=== PATIENT | female | born 2000 | race Caucasian/White ===

== ENCOUNTER 2023-12-22 12:10 | Emergency (ER) | payer MEDICAID, SELFPAY ==
[2023-12-22 12:16] VITALS: BP 130/81; PULSE 100; RESP 18; TEMP 36.6; O2SAT 100; BMI 34.8
[2023-12-22] MEDS: 0.9 % SODIUM CHLORIDE 1,000 ML 999 ML IV (13:07)
[2023-12-22] MEDS: ONDANSETRON PF 4 MG/2 ML VIAL IV (13:07)
[2023-12-22 13:09] LABS: Basophils Percent Auto 0.1 % (0.2-2.0); Eosinophils Percent Auto 0.1 % (0.9-7.0); Hematocrit 39.1 % (36.0-48.0); Hemoglobin 12.6 g/dL (12.0-16.0); Immature Granulocytes Abs Auto 0.04 10^3/uL (0.00-0.03); Immature Granulocytes Pct Auto 0.3 % (0.0-0.5); Lymphocytes Absolute Auto 1.1 10^3/uL (1.2-3.8); Lymphocytes Percent Auto 7.9 % (20.5-60.0); Mean Corpuscular HGB Conc 32.2 g/dL (29.9-35.2); Mean Corpuscular Hemoglobin 26.3 pg (26.7-34.0); Mean Corpuscular Volume 81.5 fL (81.0-99.0); Mean Platelet Volume 9.4 fL (9.5-13.5); Monocytes Absolute Auto 0.7 10^3/uL (0.3-0.8); Monocytes Percent Auto 4.8 % (1.7-12.0); Neutrophils Absolute Auto 12.1 10^3/uL (1.4-6.5); Neutrophils Percent Auto 86.8 % (43.0-75.0); Platelet Count 388 10^3/uL (150-450); Red Cell Distribution Width 13.5 % (11.0-15.0); White Blood Count 13.9 10^3/uL (4.0-11.0)
[2023-12-22 13:10] LABS: Bilirubin Urine SMALL (NEGATIVE); Blood Urine NEGATIVE (NEGATIVE); Clarity Urine CLEAR (CLEAR); Color Urine YELLOW (YELLOW); Glucose Urine UA NEGATIVE (NEGATIVE); Ketones Urine >=80 mg/dL (NEGATIVE); Leukocyte Esterase Urine NEGATIVE (NEGATIVE); Nitrite Urine NEGATIVE (NEGATIVE); Protein Urine 30 mg/dL (NEG/TRACE); Specific Gravity Urine >=1.030 (1.005-1.025)
[2023-12-22 13:14] LABS: Urine Microscopic Indicated YES
[2023-12-22 13:28] LABS: Alanine Aminotransferase 26 U/L (14-59); Albumin Globulin Ratio 0.9; Albumin Level 3.8 g/dL (3.4-5.0); Alkaline Phosphatase 84 U/L (46-116); Anion Gap 15.3; Aspartate Amino Transferase 14 U/L (15-37); BUN Creatinine Ratio 9.2; Carbon Dioxide 24.9 mmol/L (21.0-32.0); Chloride 97 mmol/L (98-107); Estimated GFR (African America >60 (>=60); Estimated GFR (Non-African Ame >60 (>=60); Globulin 4.3 g/dL; Glucose 97 mg/dL (74-106); Magnesium 1.9 mg/dL (1.8-2.4); Potassium 3.2 mmol/L (3.5-5.1); Sodium 134 mmol/L (136-145); Total Protein 8.1 g/dL (6.4-8.2)
[2023-12-22 13:34] LABS: HCG Qualitative POSITIVE (NEGATIVE)
[2023-12-22 13:38] LABS: Amphetamine Screen Urine NEGATIVE (NEGATIVE); Barbiturates Screen Urine NEGATIVE (NEGATIVE); Benzodiazepines Screen Urine NEGATIVE (NEGATIVE); Buprenorphine Screen Urine NEGATIVE (NEGATIVE); Cannabinoid Screen Urine POSITIVE (NEGATIVE); Cocaine Screen Urine NEGATIVE (NEGATIVE); Methadone Screen Urine NEGATIVE (NEGATIVE); Methamphetamines Screen Urine NEGATIVE (NEGATIVE); Opiate Screen Urine NEGATIVE (NEGATIVE); Oxycodone Screen Urine NEGATIVE (NEGATIVE); Phencyclidine Screen Urine NEGATIVE (NEGATIVE); Tricyclic Antidepressant Urine NEGATIVE (NEGATIVE)
[2023-12-22 14:03] LABS: RBC Urine NONE SEEN #/HPF (0-2); WBC Urine 0-2 #/HPF (NONE SEEN)
[2023-12-22 14:04] LABS: Bacteria Urine MODERATE #/HPF (NONE SEEN); Cast Seen? NONE SEEN #/LPF (NONE SEEN); Crystals Seen? None Seen #/HPF (None Seen); Mucus Urine MODERATE (NONE SEEN); Squamous Epithelial Cell Urine MANY #/LPF (NONE/RARE); Urine Culture Indicated YES
--- NOTE | 2023-12-22 15:08 | ED_ITS ---
HPI - General Adult General Chief complaint: Nausea/Vomiting/Diarrhea Stated complaint: NAUSEA/VOMITING Time Seen by Provider: 12/22/23 12:20 Source: patient Mode of arrival: walk-in Limitations: no limitations History of Present Illness HPI narrative: Patient with nausea, vomiting and diffuse abdominal pain for the last few days presents for evaluation. No fever or chills. No urinary symptoms or flank pain. Does have some suprapubic pain. Loose BMs last 3 days. Uncertain about because she has irregular periods. Related Data Previous Rx's Medication Instructions Recorded ondansetron 4 mg disintegrating 4 mg PO Q6H PRN nausea and 12/22/23 tablet vomiting #20 tabs promethazine 25 mg tablet 25 mg PO Q6H PRN nausea and 12/22/23 vomiting #30 tabs Allergies Allergy/AdvReac Type Severity Reaction Status Date / Time codeine Allergy Unknown Verified 12/22/23 12:16 Exam Narrative Exam Narrative: Nurses notes and vital signs reviewed and patient is not hypoxic. Afebrile General: Well-appearing and in no apparent distress. Skin: Warm, dry, no pallor noted. No rash. Head: Normocephalic, atraumatic. Neck: Supple, non-tender. Eye: Pupils are equal, round and EOMI. No scleral icterus. Cardiovascular: Borderline tachycardia. Respiratory: No accessory muscle use or respiratory distress. Lungs are clear to auscultation, no wheezing, rales or rhonchi Back: No CVA tenderness Musculoskeletal: normal ROM, no calf or popliteal tenderness, no lower extremity edema/swelling GI: Abdomen is soft, non-distended. Normal bowel sounds. No masses appreciated. Suprapubic and upper abdominal tenderness to palpation. No rebound, guarding, or rigidity noted. Neurological: A&O x4. No cranial nerve dysfunction observed. No truncal ataxia. Moves all extremities. Sensation intact. Psychiatric: Cooperative and interactive. Normal mood and affect. Constitutional Vital Signs, click to edit/add: Last Vital Signs Temp 97.9 F 12/22/23 12:16 Pulse 100 H 12/22/23 12:16 Resp 18 12/22/23 12:16 BP 130/81 12/22/23 12:16 Pulse Ox 100 12/22/23 12:16 O2 Del Method Room Air 12/22/23 12:16 Course Vital Signs Vital signs: Vital Signs Temperature 97.9 F 12/22/23 12:16 Pulse Rate 100 H 12/22/23 12:16 Respiratory Rate 18 12/22/23 12:16 Blood Pressure 130/81 12/22/23 12:16 Pulse Oximetry 100 12/22/23 12:16 Oxygen Delivery Method Room Air 12/22/23 12:16 Temperature 97.9 F 12/22/23 12:16 Pulse Rate 100 H 12/22/23 12:16 Respiratory Rate 18 12/22/23 12:16 Blood Pressure 130/81 12/22/23 12:16 Pulse Oximetry 100 12/22/23 12:16 Oxygen Delivery Method Room Air 12/22/23 12:16 Medical Decision Making MDM Narrative Medical decision making narrative: Peripheral IV established blood drawn and sent for testing. Patient was ordered to receive normal saline IV fluid and IV Zofran. Abdominal x-rays were initially ordered but the patient's qualitative hCG test was positive. Abdominal x-rays canceled and quantitative hCG obtained. Quant was [phone]. US pelvis obtained - fetus by measurement is 6wk 1day. Since patient uncertain of LMP we will use this to give YUSEF 08/12/24 Urine tox screen positive for cannabinoid products. Patient discharged home with prescription for Zofran - she got notice that it was expensive so I also prescribed phenergan. She will see Dr Cordero for follow up. Lab Data Lab results reviewed: Yes I reviewed the patient's lab results Labs: Lab Results 12/22/23 12/22/23 Range/Units 12:24 12:57 WBC 13.9 H (4.0-11.0) 10^3/uL RBC 4.80 (4.20-5.40) 10^6/uL Hgb 12.6 (12.0-16.0) g/dL Hct 39.1 (36.0-48.0) % MCV 81.5 (81.0-99.0) fL MCH 26.3 L (26.7-34.0) pg MCHC 32.2 (29.9-35.2) g/dL RDW 13.5 (11.0-15.0) % Plt Count 388 (150-450) 10^3/uL MPV 9.4 L (9.5-13.5) fL Neut % (Auto) 86.8 H (43.0-75.0) % Lymph % (Auto) 7.9 L (20.5-60.0) % Dick[place] % (Auto) 4.8 (1.7-12.0) % Eos % (Auto) 0.1 L (0.9-7.0) % Baso % (Auto) 0.1 L (0.2-2.0) % Neut # (Auto) 12.1 H (1.4-6.5) 10^3/uL Lymph # (Auto) 1.1 L (1.2-3.8) 10^3/uL Dick[place] # (Auto) 0.7 (0.3-0.8) 10^3/uL Eos # (Auto) 0.0 (0.0-0.7) 10^3/uL Baso # (Auto) 0.0 (0.0-0.1) 10^3/uL Abs Immat Gran (auto) 0.04 H (0.00-0.03) 10^3/uL Imm/Tot Granulo (auto) 0.3 (0.0-0.5) % Sodium 134 L (136-145) mmol/L Potassium 3.2 L (3.5-5.1) mmol/L Chloride 97 L (98-107) mmol/L Carbon Dioxide 24.9 (21.0-32.0) mmol/L Anion Gap 15.3 BUN 6.0 L (7.0-18.0) mg/dL Creatinine 0.65 (0.55-1.02) mg/dL Est GFR ( Amer) >60 (>=60) Est GFR (Non-Af Amer) >60 (>=60) BUN/Creatinine Ratio 9.2 Glucose 97 (74-106) mg/dL Calcium 9.0 (8.5-10.1) mg/dL Magnesium 1.9 (1.8-2.4) mg/dL Total Bilirubin 1.0 (0.2-1.0) mg/dL AST 14 L (15-37) U/L ALT 26 (14-59) U/L Alkaline Phosphatase 84 (46-116) U/L Total Protein 8.1 (6.4-8.2) g/dL Albumin 3.8 (3.4-5.0) g/dL Globulin 4.3 g/dL Albumin/Globulin Ratio 0.9 Lipase 20.0 (16.0-77.0) U/L Serum HCG, Qual Positive A (NEGATIVE) HCG, Quant 77637 mIU/mL Urine Color Yellow (YELLOW) Urine Clarity Clear (CLEAR) Urine pH 6.0 (5.0-9.0) Ur Specific [place] >=1.030 A (1.005-1.025) Urine Protein 30 A (NEG/TRACE) mg/dL Urine Glucose (UA) Negative (NEGATIVE) mg/dL Urine Ketones >=80 A (NEGATIVE) mg/dL Urine Occult Blood Negative (NEGATIVE) Urine Nitrite Negative (NEGATIVE) Urine Bilirubin Small A (NEGATIVE) Urine Urobilinogen 1.0 (0.2-1.0) EU/dL Ur Leukocyte Esterase Negative (NEGATIVE) Urine RBC None seen (0-2) #/HPF Urine WBC 0-2 A (NONE SEEN) #/HPF Ur Squamous Epith Cells Many A (NONE/RARE) #/LPF Urine Crystals None seen (None Seen) #/HPF Urine Bacteria Moderate A (NONE SEEN) #/HPF Urine Casts None seen (NONE SEEN) #/LPF Urine Mucus Moderate A (NONE SEEN) Ur Culture Indicated? Yes Urine Opiates Screen Negative (NEGATIVE) Ur Buprenorphine Scrn Negative (NEGATIVE) Ur Oxycodone Screen Negative (NEGATIVE) Urine Methadone Screen Negative (NEGATIVE) Ur Barbiturates Screen Negative (NEGATIVE) U Tricyclic Antidepress Negative (NEGATIVE) Ur Phencyclidine Scrn Negative (NEGATIVE) Ur Amphetamines Screen Negative (NEGATIVE) U Methamphetamines Scrn Negative (NEGATIVE) U Benzodiazepines Scrn Negative (NEGATIVE) Urine Cocaine Screen Negative (NEGATIVE) U Cannabinoids Screen Positive A (NEGATIVE) Discharge Plan Discharge Stand Alone Forms: Portal Instructions Chief Complaint: Nausea/Vomiting/Diarrhea Clinical Impression: Vomiting, Patient Disposition: Home, Self-Care Time of Disposition Decision: 15:14 Prescriptions / Home Meds: New ondansetron 4 mg tablet,disintegrating 4 mg PO Q6H PRN (Reason: nausea and vomiting) Qty: 20 0RF promethazine 25 mg tablet 25 mg PO Q6H PRN (Reason: nausea and vomiting) Qty: 30 0RF Instructions: (ED), Acute Nausea and Vomiting (ED) Referrals: ADIEL RAMOS [Primary Care Provider] - 1 week
[2023-12-22 15:09] LABS: HCG Quantitative 62423 mIU/mL
--- NOTE | 2023-12-22 15:25 | US_ITS ---
[address] [address] Patient Name: RON DAWSON MRN: [id number] date: 2000 Sex: F Assigned Patient Location: ER Current Patient Location: Accession/Order Number: [id number] Exam Date: 12/22/2023 15:47 Report Date: 12/22/2023 16:45 At the request of: KARLA BOUDREAUX Procedure: US OB transvaginal EXAMINATION: US OB transvaginal HISTORY: positive test, abd pain TECHNIQUE: Grayscale and color Doppler sonographic evaluation of the uterus and adnexa was performed utilizing a transvaginal approach only. COMPARISON: None. FINDINGS: Uterus: Size: Normal Orientation:Retroverted Intrauterine Gestational Sac: Present Yolk Sac: Present Pole: Present. [place]-rump length measures 0.5 cm, 6 weeks 1 day with YUSEF of 08/15/2024. Cardiac Activity: Present Subchorionic hemorrhage: none Cervix: Closed Right adnexa:Right ovary is unremarkable measuring 3 x 2 x 2.1 cm. Left adnexa:Left ovary is unremarkable measuring 2.2 x 1.2 x 1.8 cm. Free fluid:Trace physiologic free fluid in the pelvis. . US/US OB transvaginal IMPRESSION: 1. Single, living, intrauterine with estimated age of 6 weeks 1 day based on crown-rump length. No gross complication. The patient should return for full anatomical screening study at 20 weeks gestation. Electronically authenticated by: NICOLE YADAV Date: 12/22/2023 16:45
== END 2023-12-22 16:29 | disposition home or self-care (01) ==
PROVIDERS: Emergency Provider Emergency Medicine; PCP Nurse Practitioner Family
DX: O26.891 Other specified pregnancy related conditions, first trimester (principal); R11.10 Vomiting, unspecified; R82.5 Elevated urine levels of drugs, medicaments and biological substances; Z3A.01 Less than 8 weeks gestation of pregnancy
CPT/HCPCS: 36415; 76817; 80053; 80307; 81001; 83690; 83735; 84702; 84703; 85025; 87086; 87507; 96361; 96374; 99285

== ENCOUNTER 2024-02-09 12:00 | Outpatient (OUT) | payer MEDICAID, SELFPAY ==
[2024-02-09 12:40] LABS: Basophils Percent Auto 0.4 % (0.2-2.0); Eosinophils Absolute Auto 0.1 10^3/uL (0.0-0.7); Eosinophils Percent Auto 1.5 % (0.9-7.0); Hematocrit 34.3 % (36.0-48.0); Hemoglobin 11.1 g/dL (12.0-16.0); Immature Granulocytes Abs Auto 0.02 10^3/uL (0.00-0.03); Immature Granulocytes Pct Auto 0.2 % (0.0-0.5); Lymphocytes Absolute Auto 1.6 10^3/uL (1.2-3.8); Mean Corpuscular HGB Conc 32.4 g/dL (29.9-35.2); Mean Corpuscular Hemoglobin 26.4 pg (26.7-34.0); Mean Corpuscular Volume 81.7 fL (81.0-99.0); Mean Platelet Volume 9.7 fL (9.5-13.5); Monocytes Absolute Auto 0.6 10^3/uL (0.3-0.8); Monocytes Percent Auto 6.7 % (1.7-12.0); Neutrophils Absolute Auto 6.8 10^3/uL (1.4-6.5); Neutrophils Percent Auto 74.2 % (43.0-75.0); Platelet Count 305 10^3/uL (150-450); Red Cell Distribution Width 13.7 % (11.0-15.0); White Blood Count 9.1 10^3/uL (4.0-11.0)
[2024-02-09 12:54] LABS: Estimated Average Glucose 105 mg/dL; Glycohemoglobin A1C 5.3 % (4.5-6.2)
[2024-02-09 16:19] LABS: BOX Test Sent Out DONE
[2024-02-10 06:10] LABS: Rubella Antibodies, IgG 4.05 index (Immune >0.99)
[2024-02-10 07:09] LABS: HBsAg Screen Negative (Negative); HCV Ab Non Reactive (Non Reactive); HIV Ab/p24 Ag Screen Non Reactive (Non Reactive)
[2024-02-10 12:10] LABS: Rapid Plasma Reagin, Quant Non Reactive titer (NonRea<1:1)
== END 2024-02-09 12:01 | disposition home or self-care (01) ==
LOC: LAB 12:00
PROVIDERS: PCP Nurse Practitioner Family; Visit Provider Obstetrics & Gynecology
DX: Z36.0 Encounter for antenatal screening for chromosomal anomalies (principal); N92.6 Irregular menstruation, unspecified
CPT/HCPCS: 36415; 83036; 85025; 86592; 86762; 86803; 86850; 86900; 86901; 87086; 87340; 87389

== ENCOUNTER 2024-03-12 21:22 | Outpatient (REF) | payer MEDICAID, SELFPAY ==
--- OUTSIDE RECORDS SUMMARY | 2024-03-12 21:27 | XMS_ITS | CCD ---
Author Organization [facility] CliniSyfl Care Team Providers Care Adolescent Coordinator Name Role Phone Sandy Camp Unavailable DO Sandy Camp Attending Provider LANCE Ramos Primary Care Provider [phone] Joe Thomas Unavailable [phone] LANCE Ramos Shasha Ashli Primary Care Provider MD Joe Thomas Attending Provider Richard Shasha Ashli Primary Care Unavailable Joe Thomas Attending UnavailJoe Navas Admitting Unavailabl e Richard, Shasha Ashli Primary Care Unavailable Joe Thomas Attending UnavailJoe Navas Admitting UnavailSandy Flood Attending Unavailable Sandy Camp Admitting Unavailable Richard, Shasha Ashli Primary Care Unavailable Richard, Shasha Ashli Primary Care Unavailable Sandy Camp Attending Unavailable Sandy Camp Admitting Unavailable RICHARD, SHASHA Primary Care Unavailable RICHARD, SHASHA Admitting Unavailable RICHARD, SHASHA Attending Unavailable SHASHA RAMOS Consulting Unavailable RICHARD, SHASHA Primary Care Unavailable CIRILO, DR SANDY [place] Consulting Unavailable SHASHA RAMOS Admitting Unavailable SHASHA RAMOS Attending Unavailable SHASHA RAMOS Consulting Unavailable RAVEN NICOLE Admitting Unavailable RICHARD, SHASHA Primary Care Unavailable RAVEN NICOLE Attending Unavailable RAVEN NICOLE Consulting Unavailable RICHARD, SHASHA Primary Care Unavailable KANIKA Phan, DR ACOSTA Admitting Unavailable CIRILO, DR SANDY [place] Consulting Unavailable KANIKA Phan, DR ACOSTA Attending Unavailable KANIKA Phan, DR ACOSTA Consulting Unavailable BENI FRASER Admitting Unavailable DR TORIN PAREDES Consulting Unavailable RICHARD, SHASHA Primary Care Unavailable BENI FRASER Attending Unavailable DR KARLA KIM Consulting Unavailable BENI FRASER Consulting Unavailable SHASHA RAMOS Primary Care Unavailable BALTAZAR VEGA Admitting Unavailable BALTAZAR VEGA Attending Unavailable BALTAZAR VEGA Consulting Unavailable CINDY DALAL Attending Unavailable Allergies Allergy Classification Reported Allergen(s) Allergy Type Date of Onset Reaction(s) Facility (6 sources) Codeine Drug Allergy Unknown Cream Style Other (1 source) Codeine Drug Allergy 05-04-[address] [facility] Repository (1 source) Codeine Drug Allergy [facility] Repository Medications Current Medications Medication Drug Class(es) Dates Sig (Normalized) Sig (Original) dicyclomine hydrochloride 20 mg oral tablet (5 sources) Anticholinergic Start: 11-28-2022 take 1 tablet by mouth every eight hours Dicyclomine HCl 20 MG 1 tablet Orally Three times a day for 30 day(s) Nov, Active Start: 05-09-2022 take 1 tablet by codi th every six hours Dicyclomine HCl 20 MG 1 tablet Orally Four times a day for 30 day(s) Apr, Active Start: 05-09-2022 take 1 tablet by codi th every twelve hours Dicyclomine HCl 20 MG 1 tablet Orally bid for 30 day(s) Apr, Active Norgestimate-Ethinyl Estradiol (2 sources) Progestin, Estrogen Start: 05-04-2022 take 1 tablet by mouth once daily Norgestimate-Ethinyl Estradiol (Marilee) 0.25-35 mg-mcg tablet Active 1 TAB PO Daily May 03, 2022 11:00pm Start: 05-04-2022 take 1 tablet by codi th once daily Norgestimate-Ethinyl Estradiol (Marilee) 0.25-35 mg-mcg tablet Active 1 TAB PO Daily May 04, 2022 12:00am meloxicam 15 mg oral tablet (2 sources) Nonsteroidal Anti-inflammatory Drug Start: 05-04-2022 Meloxicam Active 15 MG PO As Directed May 03, 2022 11:00pm ondansetron 4 mg disintegrating oral tablet (2 sources) Serotonin-3 Receptor Antagonist Start: 05-04-2022 Ondansetron Active 4 MG PO As Directed May 03, 2022 11:00pm pantoprazole 40 mg delayed release oral tablet (3 sources) Proton Pump Inhibitor Start: 05-09-2022 take 1 tablet by mouth every twelve hours Pantoprazole Sodium 40 MG 1 tablet Orally TWICE A DAY for 30 days Apr, Active Start: 05-09-2022 take 1 tablet by codi th every twenty-four hours Pantoprazole Sodium 40 MG 1 tablet Orally Once a day for 30 day(s) Apr, Active promethazine hydrochloride 25 mg oral tablet (2 sources) Phenothiazine Start: 10-20-2022 take 1 tablet by mouth every six hours Promethazine HCl 25 MG 1 tablet as needed Orally every 6 hrs for 30 day(s) Oct, Active sucralfate 1000 mg oral tablet (6 sources) Aluminum Complex Start: 05-04-2022 take 1 g by mouth three times daily Sucralfate Active 1 GM PO Three times daily May 03, 2022 11:00pm Start: 04-27-2022 take 1 tablet by codi th every eight hours Sucralfate 1 GM 1 tablet on an empty stomach Orally THREE TIMES A DAY for 30 day(s) Apr, Active Problems Active Problems Problem Classification Problem Date Documented Da te Episodic/Chronic Esophageal disorders (1 source) Gastro-esophageal reflux disease without esophagitis; Translations: [GERD WITHOUT ESOPHAGITIS] Onset: 02-11-2022 Chronic Fluid and electrolyte disorders (2 sources) Hypokalemia; Translations: [Dehydration] Onset: 11-10-2022 Episodic Nausea and vomiting (17 sources) Nausea with vomiting, unspecified; Translations: [Nausea and vomiting] Onset: 04-27-2022 Resolved: 04-27-2022 Episodic Other aftercare (1 source) halfway (current) use of hormonal contraceptives; Translations: [COAT AGENT HORMONAL CONTRACEPTIVES] Onset: 11-10-2022 Episodic Other gastrointestinal disorders (1 source) Irritable bowel syndrome with diarrhea; Translations: [IRRITABLE BOWEL SYND W/DIARRHEA] Onset: 02-11-2022 Chronic Other gastrointestinal disorders (8 sources) Diarrhea; Translations: [Diarrhea, unspecified] 05-04-2022 Episodic Other gastrointestinal disorders (5 sources) Diarrhea, unspecified; Translations: [Diarrhea] Onset: 04-27-2022 Resolved: 07-13-2022 Episodic Other and delivery including normal (6 sources) Encounter for care and examination of lactating mother; Translations: [A mother who is producing milk] Episodic Other screening for suspected conditions (not mental disorders or infectious disease) (4 sources) Encounter for screening for malignant neoplasm of cervix; Translations: [ENC SCREENING MALIG NEOPLASM CERV] Onset: 01-30-2023 Episodic Substance-related disorders (1 source) Cannabis use, unspecified, uncomplicated; Translations: [CANNABIS USE UNS UNCOMPLICATED] Onset: 11-10-2022 Episodic Unclassified (1 source) Encounter for preprocedural laboratory examination; Translations: [Encounter for preprocedural laboratory examination] Onset: 05-02-2022 Unclassified (1 source) Cyclical vomiting syndrome unrelated to migraine; Translations: [CYCLICL VOMTNG SYN UNRELTD MIGRAINE] Onset: 11-10-2022 Unclassified (1 source) CONTACT W/AND (SUSP) EXPOS COVID-19; Translations: [CONTACT W/AND (SUSP) EXPOS COVID-19] Onset: 08-04-2022 Past or Other Problems Problem Classification Problem Date Documented Da te Episodic/Chronic Abdominal pain (20 sources) Left upper quadrant pain; Translations: [Left upper quadrant pain] Onset: 02-09-2022 Resolved: 04-27-2022 Episodic Other nutritional; endocrine; and metabolic disorders (1 source) Abnormal weight loss Onset: 04-27-2022 Resolved: 04-27-2022 Episodic Viral infection (1 source) Viral infection, unspecified; Translations: [VIRAL INFECTION UNSPECIFIED] Onset: 08-04-2022 Episodic Results Test Name Value Interpretation Reference Range Facility CHLAMYDIA/GONOCOCCUS LORETO (SW AB/URINE/PAPon 02-02-2023 Chlamydia trachomatis, LORETO Negative Normal Negative [facility] Comment on above: Performed By: #### C BC #### [facility] [address] [place], [place] [address] Dr. Renata Finch Neisseria gonorrhoeae, LORETO Negative Normal Negative [facility] Comment on above: Performed By: #### C BC #### [facility] [address], [place] [address] Dr. Renata Finch VAGINITIS/VAGINOSIS DNA PROB Kar 02-01-2023 Chelle species Negative Normal Negative [facility] Comment on above: Performed By: #### C BC #### [facility] [address], [place] [address] Dr. Renata Finch Gardnerella vaginalis Negative Normal Negative [facility] Comment on above: Performed By: #### C BC #### [facility] [address], [place] [address] Dr. Renata Finch Trichomonas vaginalis Negative Normal Negative [facility] Comment on above: Performed By: #### C BC #### [facility] [address], [place] [address] Dr. Renata Finch FL esophagus ugi sm bowelon 12-05-2022 [place] esophagus ugi sm bowel [facility] [place] [address] Fluoroscopy Report Signed Patient: Marlin Hewitt MR#: [id number] : 2000 Acct:[id number] Age/Sex: 22 / F ADM Date: 12/05/22 Loc: XD Room: Type: [facility] Attending Dr: Joe Thomas MD Copies to: Joe Thomas MD Ordering Provider: Joe Thomas MD Date of Service: 12/05/22 FL/FL esophagus ugi sm bowel: Diarrhea;Nausea vomiting CLINICAL DATA: Nausea, vomiting and diarrhea for the past couple years becoming increasingly worse. Prolonged small bowel transit study last month. COMPARISON: None AIR-CONTRAST ESOPHAGRAM, UPPER GI AND SMALL BOWEL SERIES [employer] supine and upright views of the abdomen and pelvis show air and stool within the colon. There is no dilated small bowel. No free air or air-fluid levels are present. Under fluoroscopic observation, an air contrast esophagram and upper GI series was performed with unobstructed flow of barium through to small bowel. The swallowing mechanism is intact. The esophagus is normal in position and caliber. There are no masses or mucosal lesions. No hiatal hernia or dysmotility is seen. There is some contrast within the lower thoracic esophagus on the final overhead images suggesting at least mild gastroesophageal reflux. The stomach is normal in position and contour. The rugal fold pattern is normal. No masses or mucosal lesions are identified. The duodenal bulb and C-loop are within normal limits. Contrast is seen within the colon at 30 minutes. There is no small bowel dilatation. The fold patterns within the jejunum and ileum are normal. There are no masses, mucosal lesions or bowel displacement. The terminal ileum, as visualized, is unremarkable. Cumulative Air Kerma: 42.38 mGy FL/FL esophagus ugi sm bowel IMPRESSION: MILD GASTROESOPHAGEAL REFLUX. OTHERWISE WITHIN NORMAL LIMITS. Impression dictated by: Madison Sweet M.D.12/05/2022 1:15 PM Dictation Location: [facility]10 Transcribed By: [facility] 12/05/22 1315 Dictated By: Madison Sweet MD 12/05/22 1303 Signed By: 12/05/22 1315 [facility] CBC AUTO DIFFon 11-08-2022 BASO # 0.0 103/ul Normal 0.0-0.1 [facility] Comment on above: Performed By: #### U MICRO, ERUR #### [facility] [address] [place] [address] Dr. Renata Finch Basophils/100 WBC (Bld) 0.4 % Normal 0.2-2.0 [facility] Comment on above: Performed By: #### U MICRO, ERUR #### [facility] [address] [place] [address] Dr. Renata Finch EO # 0.0 103/ul Normal 0.0-0.7 [facility] Comment on above: Performed By: #### U MICRO, ERUR #### [facility] [address] [place] [address] [address] Renata Finch Eosinophils/100 WBC (Bld) 0.1 % Critically low 0.9-7.0 [facility] Comment on above: Performed By: #### U MICRO, ERUR #### [facility] [address] [address] [address] Renata Finch Erythrocyte distribution width (RBC) [Ratio] 13.6 % Normal 11.0-15.0 [facility] Comment on above: Performed By: #### U MICRO, ERUR #### [facility] [address] [place] [address] Dr. Renata Finch Hematocrit (Bld) [Volume fraction] 41.5 % Normal 36.0-48.0 [facility] Comment on above: Performed By: #### U MICRO, ERUR #### [facility] [address] [place] [address] Dr. Reanta Finch Hemoglobin (Bld) [Mass/Vol] 13.6 g/dL Normal 12.0-16.0 [facility] Comment on above: Performed By: #### U MICRO, ERUR #### [facility] [address] [place] [address] Dr. Renata Finch IG # 0.03 10e3/ul Normal 0.00-0.03 [facility] Comment on above: Performed By: #### U MICRO, ERUR #### [facility] [address] [place] [address] Dr. Renata Finch IG % 0.3 % Normal 0.0-0.5 [facility] Comment on above: Performed By: #### U MICRO, ERUR #### [facility] [address] [place] [address] Dr. Reanta Finch LYMPH # 1.7 103/ul Normal 1.2-3.8 [facility] Comment on above: Performed By: #### U MICRO, ERUR #### [facility] [address] [place] [address] Dr. Renata Finch Lymphocytes/100 WBC (Bld) 19.5 % Critically low 20.5-60.0 [facility] Comment on above: Performed By: #### U MICRO, ERUR #### [facility] [address] [place] [address] Dr. Renata Finch MANUAL DIFF REQ NO Normal [facility] Comment on above: Performed By: #### U MICRO, ERUR #### [facility] [address] [place] [address] Dr. Renata Finch MCH (RBC) [Entitic mass] 27.0 pg Normal 26.7-34.0 [facility] Comment on above: Performed By: #### U MICRO, ERUR #### [facility] [address] [place] [address] Dr. Renata Finch MCHC (RBC) [Mass/Vol] 32.8 g/dL Normal 29.9-35.2 [facility] Comment on above: Performed By: #### U MICRO, ERUR #### [facility] [address] [place] [address] Dr. Renata Finch MCV (RBC) [Entitic vol] 82.5 fL Normal 81.0-99.0 [facility] Comment on above: Performed By: #### U MICRO, ERUR #### [facility] [address] [place] [address] Dr. Renata Finch MONO # 0.5 103/ul Normal 0.3-0.8 [facility] Comment on above: Performed By: #### U MICRO, ERUR #### [facility] [address] [place] [address] Dr. Renata Finch Monocytes/100 WBC (Bld) 6.1 % Normal 1.7-12.0 [facility] Comment on above: Performed By: #### U MICRO, ERUR #### [facility] [address] [place] [address] Dr. Renata Finch NEUT # 6.6 103/ul Critically high 1.4-6.5 [facility] Comment on above: Performed By: #### U MICRO, ERUR #### [facility] [address] [place] [address] Dr. Renata Finch Neutrophils/100 WBC (Bld) 73.6 % Normal 43.0-75.0 [facility] Comment on above: Performed By: #### U MICRO, ERUR #### [facility] [address] [place] [address] [address] Renata Finch Platelet mean volume (Bld) [Entitic vol] 9.5 fL Normal 9.5-13.5 [facility] Comment on above: Performed By: #### U MICRO, ERUR #### [facility] [address] [place] [address] [address] Renata Finch PLT 417 103/ul Normal 150-450 [facility] Comment on above: Performed By: #### U MICRO, ERUR #### [facility] [address] [place] [address] [address] Renata Finch RBC 5.03 106/ul Normal 4.20-5.40 [facility] Comment on above: Performed By: #### U MICRO, ERUR #### [facility] [address] [place] [address] [address] Renata Finch WBC 8.9 103/ul Normal 4.0-11.0 [facility] Comment on above: Performed By: #### U MICRO, ERUR #### [facility] [address] [place] [address] [address] Renata Finch DRUG SCREEN RAPID (URINE)on 11-08-2022 AMP Negative Normal NEGATIVE [facility] Comment on above: Performed By: #### E RUR, UMICRO, DRUGRPD, PREGU #### [facility] [address] [place] [address] Dr. Renata Finch BAR Negative Normal NEGATIVE [facility] Comment on above: Performed By: #### E RUR, UMICRO, DRUGRPD, PREGU #### [facility] [address] [place] [address] Dr. Renata Finch BUP Negative Normal NEGATIVE [facility] Comment on above: Performed By: #### E RUR, UMICRO, DRUGRPD, PREGU #### [facility] [address] [place] [address] Dr. Renata Finch BZO Negative Normal NEGATIVE [facility] Comment on above: Performed By: #### E RUR, UMICRO, DRUGRPD, PREGU #### [facility] [address] [place] [address] Dr. Renata Finch DOM Negative Normal NEGATIVE [facility] Comment on above: Performed By: #### E RUR, UMICRO, DRUGRPD, PREGU #### [facility] [address] [place] [address] Dr. Renata Finch CUT-OFFS SEE BELOW Normal [facility] Comment on above: Result Comment: AMP (Amphetamine): 500ng/mL, BAR (Barbituates): 200 ng/mL, BZO (Benzodiazepines): 150 ng/mL, BUP (Buprenorphine): 10 ng/mL, DOM (Cocaine): 150 ng/mL, mAMP (Methamphetamine): 500 ng/mL, MTD (Methadone): 200 ng/mL, OPI (Opiates): 100 ng/mL, OXY (Oxycodone): 100 ng/mL, PCP (Phencyclidine): 25 ng/mL, PPX (Propoxyphene): 300 ng/mL, THC (Cannabinoids): 50 ng/mL, TCA (Trycyclic Antidepressants): 300 ng/mL Performed By: #### E RUR, UMICRO, DRUGRPD, PREGU #### [facility] [address] [place] [address] Dr. Renata Finch DRUG CUT HEADER DRUG CLASS TEST SYST EM CUT-OFF CONCENTRATIONS ARE FOLLOWS: Normal [facility] Comment on above: Performed By: #### E RUR, UMICRO, DRUGRPD, PREGU #### [facility] [address] [place] [address] Dr. Renata Finch mAMP Negative Normal NEGATIVE [facility] Comment on above: Performed By: #### E RUR, UMICRO, DRUGRPD, PREGU #### [facility] [address] [place] [address] Dr. Renata Finch MTD Negative Normal NEGATIVE [facility] Comment on above: Performed By: #### E RUR, UMICRO, DRUGRPD, PREGU #### [facility] [address] [address] [address] Renata Finch OPI Negative Normal NEGATIVE [facility] Comment on above: Performed By: #### E RUR, UMICRO, DRUGRPD, PREGU #### [facility] [address] [place] [address] Dr. Renata Finch OXY Negative Normal NEGATIVE [facility] Comment on above: Performed By: #### E RUR, UMICRO, DRUGRPD, PREGU #### [facility] [address] [place] [address] Dr. Renata Finch PCP Negative Normal NEGATIVE [facility] Comment on above: Performed By: #### E RUR, UMICRO, DRUGRPD, PREGU #### [facility] [address] [address] [address] Renata Finch PPX Negative Normal NEGATIVE [facility] Comment on above: Performed By: #### E RUR, UMICRO, DRUGRPD, PREGU #### [facility] [address] [place] [address] [address] Renata Finch TCA Negative Normal NEGATIVE [facility] Comment on above: Performed By: #### E RUR, UMICRO, DRUGRPD, PREGU #### [facility] [address] [address] [address] Renata Finch THC Positive Abnormal NEGATIVE [facility] Comment on above: Performed By: #### E RUR, UMICRO, DRUGRPD, PREGU #### [facility] [address] [place] [address] Dr. Renata Finch ER URINE PROFILEon 3 Bilirubin Ql (U) MODERATE Abnormal NEGATIVE [facility] Comment on above: Performed By: #### E RUR, UMICRO, DRUGRPD, PREGU #### [facility] [address] [place] [address] Dr. Renata Finch Clarity (U) CLEAR Normal CLEAR [facility] Comment on above: Performed By: #### E RUR, UMICRO, DRUGRPD, PREGU #### [facility] [address] [place] [address] Dr. Renata Finch Color (U) YELLOW Normal YELLOW [facility] Comment on above: Performed By: #### E RUR, UMICRO, DRUGRPD, PREGU #### [facility] [address] [place] [address] Dr. Renata Finch ERUAHNeal A micrscopic examination will be performed if indicated. Normal [facility] Comment on above: Performed By: #### E RUR, UMICRO, DRUGRPD, PREGU #### [facility] [address] [place] [address] Dr. Renata Finch Glucose Ql (U) Negative Normal NEGATIVE [facility] Comment on above: Performed By: #### E RUR, UMICRO, DRUGRPD, PREGU #### [facility] [address] [place] [address] Dr. Renata Finch Hemoglobin Ql (U) TRACE-INTACT Abnormal NEGATIVE [facility] Comment on above: Performed By: #### E RUR, UMICRO, DRUGRPD, PREGU #### [facility] [address] [place] [address] Dr. Renata Finch Ketones Ql (U) >=80 Abnormal NEGATIVE [facility] Comment on above: Performed By: #### E RUR, UMICRO, DRUGRPD, PREGU #### [facility] [address] [place] [address] Dr. Renata Finch LEUKOCYTES Negative Normal NEGATIVE [facility] Comment on above: Performed By: #### E RUR, UMICRO, DRUGRPD, PREGU #### [facility] [address] [place] [address] Dr. Renata Finch Nitrite Ql (U) Negative Normal NEGATIVE [facility] Comment on above: Performed By: #### E RUR, UMICRO, DRUGRPD, PREGU #### [facility] [address] [place] [address] Dr. Renata Finch pH (U) 6.5 [pH] Normal 5-9 [facility] Comment on above: Performed By: #### E RUR, UMICRO, DRUGRPD, PREGU #### [facility] [address] [place] [address] Dr. Renata Finch SPEC GRAVITY 1.025 Normal 1.005-<=1.025 [facility] Comment on above: Performed By: #### E RUR, UMICRO, DRUGRPD, PREGU #### [facility] [address] [place] [address] Dr. Renata Finch UA PROTEIN TRACE Normal NEGATIVE/ TRACE [facility] Comment on above: Performed By: #### E RUR, UMICRO, DRUGRPD, PREGU #### [facility] [address] [place] [address] Dr. Renata Finch UR MICRO IND INDICATED Normal [facility] Comment on above: Performed By: #### E RUMIKAEL Tidwell, DRUGRPD, PREGU #### [facility] [address] [place] [address] Dr. Renata Finch Urobilinogen Qn (U) 1.0 {Gabrielle'U}/dL Normal 0.2 - 1. 0 [facility] Comment on above: Performed By: #### E MIKAEL MCDANIEL, DRUGRPD, PREGU #### [facility] [address] [place] [address] Dr. Renata Finch URon 11-08-2022 , QUAL Negative Normal NEGATIVE [facility] Comment on above: Performed By: #### E MIKAEL MCDANIEL, DRUGRPD, PREGU #### [facility] [address] [place] [address] Dr. Renata Finch PROF CHEM 8 (BAS METB)on Anion gap [Moles/Vol] 16.5 mmol/L Normal [facility] Comment on above: Performed By: #### B MP #### [facility] [address] [place] [address] Dr. Renata Finch Calcium [Mass/Vol] 9.7 mg/dL Normal 8.5-10.1 [facility] Comment on above: Performed By: #### B MP #### [facility] [address] [place] [address] Dr. Renata Finch Chloride [Moles/Vol] 97 mmol/L Critically low 98-107 [facility] Comment on above: Performed By: #### B MP #### [facility] [address] [place] [address] Dr. Renata Finch CO2 [Moles/Vol] 26.3 mmol/L Normal 21.0-32.0 [facility] Comment on above: Performed By: #### B MP #### [facility] [address] [place] [address] Dr. Renata Finch Creatinine [Mass/Vol] 0.71 mg/dL Normal 0.55-1.02 [facility] Comment on above: Performed By: #### B MP #### [facility] [address] [address] [address] Renata Finch EGFR-AF BANGLADESHI >60 Normal >=60 [facility] Comment on above: Performed By: #### B MP #### [facility] [address] [address] [address] Renata Finch EGFR-NON AF BANGLADESHI >60 Normal >=60 [facility] Comment on above: Performed By: #### B MP #### [facility] [address] [address] [address] Renata Finch Glucose [Mass/Vol] 86 mg/dL Normal 74-106 [facility] Comment on above: Performed By: #### B MP #### [facility] [address] [address] [address] Renata Finch Potassium [Moles/Vol] 2.8 mmol/L Critically low 3.5-5.1 [facility] Comment on above: Performed By: #### B MP #### [facility] [address] [address] [address] Renata Finch Sodium [Moles/Vol] 137 mmol/L Normal 136-145 [facility] Comment on above: Performed By: #### B MP #### [facility] [address] [address] [address] Renata Finch Urea nitrogen [Mass/Vol] 7.0 mg/dL Normal 7.0-18.0 [facility] Comment on above: Performed By: #### B MP #### [facility] [address] [address] [address] Renata Finch Urea nitrogen/Creatinine [Mass ratio] 9.9 mg/mg Normal [facility] Comment on above: Performed By: #### B MP #### [facility] [address] [address] [address] Renata Finch URINE MICROSCOPIC ONLYon BACTERIA TRACE Abnormal NONE SEEN [facility] Comment on above: Performed By: #### E RUR, UMICRO, DRUGRPD, PREGU #### [facility] [address] [address] [address] Renata Finch Bacteria identified Cx Nom (U) NOT INDICATED Normal [facility] Comment on above: Performed By: #### E RUR, UMICRO, DRUGRPD, PREGU #### [facility] [address] [address] [address] Renata Finch CAST NONE SEEN Normal NONE SEEN [facility] Comment on above: Performed By: #### E RUR, UMICRO, DRUGRPD, PREGU #### [facility] [address] [address] [address] Renata Finch Crystals LM Nom (Urine sed) NONE SEEN Normal NONE SEEN [facility] Comment on above: Performed By: #### E RUR, UMICRO, DRUGRPD, PREGU #### [facility] [address] [place] [address] Dr. Renata Finch Epithelial cells LM Ql (Urine sed) FEW Abnormal NONE SEEN /RARE [facility] Comment on above: Performed By: #### E RUR, UMICRO, DRUGRPD, PREGU #### [facility] [address] [address] [address] Renata Finch MUCOUS TRACE Abnormal NONE SEEN [facility] Comment on above: Performed By: #### E RUR, UMICRO, DRUGRPD, PREGU #### [facility] [address] [address] [address] Renata Finch RBC 0-2 Normal 0-2 [facility] Comment on above: Performed By: #### E RUR, UMICRO, DRUGRPD, PREGU #### [facility] [address] [address] [address] Renata Finch WBC 0-2 Abnormal NONE SEEN [facility] Comment on above: Performed By: #### E RUR, UMICRO, DRUGRPD, PREGU #### [facility] [address] [address] [address] Renata Finch AMYLASEon 08-02-2022 Amylase [Catalytic activity/Vol] 45 U/L Normal 25-115 [facility] Comment on above: Performed By: #### U MICRO, ERUR #### [facility] [address] [address] [address] Renata Finch CBC AUTO DIFFon 08-02-2022 BASO # 0.0 103/ul Normal 0.0-0.1 [facility] Comment on above: Performed By: #### C BC #### [facility] [address] [address] [address] Renata Finch Basophils/100 WBC (Bld) 0.4 % Normal 0.2-2.0 [facility] Comment on above: Performed By: #### C BC #### [facility] [address] [place] [address] Dr. Renata Finch EO # 0.0 103/ul Normal 0.0-0.7 [facility] Comment on above: Performed By: #### C BC #### [facility] [address] [place] [address] Dr. Renata Finch Eosinophils/100 WBC (Bld) 0.3 % Critically low 0.9-7.0 [facility] Comment on above: Performed By: #### C BC #### [facility] [address] [place] [address] Dr. Renata Finch Erythrocyte distribution width (RBC) [Ratio] 13.9 % Normal 11.0-15.0 [facility] Comment on above: Performed By: #### C BC #### [facility] [address] [place] [address] Dr. Renata Finch Hematocrit (Bld) [Volume fraction] 43.5 % Normal 36.0-48.0 [facility] Comment on above: Performed By: #### C BC #### [facility] [address] [place] [address] Dr. Renata Finch Hemoglobin (Bld) [Mass/Vol] 13.9 g/dL Normal 12.0-16.0 [facility] Comment on above: Performed By: #### C BC #### [facility] [address] [place] [address] Dr. Renata Finch IG # 0.01 10e3/ul Normal 0.00-0.03 [facility] Comment on above: Performed By: #### C BC #### [facility] [address] [place] [address] Dr. Renata Finch IG % 0.1 % Normal 0.0-0.5 [facility] Comment on above: Performed By: #### C BC #### [facility] [address] [place] [address] Dr. Renata Finch LYMPH # 1.2 103/ul Normal 1.2-3.8 [facility] Comment on above: Performed By: #### C BC #### [facility] [address] [place] [address] Dr. Renata Finch Lymphocytes/100 WBC (Bld) 15.9 % Critically low 20.5-60.0 [facility] Comment on above: Performed By: #### C BC #### [facility] [address] [place] [address] Dr. Renata Finch MANUAL DIFF REQ NO Normal [facility] Comment on above: Performed By: #### C BC #### [facility] [address] [place] [address] Dr. Renata Finch MCH (RBC) [Entitic mass] 26.5 pg Critically low 26.7-34.0 [facility] Comment on above: Performed By: #### C BC #### [facility] [address] [place] [address] Dr. Renata Finch MCHC (RBC) [Mass/Vol] 32.0 g/dL Normal 29.9-35.2 [facility] Comment on above: Performed By: #### C BC #### [facility] [address] [place] [address] Dr. Renata Finch MCV (RBC) [Entitic vol] 83.0 fL Normal 81.0-99.0 [facility] Comment on above: Performed By: #### C BC #### [facility] [address] [place] [address] Dr. Renata Finch MONO # 0.5 103/ul Normal 0.3-0.8 [facility] Comment on above: Performed By: #### C BC #### [facility] [address] [place] [address] Dr. Renata Finch Monocytes/100 WBC (Bld) 6.1 % Normal 1.7-12.0 [facility] Comment on above: Performed By: #### C BC #### [facility] [address] [place] [address] Dr. Renata Finch NEUT # 5.8 103/ul Normal 1.4-6.5 [facility] Comment on above: Performed By: #### C BC #### [facility] [address] [place] [address] Dr. Renata Finch Neutrophils/100 WBC (Bld) 77.2 % Critically high 43.0-75.0 [facility] Comment on above: Performed By: #### C BC #### [facility] [address] [place] [address] Dr. Renata Finch Platelet mean volume (Bld) [Entitic vol] 9.9 fL Normal 9.5-13.5 [facility] Comment on above: Performed By: #### C BC #### [facility] [address] [place] [address] Dr. Renata Finch PLT 416 103/ul Normal 150-450 [facility] Comment on above: Performed By: #### C BC #### [facility] [address] [place] [address] Dr. Renata Finch RBC 5.24 106/ul Normal 4.20-5.40 [facility] Comment on above: Performed By: #### C BC #### [facility] [address] [place] [address] Dr. Renata Finch WBC 7.6 103/ul Normal 4.0-11.0 [facility] Comment on above: Performed By: #### C BC #### [facility] [address] [place] [address] Dr. Renata Fin[facility] SARS-CoV-2 (COVID-19) RNA LORETO+probe Ql (Unsp spec) Not detected Normal NOT DETECTED [facility] Comment on above: Result Comment: When diagnostic testing is negative, the possibility of a false negative should be considered in the context of a patient's recent exposures and the presence of clinical signs and symptoms consistent with SARS-CoV-2. This test is not yet approved or cleared by the [place] FDA. When there are no FDA-approved or cleared tests available, and other criteria are met, FDA can make tests available under an emergency access mechanism called an Emergency Use Authorization (EUA). The EUA for this test is supported by the [place] of Health and Human Service's declaration that circumstances exist to justify the emergency use of in vitro diagnostics for the detection and/or diagnosis of the virus that causes COVID-19. This EUA will remain in effect for the duration of the COVID-19 declaration justifying emergency of IVDs, unless it is terminated or revoked by the FDA (after which the test may no longer be used). Performed By: #### C VDTB #### [facility] [address] [place] [address] Dr. Renata Finch ER URINE PROFILEon 2 Bilirubin Ql (U) SMALL Abnormal NEGATIVE [facility] Comment on above: Performed By: #### C BC #### [facility] [address] [place] [address] Dr. Renata Finch Clarity (U) CLEAR Normal CLEAR [facility] Comment on above: Performed By: #### C BC #### [facility] [address] [place] [address] Dr. Renata Finch Color (U) BROWN Abnormal YELLOW [facility] Comment on above: Performed By: #### C BC #### [facility] [address] [place] [address] Dr. Renata Finch ERUD A micrscopic examination will be performed if indicated. Normal [facility] Comment on above: Performed By: #### C BC #### [facility] [address] [place] [address] Dr. Renata Finch Glucose Ql (U) Negative Normal NEGATIVE [facility] Comment on above: Performed By: #### C BC #### [facility] [address] [place] [address] Dr. Renata Finch Hemoglobin Ql (U) LARGE Abnormal NEGATIVE [facility] Comment on above: Performed By: #### C BC #### [facility] [address] [place] [address] Dr. Renata Finch Ketones Ql (U) >=80 Abnormal NEGATIVE [facility] Comment on above: Performed By: #### C BC #### [facility] [address] [place] [address] Dr. Renata Finch LEUKOCYTES Negative Normal NEGATIVE [facility] Comment on above: Performed By: #### C BC #### [facility] [address] [place] [address] Dr. Renata Finch Nitrite Ql (U) Negative Normal NEGATIVE [facility] Comment on above: Performed By: #### C BC #### [facility] [address] [place] [address] Dr. Renata Finch pH (U) 7.0 [pH] Normal 5-9 [facility] Comment on above: Performed By: #### C BC #### [facility] [address] [place] [address] Dr. Renata Finch Protein (U) [Mass/Vol] 30 mg/dL Abnormal NEGATIVE/ TRACE [facility] Comment on above: Performed By: #### C BC #### [facility] [address] [place] [address] Dr. Renata Finch SPEC GRAVITY 1.025 Normal 1.005-<=1.025 [facility] Comment on above: Performed By: #### C BC #### [facility] [address] [place] [address] Dr. Renata Finch UR MICRO IND INDICATED Normal [facility] Comment on above: Performed By: #### C BC #### [facility] [address] [place] [address] Dr. Renata Finch Urobilinogen Qn (U) 1.0 {Gabrielle'U}/dL Normal 0.2 - 1. 0 [facility] Comment on above: Performed By: #### C BC #### [facility] [address] [place] [address] Dr. Renata Finch LACTATE/LACTIC ACIDon 2021 Lactate [Moles/Vol] 1.2 mmol/L Normal 0.4-1.9 [facility] Comment on above: Performed By: #### U MICRO, ERUR #### [facility] [address] [address] [address] Renata Finch LIPASEon 08-02-2022 Lipase [Catalytic activity/Vol] 66.0 U/L Critically low 73.0-393.0 [facility] Comment on above: Performed By: #### U MICRO, ERUR #### [facility] [address] [address] [address] Renata Finch URon 08-02-2022 , QUAL Negative Normal NEGATIVE [facility] Comment on above: Performed By: #### C BC #### [facility] [address] [place] [address] Dr. Renata Finch PROF 14(COMP METB)on 022 Albumin [Mass/Vol] 4.1 g/dL Normal 3.4-5.0 [facility] Comment on above: Performed By: #### U MICRO, ERUR #### [facility] [address] [address] [address] Renata Finch Albumin/Globulin [Mass ratio] 1.0 {ratio} Normal [facility] Comment on above: Performed By: #### U MICRO, ERUR #### [facility] [address] [address] [address] Renata Finch ALP [Catalytic activity/Vol] 53 U/L Normal 46-116 [facility] Comment on above: Performed By: #### U MICRO, ERUR #### [facility] [address] [address] [address] Renata Finch ALT [Catalytic activity/Vol] 42 U/L Normal 14-59 [facility] Comment on above: Performed By: #### U MICRO, ERUR #### [facility] [address] [place] [address] Dr. Renata Finch Anion gap [Moles/Vol] 11.8 mmol/L Normal [facility] Comment on above: Performed By: #### U MICRO, ERUR #### [facility] [address] [address] [address] Renata Finch AST [Catalytic activity/Vol] 22 U/L Normal 15-37 [facility] Comment on above: Performed By: #### U MICRO, ERUR #### [facility] [address] [address] [address] Renata Finch Bilirubin [Mass/Vol] 1.0 mg/dL Normal 0.2-1.0 [facility] Comment on above: Performed By: #### U MICRO, ERUR #### [facility] [address] [address] [address] Renata Finch Calcium [Mass/Vol] 9.5 mg/dL Normal 8.5-10.1 [facility] Comment on above: Performed By: #### U MICRO, ERUR #### [facility] [address] [place] [address] Dr. Renata Finch Chloride [Moles/Vol] 101 mmol/L Normal 98-107 [facility] Comment on above: Performed By: #### U MICRO, ERUR #### [facility] [address] [place] [address] Dr. Renata Finch CO2 [Moles/Vol] 29.5 mmol/L Normal 21.0-32.0 [facility] Comment on above: Performed By: #### U MICRO, ERUR #### [facility] [address] [place] [address] Dr. Renata Finch Creatinine [Mass/Vol] 0.85 mg/dL Normal 0.55-1.02 [facility] Comment on above: Performed By: #### U MICRO, ERUR #### [facility] [address] [place] [address] Dr. Renata Finch EGFR-AF BANGLADESHI >60 Normal >=60 [facility] Comment on above: Performed By: #### U MICRO, ERUR #### [facility] [address] [address] [address] Renata Finch EGFR-NON AF BANGLADESHI >60 Normal >=60 [facility] Comment on above: Performed By: #### U MICRO, ERUR #### [facility] [address] [address] [address] Renata Finch Globulin (S) [Mass/Vol] 4.2 g/dL Normal [facility] Comment on above: Performed By: #### U MICRO, ERUR #### [facility] [address] [address] [address] Renata Finch Glucose [Mass/Vol] 119 mg/dL Critically high 74-106 [facility] Comment on above: Performed By: #### U MICRO, ERUR #### [facility] [address] [place] [address] Dr. Renata Finch Potassium [Moles/Vol] 3.3 mmol/L Critically low 3.5-5.1 [facility] Comment on above: Performed By: #### U MICRO, ERUR #### [facility] [address] [place] [address] Dr. Renata Finch Protein [Mass/Vol] 8.3 g/dL Critically high 6.4-8.2 [facility] Comment on above: Performed By: #### U MICRO, ERUR #### [facility] [address] [place] [address] Dr. Renata Finch Sodium [Moles/Vol] 139 mmol/L Normal 136-145 [facility] Comment on above: Performed By: #### U MICRO, ERUR #### [facility] [address] [place] [address] Dr. Renata Finch Urea nitrogen [Mass/Vol] 6.0 mg/dL Critically low 6.4-19.3 [facility] Comment on above: Performed By: #### U MICRO, ERUR #### [facility] [address] [place] [address] Dr. Renata Finch Urea nitrogen/Creatinine [Mass ratio] 7.1 mg/mg Normal [facility] Comment on above: Performed By: #### U MICRO, ERUR #### [facility] [address] [place] [address] Dr. Renata Finch URINE MICROSCOPIC ONLYon BACTERIA NONE SEEN Normal NONE SEEN [facility] Comment on above: Performed By: #### C BC #### [facility] [address] [place] [address] Dr. Renata Finch Bacteria identified Cx Nom (U) NOT INDICATED Normal [facility] Comment on above: Performed By: #### C BC #### [facility] [address] [place] [address] Dr. Renata Finch CAST NONE SEEN Normal NONE SEEN [facility] Comment on above: Performed By: #### C BC #### [facility] [address] [place] [address] Dr. Renata Finch Crystals LM Nom (Urine sed) NONE SEEN Normal NONE SEEN [facility] Comment on above: Performed By: #### C BC #### [facility] [address] [place] [address] Dr. Renata Finch Epithelial cells LM Ql (Urine sed) NONE SEEN Normal NONE SEEN /RARE [facility] Comment on above: Performed By: #### C BC #### [facility] [address] [place] [address] Dr. Renata Finch MUCOUS NONE SEEN Normal NONE SEEN [facility] Comment on above: Performed By: #### C BC #### [facility] [address] [place] [address] Dr. Renata Finch RBC 20-50 Abnormal 0-2 [facility] Comment on above: Performed By: #### C BC #### [facility] [address] [place] [address] Dr. Renata Finch WBC NONE SEEN Normal NONE SEEN [facility] Comment on above: Performed By: #### C BC #### [facility] [address] [place] [address] Dr. Renata Finch XR ABD FLAT UP_PA Lulu 08-02 XR ABD FLAT UP_PA CH EXAMINATION: XR ABD FLAT UP_PA CH HISTORY: NAUSEA WITH VOMITING, UNSPECIFIED ; left side abdominal pain COMPARISON: XR abdomen with PA chest 04/29/2022 FINDINGS: LUNGS: No infiltrate, pneumothorax, or pleural effusion. MEDIASTINUM: No abnormal widening. BOWEL GAS PATTERN: Non-obstructed. No abnormal bowel dilation or suspicious levels. Relative paucity of gas throughout the bowel. FREE AIR: None. CALCIFICATIONS: None significant. BONES: No fracture or visible bone lesion. OTHER: Negative. IMPRESSION: 1. No acute cardiopulmonary process. 2. No bowel obstruction or evidence of ileus. Electronically authenticated by: TORIN PAREDES Date: 2022-08-02 07:02 Normal [facility] HCG ( test) IA.brittai d Ql (U)Ordered By: Sandy Camp on 05-04-2022 HCG ( test) Ql (U) Negative [facility] HCG,Urineon 05-04-2022 Beta HCG ( test) Ql (U) Negative Normal [facility] Comment on above: Result Comment: PERF ORMED BY: [place] [address] PATHOLOGIST [employer] MERARI BROWN M.D. Performed By: #### U HCG #### [address] 05-04-2022 L -- ---- Specimen: [id number] Received: 05/04/22 Status: ALEXANDRA Worthy Num: [id number] Spec Type: Surgical Subm Dr: Sandy Camp Jr, DO Tissues: A Duodenum - Biopsy (DUODENUM) B Colon Biopsy (COLON) Procedures: HE Stain/4, Gross/Micro L4/2 ---- Age/ Patient Sex Location Account Attending Physician ---- Marlin Hewitt [id number] Sandy Camp Jr, DO ---- SPEC NUM: [id number] RECD: 05/04/22 STATUS: ALEXANDRA WORTHY NUM: [id number] ALFONSO: 05/04/[address] [facility] [address]: Sandy Camp Jr, DO ENTERED: 05/04/[address] [facility] [address]: VERA TYPE: Surgical DEPT: S ENTERED BY: [id number] RECV BY: [id number] ORDERED: HE Stain/4, Gross/Micro L4/2 ORDERED: HE Stain/4, Gross/Micro L4/2 Pathological Diagnosis A. Duodenum, biopsy: - Duodenal mucosa, no significant histopathologic changes. B. Colon, biopsy: - Edematous colonic mucosa with usual small lamina propria lymphoid aggregates, no significant histopathologic changes. Clinical Information Abdominal pain Gross Description A. Received in a container filled with formalin labeled with the patient's name, number, and duodenum biopsy are two pink tissue bits aggregating to 0.4 cm, entirely submitted in one cassette labeled A1. B. Received in a container filled with formalin labeled with the patient's name, number, and colon biopsy are two pink tissue bits aggregating to 0.6 cm, entirely submitted in one c assette labeled B1. ---- Specimen: [id number] Received: 05/04/22 Status: ALEXANDRA Worthy Num: [id number] Spec Type: Surgical Subm Dr: Sandy Camp Jr, DO Tissues: A Duodenum - Biopsy (DUODENUM) B Colon Biopsy (COLON) Procedures: HE Stain/4, Gross/Micro L4/2 ---- Patient: Marlin Hewitt [id number] (Continued) ---- Specimen: [id number] Received: 05/04/22 (Continued) Signed (signature on file) Solomon Ibarra MD 05/05/22 1446 ---- Specimen: Received: 05/04/22 Status: ALEXANDRA Worthy Num: [id number] Spec Type: Surgical Subm Dr: Sandy Camp Jr, DO Tissues: A Duodenum - Biopsy (DUODENUM) B Colon Biopsy (COLON) Procedures: HE Stain/4, Gross/Micro L4/2 ---- Patient: Marlin Hewitt [id number] (Continued) ---- Specimen: [id number] Received: 05/04/22 (Continued) Microscopic Description A. Two glass slides with H E stained material have been examined. The microscopic findings support the above pathologic diagnosis. B. Two glass slides with H E stained material have been examined. The microscopic findings support the above pathologic diagnosis. CPT Codes 29567?2 ---- ---- Specimen: [id number] Received: 05/04/22 Status: ALEXANDRA Worthy Num: [id number] Spec Type: Surgical Subm Dr: Sandy Camp Jr, DO Tissues: A Duodenum - Biopsy (DUODENUM) B Colon Biopsy (COLON) Procedures: HE Stain/4, Gross/Micro L4/2 ---- Patient: Marlin Hewitt [id number] (Continued) ---- Signed (signature on file) Beau Ibarra MD 05/05/[address] [facility] [place] [facility] [place] SARS-CoV-2 (COVID-19) RNA OLRETO+probe Ql (Unsp spec) Negative Normal Negative [facility] Comment on above: Order Comment: Healt hcare Worker?: N Result Comment: Testing for SARS-CoV-2 by RT-PCR This test was developed and its performance characteristics determined by [employer]) and validated at the [facility]. This test has not been FDA cleared or approved. This test has been authorized by FDA under an Emergency Use Authorization (EUA). This test has been validated in accordance with the FDA's Guidance Document (Policy for Diagnostics Testing in Laboratories Certified to Perform High Complexity Testing under CLIA prior to Emergency Use Authorization for Coronavirus Disease-2019 during the Public Health Emergency) issued on January 16, 2020. This test is only authorized for the duration of time the declaration that circumstances exist justifying the authorization of the emergency use of in vitro diagnostic tests for detection of SARS-CoV-2 virus and/or diagnosis of COVID-19 infection under section 564(b)(1) of the Act, 21 U.S.C. 360bbb-3(b)(1), unless the authorization is terminated or revoked sooner. PERFORMED BY: [place] [id number] PATHOLOGIST [employer] VERIFIER MERARI BROWN M.D. Performed By: #### C OVID [facility] [place] [address] COVID-19 Positive/NegativeOr dered By: Sandy Camp on 05-02-2022 SARS-CoV-2 (COVID-19) N gene LORETO+probe Ql (Resp) Negative Negative [facility] Comment on above: Testing for SARS-CoV -2 by RT-PCR This test was developed and its performance characteristics determined by [employer] and validated at the [facility]. This test has not been FDA cleared or approved. This test has been authorized by FDA under an Emergency Use Authorization (EUA). This test has been validated in accordance with the FDA's Guidance Document (Policy for Diagnostics Testing in Laboratories Certified to Perform High Complexity Testing under CLIA prior to Emergency Use Authorization for Coronavirus Disease-2019 during the Public Health Emergency) issued on January 16, 2020. This test is only authorized for the duration of time the declaration that circumstances exist justifying the authorization of the emergency use of in vitro diagnostic tests for detection of SARS-CoV-2 virus and/or diagnosis of COVID-19 infection under section 564(b)(1) of the Act, 21 U.S.C. 360bbb-3(b)(1), unless the authorization is terminated or revoked sooner. AMYLASEon 04-29-2022 Amylase [Catalytic activity/Vol] 53 U/L Normal 25-115 [facility] Comment on above: Performed By: #### C BC #### [facility] [address] [place] [address] Dr. Renata Finch CBC W MANUAL DIFFon 04-29-20 22 ATYPICAL LYMPH # Normal [facility] Comment on above: Performed By: #### C BC #### [facility] [address] [place] [address] Dr. Renata Finch ATYPICAL LYMPH % Normal The [facility] Comment on above: Performed By: #### C BC #### [facility] [address] [place] [address] Dr. Renata Finch BAND # Normal 0.0-0.3 [facility] Comment on above: Performed By: #### C BC #### [facility] [address] [place] [address] Dr. Renata Finch BAND % Normal 0-5 [facility] Comment on above: Performed By: #### C BC #### [facility] [address] [place] [address] Dr. Renata Finch BASOM # 0.00 103/ul Normal 0.00-0.10 [facility] Comment on above: Performed By: #### C BC #### [facility] [address] [place] [address] Dr. Renata Finch BASOM % 0.0 % Critically low 0.2-2.0 [facility] Comment on above: Performed By: #### C BC #### [facility] [address] [place] [address] Dr. Renata Finch BLAST # Normal [facility] Comment on above: Performed By: #### C BC #### [facility] [address] [place] [address] Dr. Renata Finch BLAST % Normal [facility] Comment on above: Performed By: #### C BC #### [facility] [address] [place] [address] Dr. Renata Finch CORRECTED WBC Normal 4.0-11.0 [facility] Comment on above: Performed By: #### C BC #### [facility] [address] [place] [address] Dr. Renata Finch EOS # 0.00 103/ul Normal 0.00-0.70 [facility] Comment on above: Performed By: #### C BC #### [facility] [address] [place] [address] Dr. Renata Finch EOS% 0.0 % Critically low 0.9-7.0 [facility] Comment on above: Performed By: #### C BC #### [facility] [address] [address] [address] Renata Fnich HCT 40.4 % Normal 36.0-48.0 [facility] Comment on above: Performed By: #### C BC #### [facility] [address] [place] [address] Dr. Renata Finch HGB 13.0 g/dl Normal 12.0-16.0 [facility] Comment on above: Performed By: #### C BC #### [facility] [address] [place] [address] Dr. Renata Finch LYMPHM # 0.83 103/ul Critically low 1.20-3.80 [facility] Comment on above: Performed By: #### C BC #### [facility] [address] [place] [address] Dr. Renata Finch LYMPHM% 13.0 % Critically low 20.5-60.0 [facility] Comment on above: Performed By: #### C BC #### [facility] [address] [place] [address] Dr. Renata Finch MCH 26.8 pg Normal 26.7-34.0 [facility] Comment on above: Performed By: #### C BC #### [facility] [address] [place] [address] Dr. Renata Finch MCHC 32.2 g/dl Normal 29.9-35.2 [facility] Comment on above: Performed By: #### C BC #### [facility] [address] [place] [address] Dr. Renata Finch MCV 83.3 fL Normal 81.0-99.0 [facility] Comment on above: Performed By: #### C BC #### [facility] [address] [place] [address] Dr. Renata Finch METAMYELOCYTE # Normal [facility] Comment on above: Performed By: #### C BC #### [facility] [address] [place] [address] Dr. Renata Finch METAMYELOCYTE % Normal [facility] Comment on above: Performed By: #### C BC #### [facility] [address] [place] [address] Dr. Renata Finch MONOM# 0.13 103/ul Critically low 0.30-0.80 [facility] Comment on above: Performed By: #### C BC #### [facility] [address] [place] [address] Dr. Renata Finch MONOM% 2.0 % Normal 1.7-12.0 [facility] Comment on above: Performed By: #### C BC #### [facility] [address] [place] [address] Dr. Renata Finch MPV 9.7 fL Normal 9.5-13.5 [facility] Comment on above: Performed By: #### C BC #### [facility] [address] [place] [address] Dr. Renata Finch MYELOCYTE # Normal [facility] Comment on above: Performed By: #### C BC #### [facility] [address] [place] [address] Dr. Renata Finch MYELOCYTE % Normal [facility] Comment on above: Performed By: #### C BC #### [facility] [address] [place] [address] Dr. Renata Finch NRBC Normal [facility] Comment on above: Performed By: #### C BC #### [facility] [address] [place] [address] Dr. Renata Finch PLT 311 103/ul Normal 150-450 [facility] Comment on above: Performed By: #### C BC #### [facility] [address] [place] [address] Dr. Renata Finch RBC 4.85 106/ul Normal 4.20-5.40 [facility] Comment on above: Performed By: #### C BC #### [facility] [address] [place] [address] Dr. Renata Finch RDW 13.8 % Normal 11.0-15.0 [facility] Comment on above: Performed By: #### C BC #### [facility] [address] [place] [address] Dr. Renata Finch SEG # 5.44 103/ul Normal 1.40-6.50 [facility] Comment on above: Performed By: #### C BC #### [facility] [address] [place] [address] Dr. Renata Finch SEG % 85.0 % Critically high 43.0-75.0 [facility] Comment on above: Performed By: #### C BC #### [facility] [address] [place] [address] Dr. Renata Finch WBC 6.4 103/ul Normal 4.0-11.0 [facility] Comment on above: Performed By: #### C BC #### [facility] [address] [place] [address] Dr. Renata Finch ER URINE PROFILEon 2 Bilirubin Ql (U) Negative Normal NEGATIVE [facility] Comment on above: Performed By: #### U MICRO, ERUR #### [facility] [address] [place] [address] Dr. Renata Finch Clarity (U) SL CLOUDY Abnormal CLEAR [facility] Comment on above: Performed By: #### U MICRO, ERUR #### [facility] [address] [place] [address] Dr. Renata Finch Color (U) YELLOW Normal YELLOW [facility] Comment on above: Performed By: #### U MICRO, ERUR #### [facility] [address] [place] [address] Dr. Renata Finch ERULUIS A micrscopic examination will be performed if indicated. Normal [facility] Comment on above: Performed By: #### U MICRO, ERUR #### [facility] [address] [address] [address] Renata Finch Glucose Ql (U) Negative Normal NEGATIVE [facility] Comment on above: Performed By: #### U MICRO, ERUR #### [facility] [address] [address] [address] Renata Finch Hemoglobin Ql (U) Negative Normal NEGATIVE [facility] Comment on above: Performed By: #### U MICRO, ERUR #### [facility] [address] [address] [address] Renata Finch Ketones Ql (U) 40 mg/dl Abnormal NEGATIVE [facility] Comment on above: Performed By: #### U MICRO, ERUR #### [facility] [address] [place] [address] Dr. Renata Finch LEUKOCYTES Negative Normal NEGATIVE [facility] Comment on above: Performed By: #### U MICRO, ERUR #### [facility] [address] [place] [address] Dr. Renata Finch Nitrite Ql (U) Negative Normal NEGATIVE [facility] Comment on above: Performed By: #### U MICRO, ERUR #### [facility] [address] [address] [address] Renata Finch pH (U) 6.0 [pH] Normal 5-9 [facility] Comment on above: Performed By: #### U MICRO, ERUR #### [facility] [address] [address] [address] Renata Finch Protein (U) [Mass/Vol] 30 mg/dL Abnormal NEGATIVE/ TRACE [facility] Comment on above: Performed By: #### U MICRO, ERUR #### [facility] [address] [place] [address] Dr. Renata Finch SPEC GRAVITY >=1.030 Abnormal 1.005-<=1.025 [facility] Comment on above: Performed By: #### U MICRO, ERUR #### [facility] [address] [address] [address] Renata Finch UR MICRO IND INDICATED Normal [facility] Comment on above: Performed By: #### U MICRO, ERUR #### [facility] [address] [address] [address] Renata Finch Urobilinogen Qn (U) 0.2 {Gabrielle'U}/dL Normal 0.2 - 1. 0 [facility] Comment on above: Performed By: #### U MICRO, ERUR #### [facility] [address] [place] [address] Dr. Renata Finch LIPASEon 04-29-2022 Lipase [Catalytic activity/Vol] 58.0 U/L Critically low 73.0-393.0 [facility] Comment on above: Performed By: #### C BC #### [facility] [address] [place] [address] Dr. Renata Finch PREG HCG QUALon 04-29-2022 , QUAL Negative Normal NEGATIVE [facility] Comment on above: Performed By: #### C BC #### [facility] [address] [place] [address] Dr. Renata Finch PROF 14(COMP METB)on 022 Albumin [Mass/Vol] 3.7 g/dL Normal 3.4-5.0 [facility] Comment on above: Performed By: #### C BC #### [facility] [address] [place] [address] Dr. Renata Finch Albumin/Globulin [Mass ratio] 0.9 {ratio} Normal [facility] Comment on above: Performed By: #### C BC #### [facility] [address] [place] [address] Dr. Renata Finch ALP [Catalytic activity/Vol] 46 U/L Normal 46-116 [facility] Comment on above: Performed By: #### C BC #### [facility] [address] [place] [address] Dr. Renata Finch ALT [Catalytic activity/Vol] 22 U/L Normal 14-59 [facility] Comment on above: Performed By: #### C BC #### [facility] [address] [place] [address] Dr. Renata Finch Anion gap [Moles/Vol] 16.3 mmol/L Normal [facility] Comment on above: Performed By: #### C BC #### [facility] [address] [address] [address] Renata Finch AST [Catalytic activity/Vol] 16 U/L Normal 15-37 [facility] Comment on above: Performed By: #### C BC #### [facility] [address] [address] [address] Renata Finch Bilirubin [Mass/Vol] 0.8 mg/dL Normal 0.2-1.0 [facility] Comment on above: Performed By: #### C BC #### [facility] [address] [address] [address] Renata Finch Calcium [Mass/Vol] 9.3 mg/dL Normal 8.5-10.1 [facility] Comment on above: Performed By: #### C BC #### [facility] [address] [address] [address] Renata Finch Chloride [Moles/Vol] 101 mmol/L Normal 98-107 [facility] Comment on above: Performed By: #### C BC #### [facility] [address] [address] [address] Renata Finch CO2 [Moles/Vol] 25.4 mmol/L Normal 21.0-32.0 [facility] Comment on above: Performed By: #### C BC #### [facility] [address] [address] [address] Renata Finch Creatinine [Mass/Vol] 0.81 mg/dL Normal 0.55-1.02 [facility] Comment on above: Performed By: #### C BC #### [facility] [address] [address] [address] Renata Finch EGFR-AF BANGLADESHI >60 Normal >=60 [facility] Comment on above: Performed By: #### C BC #### [facility] [address] [address] [address] Renata Finch EGFR-NON AF BANGLADESHI >60 Normal >=60 [facility] Comment on above: Performed By: #### C BC #### [facility] [address] [address] [address] Renata Finch Globulin (S) [Mass/Vol] 4.1 g/dL Normal [facility] Comment on above: Performed By: #### C BC #### [facility] [address] [place] [address] Dr. Renata Finch Glucose [Mass/Vol] 126 mg/dL Critically high 74-106 [facility] Comment on above: Performed By: #### C BC #### [facility] [address] [place] [address] Dr. Renata Finch Potassium [Moles/Vol] 3.7 mmol/L Normal 3.5-5.1 [facility] Comment on above: Performed By: #### C BC #### [facility] [address] [place] [address] Dr. Renata Finch Protein [Mass/Vol] 7.8 g/dL Normal 6.4-8.2 [facility] Comment on above: Performed By: #### C BC #### [facility] [address] [place] [address] Dr. Renata Finch Sodium [Moles/Vol] 139 mmol/L Normal 136-145 [facility] Comment on above: Performed By: #### C BC #### [facility] [address] [place] [address] Dr. Renata Finch Urea nitrogen [Mass/Vol] 9.0 mg/dL Normal 6.4-19.3 [facility] Comment on above: Performed By: #### C BC #### [facility] [address] [place] [address] Dr. Renata Finch Urea nitrogen/Creatinine [Mass ratio] 11.1 mg/mg Normal [facility] Comment on above: Performed By: #### C BC #### [facility] [address] [place] [address] Dr. Renata Finch URINE MICROSCOPIC ONLYon BACTERIA TRACE Abnormal NONE SEEN [facility] Comment on above: Performed By: #### U MICRO, ERUR #### [facility] [address] [place] [address] Dr. Renata Finch Bacteria identified Cx Nom (U) NOT INDICATED Normal [facility] Comment on above: Performed By: #### U MICRO, ERUR #### [facility] [address] [address] [address] Renata Finch CAST NONE SEEN Normal NONE SEEN [facility] Comment on above: Performed By: #### U MICRO, ERUR #### [facility] [address] [address] [address] Renata Finch Crystals LM Nom (Urine sed) NONE SEEN Normal NONE SEEN [facility] Comment on above: Performed By: #### U MICRO, ERUR #### [facility] [address] [address] [address] Renata Finch Epithelial cells LM Ql (Urine sed) FEW Abnormal NONE SEEN /RARE [facility] Comment on above: Performed By: #### U MICRO, ERUR #### [facility] [address] [place] [address] Dr. Renata Finch MUCOUS TRACE Abnormal NONE SEEN [facility] Comment on above: Performed By: #### U MICRO, ERUR #### [facility] [address] [place] [address] Dr. Renata Finch RBC 0-2 Normal 0-2 [facility] Comment on above: Performed By: #### U MICRO, ERUR #### [facility] [address] [place] [address] Dr. Renata Finch WBC NONE SEEN Normal NONE SEEN [facility] Comment on above: Performed By: #### U MICRO, ERUR #### [facility] [address] [place] [address] Dr. Renata Finch XR ABD FLAT UP_PA Lulu 04-29 XR ABD FLAT UP_PA CH EXAMINATION: XR ABD FLAT UP_PA CH HISTORY: NAUSEA WITH VOMITING, UNSPECIFIED COMPARISON: 01/19/2021 FINDINGS: LUNGS: No infiltrate, pneumothorax, or pleural effusion. MEDIASTINUM: No abnormal widening. BOWEL GAS PATTERN: Paucity of bowel gas FREE AIR: None. CALCIFICATIONS: None significant. BONES: No fracture or visible bone lesion. OTHER: Negative. IMPRESSION: Clear lungs Paucity of bowel gas, indeterminate gas pattern Electronically authenticated by: SANDY KERR Date: 2022-04-29 10:52 Normal [facility] CT ABD/PELV W CONon 02-13-20 CT ABD/PELV W CON EXAMINATION: CT ABD/PELV W CON, 02/12/2022 7:35 AM EDT HISTORY: Right upper quadrant pain , nausea, vomiting COMPARISON: Ultrasound same day TECHNIQUE: CT scan of the abdomen and pelvis was performed in IV contrast. CT dose reduction technique was used, including Automated Exposure Control. FINDINGS: LUNG BASES: Minimal opacity in the right middle lobe. Atelectasis is favored LIVER: No enlargement, atrophy, abnormal density, or significant focal lesion. BILIARY: No dilatation or calcification. PANCREAS: No lesion, fluid collection, ductal dilatation, or atrophy. SPLEEN: No enlargement or focal lesion. ADRENALS: No mass or enlargement. KIDNEYS: No mass, obstruction, or calcification. BOWEL/MESENTERY: Nonobstructive bowel gas pattern. Left upper quadrant small bowel small bowel intussusception best seen on axial image 49 and coronal image 31, the intussuscipiens measures 2.7 cm. AORTA/VASCULAR: No aneurysm or dissection. RETROPERITONEUM: No mass or adenopathy. LYMPH NODES: No adenopathy. URINARY BLADDER: No visible focal wall thickening, lesion, or calculus. PELVIC ORGANS: Dilation of the endometrial cavity, correlate with the menstrual cycle. Small amount of free pelvic fluid likely physiologic in amount ABDOMINAL WALL: No mass or hernia. BONES: No bony lesion or fracture. OTHER: Call results initiated through operations. IMPRESSION: Left upper quadrant small bowel small bowel intussusception without evidence of obstruction Electronically authenticated by: SANDY KERR Date: 2022-02-12 09:47 Normal [facility] US SINGLE QUAD RT UPPERon US SINGLE QUAD RT UPPER EXAMINATION: US SINGLE QUAD RT UPPER HISTORY: Left upper quadrant pain COMPARISON: No relevant comparison available. FINDINGS: The liver is normal in size, contour and echotexture. No focal mass. Normal hepatopedal flow in the main portal vein with velocity of 32 cm/s The gallbladder is normal in size. The gallbladder wall measures 1.1 mm, normal. No pericholecystic fluid or cholelithiasis. Negative sonographic Lacy sign. The common bile duct measures 2.4 mm, normal. The visualized pancreas is normal. The right kidney is normal in appearance measuring 9.6 x 5.3 x 5.2 cm IMPRESSION: Normal exam Electronically authenticated by: SANDY KERR Date: 2022-02-12 09:12 Normal [facility] AMYLASEon 02-09-2022 Amylase [Catalytic activity/Vol] 144 U/L Critically high 25-115 [facility] Comment on above: Performed By: #### U MICRO, ERUR #### [facility] [address] [place] [address] Dr. Renata Finch CBC AUTO DIFFon 02-09-2022 BASO # 0.0 103/ul Normal 0.0-0.1 [facility] Comment on above: Performed By: #### C BC #### [facility] [address] [place] [address] Dr. Renata Finch Basophils/100 WBC (Bld) 0.5 % Normal 0.2-2.0 [facility] Comment on above: Performed By: #### C BC #### [facility] [address] [place] [address] Dr. Renata Finch EO # 0.0 103/ul Normal 0.0-0.7 [facility] Comment on above: Performed By: #### C BC #### [facility] [address] [place] [address] Dr. Renata Finch Eosinophils/100 WBC (Bld) 0.5 % Critically low 0.9-7.0 [facility] Comment on above: Performed By: #### C BC #### [facility] [address] [place] [address] Dr. Renata Finch Erythrocyte distribution width (RBC) [Ratio] 14.3 % Normal 11.0-15.0 [facility] Comment on above: Performed By: #### C BC #### [facility] [address] [place] [address] Dr. Renata Finch Hematocrit (Bld) [Volume fraction] 36.0 % Normal 36.0-48.0 [facility] Comment on above: Performed By: #### C BC #### [facility] [address] [place] [address] Dr. Renata Finch Hemoglobin (Bld) [Mass/Vol] 11.6 g/dL Critically low 12.0-16.0 [facility] Comment on above: Performed By: #### C BC #### [facility] [address] [place] [address] Dr. Renata Finch IG # 0.01 10e3/ul Normal 0.00-0.03 [facility] Comment on above: Performed By: #### C BC #### [facility] [address] [place] [address] Dr. Renata Finch IG % 0.2 % Normal 0.0-0.5 [facility] Comment on above: Performed By: #### C BC #### [facility] [address] [place] [address] Dr. Renata Finch LYMPH # 1.8 103/ul Normal 1.2-3.8 [facility] Comment on above: Performed By: #### C BC #### [facility] [address] [place] [address] Dr. Renata Finch Lymphocytes/100 WBC (Bld) 29.7 % Normal 20.5-60.0 [facility] Comment on above: Performed By: #### C BC #### [facility] [address] [place] [address] Dr. Renata Finch MANUAL DIFF REQ NO Normal [facility] Comment on above: Performed By: #### C BC #### [facility] [address] [place] [address] Dr. Rneata Finch MCH (RBC) [Entitic mass] 27.0 pg Normal 26.7-34.0 [facility] Comment on above: Performed By: #### C BC #### [facility] [address] [place] [address] Dr. Renata Finch MCHC (RBC) [Mass/Vol] 32.2 g/dL Normal 29.9-35.2 [facility] Comment on above: Performed By: #### C BC #### [facility] [address] [place] [address] Dr. Renata Finch MCV (RBC) [Entitic vol] 83.7 fL Normal 81.0-99.0 [facility] Comment on above: Performed By: #### C BC #### [facility] [address] [place] [address] Dr. Renata Finch MONO # 0.5 103/ul Normal 0.3-0.8 [facility] Comment on above: Performed By: #### C BC #### [facility] [address] [place] [address] Dr. Renata Finch Monocytes/100 WBC (Bld) 9.0 % Normal 1.7-12.0 [facility] Comment on above: Performed By: #### C BC #### [facility] [address] [place] [address] Dr. Renata Finch NEUT # 3.6 103/ul Normal 1.4-6.5 [facility] Comment on above: Performed By: #### C BC #### [facility] [address] [place] [address] Dr. Renata Finch Neutrophils/100 WBC (Bld) 60.1 % Normal 43.0-75.0 [facility] Comment on above: Performed By: #### C BC #### [facility] [address] [place] [address] Dr. Renata Finch Platelet mean volume (Bld) [Entitic vol] 9.6 fL Normal 9.5-13.5 [facility] Comment on above: Performed By: #### C BC #### [facility] [address] [place] [address] Dr. Renata Finch PLT 319 103/ul Normal 150-450 [facility] Comment on above: Performed By: #### C BC #### [facility] [address] [place] [address] Dr. Renata Finch RBC 4.30 106/ul Normal 4.20-5.40 [facility] Comment on above: Performed By: #### C BC #### [facility] [address] [place] [address] Dr. Renata Finch WBC 6.0 103/ul Normal 4.0-11.0 [facility] Comment on above: Performed By: #### C BC #### [facility] [address] [place] [address] Dr. Renata Finch LIPASEon 02-09-2022 Lipase [Catalytic activity/Vol] 715.0 U/L Critically high 73.0-393.0 [facility] Comment on above: Performed By: #### U MICRO, ERUR #### [facility] [address] [place] [address] Dr. Renata Finch PROF 14(COMP METB)on 022 Albumin [Mass/Vol] 3.5 g/dL Normal 3.4-5.0 [facility] Comment on above: Performed By: #### U MICRO, ERUR #### [facility] [address] [place] [address] Dr. Renata Finch Albumin/Globulin [Mass ratio] 1.0 {ratio} Normal [facility] Comment on above: Performed By: #### U MICRO, ERUR #### [facility] [address] [place] [address] Dr. Renata Finch ALP [Catalytic activity/Vol] 48 U/L Normal 46-116 [facility] Comment on above: Performed By: #### U MICRO, ERUR #### [facility] [address] [place] [address] Dr. Renata Finch ALT [Catalytic activity/Vol] 19 U/L Normal 14-59 [facility] Comment on above: Performed By: #### U MICRO, ERUR #### [facility] [address] [place] [address] Dr. Renata Finch Anion gap [Moles/Vol] 13.0 mmol/L Normal [facility] Comment on above: Performed By: #### U MICRO, ERUR #### [facility] [address] [place] [address] Dr. Renata Finch AST [Catalytic activity/Vol] 13 U/L Critically low 15-37 [facility] Comment on above: Performed By: #### U MICRO, ERUR #### [facility] [address] [place] [address] Dr. Renata Finch Bilirubin [Mass/Vol] 0.6 mg/dL Normal 0.2-1.0 [facility] Comment on above: Performed By: #### U MICRO, ERUR #### [facility] [address] [place] [address] Dr. Renata Finch Calcium [Mass/Vol] 8.4 mg/dL Critically low 8.5-10.1 [facility] Comment on above: Performed By: #### U MICRO, ERUR #### [facility] [address] [address] [address] Renata Finch Chloride [Moles/Vol] 102 mmol/L Normal 98-107 [facility] Comment on above: Performed By: #### U MICRO, ERUR #### [facility] [address] [place] [address] Dr. Renata Finch CO2 [Moles/Vol] 26.7 mmol/L Normal 21.0-32.0 The [facility] Comment on above: Performed By: #### U MICRO, ERUR #### [facility] [address] [place] [address] Dr. Renata Finch Creatinine [Mass/Vol] 0.66 mg/dL Normal 0.55-1.02 [facility] Comment on above: Performed By: #### U MICRO, ERUR #### [facility] [address] [place] [address] Dr. Renata Finch EGFR-AF BANGLADESHI >60 Normal >=60 The [facility] Comment on above: Performed By: #### U MICRO, ERUR #### [facility] [address] [place] [address] Dr. Renata Finch EGFR-NON AF BANGLADESHI >60 Normal >=60 [facility] Comment on above: Performed By: #### U MICRO, ERUR #### [facility] [address] [place] [address] Dr. Renata Finch Globulin (S) [Mass/Vol] 3.6 g/dL Normal [facility] Comment on above: Performed By: #### U MICRO, ERUR #### [facility] [address] [place] [address] Dr. Renata Finch Glucose [Mass/Vol] 89 mg/dL Normal 74-106 [facility] Comment on above: Performed By: #### U MICRO, ERUR #### [facility] [address] [place] [address] Dr. Renata Finch Potassium [Moles/Vol] 3.7 mmol/L Normal 3.5-5.1 [facility] Comment on above: Performed By: #### U MICRO, ERUR #### [facility] [address] [address] [address] Renata Finch Protein [Mass/Vol] 7.1 g/dL Normal 6.1-8.2 [facility] Comment on above: Performed By: #### U MICRO, ERUR #### [facility] [address] [place] [address] Dr. Renata Ficnh Sodium [Moles/Vol] 138 mmol/L Normal 136-145 [facility] Comment on above: Performed By: #### U MICRO, ERUR #### [facility] [address] [place] [address] Dr. Renata Finch Urea nitrogen [Mass/Vol] 7.0 mg/dL Normal 6.4-19.3 [facility] Comment on above: Performed By: #### U MICRO, ERUR #### [facility] [address] [place] [address] Dr. Renata Finch Urea nitrogen/Creatinine [Mass ratio] 10.6 mg/mg Normal [facility] Comment on above: Performed By: #### U MICRO, ERUR #### [facility] [address] [place] [address] Dr. Renata Finch Vital Signs Date Time Vital Sign Value Performing Clinician Facility 10-20-2022 16:34-0500 Body weight 0 kg LANCE Ramos Work Phone: [facility] 10-20-2022 16:30-0500 Body height 154.94 cm Joe Thomas Other [facility] Other 10-20-2022 16:30-0500 Body mass index (BMI) [Ratio] 30.04 kg/m2 Joe Thomas Other [facility] Other 10-20-2022 16:30-0500 Body weight 72.12 kg Joe Thomas Other [facility] Other 10-20-2022 16:30-0500 Diastolic blood pressure 79 mm[Hg] Joe Thomas Other [facility] Other 10-20-2022 16:30-0500 Systolic blood pressure 122 mm[Hg] Joe Thomas Other [facility] Other 05-04-2022 11:02-0400 Diastolic blood pressure 81 mm[Hg] DO Sandy Hykes Work Phone: [facility] 05-04-2022 11:02-0400 Heart rate 76 /min DO Sandy Hykes Work Phone: [facility] 05-04-2022 11:02-0400 Respiratory rate 18 /min DO Sandy Hykes Work Phone: [facility] 05-04-2022 11:02-0400 SaO2% (BldA) [Mass fraction] 100 % DO Sandy Hykes Work Phone: [facility] 05-04-2022 11:02-0400 Systolic blood pressure 116 mm[Hg] DO Sandy Hykes Work Phone: [facility] 05-04-2022 08:21-0400 Body height 154.94 cm DO Sandy Hykes Work Phone: [facility] 05-04-2022 08:21-0400 Body temperature 98.3 [degF] DO Sandy Hykes Work Phone: [facility] 05-04-2022 08:21-0400 Body weight 68.03 kg DO Sandy Hykes Work Phone: [facility] 04-27-2022 15:45-0400 Body height 154.94 cm Sandy Camp Other [facility] Other 04-27-2022 15:45-0400 Body mass index (BMI) [Ratio] 28.72 kg/m2 Sandy Camp Other [facility] Other 04-27-2022 15:45-0400 Body weight 68.95 kg Sandy Camp Other [facility] Other Encounters Encounter Date Encounter Type Care Provider Facility Start: 03-12-2024 End: 03-12-2024 ambulatory CINDY MULUGETA Not Available Start: 02-09-2024 End: 02-09-2024 ambulatory CINDY MULUGETA Not Available Start: 01-30-2023 End: 01-30-2023 ambulatory RAVEN NICOLE Facility:[facility] Start: 12-05-2022 End: 12-05-2022 ambulatory Shasha Ramos Facility:[facility] Start: 12-05-2022 End: 12-05-2022 ambulatory ART TEACHER-C Shasha Ramos Work Phone: [facility] Work Phone: Start: 12-05-2022 End: 12-05-2022 Patient encounter procedure ART TEACHER-C Shasha Ramos Work Phone: [facility] Work Phone: Start: 11-10-2022 End: 11-10-2022 ambulatory Joe Thomas Other [facility] [employer] Other Start: 11-10-2022 Telephone encounter Joe Sandoval ck [facility] Start: 11-08-2022 End: 11-08-2022 ambulatory SHASHA RAMOS Facility:[facility] Start: 11-02-2022 End: 11-02-2022 ambulatory Shasha Ramos Facility:[facility] Start: 11-02-2022 End: 11-02-2022 Patient encounter procedure ART TEACHER-C Shasha Ramos Work Phone: [facility] Work Phone: Start: 10-20-2022 End: 10-20-2022 ambulatory Joe William Other [facility] Other Start: 10-20-2022 Office outpatient visit 25 minutes Joe Thomas [facility] Start: 09-12-2022 End: 09-12-2022 ambulatory Joe Thomas Other [facility] Other Start: 09-12-2022 Telephone encounter Joe snowden [facility] Start: 08-02-2022 End: 08-02-2022 ambulatory BENI FRASER Facility: Start: 08-01-2022 End: 08-01-2022 ambulatory Joe Thomas Other [facility] Other Start: 08-01-2022 Telephone encounter Joe snowden [facility] Start: 05-09-2022 End: 05-09-2022 ambulatory Sandy Camp Other [facility] Other Start: 05-09-2022 Telephone encounter Sandy Camp [facility] Start: 05-04-2022 End: 05-04-2022 ambulatory Shasha Ramos Facility:[facility] Start: 05-04-2022 End: 05-04-2022 Admission to same day surgery center DO Sandy Camp Work Phone: [facility] Start: 05-02-2022 End: 05-02-2022 ambulatory Sandy Camp Facility:[facility] Start: 05-02-2022 End: 05-02-2022 Patient encounter procedure DO Sandy Camp Work Phone: [facility] Start: 04-29-2022 End: 04-29-2022 ambulatory SHASHA RAMOS Facility:[facility] Start: 04-27-2022 End: 04-27-2022 ambulatory Sandy Swainravi Other [facility] Other Start: 04-27-2022 Office outpatient ne w 45 minutes Sandy Camp [facility] Start: 02-12-2022 End: 02-13-2022 ambulatory SHASHA RICHARD Facility:[facility] Start: 02-09-2022 End: 02-10-2022 ambulatory SHASHAPAUL RAMOS Facility:[facility] Procedures Date Procedure Procedure Detail Performing Clinician Start: 11-02-2022 Capsule endoscopy ART TEACHER-C Shasha Ramos Work Phone: Start: 05-04-2022 Esophagogastroduodenoscopy DO Sandy Camp Work Phone: Plan of Treatment Date Care Activity Detail Author Start: 11-02-[address] [facility] Start: 05-04-2022 [facility] Work Phone: Payers Date Payer Category Payer Self-pay [id number] 2000 Unknown [id number] 2.16.84 [id number] 2002 Unknown [id number] 2.16.84 [id number] 2002 Unknown [id number] 2.16.84 [id number] 2002 Unknown [id number] 2.16.84 [id number] 2002 Unknown [id number] 2.16.84 [id number] 2002 Unknown [id number] 2.16.84 [id number] 2002 Unknown [id number] 2.16.84 [id number] 2002 Unknown [id number] 2.16.84 [id number] 1959 Unknown [id number] 2. [id number] Medicaid [id number] 2.1 [id number] Unknown [id number] 2.16.8 [id number] Unknown [id number] 2.16.8 [id number] Unknown [id number] 2.16.8 [id number] Unknown [id number] 2.16.8 [id number] Social History Date Type Detail Facility Sex Assigned At [employer] [facility] Other Start: 05-04-2022 End: 05-04-2022 Tobacco smoking status OKIS Never smoked tobacco (finding) [facility] Start: 2000 Sex Assigned At Female [facility] Medical Equipment Procedure Code Equipment Code Equipment Origin al Text Equipment Identifier Dates Capsule endoscopy, for patency of lumen evaluation Video capsule endoscopy system [id number] FDA Start: 11-02-2022 Goals Date Patient Goal Desired Activity /State Evaluation note 10-20-2022 Note Date & Type Note Facility 10-20-2022 Evaluation note Encounter Date Diagnosis Assessment Notes Oct, Diarrhea (ICD-10 - R19.7) Oct, Nausea & vomiting (ICD-10 - R11.2) capsule endoscopy to be done at [facility] Patient to have labs and stool studies done. Oct, Abdominal pain (ICD-10 - R10.9) [facility] Other Evaluation note 09-12-2022 Note Date & Type Note Facility 09-12-2022 Evaluation note Encounter Date Diagnosis Assessment Notes Aug, LUQ abdominal pain (ICD-10 - R10.12) [facility] Other Procedure note 05-04-2022 Note Date & Type Note Facility 05-04-2022 Procedure note [facility] Evaluation note 04-27-2022 Note Date & Type Note Facility 04-27-2022 Evaluation note Encounter Date Diagnosis Assessment Notes Apr, LUQ abdominal pain (ICD-10 - R10.12) START TRIAL OF CARAFATE 1 GRAM TID EGD/ COLONOSCOPY Apr, Nausea & vomiting (ICD-10 - R11.2) Apr, Diarrhea (ICD-10 - R19.7) Apr, Weight loss (ICD-10 - R63.4) [facility] Other Evaluation note Note Date & Type Note Facility Evaluation note Diagnosis Onset Date Abdominal pain acute Diarrhea acute Nausea and vomiting acute [facility] Work Phone: Evaluation note Note Date & Type Note Facility Evaluation note No Information [facility] Other Evaluation note Note Date & Type Note Facility Evaluation note No assessment information availa ble [facility] Work Phone: History and physical note Note Date & Type Note Facility History and physical note Note Date/Time May 04, 2022 10:04am [facility] [address] [place] [address] Gastroenterology H&P Signed Patient: Marlin Hewitt MR#: [id number] : 2000 Acct:[id number] Age/Sex: 21 / F Adm Date: 2 Loc: Room: Type: [facility] Attending Dr: Sandy Camp DO Copies to: DO Shasha Perez Jr, CNP~ Date of Service: 05/04/2022 Gastroenterology HPI History of Present Illness HPI: Ms. Hewitt is a 21 year old female with N/V, abd pain, diarrhea, and weight loss. Symptoms for the past year. Diarrhea can awaken from sleep but denies blood and mucous. N/V with almost any meal. She has lost significant weight over the past year. Poor relief with Prilosec and Xifaxan. Negative family history. Never had an EGD or colonoscopy before. Review of Systems Review of Systems All other systems reviewed & are negative unless noted below or in HPI PMFSH Vaccinated for COVID-19?: No Medical History No pertinent past medical history Surgical History History of surgery on lower extremity left leg Family History Mother Cancer Grandparent Cancer Grandparent Colon cancer Social History Smoking Status: Never smoker Substance Use Type: None Meds Home and Active Medications Home and Active Medications: Home Medications meloxicam 15 mg tablet 15 mg PO DIRECTED PRN Pain 05/04/22 [History Confirmed 05/04/22] norgestimate 0.25 mg-ethinyl estradiol 35 mcg tablet (Marilee) 1 tab PO DAILY 05/04/22 [History Confirmed 05/04/22] ondansetron 4 mg disintegrating tablet 4 mg PO DIRECTED PRN Nausea 05/04/22 [History Confirmed 05/04/22] sucralfate 1 gram tablet 1 g PO TID 05/04/22 [History Confirmed 05/04/22] Active Medications Sodium Chloride (0.9% Sodium Chloride 1,000 Ml) 1,000 mls @ 20 mls/hr IV .Q24H ADIN Stop: 05/04/23 08:14 Last Admin: 05/04/22 08:25 Dose: 20 mls/hr Sodium Chloride (Sodium Chloride 0.9 % 10 Ml Syringe) 0 ml IV-PUSH PRN PRN PRN Reason: Flush Stop: 05/04/23 08:13 Exam Physical Exam Vital Signs: Temp Pulse Resp BP Pulse Ox O2 Del Method 98.3 F 89 20 122/72 100 Room Air 05/04/22 08:21 05/04/22 08:21 05/04/22 08:21 05/04/22 08:21 05/04/22 08:21 05/04/22 08:21 Const General: no acute distress Orientation: alert and oriented x3 Resp Effort & Inspection: normal respiratory effort Auscultation: clear to auscultation bilaterally Cardio Rate: regular rate Rhythm: regular rhythm GI Palpation: soft and nontender Auscultation: normal bowel sounds Results Labs Labs: Laboratory Results - last 24 hr 05/04/22 08:10 Urine HCG, Qual Negative A&P - Gastroenterology Assessment/Plan (1) Abdominal pain: Code(s): R10.9 - Unspecified abdominal pain Status: Acute (2) Nausea and vomiting: Code(s): R11.2 - Nausea with vomiting, unspecified Status: Acute (3) Diarrhea: Code(s): R19.7 - Diarrhea, unspecified Status: Acute Plan EGD and colonoscopy for evaluation Documented By: Sandy Camp Jr, DO 05/04/22 100 1 Signed By: <Electronically signed by Sandy Camp Jr, DO> 05/04/22 1008 [facility] Work Phone: History general Narrative - Reported Note Date & Type Note Facility History general Narrative - Reported Type Medical History [facility] Other Chief Complaint and Reason for Visit Chief Complaint Abdominal Pain, Diar sb, Nausea, Vomiting Abdominal Pain, Diarrhea, Nausea, Vomiting Reason for Visit Abdominal pain Diarrhea Nausea and vomiting Chief Complaint Diarrhea, nausea, Vo miting R19.7 R11.2 Family History No Family History Records Found Relationship Condition Age at Onset Recorded Date/T shayna Not Specified Malignant neoplasm Unknown grandparent Malignant neoplasm Unknown grandparent Malignant neoplasm of colon Unknown Advance Directives No Advanced Directives Records Found Advance Directive Response Recorded Date/ Time Advance Directives No April 29 2:36pm Advance Directive Response Recorded Date/ Time Advance Directives No April 29 1:36pm Summary Purpose Additional Source Comments REASON FOR VISIT (unrecogniz ed section and content) PATIENT HERE AT THE REQUEST OF SHASHA RAMOS NP FOR N&V AND LUQ ABDOMINAL PAIN AND DIARRHEA, SHE STATES THESE SYMPTOMS HAVE BEEN ONGOING FOR 8 MONTHS OR LONGER. SHE DENIES BLOOD IN STOOL, SHE HAS TRIED OMEPRAZOLE, ZOFRAN AND XIFAXANNo InformationClinical Acute IllnessRefillsPATIENT HERE WITH COMPLAINTS OF NAUSEA & VOMITING, DIARRHEA.POSTING SHEET ORDER Care Teams (unrecognized sec tion and content) Team Status: Inactive Member Role Status Dates Sandy Camp DO Attending Provider Active Shasha Ramos NP-[facility] Primary Care Provider Active Team Status: Active Member Role Status Dates Shasha Ramos NP-[facility] Primary Care Provider Active Team Status: Inactive Member Role Status Dates Shasha Ramos , MARTINEZ-C Primary Care Provider Active Joe Thomas MD Attending Provider Active INFORMATION SOURCE (unrecogn ized section and content) DATE CREATED AUTHOR 12/06/2022 [facility] DATE CREATED AUTHOR AUTHOR'S ORGANIZ ATION 02/02/2023 [facility] DATE CREATED AUTHOR AUTHOR'S ORGANIZ ATION 03/12/2024 [facility] Specialists [facility] FOR RECORDS PERTAINING TO PATIENTS WHO ARE OR HAVE BEEN ENROLLED IN A CHEMICAL DEPENDENCY/SUBSTANCEABUSE PROGRAM, SOME INFORMATION MAY BE OMITTED. This clinical summary was aggregated from multiple sources. Caution should be exercised in using it in the provision of clinical care. This summary normalizes information from multiple sources, and as a consequence, information in this document may materially change the coding, format and clinical context of patient data. In addition, data may be omitted in some cases. CLINICAL DECISIONS SHOULD BE BASED ON THE PRIMARY CLINICAL RECORDS. [employer] provides no warranty or guarantee of the accuracy or completeness of information in this document.
== END 2024-03-12 21:23 | disposition home or self-care (01) ==
LOC: LAB 21:22
PROVIDERS: PCP Nurse Practitioner Family; Visit Provider Obstetrics & Gynecology
DX: Z01.419 Encounter for gynecological examination (general) (routine) without abnormal findings (principal)
CPT/HCPCS: 88175

== ENCOUNTER 2024-03-21 15:25 | Outpatient (OUT) | payer MEDICAID, SELFPAY ==
[2024-03-24 02:06] LABS: AFP Value 56.5 ng/mL (.); Gestat. Age Based On Ultrasound (.); Insulin Dep Diabetes No (.); Maternal Age At EDD 21.7 yr (.); OSBR Risk 1 IN 4803 (.); Results Report (.)
== END 2024-03-21 15:26 | disposition home or self-care (01) ==
PROVIDERS: PCP Nurse Practitioner Family; Visit Provider Obstetrics & Gynecology
DX: Z34.92 Encounter for supervision of normal pregnancy, unspecified, second trimester (principal); Z3A.17 17 weeks gestation of pregnancy
CPT/HCPCS: 36415; 82105

== ENCOUNTER 2024-04-01 10:00 | Outpatient (OUT) | payer MEDICAID, SELFPAY ==
--- NOTE | 2024-04-01 10:03 | US_ITS ---
[address] [address] Patient Name: RON DAWSON MRN: [facility]:[id number] date: 2000 Sex: F Assigned Patient Location: [facility] Current Patient Location: [facility] Accession/Order Number: [id number] Exam Date: 04/01/2024 10:05 Report Date: 04/01/2024 11:11 At the request of: CINDY DALAL Procedure: US OB cervical length EXAMINATION: US OB anatomy, US OB cervical length HISTORY: anatomic survey Z36.89 COMPARISON: No relevant comparison available. TECHNIQUE: Transabdominal sonographic examination was performed for obstetrical and evaluation. FINDINGS: Number: 1 Heart Rate: 144.0 bpm H.B. /min Amniotic Fluid Volume: Subjectively normal Placental Location: Posterior with lower margin 2.3 cm from os. Cervix Length: 4.6 cm, closed. BIOMETRY: BPD: 4.6 cm 20 weeks 0 days HC: 18.0 cm 20 weeks 3 days AC: 14.5 cm 19 weeks 6 days FL: 3.3 cm 20 weeks 2 days EFW:332.2 grams; 22% FL/AC: 22.8 FL/BPD: 71.8 HC/AC: 1.2 GESTATIONAL AGE: Age by EDC: 20 weeks 4 days YUSEF by EDC: 08/15/2024 Age by current US: 20 weeks 1 days YUSEF by current US: 08/19/2024 US/US OB cervical length IMPRESSION: 1. Single live intrauterine with growth detailed above. 2. Low-lying posterior placenta. Electronically authenticated by: TORIN PAREDES Date: 04/01/2024 11:11
--- NOTE | 2024-04-01 10:03 | US_ITS ---
[address] [address] Patient Name: RON DAWSON MRN: [facility]:[id number] date: 2000 Sex: F Assigned Patient Location: [facility] Current Patient Location: [facility] Accession/Order Number: [id number] Exam Date: 04/01/2024 10:05 Report Date: 04/01/2024 11:11 At the request of: CINDY DALAL Procedure: US OB anatomy EXAMINATION: US OB anatomy, US OB cervical length HISTORY: anatomic survey Z36.89 COMPARISON: No relevant comparison available. TECHNIQUE: Transabdominal sonographic examination was performed for obstetrical and evaluation. FINDINGS: Number: 1 Heart Rate: 144.0 bpm H.B. /min Amniotic Fluid Volume: Subjectively normal Placental Location: Posterior with lower margin 2.3 cm from os. Cervix Length: 4.6 cm, closed. BIOMETRY: BPD: 4.6 cm 20 weeks 0 days HC: 18.0 cm 20 weeks 3 days AC: 14.5 cm 19 weeks 6 days FL: 3.3 cm 20 weeks 2 days EFW:332.2 grams; 22% FL/AC: 22.8 FL/BPD: 71.8 HC/AC: 1.2 GESTATIONAL AGE: Age by EDC: 20 weeks 4 days YUSEF by EDC: 08/15/2024 Age by current US: 20 weeks 1 days YUSEF by current US: 08/19/2024 US/US OB anatomy IMPRESSION: 1. Single live intrauterine with growth detailed above. 2. Low-lying posterior placenta. Electronically authenticated by: TORIN PAREDES Date: 04/01/2024 11:11
== END 2024-04-01 10:01 | disposition home or self-care (01) ==
LOC: NOMS 10:00
PROVIDERS: PCP Nurse Practitioner Family; Visit Provider Obstetrics & Gynecology
DX: Z36.89 Encounter for other specified antenatal screening (principal); Z20.2 Contact with and (suspected) exposure to infections with a predominantly sexual mode of transmission; O44.42 Low lying placenta NOS or without hemorrhage, second trimester; Z3A.20 20 weeks gestation of pregnancy
CPT/HCPCS: 76805; 76817

== ENCOUNTER 2024-04-04 13:30 | Emergency (ER) | payer MEDICAID, SELFPAY ==
[2024-04-04 13:40] VITALS: BP 118/72; PULSE 98; TEMP 37.6; O2SAT 98; BMI 36.3
--- NOTE | 2024-04-04 13:49 | ED_ITS ---
HPI HPI - General Adult General Chief complaint: Nausea/Vomiting/Diarrhea Stated complaint: NAUSEA/VOMITING - 21 WKS Time Seen by Provider: 04/04/24 13:34 Source: patient and family Mode of arrival: walk-in Limitations: no limitations History of Present Illness HPI narrative: Patient is a 23-year-old female who presents to the emergency department for the evaluation of nausea and vomiting for the last 3 days. She is 21 weeks . This is her first . She has Zofran and Phenergan at home to help with her nausea. She states she has continued to have nausea despite taking the nausea medications. She reports multiple episodes of emesis, no diarrhea. She states her urine seems light and cloudy. No fevers or upper respiratory symptoms. She denies any abdominal pain, pelvic pain, vaginal bleeding or fluid leakage. Related Data Previous Rx's ?Medication ?Instructions ?Recorded ondansetron 4 mg disintegrating 4 mg PO Q6H PRN nausea and 12/22/23 tablet vomiting #20 tabs promethazine 25 mg tablet 25 mg PO Q6H PRN nausea and 12/22/23 vomiting #30 tabs cephalexin 500 mg capsule 500 mg PO Q8H 7 days #21 caps 04/04/24 metoclopramide HCl 10 mg tablet 10 mg PO Q6H PRN nausea and 04/04/24 (Reglan) vomiting #12 tabs Allergies Allergy/AdvReac Type Severity Reaction Status Date / Time codeine Allergy Unknown Verified 12/22/23 12:16 Opioid HPI Opioid Management Most Recent Opioid Data: Ur Phencyclidine Scrn Negative (NEGATIVE) 12/22/23 12:24 Review of Systems ROS Constitutional Denies: fever or chills Ears, nose, mouth, and throat Denies: throat pain or nasal congestion Respiratory Denies: shortness of breath Gastrointestinal Reports: nausea and vomiting; Denies: abdominal pain Genitourinary Denies: painful urination, blood in urine or pelvic pain Musculoskeletal Denies: back pain or neck pain Integumentary/Breast Denies: rash Neurological Denies: headache Hematologic/Lymphatic Denies: easy bruising or easy bleeding Exam Narrative Exam Narrative: Gen.: Awake, alert, in no distress Head: Normocephalic, atraumatic ENT: Moist mucous membranes Respiratory: No respiratory distress Gastrointestinal: Abdomen is soft, nondistended and nontender to palpation Extremities: Moves extremities equally Psych: Normal mood and affect Neuro: No focal neuro deficit Skin: Warm, dry, intact Constitutional Vital Signs, click to edit/add: Last Vital Signs Temp 99.6 F 04/04/24 13:40 Pulse 98 H 04/04/24 13:40 Resp 16 04/04/24 13:40 BP 118/72 04/04/24 13:40 Pulse Ox 98 04/04/24 13:40 O2 Del Method Room Air 04/04/24 13:40 Course Vital Signs Vital signs: Vital Signs Temperature 99.6 F 04/04/24 13:40 Pulse Rate 98 H 04/04/24 13:40 Respiratory Rate 16 04/04/24 13:40 Blood Pressure 118/72 04/04/24 13:40 Pulse Oximetry 98 04/04/24 13:40 Oxygen Delivery Method Room Air 04/04/24 13:40 Temperature 99.6 F 04/04/24 13:40 Pulse Rate 98 H 04/04/24 13:40 Respiratory Rate 16 04/04/24 13:40 Blood Pressure 118/72 04/04/24 13:40 Pulse Oximetry 98 04/04/24 13:40 Oxygen Delivery Method Room Air 04/04/24 13:40 Medical Decision Making MDM Narrative Medical decision making narrative: Patient treated with IV fluids, Reglan, Benadryl. Patient had no episodes of emesis in the emergency department. Labs are stable, Urine with mild UTI that is contaminated but we will treat based on the patient's . She was given oral potassium in the ER, she requests a popsicle. She is discharged home with Reglan and Keflex to follow-up with her [employer]. Return to the ER if symptoms change or worsen. SHARED APC VISIT, PHYSICIAN ATTESTATION: [id number] I performed a substantive part of the MDM during the patient?s E/M visit. I personally evaluated and examined the patient. I personally made or approved the documented management plan and acknowledge its risk of complications. ? Medical Records Medical records reviewed: Yes I reviewed the patient's medical records Lab Data Lab results reviewed: Yes I reviewed the patient's lab results Labs: Lab Results 04/04/24 04/04/24 Range/Units 13:52 13:55 WBC 11.4 H (4.0-11.0) 10^3/uL RBC 4.02 L (4.20-5.40) 10^6/uL Hgb 10.4 L (12.0-16.0) g/dL Hct 32.6 L (36.0-48.0) % MCV 81.1 (81.0-99.0) fL MCH 25.9 L (26.7-34.0) pg MCHC 31.9 (29.9-35.2) g/dL RDW 13.7 (11.0-15.0) % Plt Count 426 (150-450) 10^3/uL MPV 9.4 L (9.5-13.5) fL Neut % (Auto) 79.2 H (43.0-75.0) % Lymph % (Auto) 13.2 L (20.5-60.0) % [place] % (Auto) 6.7 (1.7-12.0) % Eos % (Auto) 0.2 L (0.9-7.0) % Baso % (Auto) 0.3 (0.2-2.0) % Neut # (Auto) 9.1 H (1.4-6.5) 10^3/uL Lymph # (Auto) 1.5 (1.2-3.8) 10^3/uL [place] # (Auto) 0.8 (0.3-0.8) 10^3/uL Eos # (Auto) 0.0 (0.0-0.7) 10^3/uL Baso # (Auto) 0.0 (0.0-0.1) 10^3/uL Abs Immat Gran (auto) 0.04 H (0.00-0.03) 10^3/uL Imm/Tot Granulo (auto) 0.4 (0.0-0.5) % Sodium 134 L (136-145) mmol/L Potassium 3.1 L (3.5-5.1) mmol/L Chloride 99 (98-107) mmol/L Carbon Dioxide 27.7 (21.0-32.0) mmol/L Anion Gap 10.4 BUN 6.0 L (7.0-18.0) mg/dL Creatinine 0.63 (0.55-1.02) mg/dL Est GFR ( Amer) >60 (>=60) Est GFR (Non-Af Amer) >60 (>=60) BUN/Creatinine Ratio 9.5 Glucose 100 (74-106) mg/dL Calcium 8.9 (8.5-10.1) mg/dL Urine Color Yellow (YELLOW) Urine Clarity Sl cloudy (CLEAR) Urine pH 6.5 (5.0-9.0) Ur Specific [place] 1.025 (1.005-1.025) Urine Protein Trace (NEG/TRACE) mg/dL Urine Glucose (UA) Negative (NEGATIVE) mg/dL Urine Ketones >=80 A (NEGATIVE) mg/dL Urine Occult Blood Negative (NEGATIVE) Urine Nitrite Negative (NEGATIVE) Urine Bilirubin Small A (NEGATIVE) Urine Urobilinogen 1.0 (0.2-1.0) EU/dL Ur Leukocyte Esterase Small A (NEGATIVE) Urine RBC 0-2 (0-2) #/HPF Urine WBC 5-10 A (NONE SEEN) #/HPF Ur Squamous Epith Cells Many A (NONE/RARE) #/LPF Urine Crystals None seen (None Seen) #/HPF Urine Bacteria Moderate A (NONE SEEN) #/HPF Urine Casts None seen (NONE SEEN) #/LPF Urine Mucus Trace A (NONE SEEN) Ur Culture Indicated? Yes Discharge Plan Discharge Stand Alone Forms: Portal Instructions Chief Complaint: Nausea/Vomiting/Diarrhea Clinical Impression: Nausea and vomiting, Acute hypokalemia, UTI (urinary tract infection) Patient Disposition: Home, Self-Care Time of Disposition Decision: 15:05 Condition: Good Prescriptions / Home Meds: New cephalexin 500 mg capsule 500 mg PO Q8H 7 Days Qty: 21 0RF metoclopramide HCl [Reglan] 10 mg tablet 10 mg PO Q6H PRN (Reason: nausea and vomiting) Qty: 12 0RF No Action ondansetron 4 mg tablet,disintegrating 4 mg PO Q6H PRN (Reason: nausea and vomiting) Qty: 20 0RF promethazine 25 mg tablet 25 mg PO Q6H PRN (Reason: nausea and vomiting) Qty: 30 0RF Print Language: Tajik Instructions: Hypokalemia (ED), Acute Nausea and Vomiting (ED), Urinary Tract Infection in (ED) Referrals: ADIEL RAMOS [Primary Care Provider] - 1 week
[2024-04-04] MEDS: 0.9 % SODIUM CHLORIDE 1,000 ML 999 ML IV (13:58)
[2024-04-04] MEDS: FAMOTIDINE/PF 20 MG/2 ML VIAL IV (13:59)
[2024-04-04] MEDS: METOCLOPRAMIDE HCL 10 MG/2 ML VIAL IVP (14:00)
[2024-04-04 14:16] LABS: Basophils Percent Auto 0.3 % (0.2-2.0); Eosinophils Percent Auto 0.2 % (0.9-7.0); Hematocrit 32.6 % (36.0-48.0); Hemoglobin 10.4 g/dL (12.0-16.0); Immature Granulocytes Abs Auto 0.04 10^3/uL (0.00-0.03); Immature Granulocytes Pct Auto 0.4 % (0.0-0.5); Lymphocytes Absolute Auto 1.5 10^3/uL (1.2-3.8); Lymphocytes Percent Auto 13.2 % (20.5-60.0); Mean Corpuscular HGB Conc 31.9 g/dL (29.9-35.2); Mean Corpuscular Hemoglobin 25.9 pg (26.7-34.0); Mean Corpuscular Volume 81.1 fL (81.0-99.0); Mean Platelet Volume 9.4 fL (9.5-13.5); Monocytes Absolute Auto 0.8 10^3/uL (0.3-0.8); Monocytes Percent Auto 6.7 % (1.7-12.0); Neutrophils Absolute Auto 9.1 10^3/uL (1.4-6.5); Neutrophils Percent Auto 79.2 % (43.0-75.0); Platelet Count 426 10^3/uL (150-450); Red Blood Count 4.02 10^6/uL (4.20-5.40); Red Cell Distribution Width 13.7 % (11.0-15.0); White Blood Count 11.4 10^3/uL (4.0-11.0)
[2024-04-04 14:18] LABS: Bilirubin Urine SMALL (NEGATIVE); Blood Urine NEGATIVE (NEGATIVE); Clarity Urine SL CLOUDY (CLEAR); Color Urine YELLOW (YELLOW); Glucose Urine UA NEGATIVE (NEGATIVE); Ketones Urine >=80 mg/dL (NEGATIVE); Leukocyte Esterase Urine SMALL (NEGATIVE); Nitrite Urine NEGATIVE (NEGATIVE); Protein Urine TRACE mg/dL (NEG/TRACE); Specific Gravity Urine 1.025 (1.005-1.025); pH Urine 6.5 (5.0-9.0)
[2024-04-04 14:22] LABS: Urine Microscopic Indicated YES
[2024-04-04 14:23] LABS: Anion Gap 10.4; BUN Creatinine Ratio 9.5; Calcium 8.9 mg/dL (8.5-10.1); Carbon Dioxide 27.7 mmol/L (21.0-32.0); Chloride 99 mmol/L (98-107); Estimated GFR (African America >60 (>=60); Estimated GFR (Non-African Ame >60 (>=60); Glucose 100 mg/dL (74-106); Potassium 3.1 mmol/L (3.5-5.1); Sodium 134 mmol/L (136-145)
[2024-04-04 14:30] LABS: Bacteria Urine MODERATE #/HPF (NONE SEEN); Crystals Seen? None Seen #/HPF (None Seen); Mucus Urine TRACE (NONE SEEN); RBC Urine 0-2 #/HPF (0-2); Squamous Epithelial Cell Urine MANY #/LPF (NONE/RARE)
[2024-04-04 14:31] LABS: Cast Seen? NONE SEEN #/LPF (NONE SEEN); Urine Culture Indicated YES
[2024-04-04] MEDS: POTASSIUM CHLORIDE 10 MEQ ER TABLET 40 MEQ PO (15:16)
[2024-04-04 15:44] VITALS: BP 127/71; PULSE 84; O2SAT 98
== END 2024-04-04 15:47 | disposition home or self-care (01) ==
PROVIDERS: Physician Assistant; Emergency Provider Emergency Medicine; PCP Nurse Practitioner Family
DX: O23.42 Unspecified infection of urinary tract in pregnancy, second trimester (principal); N39.0 Urinary tract infection, site not specified; O99.282 Endocrine, nutritional and metabolic diseases complicating pregnancy, second trimester; E87.6 Hypokalemia; O26.892 Other specified pregnancy related conditions, second trimester; R11.2 Nausea with vomiting, unspecified; Z3A.21 21 weeks gestation of pregnancy
CPT/HCPCS: 36415; 80048; 81001; 85025; 87086; 87150; 87186; 96361; 96374; 96375; 99284; J2765

== ENCOUNTER 2024-04-29 13:00 | Outpatient (OUT) | payer MEDICAID, SELFPAY ==
--- NOTE | 2024-04-29 | US_ITS ---
[address] [address] Patient Name: RON DAWSON MRN: [facility]:[id number] date: 2000 Sex: F Assigned Patient Location: [facility] Current Patient Location: [facility] Accession/Order Number: [id number] Exam Date: 04/29/2024 13:09 Report Date: 04/29/2024 14:04 At the request of: CINDY DALAL Procedure: US OB placenta EXAM: US OB placenta, US OB transvaginal HISTORY: LOW LYING PLACENTA COMPARISON: 04/01/2024 TECHNIQUE: Transabdominal and transvaginal images FINDINGS: The placenta is posterior. No intraplacental or retroplacental echogenic abnormality. The placental edge is 3.6 cm from the internal cervical os Heart rate: 165 beats minute Cervix: Closed, 3.8 cm Clinical age: 24 weeks 4 days Clinical YUSEF: 08/15/2024 US/US OB placenta IMPRESSION: The placental edge is 3.6 cm from the internal cervical os Electronically authenticated by: SANDY KERR Date: 04/29/2024 14:04
--- NOTE | 2024-04-29 13:08 | US_ITS ---
[address] [address] Patient Name: RON DAWSON MRN: [facility]:[id number] date: 2000 Sex: F Assigned Patient Location: [facility] Current Patient Location: [facility] Accession/Order Number: [id number] Exam Date: 04/29/2024 13:09 Report Date: 04/29/2024 14:04 At the request of: CINDY DALAL Procedure: US OB transvaginal EXAM: US OB placenta, US OB transvaginal HISTORY: LOW LYING PLACENTA COMPARISON: 04/01/2024 TECHNIQUE: Transabdominal and transvaginal images FINDINGS: The placenta is posterior. No intraplacental or retroplacental echogenic abnormality. The placental edge is 3.6 cm from the internal cervical os Heart rate: 165 beats minute Cervix: Closed, 3.8 cm Clinical age: 24 weeks 4 days Clinical YUSEF: 08/15/2024 US/US OB transvaginal IMPRESSION: The placental edge is 3.6 cm from the internal cervical os Electronically authenticated by: SANDY KERR Date: 04/29/2024 14:04
== END 2024-04-29 13:01 | disposition home or self-care (01) ==
LOC: NOMS 13:05
PROVIDERS: PCP Nurse Practitioner Family; Visit Provider Obstetrics & Gynecology
DX: O44.42 Low lying placenta NOS or without hemorrhage, second trimester (principal); Z3A.24 24 weeks gestation of pregnancy
CPT/HCPCS: 76815; 76817

== ENCOUNTER 2024-06-05 10:15 | Observation (INO) | payer MEDICAID, SELFPAY ==
[2024-06-05 10:28] VITALS: BP 121/77; PULSE 106
--- OUTSIDE RECORDS SUMMARY | 2024-06-05 10:41 | XMS_ITS | CCD ---
Author Organization [facility] Care Team Providers Care Surveillance Systems Engineer Name Role Phone Sandy Camp Unavailable DO Sandy Camp Attending Provider LANCE Ramos Primary Care Provider [phone] Joe Thomas Unavailable [phone] LANCE Ramos Shasha Ashli Primary Care Provider MD Joe Thomas Attending Provider Richard, Shasha Ashli Primary Care Unavailable Joe Thomas Attending UnavailJoe Navas Admitting Unavailabl e Richard, Shasha Ashli Primary Care Unavailable Joe Thomas Attending UnavailJoe Navas Admitting Unavailabl Sandy Holloway Attending Unavailable Sandy Camp Admitting Unavailable Richard, Shasha Ashli Primary Care Unavailable Richard, Shasha Ashli Primary Care Unavailable Sandy Camp Attending Unavailable Sandy Camp Admitting Unavailable RICHARD, SHASHA Primary Care Unavailable SHASHA RAMOS Admitting Unavailable SHASHA RAMOS Attending Unavailable RICHARD, SHASHA Consulting Unavailable RICHARD, SHASHA Primary Care Unavailable [...] [employer]COSTA Consulting Unavailable BENI FRASER Admitting Unavailable REGGIE, DR TORIN Tidwell Consulting Unavailable SHASHA RAMOS Primary Care Unavailable BENI FRASER Attending Unavailable DR KARLA KIM Consulting Unavailable BENI FRASER Consulting Unavailable SHASHA RAMOS Primary Care Unavailable BALTAZAR VEGA Admitting Unavailable BALTAZAR VEGA Attending Unavailable BALTAZAR VEGA Consulting Unavailable CINDY DALAL Attending Unavailable CINDY DALAL Attending Unavailable MARILYN ROTHMAN Attending Unavailable Allergies Allergy Classification Reported Allergen(s) Allergy Type Date of Onset Reaction(s) Facility (6 sources) Codeine Drug Allergy Unknown Letsdecco Other (1 source) Codeine Drug Allergy 05-04-2022 [facility] Repository (1 source) Codeine Drug Allergy [facility] Repository Medications Current Medications Medication [...] Resolved: 04-27-2022 Episodic Other aftercare (1 source) 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 contraceptives; Translations: [FDC HORMONAL CONTRACEPTIVES] Onset: 11-10-2022 Episodic Other gastrointestinal disorders (1 source) Irritable bowel syndrome with diarrhea; Translations: [IRRITABLE BOWEL SYND W/DIARRHEA] Onset: 02-11-2022 Chronic Other gastrointestinal disorders (8 sources) Diarrhea; Translations: [Diarrhea, unspecified] 05-04-2022 Episodic Other gastrointestinal disorders (5 sources) Diarrhea, unspecified; Translations: [Diarrhea] Onset: 04-27-2022 Resolved: 04-27-2022 Episodic Other and delivery including normal (6 [...] Chlamydia trachomatis, LORETO Negative Normal Negative [facility] Comment on above: Performed By: #### C BC #### [facility] [address] [place] [address] Dr. Renata Finch Neisseria gonorrhoeae, LORETO Negative Normal Negative [facility] Comment on above: Performed By: #### C BC #### [facility] [address] [place] [address] Dr. Renata Finch VAGINITIS/VAGINOSIS DNA PROB Kar 02-01-2023 Chelle species Negative Normal Negative [facility] Comment on above: Performed By: #### C BC #### [facility] [address] [address] [address] Renata Finch Gardnerella vaginalis Negative Normal Negative [facility] Comment on above: Performed By: #### C BC #### [facility] [id number] Renata Finch Trichomonas vaginalis Negative Normal Negative [facility] Comment on above: Performed By: #### C BC #### [facility] [address] [address] [address] Renata Finch FL esophagus ugi sm bowelon 12-05-2022 [place] esophagus ugi sm bowel [facility] [place] [address] Fluoroscopy Report Signed Patient: Marlin Hewitt MR#: [id number] : 2000 Acct:[id number] Age/Sex: 22 / F ADM Date: 12/05/22 Loc: XD Room: Type: [facility] Attending Dr: Joe Thomas MD Copies to: Joe Thomas MD Ordering Provider: Joe Thomas MD Date of Service: 12/05/22 FL/FL esophagus ugi sm bowel: Diarrhea;Nausea vomiting CLINICAL DATA: Nausea, vomiting and diarrhea for the past couple years becoming increasingly worse. Prolonged small bowel transit study last month. COMPARISON: None AIR-CONTRAST ESOPHAGRAM, UPPER GI AND SMALL BOWEL SERIES Investigation Officer supine and upright views of the abdomen [...] Madison Sweet M.D.12/05/2022 1:15 PM Dictation Location: [facility]- Transcribed By: ILDA 12/05/22 1315 Dictated By: Madison Sweet MD 12/05/22 1303 Signed By: 12/05/22 1315 [facility] CBC AUTO DIFFon 11-08-2022 BASO # 0.0 103/ul Normal 0.0-0.1 [facility] Comment on above: Performed By: #### U MICRO, ERUR #### [facility] [address] [address] [address] Renata Finch Basophils/100 WBC (Bld) 0.4 % Normal 0.2-2.0 [facility] Comment on above: Performed By: #### U MICRO, ERUR #### [facility] [address] [address] [address] Renata Finch EO # 0.0 103/ul Normal 0.0-0.7 [facility] Comment on above: Performed By: #### U MICRO, ERUR #### [facility] [address] [address] [address] Renata Finch Eosinophils/100 WBC (Bld) 0.1 % Critically low 0.9-7.0 [facility] Comment on above: Performed By: #### U MICRO, ERUR #### [facility] [address] [address] [address] Renata Finch Erythrocyte distribution width (RBC) [Ratio] 13.6 % Normal 11.0-15.0 [facility] Comment on above: Performed By: #### U MICRO, ERUR #### [facility] [address] [address] [address] Renata Finch Hematocrit (Bld) [Volume fraction] 41.5 % Normal 36.0-48.0 [facility] Comment on above: Performed By: #### U MICRO, ERUR #### [facility] [address] [address] [address] Renata Finch Hemoglobin (Bld) [Mass/Vol] 13.6 g/dL Normal 12.0-16.0 [facility] Comment on above: Performed By: #### U MICRO, ERUR #### [facility] [address] [address] [address] Renata Finch IG # 0.03 10e3/ul Normal 0.00-0.03 [facility] Comment on above: Performed By: #### U MICRO, ERUR #### [facility] [address] [address] [address] Renata Finch IG % 0.3 % Normal 0.0-0.5 [facility] Comment on above: Performed By: #### U MICRO, ERUR #### [facility] [address] [address] [address] Renata Finch LYMPH # 1.7 103/ul Normal 1.2-3.8 [facility] Comment on above: Performed By: #### U MICRO, ERUR #### [facility] [address] [address] [address] Renata Finch Lymphocytes/100 WBC (Bld) 19.5 % Critically low 20.5-60.0 [facility] Comment on above: Performed By: #### U MICRO, ERUR #### [facility] [address] [address] [address] Renata Finch MANUAL DIFF REQ NO Normal [facility] Comment on above: Performed By: #### U MICRO, ERUR #### [facility] [address] [address] [address] Renata Finch MCH (RBC) [Entitic mass] 27.0 pg Normal 26.7-34.0 [facility] Comment on above: Performed By: #### U MICRO, ERUR #### [facility] [address] [place] [address] Dr. Renata Finch MCHC (RBC) [Mass/Vol] 32.8 g/dL Normal 29.9-35.2 [facility] Comment on above: Performed By: #### U MICRO, ERUR #### [facility] [address] [place] [address] Dr. Renata Finch MCV (RBC) [Entitic vol] 82.5 fL Normal 81.0-99.0 [facility] Comment on above: Performed By: #### U MICRO, ERUR #### [facility] [address] [place] [address] Dr. Renata Finch MONO # 0.5 103/ul Normal 0.3-0.8 [facility] Comment on above: Performed By: #### U MICRO, ERUR #### [facility] [address] [place] [address] Dr. Renata Finch Monocytes/100 WBC (Bld) 6.1 % Normal 1.7-12.0 [facility] Comment on above: Performed By: #### U MICRO, ERUR #### [facility] [address] [place] [address] Dr. Renata Finch NEUT # 6.6 103/ul Critically high 1.4-6.5 [facility] Comment on above: Performed By: #### U MICRO, ERUR #### [facility] [address] [place] [address] Dr. Renata Finch Neutrophils/100 WBC (Bld) 73.6 % Normal 43.0-75.0 [facility] Comment on above: Performed By: #### U MICRO, ERUR #### [facility] [address] [place] [address] Dr. Renata Finch Platelet mean volume (Bld) [Entitic vol] 9.5 fL Normal 9.5-13.5 [facility] Comment on above: Performed By: #### U MICRO, ERUR #### [facility] [address] [place] [address] Dr. Renata Finch PLT 417 103/ul Normal 150-450 [facility] Comment on above: Performed By: #### U MICRO, ERUR #### [facility] [address] [place] [address] Dr. Renata Finch RBC 5.03 106/ul Normal 4.20-5.40 [facility] Comment on above: Performed By: #### U MICRO, ERUR #### [facility] [address] [place] [address] Dr. Renata Finch WBC 8.9 103/ul Normal 4.0-11.0 [facility] Comment on above: Performed By: #### U MICRO, ERUR #### [facility] [address] [place] [address] Dr. Renata Finch DRUG SCREEN RAPID (URINE)on 11-08-2022 AMP Negative Normal NEGATIVE [facility] Comment on above: Performed By: #### E RUR, UMICRO, DRUGRPD, PREGU #### [facility] [address] [place] [address] Dr. Renata Finch BAR Negative Normal NEGATIVE [facility] Comment on above: Performed By: #### E RUR, UMICRO, DRUGRPD, PREGU #### [facility] [address] [place] [address] Dr. Renata Finch BUP Negative Normal NEGATIVE [facility] Comment on above: Performed By: #### E RUR, UMICRO, DRUGRPD, PREGU #### [facility] [address] [place] [address] Dr. Renata Finch BZO Negative Normal NEGATIVE [facility] Comment on above: Performed By: #### E RUR, UMICRO, DRUGRPD, PREGU #### [facility] [address] [place] [address] Dr. Renata Finch DOM Negative Normal NEGATIVE [facility] Comment on above: Performed By: #### E RUR, UMICRO, DRUGRPD, PREGU #### [facility] [address] [place] [address] Dr. Renata Finch CUT-OFFS SEE BELOW Normal [facility] Comment on above: Result Comment: [...] #### E RUR, UMICRO, DRUGRPD, PREGU #### [facility] [address] [place] [address] Dr. Renata Finch DRUG CUT HEADER DRUG CLASS TEST SYST EM CUT-OFF CONCENTRATIONS ARE FOLLOWS: Normal [facility] Comment on above: Performed By: #### E RUR, UMICRO, DRUGRPD, PREGU #### [facility] [address] [place] [address] Dr. Renata Finch mAMP Negative Normal NEGATIVE [facility] Comment on above: Performed By: #### E RUR, UMICRO, DRUGRPD, PREGU #### [facility] [address] [place] [address] Dr. Renata Finch MTD Negative Normal NEGATIVE [facility] Comment on above: Performed By: #### E RUR, UMICRO, DRUGRPD, PREGU #### [facility] [address] [place] [address] Dr. Renata Finch OPI Negative Normal NEGATIVE [facility] Comment on above: Performed By: #### E RUR, UMICRO, DRUGRPD, PREGU #### [facility] [address] [place] [address] Dr. Renata Finch OXY Negative Normal NEGATIVE [facility] Comment on above: Performed By: #### E RUR, UMICRO, DRUGRPD, PREGU #### [facility] [address] [place] [address] Dr. Renata Finch PCP Negative Normal NEGATIVE [facility] Comment on above: Performed By: #### E RUR, UMICRO, DRUGRPD, PREGU #### [facility] [address] [place] [address] Dr. Renata Finch PPX Negative Normal NEGATIVE [facility] Comment on above: Performed By: #### E RUR, UMICRO, DRUGRPD, PREGU #### [facility] [address] [place] [address] Dr. Renata Finch TCA Negative Normal NEGATIVE [facility] Comment on above: Performed By: #### E RUR, UMICRO, DRUGRPD, PREGU #### [facility] [address] [place] [address] Dr. Renata Finch THC Positive Abnormal NEGATIVE [facility] Comment on above: Performed By: #### E RUR, UMICRO, DRUGRPD, PREGU #### [facility] [address] [place] [address] Dr. Renata Finch ER URINE PROFILEon 3 Bilirubin Ql (U) MODERATE Abnormal NEGATIVE [facility] Comment on above: Performed By: #### E RUR, UMICRO, DRUGRPD, PREGU #### [facility] [address] [place] [address] Dr. Renata Finch Clarity (U) CLEAR Normal CLEAR [facility] Comment on above: Performed By: #### E RUR, UMICRO, DRUGRPD, PREGU #### [facility] [address] [place] [address] Dr. Renata Finch Color (U) YELLOW Normal YELLOW [facility] Comment on above: Performed By: #### E RUR, UMICRO, DRUGRPD, PREGU #### [facility] [address] [place] [address] Dr. Renata WU A micrscopic examination will be performed if indicated. Normal [facility] Comment on above: Performed By: #### E RUR, UMICRO, DRUGRPD, PREGU #### [facility] [address] [address] [address] Renata Finch Glucose Ql (U) Negative Normal NEGATIVE [facility] Comment on above: Performed By: #### E RURADHA TidwellICFARRUKH, DRUGRPD, PREGU #### [facility] [address] [place] [address] Dr. Renata Finch Hemoglobin Ql (U) TRACE-INTACT Abnormal NEGATIVE [facility] Comment on above: Performed By: #### E RUR UMICRO, DRUGRPD, PREGU #### [facility] [address] [place] [address] Dr. Renata Finch Ketones Ql (U) >=80 Abnormal NEGATIVE [facility] Comment on above: Performed By: #### E RUR UMICRO, DRUGRPD, PREGU #### [facility] [address] [place] [address] Dr. Renata Finch LEUKOCYTES Negative Normal NEGATIVE [facility] Comment on above: Performed By: #### E RUR UMICRO, DRUGRPD, PREGU #### [facility] [address] [place] [address] Dr. Renata Finch Nitrite Ql (U) Negative Normal NEGATIVE [facility] Comment on above: Performed By: #### Sravani RUR UMICRO, DRUGRPD, PREGU #### [facility] [address] [place] [address] Dr. Renata Finch pH (U) 6.5 [pH] Normal 5-9 [facility] Comment on above: Performed By: #### E RUR UMICRO, DRUGRPD, PREGU #### [facility] [address] [place] [address] Dr. Renata Finch SPEC GRAVITY 1.025 Normal 1.005-<=1.[address] [facility] Comment on above: Performed By: #### E RUR UMICRO, DRUGRPD, PREGU #### [facility] [address] [place] [address] Dr. Renata Finch UA PROTEIN TRACE Normal NEGATIVE/ TRACE [facility] Comment on above: Performed By: #### E RUR UMICFARRUKH DRUGRPD, PREGU #### [facility] [address] [place] [address] Dr. Renata Finch UR MICRO IND INDICATED Normal [facility] Comment on above: Performed By: #### E RUR, UMICRO, DRUGRPD, PREGU #### [facility] [address] [place] [address] Dr. Renata Finch Urobilinogen Qn (U) 1.0 {Gabrielle'U}/dL Normal 0.2 - 1. 0 [facility] Comment on above: Performed By: #### E RUR, UMICRO, DRUGRPD, PREGU #### [facility] [address] [place] [address] Dr. Renata Finch URon 11-08-2022 , QUAL Negative Normal NEGATIVE [facility] Comment on above: Performed By: #### E RUR, UMICRO, DRUGRPD, PREGU #### [facility] [address] [place] [address] Dr. Renata Finch PROF CHEM 8 (BAS METB)on Anion gap [Moles/Vol] 16.5 mmol/L Normal [facility] Comment on above: Performed By: #### B MP #### [facility] [address] [place] [address] Dr. Renata Finch Calcium [Mass/Vol] 9.7 mg/dL Normal 8.5-10.1 [facility] Comment on above: Performed By: #### B MP #### [facility] [address] [place] [address] Dr. Renata Finch Chloride [Moles/Vol] 97 mmol/L Critically low 98-107 [facility] Comment on above: Performed By: #### B MP #### [facility] [address] [place] [address] Dr. Renata Finch CO2 [Moles/Vol] 26.3 mmol/L Normal 21.0-32.0 [facility] Comment on above: Performed By: #### B MP #### [facility] [address] [place] [address] Dr. Renata Finch Creatinine [Mass/Vol] 0.71 mg/dL Normal 0.55-1.02 [facility] Comment on above: Performed By: #### B MP #### [facility] [address] [address] [address] Renata Finch EGFR-AF RWANDAN >60 Normal >=60 [facility] Comment on above: Performed By: #### B MP #### [facility] [address] [address] [address] Renata Finch EGFR-NON AF RWANDAN >60 Normal >=60 [facility] Comment on above: Performed By: #### B MP #### [facility] [address] [address] [address] Renata Finch Glucose [Mass/Vol] 86 mg/dL Normal 74-106 [facility] Comment on above: Performed By: #### B MP #### [facility] [address] [place] [address] Dr. Renata Finch Potassium [Moles/Vol] 2.8 mmol/L Critically low 3.5-5.1 [facility] Comment on above: Performed By: #### B MP #### [facility] [address] [place] [address] Dr. Renata Finch Sodium [Moles/Vol] 137 mmol/L Normal 136-145 [facility] Comment on above: Performed By: #### B MP #### [facility] [address] [place] [address] Dr. Renata Finch Urea nitrogen [Mass/Vol] 7.0 mg/dL Normal 7.0-18.0 [facility] Comment on above: Performed By: #### B MP #### [facility] [address] [address] [address] Renata Finch Urea nitrogen/Creatinine [Mass ratio] 9.9 mg/mg Normal [facility] Comment on above: Performed By: #### B MP #### [facility] [address] [place] [address] Dr. Renata Finch URINE MICROSCOPIC ONLYon BACTERIA TRACE Abnormal NONE SEEN [facility] Comment on above: Performed By: #### E RUR, UMICRO, DRUGRPD, PREGU #### [facility] [address] [place] [address] Dr. Renata Finch Bacteria identified Cx Nom (U) NOT INDICATED Normal [facility] Comment on above: Performed By: #### E RUR, UMICRO, DRUGRPD, PREGU #### [facility] [address] [place] [address] Dr. Renata Finch CAST NONE SEEN Normal NONE SEEN [facility] Comment on above: Performed By: #### E RUR, UMICRO, DRUGRPD, PREGU #### [facility] [address] [place] [address] Dr. Renata Finch Crystals LM Nom (Urine sed) NONE SEEN Normal NONE SEEN [facility] Comment on above: Performed By: #### E RUR, UMICRO, DRUGRPD, PREGU #### [facility] [address] [place] [address] Dr. Renata Finch Epithelial cells LM Ql (Urine sed) FEW Abnormal NONE SEEN /RARE [facility] Comment on above: Performed By: #### E RUR, UMICRO, DRUGRPD, PREGU #### [facility] [address] [place] [address] Dr. Renata Finch MUCOUS TRACE Abnormal NONE SEEN [facility] Comment on above: Performed By: #### E RUR, UMICRO, DRUGRPD, PREGU #### [facility] [address] [place] [address] Dr. Renata iFnch RBC 0-2 Normal 0-2 [facility] Comment on above: Performed By: #### E RUR, UMICRO, DRUGRPD, PREGU #### [facility] [address] [place] [address] Dr. Renata Finch WBC 0-2 Abnormal NONE SEEN [facility] Comment on above: Performed By: #### E RUR, UMICRO, DRUGRPD, PREGU #### [facility] [address] [place] [address] Dr. Renata Finch AMYLASEon 08-02-2022 Amylase [Catalytic activity/Vol] 45 U/L Normal 25-115 [facility] Comment on above: Performed By: #### U MICRO, ERUR #### [facility] [address] [place] [address] Dr. Renata Finch CBC AUTO DIFFon 08-02-2022 BASO # 0.0 103/ul Normal 0.0-0.1 [facility] Comment on above: Performed By: #### C BC #### [facility] [address] [place] [address] Dr. Renata Finch Basophils/100 WBC (Bld) 0.4 % Normal 0.2-2.0 [facility] Comment on above: Performed By: #### C BC #### [facility] [address] [place] [address] Dr. Renata Finch EO # 0.0 103/ul Normal 0.0-0.7 [facility] Comment on above: Performed By: #### C BC #### [facility] [address] [place] [address] Dr. Renata Finch Eosinophils/100 WBC (Bld) 0.3 % Critically low 0.9-7.0 [facility] Comment on above: Performed By: #### C BC #### [facility] [address] [place] [address] Dr. Renata Finch Erythrocyte distribution width (RBC) [Ratio] 13.9 % Normal 11.0-15.0 [facility] Comment on above: Performed By: #### C BC #### [facility] [address] [place] [address] Dr. Renata Finch Hematocrit (Bld) [Volume fraction] 43.5 % Normal 36.0-48.0 [facility] Comment on above: Performed By: #### C BC #### [facility] [address] [place] [address] Dr. Renata Finch Hemoglobin (Bld) [Mass/Vol] 13.9 g/dL Normal 12.0-16.0 [facility] Comment on above: Performed By: #### C BC #### [facility] [address] [place] [address] Dr. Renata Finch IG # 0.01 10e3/ul Normal 0.00-0.03 [facility] Comment on above: Performed By: #### C BC #### [facility] [address] [place] [address] Dr. Renata Finch IG % 0.1 % Normal 0.0-0.5 [facility] Comment on above: Performed By: #### C BC #### [facility] [address] [place] [address] Dr. Renata Finch LYMPH # 1.2 103/ul Normal 1.2-3.8 [facility] Comment on above: Performed By: #### C BC #### [facility] [address] [place] [address] Dr. Renata Finch Lymphocytes/100 WBC (Bld) 15.9 % Critically low 20.5-60.0 [facility] Comment on above: Performed By: #### C BC #### [facility] [address] [place] [address] Dr. Renata Finch MANUAL DIFF REQ NO Normal [facility] Comment on above: Performed By: #### C BC #### [facility] [address] [place] [address] Dr. Renata Finch MCH (RBC) [Entitic mass] 26.5 pg Critically low 26.7-34.0 [facility] Comment on above: Performed By: #### C BC #### [facility] [address] [place] [address] Dr. Renata Finch MCHC (RBC) [Mass/Vol] 32.0 g/dL Normal 29.9-35.2 [facility] Comment on above: Performed By: #### C BC #### [facility] [address] [place] [address] Dr. Renata Finch MCV (RBC) [Entitic vol] 83.0 fL Normal 81.0-99.0 [facility] Comment on above: Performed By: #### C BC #### [facility] [facility] [address] [place] [address] Dr. Renata Finch MONO # 0.5 103/ul Normal 0.3-0.8 [facility] Comment on above: Performed By: #### C BC #### [facility] [address] [place] [address] Dr. Renata Finch Monocytes/100 WBC (Bld) 6.1 % Normal 1.7-12.0 [facility] Comment on above: Performed By: #### C BC #### [facility] [address] [place] [address] Dr. Renata Finch NEUT # 5.8 103/ul Normal 1.4-6.5 [facility] Comment on above: Performed By: #### C BC #### [facility] [address] [place] [address] Dr. Renata Finch Neutrophils/100 WBC (Bld) 77.2 % Critically high 43.0-75.0 [facility] Comment on above: Performed By: #### C BC #### [facility] [address] [place] [address] Dr. Renata Finch Platelet mean volume (Bld) [Entitic vol] 9.9 fL Normal 9.5-13.5 [facility] Comment on above: Performed By: #### C BC #### [facility] [address] [place] [address] Dr. Renata Finch PLT 416 103/ul Normal 150-450 [facility] Comment on above: Performed By: #### C BC #### [facility] [address] [place] [address] Dr. Renata Finch RBC 5.24 106/ul Normal 4.20-5.40 [facility] Comment on above: Performed By: #### C BC #### [facility] [address] [place] [address] Dr. Renata Finch WBC 7.6 103/ul Normal 4.0-11.0 [facility] Comment on above: Performed By: #### C BC #### [facility] [address] [place] [address] Dr. Renata Finch Covid-19 PCR (CVDTB)on 07-16 SARS-CoV-2 (COVID-19) RNA LORETO+probe Ql (Unsp spec) Not detected Normal NOT DETECTED [facility] Comment on above: Result Comment: [...] for this test is supported by the Manager Sales Training of Health and Human Service's declaration that [...] longer be used). Performed By: #### C VDTBH #### [facility] [address] [place] [address] Dr. Renata Finch ER URINE PROFILEon 2 Bilirubin Ql (U) SMALL Abnormal NEGATIVE [facility] Comment on above: Performed By: #### C BC #### [facility] [address] [place] [address] Dr. Renata Finch Clarity (U) CLEAR Normal CLEAR [facility] Comment on above: Performed By: #### C BC #### [facility] [address] [place] [address] Dr. Renata Finch Color (U) BROWN Abnormal YELLOW [facility] Comment on above: Performed By: #### C BC #### [facility] [address] [place] [address] Dr. Renata WU A micrscopic examination will be performed if indicated. Normal [facility] Comment on above: Performed By: #### C BC #### [facility] [address] [place] [address] Dr. Renata Finch Glucose Ql (U) Negative Normal NEGATIVE [facility] Comment on above: Performed By: #### C BC #### [facility] [address] [place] [address] Dr. Renata Finch Hemoglobin Ql (U) LARGE Abnormal NEGATIVE [facility] Comment on above: Performed By: #### C BC #### [facility] [address] [place] [address] Dr. Renata Finch Ketones Ql (U) >=80 Abnormal NEGATIVE [facility] Comment on above: Performed By: #### C BC #### [facility] [address] [place] [address] Dr. Renata Finch LEUKOCYTES Negative Normal NEGATIVE [facility] Comment on above: Performed By: #### C BC #### [facility] [address] [place] [address] Dr. Renata Finch Nitrite Ql (U) Negative Normal NEGATIVE [facility] Comment on above: Performed By: #### C BC #### [facility] [address] [place] [address] Dr. Renata Finch pH (U) 7.0 [pH] Normal 5-9 [facility] Comment on above: Performed By: #### C BC #### [facility] [address] [place] [address] Dr. Renata Finch Protein (U) [Mass/Vol] 30 mg/dL Abnormal NEGATIVE/ TRACE [facility] Comment on above: Performed By: #### C BC #### [facility] [address] [place] [address] Dr. Renata Finch SPEC GRAVITY 1.025 Normal 1.005-<=1.025 [facility] Comment on above: Performed By: #### C BC #### [facility] [address] [place] [address] Dr. Renata Finch UR MICRO IND INDICATED Normal [facility] Comment on above: Performed By: #### C BC #### [facility] [address] [place] [address] Dr. Renata Finch Urobilinogen Qn (U) 1.0 {Gabrielle'U}/dL Normal 0.2 - 1. 0 [facility] Comment on above: Performed By: #### C BC #### [facility] [address] [place] [address] Dr. Renata Finch LACTATE/LACTIC ACIDon 2021 Lactate [Moles/Vol] 1.2 mmol/L Normal 0.4-1.9 [facility] Comment on above: Performed By: #### U MICRO, ERUR #### [facility] [address] [place] [address] Dr. Renata Finch LIPASEon 08-02-2022 Lipase [Catalytic activity/Vol] 66.0 U/L Critically low 73.0-393.0 [facility] Comment on above: Performed By: #### U MICRO, ERUR #### [facility] [address] [place] [address] Dr. Renata Finch URon 08-02-2022 , QUAL Negative Normal NEGATIVE [facility] Comment on above: Performed By: #### C BC #### [facility] [address] [place] [address] Dr. Renata Finch PROF 14(COMP METB)on 022 Albumin [Mass/Vol] 4.1 g/dL Normal 3.4-5.0 [facility] Comment on above: Performed By: #### U MICRO, ERUR #### [facility] [address] [place] [address] Dr. Renata Finch Albumin/Globulin [Mass ratio] 1.0 {ratio} Normal [facility] Comment on above: Performed By: #### U MICRO, ERUR #### [facility] [address] [place] [address] Dr. Renata Finch ALP [Catalytic activity/Vol] 53 U/L Normal 46-116 [facility] Comment on above: Performed By: #### U MICRO, ERUR #### [facility] [address] [place] [address] Dr. Renata Finch ALT [Catalytic activity/Vol] 42 U/L Normal 14-59 [facility] Comment on above: Performed By: #### U MICRO, ERUR #### [facility] [address] [address] [address] Renata Finch Anion gap [Moles/Vol] 11.8 mmol/L Normal [facility] Comment on above: Performed By: #### U MICRO, ERUR #### [facility] [address] [address] [address] Renata Finch AST [Catalytic activity/Vol] 22 U/L Normal 15-37 [facility] Comment on above: Performed By: #### U MICRO, ERUR #### [facility] [address] [address] [address] Renata Finch Bilirubin [Mass/Vol] 1.0 mg/dL Normal 0.2-1.0 [facility] Comment on above: Performed By: #### U MICRO, ERUR #### [facility] [address] [place] [address] Dr. Renata Finch Calcium [Mass/Vol] 9.5 mg/dL Normal 8.5-10.1 [facility] Comment on above: Performed By: #### U MICRO, ERUR #### [facility] [address] [address] [address] Renata Finch Chloride [Moles/Vol] 101 mmol/L Normal 98-107 [facility] Comment on above: Performed By: #### U MICRO, ERUR #### [facility] [address] [address] [address] Renata Finch CO2 [Moles/Vol] 29.5 mmol/L Normal 21.0-32.0 [facility] Comment on above: Performed By: #### U MICRO, ERUR #### [facility] [address] [address] [address] Renata Finch Creatinine [Mass/Vol] 0.85 mg/dL Normal 0.55-1.02 [facility] Comment on above: Performed By: #### U MICRO, ERUR #### [facility] [address] [address] [address] Renata Finch EGFR-AF RWANDAN >60 Normal >=60 [facility] Comment on above: Performed By: #### U MICRO, ERUR #### [facility] [address] [address] [address] Renata Finch EGFR-NON AF RWANDAN >60 Normal >=60 [facility] Comment on above: Performed By: #### U MICRO, ERUR #### [facility] [address] [address] [address] Renata Finch Globulin (S) [Mass/Vol] 4.2 g/dL Normal [facility] Comment on above: Performed By: #### U MICRO, ERUR #### [facility] [address] [address] [address] Renata Finch Glucose [Mass/Vol] 119 mg/dL Critically high 74-106 [facility] Comment on above: Performed By: #### U MICRO, ERUR #### [facility] [address] [place] [address] Dr. Renata Finch Potassium [Moles/Vol] 3.3 mmol/L Critically low 3.5-5.1 [facility] Comment on above: Performed By: #### U MICRO, ERUR #### [facility] [address] [address] [address] Renata Finch Protein [Mass/Vol] 8.3 g/dL Critically high 6.4-8.2 [facility] Comment on above: Performed By: #### U MICRO, ERUR #### [facility] [address] [address] [address] Renata Finch Sodium [Moles/Vol] 139 mmol/L Normal 136-145 [facility] Comment on above: Performed By: #### U MICRO, ERUR #### [facility] [address] [address] [address] Renata Finch Urea nitrogen [Mass/Vol] 6.0 mg/dL Critically low 6.4-19.3 [facility] Comment on above: Performed By: #### U MICRO, ERUR #### [facility] [address] [address] [address] Renata Finch Urea nitrogen/Creatinine [Mass ratio] 7.1 mg/mg Normal [facility] Comment on above: Performed By: #### U MICRO, ERUR #### [facility] [address] [place] [address] Dr. Renata Finch URINE MICROSCOPIC ONLYon BACTERIA NONE SEEN Normal NONE SEEN [facility] Comment on above: Performed By: #### C BC #### [facility] [address] [place] [address] Dr. Renata Finch Bacteria identified Cx Nom (U) NOT INDICATED Normal [facility] Comment on above: Performed By: #### C BC #### [facility] [address] [place] [address] Dr. Renata Finch CAST NONE SEEN Normal NONE SEEN [facility] Comment on above: Performed By: #### C BC #### [facility] [address] [place] [address] Dr. Renata Finch Crystals LM Nom (Urine sed) NONE SEEN Normal NONE SEEN [facility] Comment on above: Performed By: #### C BC #### [facility] [address] [place] [address] Dr. Renata Finch Epithelial cells LM Ql (Urine sed) NONE SEEN Normal NONE SEEN /RARE [facility] Comment on above: Performed By: #### C BC #### [facility] [address] [place] [address] Dr. Renata Finch MUCOUS NONE SEEN Normal NONE SEEN [facility] Comment on above: Performed By: #### C BC #### [facility] [address] [place] [address] Dr. Renata Finch RBC 20-50 Abnormal 0-2 [facility] Comment on above: Performed By: #### C BC #### [facility] [address] [place] [address] Dr. Renata Finch WBC NONE SEEN Normal NONE SEEN [facility] Comment on above: Performed By: #### C BC #### [facility] [address] [place] [address] Dr. Renata Finch XR ABD FLAT UP_PA [...] by: TORIN PAREDES Date: 2022-08-02 07:02 Normal [facility] HCG ( test) IA.rapi d Ql (U)Ordered By: Sandy Camp on 05-04-2022 HCG ( test) Ql (U) Negative [facility] HCG,Urineon 05-04-2022 Beta HCG ( test) Ql (U) Negative Normal [facility] Comment on above: Result Comment: PERF ORMED BY: [place] [address] PATHOLOGIST LOCKSTITCH POCKET SETTER MERARI BROWN M.D. Performed By: #### U HCG #### [address] 05-04-2022 L -- ---- Specimen: [id number] Received: 05/04/22 Status: ALEXANDRA Worthy Num: [id number] Spec Type: Surgical Subm Dr: Sandy Camp Jr, DO Tissues: A Duodenum - Biopsy (DUODENUM) B Colon Biopsy (COLON) Procedures: HE Stain/4, Gross/Micro L4/2 ---- Age/ Patient Sex Location Account Attending Physician ---- Marlin Hewitt [id number] Sandy Camp Jr, DO ---- SPEC NUM: [id number] RECD: 05/04/22 STATUS: ALEXANDRA WORTHY NUM: [id number] ALFONSO: 05/04/222 [facility] DR: Sandy Camp Jr, ENTERED: 05/04/22 [facility] DR: VERA TYPE: Surgical DEPT: S ENTERED BY: [id number] RECV BY: [id number] ORDERED: HE Stain/4, Gross/Micro L4/2 ORDERED: HE [...] one c assette labeled B1. ---- Specimen: [id number] Received: 05/04/22 Status: ALEXANDRA Worthy Num: [id number] Spec Type: Surgical Subm Dr: Sandy Camp Jr, DO Tissues: A Duodenum - Biopsy (DUODENUM) B Colon Biopsy (COLON) Procedures: HE Stain/4, Gross/Micro L4/2 ---- Patient: Marlin Hewitt [id number] (Continued) ---- Specimen: [id number] Received: 05/04/22 (Continued) Signed (signature on file) Minerva Ibarra MD 05/05/22 1446 ---- Specimen: [id number] Received: 05/04/22 Status: ALEXANDRA Worthy Num: [id number] Spec Type: Surgical Subm Dr: Sandy Camp Jr, DO Tissues: A Duodenum - Biopsy (DUODENUM) B Colon Biopsy (COLON) Procedures: HE Stain/4, Gross/Micro L4/2 ---- Patient: Marlin Hewitt [id number] (Continued) ---- Specimen: [id number] Received: 05/04/22 (Continued) Microscopic Description A. Two glass slides with H E stained material have been examined. The microscopic findings support the above pathologic diagnosis. B. Two glass slides with H E stained material have been examined. The microscopic findings support the above pathologic diagnosis. CPT Codes 48657?2 ---- ---- Specimen: [id number] Received: 05/04/22 Status: ALEXANDRA Worthy Num: [id number] Spec Type: Surgical Subm Dr: Sandy Camp Jr, DO Tissues: A Duodenum - Biopsy (DUODENUM) B Colon Biopsy (COLON) Procedures: HE Stain/4, Gross/Micro L4/2 ---- Patient: Marlin Hewitt [id number] (Continued) ---- Signed (signature on file) Beau Ibarra MD 05/05/22 1446 Normal [facility] SARS-CoV-2 (COVID-19) RNA LORETO+probe Ql (Unsp spec) Negative Normal Negative [facility] Comment on above: Order Comment: Healt hcare Worker?: N Result Comment: Testing for SARS-CoV-2 by RT-PCR This test was developed and its performance characteristics determined by [employer] ([employer] and validated at the [facility]. This test has not been FDA cleared [...] is terminated or revoked sooner. PERFORMED BY: [place] [address] PATHOLOGIST LOCKSTITCH POCKET SETTER MERARI BROWN M.D. Performed By: #### C OVID 19 [facility] #### [address] COVID-19 Positive/NegativeOr dered By: Sandy Camp on 05-02-2022 SARS-CoV-2 (COVID-19) N gene LORETO+probe Ql (Resp) Negative Negative [facility] Comment on above: Testing for SARS-CoV -2 by RT-PCR This test was developed and its performance characteristics determined by [employer] ([employer] and validated at the [facility]. This test has not been FDA cleared [...] authorization is terminated or revoked sooner. AMYLASEon 07-15-2022 Amylase [Catalytic activity/Vol] 53 U/L Normal 25-115 [facility] Comment on above: Performed By: #### C BC #### [facility] [address] [place] [address] Dr. Renata Finch CBC W MANUAL DIFFon 04-29-20 22 ATYPICAL LYMPH # Normal [facility] Comment on above: Performed By: #### C BC #### [facility] [address] [place] [address] Dr. Renata Finch ATYPICAL LYMPH % Normal [facility] Comment on above: Performed By: #### C BC #### [facility] [address] [place] [address] Dr. Renata Finch BAND # Normal 0.0-0.3 [facility] Comment on above: Performed By: #### C BC #### [facility] [address] [place] [address] Dr. Renata Finch BAND % Normal 0-5 [facility] Comment on above: Performed By: #### C BC #### [facility] [address] [place] [address] Dr. Renata Finch BASOM # 0.00 103/ul Normal 0.00-0.10 [facility] Comment on above: Performed By: #### C BC #### [facility] [address] [place] [address] Dr. Renata Finch BASOM % 0.0 % Critically low 0.2-2.0 [facility] Comment on above: Performed By: #### C BC #### [facility] [address] [place] [address] Dr. Renata Finch BLAST # Normal [facility] Comment on above: Performed By: #### C BC #### [facility] [address] [place] [address] Dr. Renata Finch BLAST % Normal [facility] Comment on above: Performed By: #### C BC #### [facility] [address] [place] [address] Dr. Renata Finch CORRECTED WBC Normal 4.0-11.0 [facility] Comment on above: Performed By: #### C BC #### [facility] [address] [address] [address] Renata Finch EOS # 0.00 103/ul Normal 0.00-0.70 [facility] Comment on above: Performed By: #### C BC #### [facility] [address] [place] [address] Dr. Renata Finch EOS% 0.0 % Critically low 0.9-7.0 [facility] Comment on above: Performed By: #### C BC #### [facility] [address] [place] [address] Dr. Renata Finch HCT 40.4 % Normal 36.0-48.0 [facility] Comment on above: Performed By: #### C BC #### [facility] [address] [place] [address] Dr. Renata Finch HGB 13.0 g/dl Normal 12.0-16.0 [facility] Comment on above: Performed By: #### C BC #### [facility] [address] [place] [address] Dr. Renata Finch LYMPHM # 0.83 103/ul Critically low 1.20-3.80 [facility] Comment on above: Performed By: #### C BC #### [facility] [address] [place] [address] Dr. Renata Finch LYMPHM% 13.0 % Critically low 20.5-60.0 [facility] Comment on above: Performed By: #### C BC #### [facility] [address] [place] [address] Dr. Renata Finch MCH 26.8 pg Normal 26.7-34.0 [facility] Comment on above: Performed By: #### C BC #### [facility] [address] [place] [address] Dr. Renata Finch MCHC 32.2 g/dl Normal 29.9-35.2 [facility] Comment on above: Performed By: #### C BC #### [facility] [address] [place] [address] Dr. Renata Finch MCV 83.3 fL Normal 81.0-99.0 [facility] Comment on above: Performed By: #### C BC #### [facility] [address] [place] [address] Dr. Renata Finch METAMYELOCYTE # Normal [facility] Comment on above: Performed By: #### C BC #### [facility] [address] [place] [address] Dr. Renata Finch METAMYELOCYTE % Normal [facility] Comment on above: Performed By: #### C BC #### [facility] [address] [place] [address] Dr. Renata Finch MONOM# 0.13 103/ul Critically low 0.30-0.80 [facility] Comment on above: Performed By: #### C BC #### [facility] [address] [place] [address] Dr. Renata Finch MONOM% 2.0 % Normal 1.7-12.0 [facility] Comment on above: Performed By: #### C BC #### [facility] [address] [place] [address] Dr. eRnata Finch MPV 9.7 fL Normal 9.5-13.5 [facility] Comment on above: Performed By: #### C BC #### [facility] [address] [place] [address] Dr. Renata Finch MYELOCYTE # Normal [facility] Comment on above: Performed By: #### C BC #### [facility] [address] [place] [address] Dr. Renata Finch MYELOCYTE % Normal [facility] Comment on above: Performed By: #### C BC #### [facility] [address] [place] [address] Dr. Renata Finch NRBC Normal [facility] Comment on above: Performed By: #### C BC #### [facility] [address] [place] [address] Dr. Renata Finch PLT 311 103/ul Normal 150-450 [facility] Comment on above: Performed By: #### C BC #### [facility] [address] [place] [address] Dr. Renata Finch RBC 4.85 106/ul Normal 4.20-5.40 [facility] Comment on above: Performed By: #### C BC #### [facility] [address] [place] [address] Dr. Renata Finch RDW 13.8 % Normal 11.0-15.0 [facility] Comment on above: Performed By: #### C BC #### [facility] [address] [place] [address] Dr. Renata Finch SEG # 5.44 103/ul Normal 1.40-6.50 [facility] Comment on above: Performed By: #### C BC #### [facility] [address] [place] [address] Dr. Renata Finch SEG % 85.0 % Critically high 43.0-75.0 [facility] Comment on above: Performed By: #### C BC #### [facility] [address] [place] [address] Dr. Renata Finch WBC 6.4 103/ul Normal 4.0-11.0 [facility] Comment on above: Performed By: #### C BC #### [facility] [address] [place] [address] Dr. Renata Finch ER URINE PROFILEon 2 Bilirubin Ql (U) Negative Normal NEGATIVE [facility] Comment on above: Performed By: #### U MICRO, ERUR #### [facility] [address] [place] [address] Dr. Renata Finch Clarity (U) SL CLOUDY Abnormal CLEAR [facility] Comment on above: Performed By: #### U MICRO, ERUR #### [facility] [address] [place] [address] Dr. Renata Finch Color (U) YELLOW Normal YELLOW [facility] Comment on above: Performed By: #### U MICRO, ERUR #### [facility] [address] [place] [address] Dr. Renata Finch ERUYAQUELIND A micrscopic examination will be performed if indicated. Normal [facility] Comment on above: Performed By: #### U MICRO, ERUR #### [facility] [address] [address] [address] Renata Finch Glucose Ql (U) Negative Normal NEGATIVE [facility] Comment on above: Performed By: #### U MICRO, ERUR #### [facility] [address] [place] [address] Dr. Renata Finch Hemoglobin Ql (U) Negative Normal NEGATIVE [facility] Comment on above: Performed By: #### U MICRO, ERUR #### [facility] [address] [address] [address] Renata Finch Ketones Ql (U) 40 mg/dl Abnormal NEGATIVE [facility] Comment on above: Performed By: #### U MICRO, ERUR #### [facility] [address] [place] [address] Dr. Renata Finch LEUKOCYTES Negative Normal NEGATIVE [facility] Comment on above: Performed By: #### U MICRO, ERUR #### [facility] [address] [place] [address] Dr. Renata Finch Nitrite Ql (U) Negative Normal NEGATIVE [facility] Comment on above: Performed By: #### U MICRO, ERUR #### [facility] [address] [place] [address] Dr. Renata Finch pH (U) 6.0 [pH] Normal 5-9 [facility] Comment on above: Performed By: #### U MICRO, ERUR #### [facility] [address] [address] [address] Renata Finch Protein (U) [Mass/Vol] 30 mg/dL Abnormal NEGATIVE/ TRACE [facility] Comment on above: Performed By: #### U MICRO, ERUR #### [facility] [address] [place] [address] Dr. Renata Finch SPEC GRAVITY >=1.030 Abnormal 1.005-<=1.025 [facility] Comment on above: Performed By: #### U MICRO, ERUR #### [facility] [address] [place] [address] Dr. Renata Finch UR MICRO IND INDICATED Normal [facility] Comment on above: Performed By: #### U MICRO, ERUR #### [facility] [address] [place] [address] Dr. Renata Finch Urobilinogen Qn (U) 0.2 {Gabrielle'U}/dL Normal 0.2 - 1. 0 [facility] Comment on above: Performed By: #### U MICRO, ERUR #### [facility] [address] [place] [address] Dr. Renata Finch LIPASEon 04-29-2022 Lipase [Catalytic activity/Vol] 58.0 U/L Critically low 73.0-393.0 [facility] Comment on above: Performed By: #### C BC #### [facility] [address] [place] [address] Dr. Renata Finch PREG HCG QUALon 04-29-2022 , QUAL Negative Normal NEGATIVE [facility] Comment on above: Performed By: #### C BC #### [facility] [address] [place] [address] Dr. Renata Finch PROF 14(COMP METB)on 022 Albumin [Mass/Vol] 3.7 g/dL Normal 3.4-5.0 [facility] Comment on above: Performed By: #### C BC #### [facility] [address] [place] [address] Dr. Renata Finch Albumin/Globulin [Mass ratio] 0.9 {ratio} Normal [facility] Comment on above: Performed By: #### C BC #### [facility] [address] [place] [address] Dr. Renata Finch ALP [Catalytic activity/Vol] 46 U/L Normal 46-116 [facility] Comment on above: Performed By: #### C BC #### [facility] [address] [place] [address] Dr. Renata Finch ALT [Catalytic activity/Vol] 22 U/L Normal 14-59 [facility] Comment on above: Performed By: #### C BC #### [facility] [address] [address] [address] Renata Finch Anion gap [Moles/Vol] 16.3 mmol/L Normal [facility] Comment on above: Performed By: #### C BC #### [facility] [address] [place] [address] Dr. Renata Finch AST [Catalytic activity/Vol] 16 U/L Normal 15-37 [facility] Comment on above: Performed By: #### C BC #### [facility] [address] [address] [address] Renata Finch Bilirubin [Mass/Vol] 0.8 mg/dL Normal 0.2-1.0 [facility] Comment on above: Performed By: #### C BC #### [facility] [address] [place] [address] Dr. Renata Finch Calcium [Mass/Vol] 9.3 mg/dL Normal 8.5-10.1 [facility] Comment on above: Performed By: #### C BC #### [facility] [address] [place] [address] Dr. Renata Finch Chloride [Moles/Vol] 101 mmol/L Normal 98-107 [facility] Comment on above: Performed By: #### C BC #### [facility] [address] [place] [address] Dr. Renata Finch CO2 [Moles/Vol] 25.4 mmol/L Normal 21.0-32.0 [facility] Comment on above: Performed By: #### C BC #### [facility] [address] [place] [address] Dr. Renata Finch Creatinine [Mass/Vol] 0.81 mg/dL Normal 0.55-1.02 [facility] Comment on above: Performed By: #### C BC #### [facility] [address] [place] [address] Dr. Renata Finch EGFR-AF RWANDAN >60 Normal >=60 [facility] Comment on above: Performed By: #### C BC #### [facility] [address] [place] [address] Dr. Renata Finch EGFR-NON AF RWANDAN >60 Normal >=60 [facility] Comment on above: Performed By: #### C BC #### [facility] [address] [address] [address] Renata Finch Globulin (S) [Mass/Vol] 4.1 g/dL Normal [facility] Comment on above: Performed By: #### C BC #### [facility] [address] [address] [address] Renata Finch Glucose [Mass/Vol] 126 mg/dL Critically high 74-106 [facility] Comment on above: Performed By: #### C BC #### [facility] [address] [address] [address] Renata Finch Potassium [Moles/Vol] 3.7 mmol/L Normal 3.5-5.1 [facility] Comment on above: Performed By: #### C BC #### [facility] [address] [address] [address] Renata Finch Protein [Mass/Vol] 7.8 g/dL Normal 6.4-8.2 [facility] Comment on above: Performed By: #### C BC #### [facility] [address] [address] [address] Renata Finch Sodium [Moles/Vol] 139 mmol/L Normal 136-145 [facility] Comment on above: Performed By: #### C BC #### [facility] [address] [address] [address] Renata Finch Urea nitrogen [Mass/Vol] 9.0 mg/dL Normal 6.4-19.3 [facility] Comment on above: Performed By: #### C BC #### [facility] [address] [address] [address] Renata Finch Urea nitrogen/Creatinine [Mass ratio] 11.1 mg/mg Normal [facility] Comment on above: Performed By: #### C BC #### [facility] [address] [address] [address] Renata Finch URINE MICROSCOPIC ONLYon BACTERIA TRACE Abnormal NONE SEEN [facility] Comment on above: Performed By: #### U MICRO, ERUR #### [facility] [address] [address] [address] Renata Finch Bacteria identified Cx Nom (U) NOT INDICATED Normal [facility] Comment on above: Performed By: #### U MICRO, ERUR #### [facility] [address] [place] [address] Dr. Renata Finch CAST NONE SEEN Normal NONE SEEN [facility] Comment on above: Performed By: #### U MICRO, ERUR #### [facility] [address] [place] [address] Dr. Renata Finch Crystals LM Nom (Urine sed) NONE SEEN Normal NONE SEEN [facility] Comment on above: Performed By: #### U MICRO, ERUR #### [facility] [address] [place] [address] Dr. Renata Finch Epithelial cells LM Ql (Urine sed) FEW Abnormal NONE SEEN /RARE [facility] Comment on above: Performed By: #### U MICRO, ERUR #### [facility] [address] [place] [address] Dr. Renata Finch MUCOUS TRACE Abnormal NONE SEEN [facility] Comment on above: Performed By: #### U MICRO, ERUR #### [facility] [address] [place] [address] Dr. Renata Finch RBC 0-2 Normal 0-2 [facility] Comment on above: Performed By: #### U MICRO, ERUR #### [facility] [address] [place] [address] Dr. Renata Finch WBC NONE SEEN Normal NONE SEEN [facility] Comment on above: Performed By: #### U MICRO, ERUR #### [facility] [address] [place] [address] Dr. Renata Finch XR ABD FLAT UP_PA [...] by: SANDY KERR Date: 2022-04-29 10:52 Normal [facility] CT ABD/PELV W CONon 02-13-20 CT ABD/PELV [...] without evidence of obstruction Electronically authenticated by: ASNDY KERR Date: 2022-02-12 09:47 Normal [facility] US SINGLE QUAD RT UPPERon [...] SANDY KERR Date: 2022-02-12 09:12 Normal [facility] AMYLASEon 02-09-2022 Amylase [Catalytic activity/Vol] 144 U/L Critically high 25-115 [facility] Comment on above: Performed By: #### U MICRO, ERUR #### [facility] [address] [place] [address] Dr. Renata Finch CBC AUTO DIFFon 02-09-2022 BASO # 0.0 103/ul Normal 0.0-0.1 [facility] Comment on above: Performed By: #### C BC #### [facility] [address] [place] [address] Dr. Renata Finch Basophils/100 WBC (Bld) 0.5 % Normal 0.2-2.0 [facility] Comment on above: Performed By: #### C BC #### [facility] [address] [place] [address] Dr. Renata Finch EO # 0.0 103/ul Normal 0.0-0.7 [facility] Comment on above: Performed By: #### C BC #### [facility] [address] [place] [address] Dr. Renata Finch Eosinophils/100 WBC (Bld) 0.5 % Critically low 0.9-7.0 [facility] Comment on above: Performed By: #### C BC #### [facility] [address] [place] [address] Dr. Renata Finch Erythrocyte distribution width (RBC) [Ratio] 14.3 % Normal 11.0-15.0 [facility] Comment on above: Performed By: #### C BC #### [facility] [address] [place] [address] Dr. Renata Finch Hematocrit (Bld) [Volume fraction] 36.0 % Normal 36.0-48.0 [facility] Comment on above: Performed By: #### C BC #### [facility] [address] [place] [address] Dr. Renata Finch Hemoglobin (Bld) [Mass/Vol] 11.6 g/dL Critically low 12.0-16.0 [facility] Comment on above: Performed By: #### C BC #### [facility] [address] [place] [address] Dr. Renata Finch IG # 0.01 10e3/ul Normal 0.00-0.03 [facility] Comment on above: Performed By: #### C BC #### [facility] [address] [place] [address] Dr. Renata Finch IG % 0.2 % Normal 0.0-0.5 [facility] Comment on above: Performed By: #### C BC #### [facility] [address] [place] [address] Dr. Renata Finch LYMPH # 1.8 103/ul Normal 1.2-3.8 [facility] Comment on above: Performed By: #### C BC #### [facility] [address] [place] [address] Dr. Renata Finch Lymphocytes/100 WBC (Bld) 29.7 % Normal 20.5-60.0 [facility] Comment on above: Performed By: #### C BC #### [facility] [address] [place] [address] Dr. Renata Finch MANUAL DIFF REQ NO Normal [facility] Comment on above: Performed By: #### C BC #### [facility] [address] [place] [address] Dr. Renata Finch MCH (RBC) [Entitic mass] 27.0 pg Normal 26.7-34.0 [facility] Comment on above: Performed By: #### C BC #### [facility] [address] [place] [address] Dr. Renata Finch MCHC (RBC) [Mass/Vol] 32.2 g/dL Normal 29.9-35.2 [facility] Comment on above: Performed By: #### C BC #### [facility] [id number] Rentaa Finch MCV (RBC) [Entitic vol] 83.7 fL Normal 81.0-99.0 [facility] Comment on above: Performed By: #### C BC #### [facility] [address] [place] [address] Dr. Renata Finch MONO # 0.5 103/ul Normal 0.3-0.8 [facility] Comment on above: Performed By: #### C BC #### [facility] [address] [place] [address] Dr. Renata Finch Monocytes/100 WBC (Bld) 9.0 % Normal 1.7-12.0 [facility] Comment on above: Performed By: #### C BC #### [facility] [address] [place] [address] Dr. Renata Finch NEUT # 3.6 103/ul Normal 1.4-6.5 [facility] Comment on above: Performed By: #### C BC #### [facility] [address] [place] [address] Dr. Renata Finch Neutrophils/100 WBC (Bld) 60.1 % Normal 43.0-75.0 [facility] Comment on above: Performed By: #### C BC #### [facility] [address] [place] [address] Dr. Renata Finch Platelet mean volume (Bld) [Entitic vol] 9.6 fL Normal 9.5-13.5 [facility] Comment on above: Performed By: #### C BC #### [facility] [address] [place] [address] Dr. Renata Finch PLT 319 103/ul Normal 150-450 [facility] Comment on above: Performed By: #### C BC #### [facility] [address] [place] [address] Dr. Renata Finch RBC 4.30 106/ul Normal 4.20-5.40 [facility] Comment on above: Performed By: #### C BC #### [facility] [address] [place] [address] Dr. Renata Finch WBC 6.0 103/ul Normal 4.0-11.0 [facility] Comment on above: Performed By: #### C BC #### [facility] [address] [place] [address] Dr. Renata Finch LIPASEon 02-09-2022 Lipase [Catalytic activity/Vol] 715.0 U/L Critically high 73.0-393.0 [facility] Comment on above: Performed By: #### U MICRO, ERUR #### [facility] [address] [place] [address] Dr. Renata Finch PROF 14(COMP METB)on 022 Albumin [Mass/Vol] 3.5 g/dL Normal 3.4-5.0 [facility] Comment on above: Performed By: #### U MICRO, ERUR #### [facility] [address] [place] [address] Dr. Renata Finch Albumin/Globulin [Mass ratio] 1.0 {ratio} Normal [facility] Comment on above: Performed By: #### U MICRO, ERUR #### [facility] [address] [place] [address] Dr. Renata Finch ALP [Catalytic activity/Vol] 48 U/L Normal 46-116 [facility] Comment on above: Performed By: #### U MICRO, ERUR #### [facility] [address] [place] [address] Dr. Renata Finch ALT [Catalytic activity/Vol] 19 U/L Normal 14-59 [facility] Comment on above: Performed By: #### U MICRO, ERUR #### [facility] [address] [place] [address] Dr. Renata Finch Anion gap [Moles/Vol] 13.0 mmol/L Normal [facility] Comment on above: Performed By: #### U MICRO, ERUR #### [facility] [address] [place] [address] Dr. Renata Finch AST [Catalytic activity/Vol] 13 U/L Critically low 15-37 [facility] Comment on above: Performed By: #### U MICRO, ERUR #### [facility] [address] [address] [address] Renata Finch Bilirubin [Mass/Vol] 0.6 mg/dL Normal 0.2-1.0 [facility] Comment on above: Performed By: #### U MICRO, ERUR #### [facility] [address] [address] [address] Renata Finch Calcium [Mass/Vol] 8.4 mg/dL Critically low 8.5-10.1 [facility] Comment on above: Performed By: #### U MICRO, ERUR #### [facility] [address] [address] [address] Renata Finch Chloride [Moles/Vol] 102 mmol/L Normal 98-107 [facility] Comment on above: Performed By: #### U MICRO, ERUR #### [facility] [address] [place] [address] Dr. Renata Finch CO2 [Moles/Vol] 26.7 mmol/L Normal 21.0-32.0 [facility] Comment on above: Performed By: #### U MICRO, ERUR #### [facility] [address] [place] [address] Dr. Renata Finch Creatinine [Mass/Vol] 0.66 mg/dL Normal 0.55-1.02 [facility] Comment on above: Performed By: #### U MICRO, ERUR #### [facility] [address] [place] [address] Dr. Renata Finch EGFR-AF RWANDAN >60 Normal >=60 [facility] Comment on above: Performed By: #### U MICRO, ERUR #### [facility] [address] [place] [address] Dr. Renata Finch EGFR-NON AF RWANDAN >60 Normal >=60 [facility] Comment on above: Performed By: #### U MICRO, ERUR #### [facility] [address] [place] [address] Dr. Renata Finch Globulin (S) [Mass/Vol] 3.6 g/dL Normal [facility] Comment on above: Performed By: #### U MICRO, ERUR #### [facility] [address] [address] [address] Renata Finch Glucose [Mass/Vol] 89 mg/dL Normal 74-106 [facility] Comment on above: Performed By: #### U MICRO, ERUR #### [facility] [address] [address] [address] Renata Finch Potassium [Moles/Vol] 3.7 mmol/L Normal 3.5-5.1 [facility] Comment on above: Performed By: #### U MICRO, ERUR #### [facility] [address] [address] [address] Renata Finch Protein [Mass/Vol] 7.1 g/dL Normal 6.1-8.2 [facility] Comment on above: Performed By: #### U MICRO, ERUR #### [facility] [address] [address] [address] Renata Finch Sodium [Moles/Vol] 138 mmol/L Normal 136-145 [facility] Comment on above: Performed By: #### U MICRO, ERUR #### [facility] [address] [address] [address] Renata Finch Urea nitrogen [Mass/Vol] 7.0 mg/dL Normal 6.4-19.3 [facility] Comment on above: Performed By: #### U MICRO, ERUR #### [facility] [address] [address] [address] Renata Finch Urea nitrogen/Creatinine [Mass ratio] 10.6 mg/mg Normal [facility] Comment on above: Performed By: #### U MICRO, ERUR #### [facility] [address] [address] [address] Renata Finch Vital Signs Date Time Vital Sign Value Performing Clinician Facility 10-20-2022 16:34-0500 Body weight 0 kg [employer] Shasha Ramos Work Phone: [facility] 10-20-2022 16:30-0500 Body height 154.94 cm Joe Thomas Other [facility] Other 10-20-2022 16:30-0500 Body mass index (BMI) [Ratio] 30.04 kg/m2 Joe Thomas Other [facility] Other 10-20-2022 16:30-0500 Body weight 72.12 kg Joe Thomas Other [facility] Other 10-20-2022 16:30-0500 Diastolic blood pressure 79 mm[Hg] Joe Thomas Other [facility] Other 10-20-2022 16:30-0500 Systolic blood pressure 122 mm[Hg] Joe Thomas Other [facility] Other 05-04-2022 11:02-0400 Diastolic blood pressure 81 mm[Hg] DO Sandy Entrecardkes Work Phone: [facility] 05-04-2022 11:02-0400 Heart rate 76 /min DO Sandy Hykes Work Phone: [facility] 05-04-2022 11:02-0400 Respiratory rate 18 /min DO Sandy Hykes Work Phone: [facility] 05-04-2022 11:02-0400 SaO2% (BldA) [Mass fraction] 100 % DO Sandy Hykes Work Phone: [facility] 05-04-2022 11:02-0400 Systolic blood pressure 116 mm[Hg] DO Sandy Hykes Work Phone: [facility] 05-04-2022 08:21-0400 Body height 154.94 cm DO Sandy Hykes Work Phone: [facility] 05-04-2022 08:21-0400 Body temperature 98.3 [degF] DO Sandy Hykes Work Phone: [facility] 05-04-2022 08:21-0400 Body weight 68.03 kg DO Sandy Camp Work Phone: [facility] 04-27-2022 15:45-0400 Body height 154.94 cm Sandy Camp Other [facility] Other 04-27-2022 15:45-0400 Body mass index (BMI) [Ratio] 28.72 kg/m2 Sandy Camp Other [facility] Other 04-27-2022 15:45-0400 Body weight 68.95 kg Sandy Camp Other [facility] Other Encounters Encounter Date Encounter Type Care Provider Facility Start: 05-07-2024 End: 05-07-2024 ambulatory MARILYN ROTHMAN Not Available Start: 04-09-2024 End: 04-09-2024 ambulatory CINDY MULUGETA Not Available Start: 03-12-2024 End: 03-12-2024 ambulatory CINDY MULUGETA Not Available Start: 02-09-2024 End: 02-09-2024 ambulatory CINDY MULUGETA Not Available Start: 01-30-2023 End: 01-30-2023 ambulatory RAVEN BONNIE Facility: Start: 12-05-2022 End: 12-05-2022 ambulatory Shasha Ramos Facility:[facility] Start: 12-05-2022 End: 12-05-2022 ambulatory [employer]ER SCIENCE TEACHER[employer]C Shasha Ramos Work Phone: [facility] Work Phone: Start: 12-05-2022 End: 12-05-2022 Patient encounter procedure [employer]ER SCIENCE TEACHER-C Shasha Ramos Work Phone: [facility] [employer] Work Phone: Start: 11-10-2022 End: 11-10-2022 ambulatory Joe Thomas Other [facility] Other Start: 11-10-2022 Telephone encounter Joe snowden [facility] Start: 11-08-2022 End: 11-08-2022 ambulatory SHASHA RAMOS Facility:[facility] Start: 11-02-2022 End: 11-02-2022 ambulatory Shasha Ramos Facility:[facility] Start: 11-02-2022 End: 11-02-2022 Patient encounter procedure CONSUMER SCIENCE TEACHER-C Shashated Chowdhurymer [facility] Work Phone: Start: 10-20-2022 End: 10-20-2022 ambulatory Joe William Other [facility] Other Start: 10-20-2022 Office outpatient visit 25 minutes Joe Thomas [facility] Start: 09-12-2022 End: 09-12-2022 ambulatory Joe Thomas Other [facility] Other Start: 09-12-2022 Telephone encounter Joe snowden [facility] Start: 08-02-2022 End: 08-02-2022 ambulatory BENI FRASER Facility: Start: 08-01-2022 End: 08-01-2022 ambulatory Joe William Other [facility] Other Start: 08-01-2022 Telephone encounter Joe snowden [facility] Start: 05-09-2022 End: 05-09-2022 ambulatory Sandy Camp Other [facility] Other Start: 05-09-2022 Telephone encounter Sandy Camp [facility] Start: 05-04-2022 End: 05-04-2022 ambulatory Shasha Ashli Ramos Facility:[facility] Start: 05-04-2022 End: 05-04-2022 Admission to same day surgery center DO Sandy Camp [facility] Start: 05-02-2022 End: 05-02-2022 ambulatory Sandy Camp Facility:[facility] Start: 05-02-2022 End: 05-02-2022 Patient encounter procedure DO Sandy Camp Work Phone: [facility] Start: 04-29-2022 End: 04-29-2022 ambulatory SHASHATED RAMOS Facility:[facility] Start: 04-27-2022 End: 04-27-2022 ambulatory Sandy Camp Other [facility] Other Start: 04-27-2022 Office outpatient ne w 45 minutes Sandy Zo[facility] Start: 02-12-2022 End: 02-13-2022 ambulatory SHASHATED RAMOS Facility:[facility] Start: 02-09-2022 End: 02-10-2022 ambulatory SHASHATED RAMOS Facility:[facility] Procedures Date Procedure Procedure Detail Performing Clinician Start: 11-02-2022 Capsule endoscopy [employer]ER SCIENCE TEACHER-C Shasha Ramos Work Phone: Start: 05-04-2022 Esophagogastroduodenoscopy DO Sandy Camp Work Phone: Plan of Treatment Date Care Activity Detail Author Start: 11-02-2022 [facility] Start: 05-04-2022 [facility] Work Phone: Payers Date Payer Category Payer Self-pay [id number] 2002 Unknown [id number] 2.16.84 [id number] 2002 Unknown [id number] 2.16.84 [id number] 2002 Unknown [id number] 2.16.84 [id number] 2002 Unknown [id number] 2.16.84 [id number] 2002 Unknown [id number] 2.16.84 [id number] 2002 Unknown [id number] 2.16.84 [id number] 2002 Unknown [id number] 2.16.84 0.1.169693.3.579.2.1259 2002 Unknown [id number] 2.16.84 0.1.465923.3.579.2.1259 2002 Unknown [id number] 2.16.84 [id number] 2002 Unknown [id number] 2.16.84 [id number] 1959 Unknown [id number] 2. [id number] Medicaid [id number] 2.1 [id number] Unknown [id number] 2.16.8 40.1.021279.3.579.2.531 Unknown [id number] 2.16.8 40.1.179949.3.579.2.531 Unknown [id number] 2.16.8 [id number] Unknown [id number] 2.16.8 [id number] Social History Date Type Detail Facility Sex Assigned At [facility] Other Start: 05-04-2022 End: 05-04-2022 Tobacco smoking status LAIS Never smoked tobacco (finding) [facility] Start: 2002 Sex Assigned At Female F [facility] Equipment Procedure Code Equipment Code Equipment Origin al Text Equipment Identifier Dates Capsule endoscopy, for patency of lumen evaluation Video capsule endoscopy system [id number] FDA Start: 11-02-2022 Goals Date Patient Goal Desired Activity /State Evaluation note 10-20-2022 Note Date & Type Note Facility 10-20-2022 Evaluation note Encounter Date Diagnosis Assessment Notes Oct, Diarrhea (ICD-10 - R19.7) Oct, Nausea & vomiting (ICD-10 - R11.2) capsule endoscopy to be done at [facility] Patient to have labs and stool studies done. Oct, Abdominal pain (ICD-10 - R10.9) [facility] Other Evaluation note 09-12-2022 Note Date & Type Note Facility 09-12-2022 Evaluation note Encounter Date Diagnosis Assessment Notes Aug, LUQ abdominal pain (ICD-10 - R10.12) [facility] Other Procedure note 05-04-2022 Note Date & Type Note Facility 05-04-2022 Procedure note [facility] Evaluation note 04-27-2022 Note Date & Type Note Facility 04-27-2022 Evaluation note Encounter Date Diagnosis Assessment Notes Apr, LUQ abdominal pain (ICD-10 - R10.12) START TRIAL OF CARAFATE 1 GRAM TID EGD/ COLONOSCOPY Apr, Nausea & vomiting (ICD-10 - R11.2) Apr, Diarrhea (ICD-10 - R19.7) Apr, Weight loss (ICD-10 - R63.4) [facility] Other Evaluation note Note Date & Type Note Facility Evaluation note Diagnosis Onset Date Abdominal pain acute Diarrhea acute Nausea and vomiting acute [facility] Work Phone: Evaluation note Note Date & Type Note Facility Evaluation note No Information [facility] Other Evaluation note Note Date & Type Note Facility Evaluation note No assessment information availa ble [facility] Work Phone: History and physical note Note Date & Type Note Facility History and physical note Note Date/Time May 04, 2022 10:04am [facility] [address] [place] [address] Gastroenterology H&P Signed Patient: Marlin Hewitt MR#: [id number] : 2000 Acct:[id number] Age/Sex: 21 / F Adm Date: 2 Loc: Room: Type: [facility] Attending Dr: Sandy Cmap DO Copies to: DO Shasha Perez Jr, DALILA~ Date of Service: 05/04/2022 Gastroenterology HPI History [...] by Sandy Camp Jr, DO> 05/04/22 [facility] [facility] Work Phone: History general Narrative - Reported Note Date & Type Note Facility History general Narrative - Reported Type Medical History anemia [facility] Other Chief Complaint and Reason for Visit [...] Dates Sandy Camp DO Attending Provider Active LANCE Higgins Primary Care Provider Active Team Status: Active Member Role Status Dates LANCE Higgins Primary Care Provider Active Team Status: Inactive Member Role Status Dates LANCE Higgins Primary Care Provider Active Joe Thomas MD Attending Provider Active INFORMATION SOURCE (unrecogn ized section and content) DATE CREATED AUTHOR 12/06/2022 [facility] DATE CREATED AUTHOR AUTHOR'S ORGANIZ ATION 02/02/2023 [facility] DATE CREATED AUTHOR AUTHOR'S ORGANIZ ATION 05/10/2024 [facility] FOR RECORDS PERTAINING TO PATIENTS WHO ARE [...] BE BASED ON THE PRIMARY CLINICAL RECORDS. [employer] provides no warranty or guarantee of the accuracy or completeness of information in this document.
== END 2024-06-05 11:30 | disposition home or self-care (01) ==
PROVIDERS: Admitting Provider Obstetrics & Gynecology; PCP Nurse Practitioner Family; Visit Provider Obstetrics & Gynecology
DX: O36.8190 Decreased fetal movements, unspecified trimester, not applicable or unspecified (principal); Z3A.00 Weeks of gestation of pregnancy not specified
CPT/HCPCS: 59025; G0378; G0379

== ENCOUNTER 2024-06-21 10:51 | Observation (INO) | payer MEDICAID, SELFPAY ==
[2024-06-21 10:57] VITALS: BP 124/62; PULSE 94
--- OUTSIDE RECORDS SUMMARY | 2024-06-21 11:09 | XMS_ITS | CCD ---
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 Role Phone Sandy Camp Unavailable DO Sandy Camp Attending Provider LANCE Ramos Primary Care Provider Joe Thomas Unavailable LANCE Ramos Shasha Ashli Primary Care Provider [...] Primary Care Unavailable BENI FRASER Attending Unavailable KANIKA Phan, DR ACOSTA Consulting Unavailable BENI FRASER Consulting Unavailable SHASHA RAMOS Primary Care Unavailable HARI .BALTAZAR Admitting Unavailable HARI Phan, BALTAZAR Attending Unavailable HARI Phan, BALTAZAR Consulting Unavailable CINDY DALAL Attending Unavailable CINDY DALAL Attending Unavailable MARILYN ROTHMAN Attending Unavailable CINDY DALAL Attending Unavailable MARILYN ROTHMAN Attending Unavailable Allergies Allergy Classification Reported Allergen(s) Allergy Type Date of Onset Reaction(s) Facility (6 sources) Codeine Drug Allergy Unknown [facility] Other (1 source) Codeine Drug Allergy 05-04-2022 [facility] Repository (1 source) Codeine Drug Allergy [facility] Repository Medications Current Medications Medication Drug [...] Resolved: 04-27-2022 Episodic Other aftercare (1 source) 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 Renata Finch Neisseria gonorrhoeae, LORETO Negative Normal Negative [facility] Comment on above: Performed By: #### C BC #### [facility] [address] [place] [address] [address] Renata Finch VAGINITIS/VAGINOSIS DNA PROB Kar 02-01-2023 Chelle species Negative Normal Negative The [facility] Comment on above: Performed By: #### C BC #### [facility] [address] [place] [address] [address] Renata Finch Gardnerella vaginalis Negative Normal Negative [facility] Comment on above: Performed By: #### C BC #### [facility] [address] [place] [address] [address] Renata Finch Trichomonas vaginalis Negative Normal Negative [facility] Comment on above: Performed By: #### C BC #### [facility] [address] [place] [address] [address] Renata Finch [place] esophagus ugi sm bowelon 12-05-2022 [place] esophagus ugi sm bowel [facility] [place] [address] Fluoroscopy Report Signed Patient: Marlin Hewitt MR#: [id number] : 2000 Acct:[id number] Age/Sex: 22 / F ADM Date: 12/05/22 Loc: XD Room: Type: [facility] Attending Dr: Joe Thomas MD Copies to: Joe Thomas MD Ordering Provider: Joe Thomas MD Date of Service: 12/05/22 FL/FL esophagus ugi sm bowel: Diarrhea;Nausea vomiting CLINICAL DATA: Nausea, vomiting and diarrhea for the past couple years becoming increasingly worse. Prolonged small bowel transit study last month. COMPARISON: None AIR-CONTRAST ESOPHAGRAM, UPPER GI AND SMALL BOWEL SERIES Pilot Supervisor supine and upright views of the abdomen [...] OTHERWISE WITHIN NORMAL LIMITS. Impression dictated by: aMdison Sweet M.D.12/05/2022 1:15 PM Dictation Location: [place] [address] Transcribed By: ILDA 12/05/22 1315 Dictated By: Madison Sweet MD 12/05/22 1303 Signed By: 12/05/22 1315 [facility] CBC AUTO DIFFon 11-08-2022 BASO # 0.0 103/ul Normal 0.0-0.1 [facility] Comment on above: Performed By: #### U MICRO, ERUR #### [facility] [address] [place] [address] [address] Renata Finch Basophils/100 WBC (Bld) 0.4 % Normal 0.2-2.0 [facility] Comment on above: Performed By: #### U MICRO, ERUR #### [facility] [address] [place] [address] [address] Renata Finch EO # 0.0 103/ul Normal 0.0-0.7 [facility] Comment on above: Performed By: #### U MICRO, ERUR #### [facility] [address] [place] [address] [address] Renata Finch Eosinophils/100 WBC (Bld) 0.1 % Critically low 0.9-7.0 [facility] Comment on above: Performed By: #### U MICRO, ERUR #### [facility] [address] [place] [address] [address] Renata Finch Erythrocyte distribution width (RBC) [Ratio] 13.6 % Normal 11.0-15.0 [facility] Comment on above: Performed By: #### U MICRO, ERUR #### [facility] [address] [place] [address] [address] Renata Finch Hematocrit (Bld) [Volume fraction] 41.5 % Normal 36.0-48.0 [facility] Comment on above: Performed By: #### U MICRO, ERUR #### [facility] [address] [place] [address] Dr. Renata Finch Hemoglobin (Bld) [Mass/Vol] 13.6 g/dL Normal 12.0-16.0 [facility] Comment on above: Performed By: #### U MICRO, ERUR #### [facility] [address] [place] [address] Dr. Renata Finch IG # 0.03 10e3/ul Normal 0.00-0.03 [facility] Comment on above: Performed By: #### U MICRO, ERUR #### [facility] [address] [place] [address] Dr. Renata Finch IG % 0.3 % Normal 0.0-0.5 [facility] Comment on above: Performed By: #### U MICRO, ERUR #### [facility] [address] [place] [address] Dr. Renata Finch LYMPH # 1.7 103/ul Normal 1.2-3.8 [facility] Comment on above: Performed By: #### U MICRO, ERUR #### [facility] [address] [place] [address] Dr. Renata Finch Lymphocytes/100 WBC (Bld) 19.5 % Critically low 20.5-60.0 [facility] Comment on above: Performed By: #### U MICRO, ERUR #### [facility] [address] [place] [address] Dr. Renata Finch MANUAL DIFF REQ NO Normal [facility] Comment on above: Performed By: #### U MICRO, ERUR #### [facility] [address] [place] [address] Dr. Renata Finch MCH (RBC) [Entitic mass] 27.0 pg Normal 26.7-34.0 [facility] Comment on above: Performed By: #### U MICRO, ERUR #### [facility] [address] [place] [address] Dr. Renata Finch MCHC (RBC) [Mass/Vol] 32.8 g/dL Normal 29.9-35.2 [facility] Comment on above: Performed By: #### U MICRO, ERUR #### [facility] [address] [place] [address] Dr. Renata Finch MCV (RBC) [Entitic vol] 82.5 fL Normal 81.0-99.0 [facility] Comment on above: Performed By: #### U MICRO, ERUR #### [facility] [address] [place] [address] Dr. Renata Finch MONO # 0.5 103/ul Normal 0.3-0.8 [facility] Comment on above: Performed By: #### U MICRO, ERUR #### [facility] [address] [place] [address] Dr. Renata Finch Monocytes/100 WBC (Bld) 6.1 % Normal 1.7-12.0 [facility] Comment on above: Performed By: #### U MICRO, ERUR #### [facility] [address] [place] [address] Dr. Renata Finch NEUT # 6.6 103/ul Critically high 1.4-6.5 [facility] Comment on above: Performed By: #### U MICRO, ERUR #### [facility] [address] [place] [address] Dr. Renata Finch Neutrophils/100 WBC (Bld) 73.6 % Normal 43.0-75.0 [facility] Comment on above: Performed By: #### U MICRO, ERUR #### [facility] [address] [place] [address] Dr. Renata Finch Platelet mean volume (Bld) [Entitic vol] 9.5 fL Normal 9.5-13.5 [facility] Comment on above: Performed By: #### U MICRO, ERUR #### [facility] [address] [place] [address] [address] Renata Finch PLT 417 103/ul Normal 150-450 [facility] Comment on above: Performed By: #### U MICRO, ERUR #### [facility] [address] [place] [address] Dr. Renata Finch RBC 5.03 106/ul Normal 4.20-5.40 [facility] Comment on above: Performed By: #### U MICRO, ERUR #### [facility] [address] [place] [address] [address] Renata Finch WBC 8.9 103/ul Normal 4.0-11.0 [facility] Comment on above: Performed By: #### U MICRO, ERUR #### [facility] [address] [place] [address] Dr. Renata Finch DRUG SCREEN RAPID (URINE)on 11-08-2022 AMP Negative Normal NEGATIVE [facility] Comment on above: Performed By: #### E RUR, UMICRO, DRUGRPD, PREGU #### [facility] [address] [place] [address] Dr. Renata Finch BAR Negative Normal NEGATIVE [facility] Comment on above: Performed By: #### E RUR, UMICRO, DRUGRPD, PREGU #### [facility] [address] [place] [address] Dr. Renata Finch BUP Negative Normal NEGATIVE [facility] Comment on above: Performed By: #### E RUR, UMICRO, DRUGRPD, PREGU #### [facility] [address] [place] [address] Dr. Renata Finch BZO Negative Normal NEGATIVE [facility] Comment on above: Performed By: #### E RUR, UMICRO, DRUGRPD, PREGU #### [facility] [address] [place] [address] Dr. Renata Finch DOM Negative Normal NEGATIVE [facility] Comment on above: Performed By: #### E RUR, UMICRO, DRUGRPD, PREGU #### [facility] [address] [place] [address] Dr. Rneata Finch CUT-OFFS SEE BELOW Normal [facility] Comment on above: Result Comment: AMP (Amphetamine): [...] #### E RUR, UMICRO, DRUGRPD, PREGU #### [facility] [address] [place] [address] [address] Renata Finch DRUG CUT HEADER DRUG CLASS TEST SYST EM CUT-OFF CONCENTRATIONS ARE FOLLOWS: Normal [facility] Comment on above: Performed By: #### E RUR, UMICRO, DRUGRPD, PREGU #### [facility] [address] [place] [address] [address] Renata Finch mAMP Negative Normal NEGATIVE [facility] Comment on above: Performed By: #### E RUR, UMICRO, DRUGRPD, PREGU #### [facility] [address] [place] [address] [address] Renata Finch MTD Negative Normal NEGATIVE [facility] Comment on above: Performed By: #### E RUR, UMICRO, DRUGRPD, PREGU #### [facility] [address] [place] [address] [address] Renata Finch OPI Negative Normal NEGATIVE [facility] Comment on above: Performed By: #### E RUR, UMICRO, DRUGRPD, PREGU #### [facility] [address] [place] [address] [address] Renata Finch OXY Negative Normal NEGATIVE [facility] Comment on above: Performed By: #### E RUR, UMICRO, DRUGRPD, PREGU #### [facility] [address] [place] [address] [address] Renata Finch PCP Negative Normal NEGATIVE [facility] Comment on above: Performed By: #### E RUR, UMICRO, DRUGRPD, PREGU #### [facility] [address] [place] [address] [address] Renata Finch PPX Negative Normal NEGATIVE [facility] Comment on above: Performed By: #### E RUR, UMICRO, DRUGRPD, PREGU #### [facility] [address] [place] [address] [address] Renata Finch TCA Negative Normal NEGATIVE [facility] Comment on above: Performed By: #### E RUR, UMICRO, DRUGRPD, PREGU #### [facility] [address] [place] [address] Dr. Renata Finch THC Positive Abnormal NEGATIVE [facility] Comment on above: Performed By: #### E RUR, UMICRO, DRUGRPD, PREGU #### [facility] [address] [place] [address] [address] Renata Finch ER URINE PROFILEon 3 Bilirubin Ql (U) MODERATE Abnormal NEGATIVE [facility] Comment on above: Performed By: #### E RUR, UMICRO, DRUGRPD, PREGU #### [facility] [address] [place] [address] Dr. Renata Finch Clarity (U) CLEAR Normal CLEAR [facility] Comment on above: Performed By: #### E RUR, UMICRO, DRUGRPD, PREGU #### [facility] [address] [place] [address] Dr. Renata Finch Color (U) YELLOW Normal YELLOW [facility] Comment on above: Performed By: #### E RUR, UMICRO, DRUGRPD, PREGU #### [facility] [address] [place] [address] Dr. Renata Finch ERUAHNeal A micrscopic examination will be performed if indicated. Normal [facility] Comment on above: Performed By: #### E RUR, UMICRO, DRUGRPD, PREGU #### [facility] [address] [place] [address] [address] Renata Finch Glucose Ql (U) Negative Normal NEGATIVE [facility] Comment on above: Performed By: #### E RUR, UMICRO, DRUGRPD, PREGU #### [facility] [address] [place] [address] [address] Renata Finch Hemoglobin Ql (U) TRACE-INTACT Abnormal NEGATIVE [facility] Comment on above: Performed By: #### E RUR, UMICRO, DRUGRPD, PREGU #### [facility] [address] [place] [address] [address] Renata Finch Ketones Ql (U) >=80 Abnormal NEGATIVE [facility] Comment on above: Performed By: #### E RUR, UMICRO, DRUGRPD, PREGU #### [facility] [address] [place] [address] [address] Renata Finch LEUKOCYTES Negative Normal NEGATIVE [facility] Comment on above: Performed By: #### E RUR, UMICRO, DRUGRPD, PREGU #### [facility] [address] [place] [address] [address] Renata Finch Nitrite Ql (U) Negative Normal NEGATIVE [facility] Comment on above: Performed By: #### E RUR, UMICRO, DRUGRPD, PREGU #### [facility] [address] [place] [address] [address] Renata Finch pH (U) 6.5 [pH] Normal 5-9 [facility] Comment on above: Performed By: #### E RUR, UMICRO, DRUGRPD, PREGU #### [facility] [address] [place] [address] [address] Renata Finch SPEC GRAVITY 1.025 Normal 1.005-<=1.025 [facility] Comment on above: Performed By: #### E RUR, UMICRO, DRUGRPD, PREGU #### [facility] [address] [place] [address] [address] Renata Finch UA PROTEIN TRACE Normal NEGATIVE/ TRACE [facility] Comment on above: Performed By: #### E RUR, UMICRO, DRUGRPD, PREGU #### [facility] [address] [place] [address] [address] Renata Finch UR MICRO IND INDICATED Normal [facility] Comment on above: Performed By: #### E RUR, UMICRO, DRUGRPD, PREGU #### [facility] [address] [place] [address] [address] Renata Finch Urobilinogen Qn (U) 1.0 {Gabrielle'U}/dL Normal 0.2 - 1. 0 [facility] Comment on above: Performed By: #### E RUR, UMICRO, DRUGRPD, PREGU #### [facility] [address] [place] [address] Dr. Renata Finch URon 11-08-2022 , QUAL Negative Normal NEGATIVE [facility] Comment on above: Performed By: #### E RUR, UMICRO, DRUGRPD, PREGU #### [facility] [address] [place] [address] Dr. Renata Finch PROF CHEM 8 (BAS METB)on Anion gap [Moles/Vol] 16.5 mmol/L Normal [facility] Comment on above: Performed By: #### B MP #### [facility] [address] [place] [address] Dr. Renata Finch Calcium [Mass/Vol] 9.7 mg/dL Normal 8.5-10.1 [facility] Comment on above: Performed By: #### B MP #### [facility] [address] [place] [address] Dr. Renata Finch Chloride [Moles/Vol] 97 mmol/L Critically low 98-107 [facility] Comment on above: Performed By: #### B MP #### [facility] [address] [place] [address] Dr. Renata Finch CO2 [Moles/Vol] 26.3 mmol/L Normal 21.0-32.0 [facility] Comment on above: Performed By: #### B MP #### [facility] [address] [place] [address] [address] Renata Finch Creatinine [Mass/Vol] 0.71 mg/dL Normal 0.55-1.02 [facility] Comment on above: Performed By: #### B MP #### [facility] [address] [place] [address] [address] Renata Finch EGFR-AF ANDORRAN >60 Normal >=60 [facility] Comment on above: Performed By: #### B MP #### [facility] [address] [place] [address] [address] Renata Fnich EGFR-NON AF ANDORRAN >60 Normal >=60 [facility] Comment on above: Performed By: #### B MP #### [facility] [address] [place] [address] [address] Renata Finch Glucose [Mass/Vol] 86 mg/dL Normal 74-106 [facility] Comment on above: Performed By: #### B MP #### [facility] [address] [place] [address] [address] Renata Finch Potassium [Moles/Vol] 2.8 mmol/L Critically low 3.5-5.1 [facility] Comment on above: Performed By: #### B MP #### [facility] [address] [place] [address] Dr. Renata Finch Sodium [Moles/Vol] 137 mmol/L Normal 136-145 [facility] Comment on above: Performed By: #### B MP #### [facility] [address] [place] [address] [address] Renata Finch Urea nitrogen [Mass/Vol] 7.0 mg/dL Normal 7.0-18.0 [facility] Comment on above: Performed By: #### B MP #### [facility] [address] [place] [address] Dr. Renata Finch Urea nitrogen/Creatinine [Mass ratio] 9.9 mg/mg Normal [facility] Comment on above: Performed By: #### B MP #### [facility] [address] [place] [address] Dr. Renata Finch URINE MICROSCOPIC ONLYon BACTERIA TRACE Abnormal NONE SEEN [facility] Comment on above: Performed By: #### E RUR, UMICRO, DRUGRPD, PREGU #### [facility] [address] [place] [address] Dr. Renata Finch Bacteria identified Cx Nom (U) NOT INDICATED Normal [facility] Comment on above: Performed By: #### E RUR, UMICRO, DRUGRPD, PREGU #### [facility] [address] [place] [address] [address] Renata Finch CAST NONE SEEN Normal NONE SEEN [facility] Comment on above: Performed By: #### E RUR, UMICRO, DRUGRPD, PREGU #### [facility] [address] [place] [address] Dr. Renata Finch Crystals LM Nom (Urine sed) NONE SEEN Normal NONE SEEN [facility] Comment on above: Performed By: #### E RUR UMICRO, DRUGRPD, PREGU #### [facility] [address] [place] [address] Dr. Renata Finch Epithelial cells LM Ql (Urine sed) FEW Abnormal NONE SEEN /RARE [facility] Comment on above: Performed By: #### E RUR UMICRO, DRUGRPD, PREGU #### [facility] [address] [place] [address] Dr. Renata Finch MUCOUS TRACE Abnormal NONE SEEN [facility] Comment on above: Performed By: #### E RUR UMICRO, DRUGRPD, PREGU #### [facility] [address] [place] [address] Dr. Renata Finch RBC 0-2 Normal 0-2 [facility] Comment on above: Performed By: #### E RUR UMICRO, DRUGRPD, PREGU #### [facility] [address] [place] [address] Dr. Renata Finch WBC 0-2 Abnormal NONE SEEN [facility] Comment on above: Performed By: #### E RUR UMICRO, DRUGRPD, PREGU #### [facility] [address] [place] [address] Dr. Renata Finch AMYLASEon 08-02-2022 Amylase [Catalytic activity/Vol] 45 U/L Normal 25-115 [facility] Comment on above: Performed By: #### U MICRO, ERUR #### [facility] [address] [place] [address] Dr. Renata Finch CBC AUTO DIFFon 08-02-2022 BASO # 0.0 103/ul Normal 0.0-0.1 [facility] Comment on above: Performed By: #### C BC #### [facility] [address] [place] [address] Dr. Renata Finch Basophils/100 WBC (Bld) 0.4 % Normal 0.2-2.0 [facility] Comment on above: Performed By: #### C BC #### [facility] [address] [place] [address] Dr. Renata Finch EO # 0.0 103/ul Normal 0.0-0.7 [facility] Comment on above: Performed By: #### C BC #### [facility] [address] [place] [address] Dr. Renata Finch Eosinophils/100 WBC (Bld) 0.3 % Critically low 0.9-7.0 [facility] Comment on above: Performed By: #### C BC #### [facility] [address] [place] [address] Dr. Renata Finch Erythrocyte distribution width (RBC) [Ratio] 13.9 % Normal 11.0-15.0 [facility] Comment on above: Performed By: #### C BC #### [facility] [address] [place] [address] Dr. Renata Finch Hematocrit (Bld) [Volume fraction] 43.5 % Normal 36.0-48.0 [facility] Comment on above: Performed By: #### C BC #### [facility] [address] [place] [address] Dr. Renata Finch Hemoglobin (Bld) [Mass/Vol] 13.9 g/dL Normal 12.0-16.0 [facility] Comment on above: Performed By: #### C BC #### [facility] [address] [place] [address] [address] Renata Finch IG # 0.01 10e3/ul Normal 0.00-0.03 [facility] Comment on above: Performed By: #### C BC #### [facility] [address] [place] [address] Dr. Renata Finch IG % 0.1 % Normal 0.0-0.5 [facility] Comment on above: Performed By: #### C BC #### [facility] [address] [place] [address] Dr. Renata Finch LYMPH # 1.2 103/ul Normal 1.2-3.8 [facility] Comment on above: Performed By: #### C BC #### [facility] [address] [place] [address] Dr. Renata Finch Lymphocytes/100 WBC (Bld) 15.9 % Critically low 20.5-60.0 [facility] Comment on above: Performed By: #### C BC #### [facility] [address] [place] [address] Dr. Renata Finch MANUAL DIFF REQ NO Normal [facility] Comment on above: Performed By: #### C BC #### [facility] [address] [place] [address] Dr. Renata Finch MCH (RBC) [Entitic mass] 26.5 pg Critically low 26.7-34.0 [facility] Comment on above: Performed By: #### C BC #### [facility] [address] [place] [address] Dr. Renata Finch MCHC (RBC) [Mass/Vol] 32.0 g/dL Normal 29.9-35.2 [facility] Comment on above: Performed By: #### C BC #### [facility] [address] [place] [address] Dr. Renata Finch MCV (RBC) [Entitic vol] 83.0 fL Normal 81.0-99.0 [facility] Comment on above: Performed By: #### C BC #### [facility] [address] [place] [address] Dr. Renata Finch MONO # 0.5 103/ul Normal 0.3-0.8 [facility] Comment on above: Performed By: #### C BC #### [facility] [address] [place] [address] Dr. Renata Finch Monocytes/100 WBC (Bld) 6.1 % Normal 1.7-12.0 [facility] Comment on above: Performed By: #### C BC #### [facility] [address] [place] [address] Dr. Renata Finch NEUT # 5.8 103/ul Normal 1.4-6.5 [facility] Comment on above: Performed By: #### C BC #### [facility] [address] [place] [address] Dr. Renata Finch Neutrophils/100 WBC (Bld) 77.2 % Critically high 43.0-75.0 [facility] Comment on above: Performed By: #### C BC #### [facility] [address] [place] [address] Dr. Renata Finch Platelet mean volume (Bld) [Entitic vol] 9.9 fL Normal 9.5-13.5 [facility] Comment on above: Performed By: #### C BC #### [facility] [address] [place] [address] Dr. Renata Finch PLT 416 103/ul Normal 150-450 [facility] Comment on above: Performed By: #### C BC #### [facility] [address] [place] [address] Dr. Renata Finch RBC 5.24 106/ul Normal 4.20-5.40 [facility] Comment on above: Performed By: #### C BC #### [facility] [address] [place] [address] Dr. Renata Finch WBC 7.6 103/ul Normal 4.0-11.0 [facility] Comment on above: Performed By: #### C BC #### [facility] [address] [place] [address] Dr. Renata Finch Covid-19 PCR (CVDTB)on 07-16 SARS-CoV-2 (COVID-19) RNA LORETO+probe Ql (Unsp spec) Not detected Normal NOT DETECTED [facility] Comment on above: Result Comment: When [...] for this test is supported by the [place] [employer] and Human Service's declaration that [...] used). Performed By: #### C VDTBH #### [facility] [address] [place] [address] Dr. Renata Finch ER URINE PROFILEon 2 Bilirubin Ql (U) SMALL Abnormal NEGATIVE [facility] Comment on above: Performed By: #### C BC #### [facility] [address] [place] [address] Dr. Renata Finch Clarity (U) CLEAR Normal CLEAR [facility] Comment on above: Performed By: #### C BC #### [facility] [address] [place] [address] Dr. Renata Finch Color (U) BROWN Abnormal YELLOW [facility] Comment on above: Performed By: #### C BC #### [facility] [address] [place] [address] Dr. Renata WU A micrscopic examination will be performed if indicated. Normal [facility] Comment on above: Performed By: #### C BC #### [facility] [address] [place] [address] Dr. Renata Finch Glucose Ql (U) Negative Normal NEGATIVE The [facility] Comment on above: Performed By: #### C BC #### [facility] [address] [place] [address] Dr. Renata Finch Hemoglobin Ql (U) LARGE Abnormal NEGATIVE [facility] Comment on above: Performed By: #### C BC #### [facility] [address] [place] [address] Dr. Renata Finch Ketones Ql (U) >=80 Abnormal NEGATIVE The [facility] Comment on above: Performed By: #### C BC #### [facility] [address] [place] [address] Dr. Renata Finch LEUKOCYTES Negative Normal NEGATIVE [facility] Comment on above: Performed By: #### C BC #### [facility] [address] [place] [address] Dr. Renata Finch Nitrite Ql (U) Negative Normal NEGATIVE The [facility] Comment on above: Performed By: #### C BC #### [facility] [address] [place] [address] Dr. Renata Finch pH (U) 7.0 [pH] Normal 5-9 [facility] Comment on above: Performed By: #### C BC #### [facility] [address] [place] [address] Dr. Renata Finch Protein (U) [Mass/Vol] 30 mg/dL Abnormal NEGATIVE/ TRACE [facility] Comment on above: Performed By: #### C BC #### [facility] [address] [place] [address] Dr. Renata Finch SPEC GRAVITY 1.025 Normal 1.005-<=1.025 The [facility] Comment on above: Performed By: #### C BC #### [facility] [address] [place] [address] Dr. Renata Finch UR MICRO IND INDICATED Normal [facility] Comment on above: Performed By: #### C BC #### [facility] [address] [place] [address] Dr. Renata Finch Urobilinogen Qn (U) 1.0 {Gabrielle'U}/dL Normal 0.2 - 1. 0 [facility] Comment on above: Performed By: #### C BC #### [facility] [address] [place] [address] Dr. Renata Finch LACTATE/LACTIC ACIDon 2021 Lactate [Moles/Vol] 1.2 mmol/L Normal 0.4-1.9 [facility] Comment on above: Performed By: #### U MICRO, ERUR #### [facility] [address] [place] [address] Dr. Renata Finch LIPASEon 08-02-2022 Lipase [Catalytic activity/Vol] 66.0 U/L Critically low 73.0-393.0 [facility] Comment on above: Performed By: #### U MICRO, ERUR #### [facility] [address] [place] [address] Dr. Renata Finch URon 08-02-2022 , QUAL Negative Normal NEGATIVE The [facility] Comment on above: Performed By: #### C BC #### [facility] [address] [place] [address] Dr. Renata Finch PROF 14(COMP METB)on 022 Albumin [Mass/Vol] 4.1 g/dL Normal 3.4-5.0 [facility] Comment on above: Performed By: #### U MICRO, ERUR #### [facility] [address] [place] [address] Dr. Renata Finch Albumin/Globulin [Mass ratio] 1.0 {ratio} Normal [facility] Comment on above: Performed By: #### U MICRO, ERUR #### [facility] [address] [place] [address] Dr. Renata Finch ALP [Catalytic activity/Vol] 53 U/L Normal 46-116 [facility] Comment on above: Performed By: #### U MICRO, ERUR #### [facility] [address] [place] [address] Dr. Renata Finch ALT [Catalytic activity/Vol] 42 U/L Normal 14-59 [facility] Comment on above: Performed By: #### U MICRO, ERUR #### [facility] [address] [address] [address] Renata Finch Anion gap [Moles/Vol] 11.8 mmol/L Normal [facility] Comment on above: Performed By: #### U MICRO, ERUR #### [facility] [address] [address] [address] Renata Finch AST [Catalytic activity/Vol] 22 U/L Normal 15-37 [facility] Comment on above: Performed By: #### U MICRO, ERUR #### [facility] [address] [address] [address] Renata Finch Bilirubin [Mass/Vol] 1.0 mg/dL Normal 0.2-1.0 [facility] Comment on above: Performed By: #### U MICRO, ERUR #### [facility] [address] [place] [address] Dr. Renata Finch Calcium [Mass/Vol] 9.5 mg/dL Normal 8.5-10.1 [facility] Comment on above: Performed By: #### U MICRO, ERUR #### [facility] [address] [address] [address] Renata Finch Chloride [Moles/Vol] 101 mmol/L Normal 98-107 [facility] Comment on above: Performed By: #### U MICRO, ERUR #### [facility] [address] [address] [address] Renata Finch CO2 [Moles/Vol] 29.5 mmol/L Normal 21.0-32.0 [facility] Comment on above: Performed By: #### U MICRO, ERUR #### [facility] [address] [address] [address] Renata Finch Creatinine [Mass/Vol] 0.85 mg/dL Normal 0.55-1.02 [facility] Comment on above: Performed By: #### U MICRO, ERUR #### [facility] [address] [address] [address] Renata Finch EGFR-AF ANDORRAN >60 Normal >=60 [facility] Comment on above: Performed By: #### U MICRO, ERUR #### [facility] [address] [address] [address] Renata Finch EGFR-NON AF ANDORRAN >60 Normal >=60 [facility] Comment on above: Performed By: #### U MICRO, ERUR #### [facility] [address] [address] [address] Renata Finch Globulin (S) [Mass/Vol] 4.2 g/dL Normal [facility] Comment on above: Performed By: #### U MICRO, ERUR #### [facility] [address] [address] [address] Renata Finch Glucose [Mass/Vol] 119 mg/dL Critically high 74-106 [facility] Comment on above: Performed By: #### U MICRO, ERUR #### [facility] [address] [address] [address] Renata Finch Potassium [Moles/Vol] 3.3 mmol/L Critically low 3.5-5.1 [facility] Comment on above: Performed By: #### U MICRO, ERUR #### [facility] [address] [address] [address] Renata Finch Protein [Mass/Vol] 8.3 g/dL Critically high 6.4-8.2 [facility] Comment on above: Performed By: #### U MICRO, ERUR #### [facility] [address] [address] [address] Renata Finch Sodium [Moles/Vol] 139 mmol/L Normal 136-145 [facility] Comment on above: Performed By: #### U MICRO, ERUR #### [facility] [address] [address] [address] Renata Finch Urea nitrogen [Mass/Vol] 6.0 mg/dL Critically low 6.4-19.3 [facility] Comment on above: Performed By: #### U MICRO, ERUR #### [facility] [address] [address] [address] Renata Finch Urea nitrogen/Creatinine [Mass ratio] 7.1 mg/mg Normal [facility] Comment on above: Performed By: #### U MICRO, ERUR #### [facility] [address] [address] [address] Renata Finch URINE MICROSCOPIC ONLYon BACTERIA NONE SEEN Normal NONE SEEN The [facility] Comment on above: Performed By: #### C BC #### [facility] [address] [place] [address] Dr. Renata Finch Bacteria identified Cx Nom (U) NOT INDICATED Normal [facility] Comment on above: Performed By: #### C BC #### [facility] [address] [place] [address] Dr. Renata Finch CAST NONE SEEN Normal NONE SEEN [facility] Comment on above: Performed By: #### C BC #### [facility] [address] [place] [address] Dr. Renata Finch Crystals LM Nom (Urine sed) NONE SEEN Normal NONE SEEN [facility] Comment on above: Performed By: #### C BC #### [facility] [address] [place] [address] Dr. Renata Finch Epithelial cells LM Ql (Urine sed) NONE SEEN Normal NONE SEEN /RARE [facility] Comment on above: Performed By: #### C BC #### [facility] [address] [place] [address] Dr. Renata Finch MUCOUS NONE SEEN Normal NONE SEEN [facility] Comment on above: Performed By: #### C BC #### [facility] [address] [place] [address] Dr. Renata Finch RBC 20-50 Abnormal 0-2 [facility] Comment on above: Performed By: #### C BC #### [facility] [address] [place] [address] Dr. Renata Finch WBC NONE SEEN Normal NONE SEEN [facility] Comment on above: Performed By: #### C BC #### [facility] [address] [place] [address] Dr. Renata Finch XR ABD FLAT UP_PA [...] by: TORIN PAREDES Date: 2022-08-02 07:02 Normal [facility] HCG ( test) IA.rapi d Ql (U)Ordered By: Sandy Camp on 05-04-2022 HCG ( test) Ql (U) Negative [facility] HCG,Urineon 05-04-2022 Beta HCG ( test) Ql (U) Negative Normal [facility] Comment on above: Result Comment: PERF ORMED BY: [place] [address] PATHOLOGIST TURF MANAGER MERARI BROWN M.D. Performed By: #### U HCG #### [address] 05-04-2022 L -- ---- Specimen: [id number] Received: 05/04/22 Status: ALEXANDRA Worthy Num: [id number] Spec Type: Surgical Subm Dr: Sandy Camp Jr, DO Tissues: A Duodenum - Biopsy (DUODENUM) B Colon Biopsy (COLON) Procedures: HE Stain/4, Gross/Micro L4/2 ---- Age/ Patient Sex Location Account Attending Physician ---- Marlin Hewitt [id number] Sandy Camp Jr, DO ---- SPEC NUM: [id number] RECD: 05/04/22 STATUS: ALEXANDRA FAMILIA NUM: [id number] ALFONSO: 05/04/22-[address] [facility] [address]: Sandy Camp Jr, DO ENTERED: 05/04/[address] [facility] [address]: VERA TYPE: Surgical DEPT: S ENTERED BY: [id number] RECV BY: [id number] ORDERED: HE Stain/4, Gross/Micro L4/2 ORDERED: HE [...] one c assette labeled B1. ---- Specimen: [id number] Received: 05/04/22 Status: ALEXANDRA Worthy Num: [id number] Spec Type: Surgical Subm Dr: Sandy Camp Jr, DO Tissues: A Duodenum - Biopsy (DUODENUM) B Colon Biopsy (COLON) Procedures: HE Stain/4, Gross/Micro L4/2 ---- Patient: Marlin Hewitt [id number] (Continued) ---- Specimen: [id number] Received: 05/04/22 (Continued) Signed (signature on file) Beau Ibarra MD 05/05/22 1446 ---- Specimen: [id number] Received: 05/04/22 Status: ALEXANDRA Worthy Num: [id number] Spec Type: Surgical Subm Dr: Sandy Camp Jr, DO Tissues: A Duodenum - Biopsy (DUODENUM) B Colon Biopsy (COLON) Procedures: HE Stain/4, Gross/Micro L4/2 ---- Patient: Marlin Hewitt [id number] (Continued) ---- Specimen: [id number] Received: 05/04/22 (Continued) Microscopic Description A. Two glass slides with H E stained material have been examined. The microscopic findings support the above pathologic diagnosis. B. Two glass slides with H E stained material have been examined. The microscopic findings support the above pathologic diagnosis. CPT Codes 93525?2 ---- ---- Specimen: [id number] Received: 05/04/22 Status: ALEXANDRA Worthy Num: [id number] Spec Type: Surgical Subm Dr: Sandy Camp Jr, DO Tissues: A Duodenum - Biopsy (DUODENUM) B Colon Biopsy (COLON) Procedures: HE Stain/4, Gross/Micro L4/2 ---- Patient: Phil Hewittajay Mckeon [id number] (Continued) ---- Signed (signature on file) Beau Ibarra MD 05/05/22 1446 Normal [facility] SARS-CoV-2 (COVID-19) RNA LORETO+probe Ql (Unsp spec) Negative Normal Negative [facility] Comment on above: Order Comment: Healt hcare Worker?: N Result Comment: Testing for SARS-CoV-2 by RT-PCR This test was developed and its performance characteristics determined by [employer] and validated at the [facility]. This test has not been FDA cleared [...] is terminated or revoked sooner. PERFORMED BY: [place] [address] PATHOLOGIST TURF MANAGER MERARI BROWN M.D. Performed By: #### C OVID 19 [facility] #### [address] COVID-19 Positive/NegativeOr dered By: Sandy Camp on 05-02-2022 SARS-CoV-2 (COVID-19) N gene LORETO+probe Ql (Resp) Negative Negative [facility] Comment on above: Testing for SARS-CoV -2 by RT-PCR This test was developed and its performance characteristics determined by [employer] and validated at the [facility]. This test has not been FDA cleared [...] [Catalytic activity/Vol] 53 U/L Normal 25-115 [facility] Comment on above: Performed By: #### C BC #### [facility] [address] [place] [address] Dr. Renata Finch CBC W MANUAL DIFFon 04-29-20 22 ATYPICAL LYMPH # Normal [facility] Comment on above: Performed By: #### C BC #### [facility] [address] [place] [address] Dr. Renata Finch ATYPICAL LYMPH % Normal [facility] Comment on above: Performed By: #### C BC #### [facility] [address] [place] [address] Dr. Renata Finch BAND # Normal 0.0-0.3 [facility] Comment on above: Performed By: #### C BC #### [facility] [address] [place] [address] Dr. Renata Finch BAND % Normal 0-5 [facility] Comment on above: Performed By: #### C BC #### [facility] [address] [place] [address] Dr. Renata Finch BASOM # 0.00 103/ul Normal 0.00-0.10 [facility] Comment on above: Performed By: #### C BC #### [facility] [address] [place] [address] Dr. Rentaa Finch BASOM % 0.0 % Critically low 0.2-2.0 [facility] Comment on above: Performed By: #### C BC #### [facility] [address] [place] [address] Dr. Renata Finch BLAST # Normal [facility] Comment on above: Performed By: #### C BC #### [facility] [address] [place] [address] Dr. Renata Finch BLAST % Normal [facility] Comment on above: Performed By: #### C BC #### [facility] [address] [place] [address] Dr. Renata Finch CORRECTED WBC Normal 4.0-11.0 [facility] Comment on above: Performed By: #### C BC #### [facility] [address] [address] [address] Renata Finch EOS # 0.00 103/ul Normal 0.00-0.70 [facility] Comment on above: Performed By: #### C BC #### [facility] [address] [address] [address] Renata Finch EOS% 0.0 % Critically low 0.9-7.0 [facility] Comment on above: Performed By: #### C BC #### [facility] [address] [place] [address] Dr. Renata Finch HCT 40.4 % Normal 36.0-48.0 [facility] Comment on above: Performed By: #### C BC #### [facility] [address] [place] [address] Dr. Renata Finch HGB 13.0 g/dl Normal 12.0-16.0 [facility] Comment on above: Performed By: #### C BC #### [facility] [address] [place] [address] Dr. Renata Finch LYMPHM # 0.83 103/ul Critically low 1.20-3.80 [facility] Comment on above: Performed By: #### C BC #### [facility] [address] [place] [address] Dr. Renata Finch LYMPHM% 13.0 % Critically low 20.5-60.0 [facility] Comment on above: Performed By: #### C BC #### [facility] [address] [place] [address] Dr. Renata Finch MCH 26.8 pg Normal 26.7-34.0 [facility] Comment on above: Performed By: #### C BC #### [facility] [address] [place] [address] Dr. Renata Finch MCHC 32.2 g/dl Normal 29.9-35.2 [facility] Comment on above: Performed By: #### C BC #### [facility] [address] [place] [address] Dr. Renata Finch MCV 83.3 fL Normal 81.0-99.0 [facility] Comment on above: Performed By: #### C BC #### [facility] [address] [place] [address] Dr. Renata Finch METAMYELOCYTE # Normal [facility] Comment on above: Performed By: #### C BC #### [facility] [address] [place] [address] Dr. Renata Finch METAMYELOCYTE % Normal [facility] Comment on above: Performed By: #### C BC #### [facility] [address] [place] [address] Dr. Renata Finch MONOM# 0.13 103/ul Critically low 0.30-0.80 [facility] Comment on above: Performed By: #### C BC #### [facility] [address] [place] [address] Dr. Renata Finch MONOM% 2.0 % Normal 1.7-12.0 [facility] Comment on above: Performed By: #### C BC #### [facility] [address] [place] [address] Dr. Renata Finch MPV 9.7 fL Normal 9.5-13.5 [facility] Comment on above: Performed By: #### C BC #### [facility] [address] [place] [address] Dr. Renata Finch MYELOCYTE # Normal [facility] Comment on above: Performed By: #### C BC #### [facility] [address] [place] [address] Dr. Renata Finch MYELOCYTE % Normal [facility] Comment on above: Performed By: #### C BC #### [facility] [address] [place] [address] Dr. Renata Finch NRBC Normal [facility] Comment on above: Performed By: #### C BC #### [facility] [facility] [address] [place] [address] Dr. Renata Finch PLT 311 103/ul Normal 150-450 [facility] Comment on above: Performed By: #### C BC #### [facility] [address] [place] [address] Dr. Renata Finch RBC 4.85 106/ul Normal 4.20-5.40 [facility] Comment on above: Performed By: #### C BC #### [facility] [address] [place] [address] Dr. Renata Finch RDW 13.8 % Normal 11.0-15.0 [facility] Comment on above: Performed By: #### C BC #### [facility] [address] [place] [address] Dr. Renata Finch SEG # 5.44 103/ul Normal 1.40-6.50 [facility] Comment on above: Performed By: #### C BC #### [facility] [address] [place] [address] Dr. Renata Finch SEG % 85.0 % Critically high 43.0-75.0 [facility] Comment on above: Performed By: #### C BC #### [facility] [address] [place] [address] Dr. Renata Finch WBC 6.4 103/ul Normal 4.0-11.0 [facility] Comment on above: Performed By: #### C BC #### [facility] [address] [place] [address] Dr. Renata Finch ER URINE PROFILEon 2 Bilirubin Ql (U) Negative Normal NEGATIVE [facility] Comment on above: Performed By: #### U MICRO, ERUR #### [facility] [address] [place] [address] Dr. Renata Finch Clarity (U) SL CLOUDY Abnormal CLEAR [facility] Comment on above: Performed By: #### U MICRO, ERUR #### [facility] [address] [place] [address] Dr. Renata Finch Color (U) YELLOW Normal YELLOW [facility] Comment on above: Performed By: #### U MICRO, ERUR #### [facility] [address] [place] [address] Dr. Renata CHINGAHD A micrscopic examination will be performed if indicated. Normal [facility] Comment on above: Performed By: #### U MICRO, ERUR #### [facility] [address] [address] [address] Renata Finch Glucose Ql (U) Negative Normal NEGATIVE [facility] Comment on above: Performed By: #### U MICRO, ERUR #### [facility] [address] [address] [address] Renata Finch Hemoglobin Ql (U) Negative Normal NEGATIVE [facility] Comment on above: Performed By: #### U MICRO, ERUR #### [facility] [address] [address] [address] Renata Finch Ketones Ql (U) 40 mg/dl Abnormal NEGATIVE [facility] Comment on above: Performed By: #### U MICRO, ERUR #### [facility] [address] [place] [address] Dr. Renata Finch LEUKOCYTES Negative Normal NEGATIVE [facility] Comment on above: Performed By: #### U MICRO, ERUR #### [facility] [address] [address] [address] Renata Finch Nitrite Ql (U) Negative Normal NEGATIVE [facility] Comment on above: Performed By: #### U MICRO, ERUR #### [facility] [address] [place] [address] Dr. Renata Finch pH (U) 6.0 [pH] Normal 5-9 [facility] Comment on above: Performed By: #### U MICRO, ERUR #### [facility] [address] [place] [address] Dr. Renata Finch Protein (U) [Mass/Vol] 30 mg/dL Abnormal NEGATIVE/ TRACE [facility] Comment on above: Performed By: #### U MICRO, ERUR #### [facility] [address] [place] [address] Dr. Renata Finch SPEC GRAVITY >=1.030 Abnormal 1.005-<=1.025 [facility] Comment on above: Performed By: #### U MICRO, ERUR #### [facility] [address] [place] [address] Dr. Renata Finch UR MICRO IND INDICATED Normal [facility] Comment on above: Performed By: #### U MICRO, ERUR #### [facility] [address] [place] [address] Dr. Renata Finch Urobilinogen Qn (U) 0.2 {Gabrielle'U}/dL Normal 0.2 - 1. 0 [facility] Comment on above: Performed By: #### U MICRO, ERUR #### [facility] [address] [place] [address] Dr. Renata Finch LIPASEon 04-29-2022 Lipase [Catalytic activity/Vol] 58.0 U/L Critically low 73.0-393.0 [facility] Comment on above: Performed By: #### C BC #### [facility] [address] [place] [address] Dr. Renata Finch PREG HCG QUALon 04-29-2022 , QUAL Negative Normal NEGATIVE [facility] Comment on above: Performed By: #### C BC #### [facility] [address] [place] [address] Dr. Renata Finch PROF 14(COMP METB)on 022 Albumin [Mass/Vol] 3.7 g/dL Normal 3.4-5.0 [facility] Comment on above: Performed By: #### C BC #### [facility] [address] [place] [address] Dr. Renata Finch Albumin/Globulin [Mass ratio] 0.9 {ratio} Normal [facility] Comment on above: Performed By: #### C BC #### [facility] [address] [place] [address] Dr. Renata Finch ALP [Catalytic activity/Vol] 46 U/L Normal 46-116 [facility] Comment on above: Performed By: #### C BC #### [facility] [address] [place] [address] Dr. Renata Finch ALT [Catalytic activity/Vol] 22 U/L Normal 14-59 [facility] Comment on above: Performed By: #### C BC #### [facility] [address] [address] [address] Renata Finch Anion gap [Moles/Vol] 16.3 mmol/L Normal [facility] Comment on above: Performed By: #### C BC #### [facility] [address] [address] [address] Renata Finch AST [Catalytic activity/Vol] 16 U/L Normal 15-37 [facility] Comment on above: Performed By: #### C BC #### [facility] [address] [address] [address] Renata Finch Bilirubin [Mass/Vol] 0.8 mg/dL Normal 0.2-1.0 [facility] Comment on above: Performed By: #### C BC #### [facility] [address] [place] [address] Dr. Renata Finch Calcium [Mass/Vol] 9.3 mg/dL Normal 8.5-10.1 [facility] Comment on above: Performed By: #### C BC #### [facility] [address] [place] [address] Dr. Renata Finch Chloride [Moles/Vol] 101 mmol/L Normal 98-107 [facility] Comment on above: Performed By: #### C BC #### [facility] [address] [place] [address] Dr. Renata Finch CO2 [Moles/Vol] 25.4 mmol/L Normal 21.0-32.0 [facility] Comment on above: Performed By: #### C BC #### [facility] [address] [place] [address] Dr. Renata Finch Creatinine [Mass/Vol] 0.81 mg/dL Normal 0.55-1.02 [facility] Comment on above: Performed By: #### C BC #### [facility] [address] [place] [address] Dr. Renata Finch EGFR-AF ANDORRAN >60 Normal >=60 [facility] Comment on above: Performed By: #### C BC #### [facility] [address] [place] [address] Dr. Renata Finch EGFR-NON AF ANDORRAN >60 Normal >=60 [facility] Comment on above: Performed By: #### C BC #### [facility] [address] [place] [address] Dr. Renata Finch Globulin (S) [Mass/Vol] 4.1 g/dL Normal [facility] Comment on above: Performed By: #### C BC #### [facility] [address] [address] [address] Renata Finch Glucose [Mass/Vol] 126 mg/dL Critically high 74-106 [facility] Comment on above: Performed By: #### C BC #### [facility] [address] [place] [address] Dr. Renata Finch Potassium [Moles/Vol] 3.7 mmol/L Normal 3.5-5.1 [facility] Comment on above: Performed By: #### C BC #### [facility] [address] [place] [address] Dr. Renata Finch Protein [Mass/Vol] 7.8 g/dL Normal 6.4-8.2 [facility] Comment on above: Performed By: #### C BC #### [facility] [address] [place] [address] Dr. Renata Finch Sodium [Moles/Vol] 139 mmol/L Normal 136-145 [facility] Comment on above: Performed By: #### C BC #### [facility] [address] [place] [address] Dr. Renata Finch Urea nitrogen [Mass/Vol] 9.0 mg/dL Normal 6.4-19.3 [facility] Comment on above: Performed By: #### C BC #### [facility] [address] [place] [address] Dr. Renata Finch Urea nitrogen/Creatinine [Mass ratio] 11.1 mg/mg Normal [facility] Comment on above: Performed By: #### C BC #### [facility] [address] [place] [address] Dr. Renata Finch URINE MICROSCOPIC ONLYon BACTERIA TRACE Abnormal NONE SEEN [facility] Comment on above: Performed By: #### U MICRO, ERUR #### [facility] [address] [address] [address] Renata Finch Bacteria identified Cx Nom (U) NOT INDICATED Normal [facility] Comment on above: Performed By: #### U MICRO, ERUR #### [facility] [address] [address] [address] Renata Finch CAST NONE SEEN Normal NONE SEEN [facility] Comment on above: Performed By: #### U MICRO, ERUR #### [facility] [address] [address] [address] Renata Finch Crystals LM Nom (Urine sed) NONE SEEN Normal NONE SEEN [facility] Comment on above: Performed By: #### U MICRO, ERUR #### [facility] [address] [place] [address] Dr. Renata Finch Epithelial cells LM Ql (Urine sed) FEW Abnormal NONE SEEN /RARE [facility] Comment on above: Performed By: #### U MICRO, ERUR #### [facility] [address] [address] [address] Renata Finch MUCOUS TRACE Abnormal NONE SEEN [facility] Comment on above: Performed By: #### U MICRO, ERUR #### [facility] [address] [place] [address] Dr. Renata Finch RBC 0-2 Normal 0-2 [facility] Comment on above: Performed By: #### U MICRO, ERUR #### [facility] [address] [address] [address] Renata Finch WBC NONE SEEN Normal NONE SEEN [facility] Comment on above: Performed By: #### U MICRO, ERUR #### [facility] [address] [place] [address] Dr. Renata Finch XR ABD FLAT UP_PA [...] by: SANDY KERR Date: 2022-04-29 10:52 Normal [facility] CT ABD/PELV W CONon 02-13-20 CT ABD/PELV [...] SANDY KERR Date: 2022-02-12 09:47 Normal [facility] US SINGLE QUAD RT UPPERon US [...] SANDY KERR Date: 2022-02-12 09:12 Normal [facility] AMYLASEon 02-09-2022 Amylase [Catalytic activity/Vol] 144 U/L Critically high 25-115 [facility] Comment on above: Performed By: #### U MICRO, ERUR #### [facility] [address] [place] [address] Dr. Renata Finch CBC AUTO DIFFon 02-09-2022 BASO # 0.0 103/ul Normal 0.0-0.1 [facility] Comment on above: Performed By: #### C BC #### [facility] [address] [place] [address] Dr. Renata Finch Basophils/100 WBC (Bld) 0.5 % Normal 0.2-2.0 [facility] Comment on above: Performed By: #### C BC #### [facility] [address] [place] [address] Dr. Renata Finch EO # 0.0 103/ul Normal 0.0-0.7 [facility] Comment on above: Performed By: #### C BC #### [facility] [address] [place] [address] Dr. Renata Finch Eosinophils/100 WBC (Bld) 0.5 % Critically low 0.9-7.0 [facility] Comment on above: Performed By: #### C BC #### [facility] [address] [place] [address] Dr. Renata Finch Erythrocyte distribution width (RBC) [Ratio] 14.3 % Normal 11.0-15.0 [facility] Comment on above: Performed By: #### C BC #### [facility] [address] [place] [address] Dr. Renata Finch Hematocrit (Bld) [Volume fraction] 36.0 % Normal 36.0-48.0 [facility] Comment on above: Performed By: #### C BC #### [facility] [address] [place] [address] Dr. Renata Finch Hemoglobin (Bld) [Mass/Vol] 11.6 g/dL Critically low 12.0-16.0 [facility] Comment on above: Performed By: #### C BC #### [facility] [address] [place] [address] Dr. Renata Finch IG # 0.01 10e3/ul Normal 0.00-0.03 [facility] Comment on above: Performed By: #### C BC #### [facility] [address] [place] [address] Dr. Renata Finch IG % 0.2 % Normal 0.0-0.5 [facility] Comment on above: Performed By: #### C BC #### [facility] [address] [place] [address] Dr. Renata Finch LYMPH # 1.8 103/ul Normal 1.2-3.8 [facility] Comment on above: Performed By: #### C BC #### [facility] [address] [place] [address] Dr. Renata Finch Lymphocytes/100 WBC (Bld) 29.7 % Normal 20.5-60.0 [facility] Comment on above: Performed By: #### C BC #### [facility] [address] [place] [address] Dr. Renata Finch MANUAL DIFF REQ NO Normal [facility] Comment on above: Performed By: #### C BC #### [facility] [address] [place] [address] Dr. Renata Finch MCH (RBC) [Entitic mass] 27.0 pg Normal 26.7-34.0 [facility] Comment on above: Performed By: #### C BC #### [facility] [address] [place] [address] Dr. Renata Finch MCHC (RBC) [Mass/Vol] 32.2 g/dL Normal 29.9-35.2 [facility] Comment on above: Performed By: #### C BC #### [facility] [address] [address] [address] Renata Finch MCV (RBC) [Entitic vol] 83.7 fL Normal 81.0-99.0 [facility] Comment on above: Performed By: #### C BC #### [facility] [address] [address] [address] Renata Finch MONO # 0.5 103/ul Normal 0.3-0.8 [facility] Comment on above: Performed By: #### C BC #### [facility] [address] [address] [address] Renata Finch Monocytes/100 WBC (Bld) 9.0 % Normal 1.7-12.0 [facility] Comment on above: Performed By: #### C BC #### [facility] [address] [address] [address] Renata Finch NEUT # 3.6 103/ul Normal 1.4-6.5 [facility] Comment on above: Performed By: #### C BC #### [facility] [address] [address] [address] Renata Finch Neutrophils/100 WBC (Bld) 60.1 % Normal 43.0-75.0 [facility] Comment on above: Performed By: #### C BC #### [facility] [address] [address] [address] Renata Finch Platelet mean volume (Bld) [Entitic vol] 9.6 fL Normal 9.5-13.5 [facility] Comment on above: Performed By: #### C BC #### [facility] [address] [address] [address] Renata Finch PLT 319 103/ul Normal 150-450 [facility] Comment on above: Performed By: #### C BC #### [facility] [address] [address] [address] Renata Finch RBC 4.30 106/ul Normal 4.20-5.40 [facility] Comment on above: Performed By: #### C BC #### [facility] [address] [place] [address] Dr. Renata Finch WBC 6.0 103/ul Normal 4.0-11.0 [facility] Comment on above: Performed By: #### C BC #### [facility] [address] [place] [address] Dr. Renata Finch LIPASEon 02-09-2022 Lipase [Catalytic activity/Vol] 715.0 U/L Critically high 73.0-393.0 [facility] Comment on above: Performed By: #### U MICRO, ERUR #### [facility] [address] [place] [address] Dr. Renata Finch PROF 14(COMP METB)on 022 Albumin [Mass/Vol] 3.5 g/dL Normal 3.4-5.0 [facility] Comment on above: Performed By: #### U MICRO, ERUR #### [facility] [address] [place] [address] Dr. Renata Finch Albumin/Globulin [Mass ratio] 1.0 {ratio} Normal [facility] Comment on above: Performed By: #### U MICRO, ERUR #### [facility] [address] [place] [address] Dr. Renata Finch ALP [Catalytic activity/Vol] 48 U/L Normal 46-116 [facility] Comment on above: Performed By: #### U MICRO, ERUR #### [facility] [address] [place] [address] Dr. Renata Finch ALT [Catalytic activity/Vol] 19 U/L Normal 14-59 [facility] Comment on above: Performed By: #### U MICRO, ERUR #### [facility] [address] [place] [address] Dr. Renata Finch Anion gap [Moles/Vol] 13.0 mmol/L Normal [facility] Comment on above: Performed By: #### U MICRO, ERUR #### [facility] [address] [place] [address] Dr. Renata Finch AST [Catalytic activity/Vol] 13 U/L Critically low 15-37 [facility] Comment on above: Performed By: #### U MICRO, ERUR #### [facility] [address] [address] [address] Renata Finch Bilirubin [Mass/Vol] 0.6 mg/dL Normal 0.2-1.0 [facility] Comment on above: Performed By: #### U MICRO, ERUR #### [facility] [address] [address] [address] Renata Finch Calcium [Mass/Vol] 8.4 mg/dL Critically low 8.5-10.1 [facility] Comment on above: Performed By: #### U MICRO, ERUR #### [facility] [address] [address] [address] Renata Finch Chloride [Moles/Vol] 102 mmol/L Normal 98-107 [facility] Comment on above: Performed By: #### U MICRO, ERUR #### [facility] [address] [address] [address] Renata Finch CO2 [Moles/Vol] 26.7 mmol/L Normal 21.0-32.0 [facility] Comment on above: Performed By: #### U MICRO, ERUR #### [facility] [address] [place] [address] Dr. Renata Finch Creatinine [Mass/Vol] 0.66 mg/dL Normal 0.55-1.02 [facility] Comment on above: Performed By: #### U MICRO, ERUR #### [facility] [address] [address] [address] Renata Finch EGFR-AF ANDORRAN >60 Normal >=60 [facility] Comment on above: Performed By: #### U MICRO, ERUR #### [facility] [address] [address] [address] Renata Finch EGFR-NON AF ANDORRAN >60 Normal >=60 [facility] Comment on above: Performed By: #### U MICRO, ERUR #### [facility] [address] [place] [address] Dr. Renata Finch Globulin (S) [Mass/Vol] 3.6 g/dL Normal [facility] Comment on above: Performed By: #### U MICRO, ERUR #### [facility] [address] [address] [address] Renata Finch Glucose [Mass/Vol] 89 mg/dL Normal 74-106 [facility] Comment on above: Performed By: #### U MICRO, ERUR #### [facility] [address] [place] [address] Dr. Renata Finch Potassium [Moles/Vol] 3.7 mmol/L Normal 3.5-5.1 [facility] Comment on above: Performed By: #### U MICRO, ERUR #### [facility] [address] [address] [address] Renata Finch Protein [Mass/Vol] 7.1 g/dL Normal 6.1-8.2 [facility] Comment on above: Performed By: #### U MICRO, ERUR #### [facility] [address] [place] [address] Dr. Renata Finch Sodium [Moles/Vol] 138 mmol/L Normal 136-145 [facility] Comment on above: Performed By: #### U MICRO, ERUR #### [facility] [address] [address] [address] Renata Finch Urea nitrogen [Mass/Vol] 7.0 mg/dL Normal 6.4-19.3 [facility] Comment on above: Performed By: #### U MICRO, ERUR #### [facility] [address] [place] [address] Dr. Renata Finch Urea nitrogen/Creatinine [Mass ratio] 10.6 mg/mg Normal [facility] Comment on above: Performed By: #### U MICRO, ERUR #### [facility] [address] [place] [address] Dr. Renata Finch Vital Signs Date Time Vital Sign Value Performing Clinician Facility 10-20-2022 16:34-0500 Body weight 0 kg [employer] Shasha Ramos Work Phone: [facility] 10-20-2022 16:30-0500 Body height 154.94 cm Joe Thomas Other [facility] Other 10-20-2022 16:30-0500 Body mass index (BMI) [Ratio] 30.04 kg/m2 Joe Thomas Other [facility] Other 10-20-2022 16:30-0500 Body weight 72.12 kg Joe Thomas Other [facility] Other 10-20-2022 16:30-0500 Diastolic blood pressure 79 mm[Hg] Joe Thomas Other [facility] Other 10-20-2022 16:30-0500 Systolic blood pressure 122 mm[Hg] Joe Thomas Other [facility] Other 05-04-2022 11:02-0400 Diastolic blood pressure 81 mm[Hg] DO Sandy Hykes Work Phone: [facility] 05-04-2022 11:02-0400 Heart rate 76 /min DO Sandy Hykes Work Phone: [facility] 05-04-2022 11:02-0400 Respiratory rate 18 /min DO Sandy Hykes Work Phone: [facility] 05-04-2022 11:02-0400 SaO2% (BldA) [Mass fraction] 100 % DO Sandy Hykes Work Phone: [facility] 05-04-2022 11:02-0400 Systolic blood pressure 116 mm[Hg] DO Sandy Hykes Work Phone: [facility] 05-04-2022 08:21-0400 Body height 154.94 cm DO Sandy Hykes Work Phone: [facility] 05-04-2022 08:21-0400 Body temperature 98.3 [degF] DO Sandy Hykes Work Phone: [facility] 05-04-2022 08:21-0400 Body weight 68.03 kg DO Sandy Camp Work Phone: [facility] 04-27-2022 15:45-0400 Body height 154.94 cm Sandy Camp Other [facility] Other 04-27-2022 15:45-0400 Body mass index (BMI) [Ratio] 28.72 kg/m2 Sandy Camp Other [facility] Other 04-27-2022 15:45-0400 Body weight 68.95 kg Sandy Camp Other [facility] Other Encounters Encounter Date Encounter Type Care Provider Facility Start: 06-18-2024 End: 06-18-2024 ambulatory MARILYN LORNA Not Available Start: 06-04-2024 End: 06-04-2024 ambulatory CINDY MULUGETA Not Available Start: 05-07-2024 End: 05-07-2024 ambulatory MARILYN LORNA Not Available Start: 04-09-2024 End: 04-09-2024 ambulatory CINDY MULUGETA Not Available Start: 03-12-2024 End: 03-12-2024 ambulatory CINDY MULUGETA Not Available Start: 02-09-2024 End: 02-09-2024 ambulatory CINDY MULUGETA Not Available Start: 01-30-2023 End: 01-30-2023 ambulatory RAVEN NICOLE Facility: Start: 12-05-2022 End: 12-05-2022 ambulatory Shasha Ramos Facility:[facility] Start: 12-05-2022 End: 12-05-2022 ambulatory [employer] Shasha Ramos Work Phone: [facility] Work Phone: Start: 12-05-2022 End: 12-05-2022 Patient encounter procedure [employer]-C Shasha Ramos Work Phone: [facility] Work Phone: Start: 11-10-2022 End: 11-10-2022 ambulatory Joe Thomas Other [facility] Other Start: 11-10-2022 Telephone encounter Joe snowden [facility] Start: 11-08-2022 End: 11-08-2022 ambulatory SHASHA RAMOS Facility:[facility] Start: 11-02-2022 End: 11-02-2022 ambulatory Shasha Ashli Richard Facility:[facility] Start: 11-02-2022 End: 11-02-2022 Patient encounter procedure [employer]CH[employer]ECT-C Shasah Ramos Work Phone: [facility] Work Phone: Start: 10-20-2022 End: 10-20-2022 ambulatory Joe Thomas Other [facility] Other Start: 10-20-2022 Office outpatient visit 25 minutes Joe Thomas [facility] Start: 09-12-2022 End: 09-12-2022 ambulatory Joe Thomas Other [facility] Other Start: 09-12-2022 Telephone encounter Joe Quinnkianajay snowden [facility] Start: 08-02-2022 End: 08-02-2022 ambulatory BENI FRASER Facility: Start: 08-01-2022 End: 08-01-2022 ambulatory Joe Thomas Other [facility] Other Start: 08-01-2022 Telephone encounter Joe snowden [facility] Start: 05-09-2022 End: 05-09-2022 ambulatory Sandy Camp Other [facility] Other Start: 05-09-2022 Telephone encounter Sandy Camp [facility] Start: 05-04-2022 End: 05-04-2022 ambulatory Shasha Ramos Facility:[facility] Start: 05-04-2022 End: 05-04-2022 Admission to same day surgery center DO Sandy Camp Work Phone: [facility] Start: 05-02-2022 End: 05-02-2022 ambulatory Sandy Mark Camp Facility:[facility] Start: 05-02-2022 End: 05-02-2022 Patient encounter procedure DO Sandy Camp Work Phone: [facility] Start: 04-29-2022 End: 04-29-2022 ambulatory SHASHA RAMOS Facility:[facility] Start: 04-27-2022 End: 04-27-2022 ambulatory Sandy Zoë Other [facility] Other Start: 04-27-2022 Office outpatient ne w 45 minutes Sandy Camp [facility] Start: 02-12-2022 End: 02-13-2022 ambulatory SHASHA RAMOS Facility:[facility] Start: 02-09-2022 End: 02-10-2022 ambulatory SHASHA RAMOS Facility:[facility] Procedures Date Procedure Procedure Detail Performing Clinician Start: 11-02-2022 Capsule endoscopy [employer]-C Shasha Ramos Work Phone: Start: 05-04-2022 Esophagogastroduodenoscopy DO Sandy Camp Work Phone: Plan of Treatment Date Care Activity Detail Author Start: 11-02-2022 [facility] Start: 05-04-2022 [facility] Work Phone: Payers Date Payer Category Payer Self-pay [id number] 2000 Unknown [id number] 2.16.84 [id number] 2002 Unknown [id number] 2.16.84 0.1.447512.3.579.2.593 2002 Unknown [id number] 2.16.84 0.1.638317.3.579.2.593 2002 Unknown [id number] 2.16.84 0.1.848062.3.579.2.593 2002 Unknown [id number] 2.16.84 0.1.412484.3.579.2.593 2002 Unknown [id number] 2.16.84 0.1.547272.3.579.2.593 2002 Unknown [id number] 2.16.84 0.1.941024.3.579.2.1259 2002 Unknown [id number] 2.16.84 0.1.156936.3.579.2.1259 2002 Unknown [id number] 2.16.84 0.1.133207.3.579.2.1259 2002 Unknown [id number] 2.16.84 0.1.301922.3.579.2.1259 2002 Unknown [id number] 2.16.84 0.1.288745.3.579.2.1259 2002 Unknown [id number] 2.16.84 0.1.801756.3.579.2.1259 1959 Unknown [id number] 2. 16.840.1.179066.19 Medicaid [id number] 2.1 6.840.1.783421.19 Unknown [id number] 2.16.8 40.1.546519.3.579.2.531 Unknown [id number] 2.16.8 40.1.050182.3.579.2.531 Unknown [id number] 2.16.8 40.1.147271.3.579.2.531 Unknown [id number] 2.16.8 40.1.014907.3.579.2.531 Social History Date Type Detail Facility Sex Assigned At [facility] Other Start: 05-04-2022 End: 05-04-2022 Tobacco smoking status AKIS Never smoked tobacco (finding) [facility] Start: 2000 Sex Assigned At Female F [facility] Medical Equipment Procedure Code Equipment Code Equipment Origin al Text Equipment Identifier Dates Capsule endoscopy, for patency of lumen evaluation Video capsule endoscopy system [id number] FDA Start: 11-02-2022 Goals Date Patient Goal Desired Activity /State Evaluation note 10-20-2022 Note Date & Type Note Facility 10-20-2022 Evaluation note Encounter Date Diagnosis Assessment Notes Oct, Diarrhea (ICD-10 - R19.7) Oct, Nausea & vomiting (ICD-10 - R11.2) capsule endoscopy to be done at [facility] Patient to have labs and stool studies done. Oct, Abdominal pain (ICD-10 - R10.9) [facility] Other Evaluation note 09-12-2022 Note Date & Type Note Facility 09-12-2022 Evaluation note Encounter Date Diagnosis Assessment Notes Aug, LUQ abdominal pain (ICD-10 - R10.12) [facility] Other Procedure note 05-04-2022 Note Date & Type Note Facility 05-04-2022 Procedure note [facility] Evaluation note 04-27-2022 Note Date & Type Note Facility 04-27-2022 Evaluation note Encounter Date Diagnosis Assessment Notes Apr, LUQ abdominal pain (ICD-10 - R10.12) START TRIAL OF CARAFATE 1 GRAM TID EGD/ COLONOSCOPY Apr, Nausea & vomiting (ICD-10 - R11.2) Apr, Diarrhea (ICD-10 - R19.7) Apr, Weight loss (ICD-10 - R63.4) [facility] Other Evaluation note Note Date & Type Note Facility Evaluation note Diagnosis Onset Date Abdominal pain acute Diarrhea acute Nausea and vomiting acute [facility] Work Phone: Evaluation note Note Date & Type Note Facility Evaluation note No Information [facility] Other Evaluation note Note Date & Type Note Facility Evaluation note No assessment information availa ble [facility] Work Phone: History and physical note Note Date & Type Note Facility History and physical note Note Date/Time May 04, 2022 10:04am [facility] [address] [place], [place] [id number] Gastroenterology H&P Signed Patient: Marlin Hewitt MR#: [id number] : 2000 Acct:[id number] Age/Sex: 21 / F Adm Date: 2 Loc: Room: Type: [facility] Attending Dr: Sandy Camp DO Copies to: Sandy Camp Jr, DO Shasha Ramos, DALILA~ Date of Service: 05/04/2022 Gastroenterology HPI [...] by Sandy Camp Jr, DO> 05/04/22 1008 [facility] Work Phone: History general Narrative - Reported Note Date & Type Note Facility History general Narrative - Reported Type Medical History anemia [facility] Other Chief Complaint and Reason for Visit [...] section and content) DATE CREATED AUTHOR 12/06/2022 [facility] DATE CREATED AUTHOR AUTHOR'S ORGANIZ ATION 02/02/2023 [facility] DATE CREATED AUTHOR AUTHOR'S ORGANIZ ATION 06/19/2024 [facility] FOR RECORDS PERTAINING TO PATIENTS WHO [...] BE BASED ON THE PRIMARY CLINICAL RECORDS. [facility]. provides no warranty or guarantee of the accuracy or completeness of information in this document.
[2024-06-21 11:12] VITALS: BP 120/64; PULSE 93
[2024-06-21 11:39] VITALS: BP 116/66; PULSE 94
--- NOTE | 2024-06-21 12:33 | US_ITS ---
The [address] [address] Patient Name: RON DAWSON MRN: [id number] date: 2000 Sex: F Assigned Patient Location: [facility] Current Patient Location: [facility] Accession/Order Number: [id number] Exam Date: 06/21/2024 12:40 Report Date: 06/21/2024 13:22 At the request of: CINDY DALAL Procedure: US renal BI EXAMINATION: US renal BI HISTORY: ruq pain COMPARISON: No relevant comparison available. TECHNIQUE: Ultrasound examination was performed of the kidneys and urinary bladder. FINDINGS: RIGHT KIDNEY: No evidence of pelvocaliectasis, mass, or calculi. Normal parenchymal echogenicity. Color Doppler demonstrates blood flow within the kidney. Kidney: 9.9 x 6.0 x 5.4 cm LEFT KIDNEY: No evidence of pelvocaliectasis, mass, or calculi. Normal parenchymal echogenicity. Color Doppler demonstrates blood flow within the kidney. Kidney: 11.2 x 5.0 x 5.3 cm BLADDER: Bladder is empty. No visible wall thickening, mass, or calculi. US/US renal BI IMPRESSION: 1. Normal ultrasound appearance of the kidneys. 2. Urinary bladder is empty with significantly limits evaluation, but no appreciable abnormality. Electronically authenticated by: TORIN PAREDES Date: 06/21/2024 13:22
--- NOTE | 2024-06-21 12:34 | US_ITS ---
[address] [address] Patient Name: RON DAWSON MRN: [id number] date: 2000 Sex: F Assigned Patient Location: [facility] Current Patient Location: [facility] Accession/Order Number: [id number] Exam Date: 06/21/2024 12:40 Report Date: 06/21/2024 13:24 At the request of: CINDY DALAL Procedure: US right upper quadrant EXAMINATION: US right upper quadrant HISTORY: ruq and back pain COMPARISON: No relevant comparison available. TECHNIQUE: Transabdominal evaluation of the right upper quadrant. FINDINGS: LIVER: Normal size and echotexture. Color Doppler demonstrates patent hepatic veins. PORTAL VEIN: Duplex Doppler demonstrates normal hepatopetal flow pattern with flow velocity averaging 53 cm/s. GALLBLADDER: No visible gallstones, wall thickening, or pericholecystic free fluid. Negative sonographic Lacy's sign. BILIARY: No abnormal dilation or stones. Common bile duct diameter is within normal limits. PANCREAS: No visible mass, abnormal atrophy, or duct dilation. KIDNEY: No hydronephrosis. No visible mass or stones. Size: 10.0 x 5.4 x 6.2 cm US/US right upper quadrant IMPRESSION: 1. Normal right upper quadrant ultrasound. Electronically authenticated by: TORIN PAREDES Date: 06/21/2024 13:24
--- NOTE | 2024-06-21 12:35 | US_ITS ---
[address] [address] Patient Name: RON DAWSON MRN: [facility]:[id number] date: 2000 Sex: F Assigned Patient Location: [facility] Current Patient Location: [facility] Accession/Order Number: [id number] Exam Date: 06/21/2024 12:40 Report Date: 06/21/2024 13:21 At the request of: CINDY DALAL Procedure: US OB BPP w non-stress EXAMINATION: US OB BPP w non-stress HISTORY:ruq pain COMPARISON: Ultrasound OB placenta 04/29/2024 TECHNIQUE: Ultrasound biophysical profile was performed in the radiology department. BREATHING MOVEMENTS: 2 GROSS BODY MOVEMENTS: 2 TONE: 2 QUALITATIVE AMNIOTIC FLUID VOLUME: 2 PRESENTATION: CEPHALIC HEART RATE: 124.42 bpm AMNIOTIC FLUID VOLUME: 17.42 cm GESTATIONAL AGE: 32 weeks 1 day US/US OB BPP w non-stress IMPRESSION: Total biophysical profile score: 8 Electronically authenticated by: TORIN PAREDES Date: 06/21/2024 13:21
[2024-06-21] MEDS: 0.9 % SODIUM CHLORIDE 1,000 ML 999 ML IV (13:21)
[2024-06-21] MEDS: ONDANSETRON PF 4 MG/2 ML VIAL IV (13:46)
[2024-06-21] MEDS: 0.9 % SODIUM CHLORIDE 1,000 ML 125 ML IV (13:46)
[2024-06-21 13:48] VITALS: BP 128/77; PULSE 105
[2024-06-21 13:56] LABS: Hematocrit 30.1 % (36.0-48.0); Hemoglobin 9.6 g/dL (12.0-16.0); Mean Corpuscular HGB Conc 31.9 g/dL (29.9-35.2); Mean Corpuscular Hemoglobin 24.9 pg (26.7-34.0); Mean Corpuscular Volume 78.2 fL (81.0-99.0); Platelet Count 299 10^3/uL (150-450); Red Blood Count 3.85 10^6/uL (4.20-5.40); Red Cell Distribution Width 13.5 % (11.0-15.0); White Blood Count 9.3 10^3/uL (4.0-11.0)
[2024-06-21 14:07] LABS: Anion Gap 10.8; Carbon Dioxide 27.6 mmol/L (21.0-32.0); Chloride 101 mmol/L (98-107); Potassium 3.4 mmol/L (3.5-5.1); Sodium 136 mmol/L (136-145)
[2024-06-21 14:10] LABS: Amylase 61 U/L (25-115)
[2024-06-21 14:11] LABS: Alanine Aminotransferase 21 U/L (14-59); Aspartate Amino Transferase 15 U/L (15-37); Estimated GFR (African America >60 (>=60); Estimated GFR (Non-African Ame >60 (>=60)
[2024-06-21 14:28] LABS: Anisocytosis 1+; Eosinophils Absolute Manual 0.09 10^3/uL (0.00-0.70); Lymphocytes Absolute Manual 1.02 10^3/uL (1.20-3.80); Microcytosis 1+; Monocytes Absolute Manual 0.65 10^3/uL (0.30-0.80); Segmented Neut Absolute Manual 7.53 10^3/uL (1.4-6.5)
== END 2024-06-21 15:20 | disposition home or self-care (01) ==
PROVIDERS: Admitting Provider Obstetrics & Gynecology; PCP Nurse Practitioner Family; Visit Provider Obstetrics & Gynecology
DX: O26.893 Other specified pregnancy related conditions, third trimester (principal); R10.11 Right upper quadrant pain; R51.9 Headache, unspecified; M54.9 Dorsalgia, unspecified; H53.8 Other visual disturbances; Z3A.32 32 weeks gestation of pregnancy
CPT/HCPCS: 36415; 59025; 76705; 76775; 76818; 80051; 82150; 82565; 83690; 84450; 84460; 84520; 85007; 85027; 96374; G0378; G0379; J2405

== ENCOUNTER 2024-07-02 13:35 | Outpatient (OUT) | payer MEDICAID, SELFPAY ==
--- NOTE | 2024-07-02 13:39 | US_ITS ---
[address] [address] Patient Name: RON DAWSON MRN: [facility]:[id number] date: 2000 Sex: F Assigned Patient Location: [facility] Current Patient Location: [facility] Accession/Order Number: [id number] Exam Date: 07/02/2024 13:39 Report Date: 07/02/2024 15:04 At the request of: CINDY DALAL Procedure: US OB growth EXAMINATION: US OB growth HISTORY: INCONSISTENT SIZE COMPARISON: No relevant comparison available. FINDINGS: Heart Rate: 141 bpm Amniotic Fluid Volume: 17.9 cm, largest fluid pocket 4.7 cm Number: 1 Position: Cephalic presentation, longitudinal lie BIOMETRY: BPD: 8.03 cm; 32 weeks 2 days; 10.60 % HC: 29.74 cm; 32 weeks 6 days; 5.40 % AC: 29.45 cm; 33 weeks 3 days; 44.50 % FL: 6.35 cm; 32 weeks 6 days; 18.30 % EFW: 2191.60 g; 25.10 %, 4 lbs. 11 oz. FL/AC: 21.56 FL/BPD: 79.08 HC/AC: 1.01 GESTATIONAL AGE: Age by EDC: 33 weeks 5 days YUSEF by EDC: 2024-08-15 Age by US: 32 weeks 6 days YUSEF by US: 2024-08-21 US/US OB growth IMPRESSION: Normal interval growth Electronically authenticated by: SANDY KERR Date: 07/02/2024 15:04
== END 2024-07-02 13:36 | disposition home or self-care (01) ==
LOC: NOMS 13:35
PROVIDERS: PCP Nurse Practitioner Family; Visit Provider Obstetrics & Gynecology
DX: O26.843 Uterine size-date discrepancy, third trimester (principal); Z3A.32 32 weeks gestation of pregnancy
CPT/HCPCS: 76816

== ENCOUNTER 2024-07-16 19:13 | Outpatient (REF) | payer MEDICAID, SELFPAY ==
--- OUTSIDE RECORDS SUMMARY | 2024-07-16 19:17 | XMS_ITS | CCD ---
Author Organization [facility] Care Team Providers Care Coke Burner Name Role Phone Sandy Camp Unavailable DO Sandy Camp Attending Provider [phone] LANCE Ramos Primary Care Provider Joe Thomas Unavailable [phone] LANCE Ramos Shasha Ashli Primary Care Provider [...] Unavailable SHASHA RAMOS Primary Care Unavailable HARI ., BALTAZAR Admitting Unavailable HARI ., BALTAZAR Attending Unavailable HARI ., BALTAZAR Consulting Unavailable CINDY DALAL Attending Unavailable CINDY DALAL Attending Unavailable MARILYN ROTHMAN Attending Unavailable CINDY DALAL Attending Unavailable MARILYN ROTHMAN Attending Unavailable CINDY DALAL Attending Unavailable Allergies Allergy Classification Reported Allergen(s) Allergy Type Date of Onset Reaction(s) Facility (6 sources) Codeine Drug Allergy Unknown [facility] [place] Other (1 source) Codeine Drug Allergy 05-04-2022 [facility] Repository (1 source) Codeine Drug Allergy [facility] Repository Medications Current Medications Medication [...] Resolved: 04-27-2022 Episodic Other aftercare (1 source) 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 Renata Finch Neisseria gonorrhoeae, LORETO Negative Normal Negative [facility] Comment on above: Performed By: #### C BC #### [facility] [address] [address] [address] Renata Finch VAGINITIS/VAGINOSIS DNA PROB Kar 02-01-2023 Chelle species Negative Normal Negative [facility] Comment on above: Performed By: #### C BC #### [facility] [address] [address] [address] Renata Finch Gardnerella vaginalis Negative Normal Negative [facility] Comment on above: Performed By: #### C BC #### [facility] [address] [address] [address] Renata Finch Trichomonas vaginalis Negative Normal Negative [facility] Comment on above: Performed By: #### C BC #### [facility] [address] [address] [address] Renata Finch FL esophagus ugi sm bowelon 12-05-2022 [place] esophagus ugi sm bowel [place] [address] Fluoroscopy Report Signed Patient: Marlin Hewitt MR#: [id number] : 2000 Acct:[id number] Age/Sex: 22 / F ADM Date: 12/05/22 Loc: XD Room: Type: [facility] Attending Dr: Joe Thomas MD Copies to: Joe Thomas MD Ordering Provider: Joe Thomas MD Date of Service: 12/05/22 FL/FL esophagus ugi sm bowel: Diarrhea;Nausea vomiting CLINICAL DATA: Nausea, vomiting and diarrhea for the past couple years becoming increasingly worse. Prolonged small bowel transit study last month. COMPARISON: None AIR-CONTRAST ESOPHAGRAM, UPPER GI AND SMALL BOWEL SERIES Glass Blowing Lathe Operator supine and upright views of the abdomen [...] Madison Sweet M.D.12/05/2022 1:15 PM Dictation Location: [place] [address] Transcribed By: ILDA 12/05/22 1315 Dictated By: Madison Sweet MD 12/05/22 1303 Signed By: 12/05/22 1315 [facility] CBC AUTO DIFFon 11-08-2022 BASO # 0.0 103/ul Normal 0.0-0.1 [facility] Comment on above: Performed By: #### U MICRO, ERUR #### [facility] [address] [address] [address] Renata Finch Basophils/100 WBC (Bld) 0.4 % Normal 0.2-2.0 [facility] Comment on above: Performed By: #### U MICRO, ERUR #### [facility] [address] [address] [address] Renata Finch EO # 0.0 103/ul Normal 0.0-0.7 [facility] Comment on above: Performed By: #### U MICRO, ERUR #### [facility] [address] [address] [address] Renata Finch Eosinophils/100 WBC (Bld) 0.1 % Critically low 0.9-7.0 [facility] Comment on above: Performed By: #### U MICRO, ERUR #### [facility] [address] [address] [address] Renata Finch Erythrocyte distribution width (RBC) [Ratio] 13.6 % Normal 11.0-15.0 [facility] Comment on above: Performed By: #### U MICRO, ERUR #### [facility] [address] [place] [address] Dr. Renata Finch Hematocrit (Bld) [Volume fraction] 41.5 % Normal 36.0-48.0 [facility] Comment on above: Performed By: #### U MICRO, ERUR #### [facility] [address] [place] [address] Dr. Renata Finch Hemoglobin (Bld) [Mass/Vol] 13.6 g/dL Normal 12.0-16.0 [facility] Comment on above: Performed By: #### U MICRO, ERUR #### [facility] [address] [place] [address] Dr. Renata Finch IG # 0.03 10e3/ul Normal 0.00-0.03 [facility] Comment on above: Performed By: #### U MICRO, ERUR #### [facility] [address] [place] [address] Dr. Renata Finch IG % 0.3 % Normal 0.0-0.5 [facility] Comment on above: Performed By: #### U MICRO, ERUR #### [facility] [address] [place] [address] Dr. Renata Finch LYMPH # 1.7 103/ul Normal 1.2-3.8 [facility] Comment on above: Performed By: #### U MICRO, ERUR #### [facility] [address] [place] [address] Dr. Renata Finch Lymphocytes/100 WBC (Bld) 19.5 % Critically low 20.5-60.0 [facility] Comment on above: Performed By: #### U MICRO, ERUR #### [facility] [address] [place] [address] Dr. Renata Finch MANUAL DIFF REQ NO Normal [facility] Comment on above: Performed By: #### U MICRO, ERUR #### [facility] [address] [place] [address] Dr. Renata Finch MCH (RBC) [Entitic mass] 27.0 pg Normal 26.7-34.0 [facility] Comment on above: Performed By: #### U MICRO, ERUR #### [facility] [address] [place] [address] Dr. Renata Finch MCHC (RBC) [Mass/Vol] 32.8 g/dL Normal 29.9-35.2 [facility] Comment on above: Performed By: #### U MICRO, ERUR #### [facility] [address] [place] [address] Dr. Renata Finch MCV (RBC) [Entitic vol] 82.5 fL Normal 81.0-99.0 [facility] Comment on above: Performed By: #### U MICRO, ERUR #### [facility] [address] [place] [address] Dr. Renata Finch MONO # 0.5 103/ul Normal 0.3-0.8 [facility] Comment on above: Performed By: #### U MICRO, ERUR #### [facility] [address] [place] [address] Dr. Renata Finch Monocytes/100 WBC (Bld) 6.1 % Normal 1.7-12.0 [facility] Comment on above: Performed By: #### U MICRO, ERUR #### [facility] [address] [place] [address] Dr. Renata Finch NEUT # 6.6 103/ul Critically high 1.4-6.5 [facility] Comment on above: Performed By: #### U MICRO, ERUR #### [facility] [address] [place] [address] Dr. Renata Finch Neutrophils/100 WBC (Bld) 73.6 % Normal 43.0-75.0 [facility] Comment on above: Performed By: #### U MICRO, ERUR #### [facility] [address] [place] [address] Dr. Renata Finch Platelet mean volume (Bld) [Entitic vol] 9.5 fL Normal 9.5-13.5 [facility] Comment on above: Performed By: #### U MICRO, ERUR #### [facility] [address] [address] [address] Renata Finch PLT 417 103/ul Normal 150-450 [facility] Comment on above: Performed By: #### U MICRO, ERUR #### [facility] [address] [place] [address] Dr. Renata Finch RBC 5.03 106/ul Normal 4.20-5.40 [facility] Comment on above: Performed By: #### U MICRO, ERUR #### [facility] [address] [address] [address] Renata Finch WBC 8.9 103/ul Normal 4.0-11.0 [facility] Comment on above: Performed By: #### U MICRO, ERUR #### [facility] [address] [place] [address] Dr. Renata Finch DRUG SCREEN RAPID (URINE)on 11-08-2022 AMP Negative Normal NEGATIVE [facility] Comment on above: Performed By: #### E RUR, UMICRO, DRUGRPD, PREGU #### [facility] [address] [place] [address] Dr. Renata Finch BAR Negative Normal NEGATIVE [facility] Comment on above: Performed By: #### E RUR, UMICRO, DRUGRPD, PREGU #### [facility] [address] [place] [address] Dr. Renata Finch BUP Negative Normal NEGATIVE [facility] Comment on above: Performed By: #### E RUR, UMICRO, DRUGRPD, PREGU #### [facility] [address] [place] [address] Dr. Renata Finch BZO Negative Normal NEGATIVE [facility] Comment on above: Performed By: #### E RUR, UMICRO, DRUGRPD, PREGU #### [facility] [address] [place] [address] Dr. Renata Finch DOM Negative Normal NEGATIVE [facility] Comment on above: Performed By: #### E RUR, UMICRO, DRUGRPD, PREGU #### [facility] [address] [place] [address] Dr. Renata Finch CUT-OFFS SEE BELOW Normal [facility] Comment on above: Result Comment: AMP (Amphetamine): [...] #### E RUR, UMICRO, DRUGRPD, PREGU #### [facility] [address] [address] [address] Renata Finch DRUG CUT HEADER DRUG CLASS TEST SYST EM CUT-OFF CONCENTRATIONS ARE FOLLOWS: Normal [facility] Comment on above: Performed By: #### E RUR, UMICRO, DRUGRPD, PREGU #### [facility] [address] [address] [address] Renata Finch mAMP Negative Normal NEGATIVE [facility] Comment on above: Performed By: #### E RUR, UMICRO, DRUGRPD, PREGU #### [facility] [address] [address] [address] Renata Finch MTD Negative Normal NEGATIVE [facility] Comment on above: Performed By: #### E RUR, UMICRO, DRUGRPD, PREGU #### [facility] [address] [address] [address] Renata Finch OPI Negative Normal NEGATIVE [facility] Comment on above: Performed By: #### E RUR, UMICRO, DRUGRPD, PREGU #### [facility] [address] [address] [address] Renata Finch OXY Negative Normal NEGATIVE [facility] Comment on above: Performed By: #### E RUR, UMICRO, DRUGRPD, PREGU #### [facility] [address] [address] [address] Renata Finch PCP Negative Normal NEGATIVE [facility] Comment on above: Performed By: #### E RUR, UMICRO, DRUGRPD, PREGU #### [facility] [address] [address] [address] Renata Finch PPX Negative Normal NEGATIVE [facility] Comment on above: Performed By: #### E RUR, UMICRO, DRUGRPD, PREGU #### [facility] [address] [address] [address] Renata Finch TCA Negative Normal NEGATIVE [facility] Comment on above: Performed By: #### E RUR, UMICRO, DRUGRPD, PREGU #### [facility] [address] [place] [address] Dr. Renata Finch THC Positive Abnormal NEGATIVE [facility] Comment on above: Performed By: #### E RUR, UMICRO, DRUGRPD, PREGU #### [facility] [address] [address] [address] Renata Finch ER URINE PROFILEon 3 Bilirubin Ql (U) MODERATE Abnormal NEGATIVE [facility] Comment on above: Performed By: #### E RUR, UMICRO, DRUGRPD, PREGU #### [facility] [address] [place] [address] Dr. Renata Finch Clarity (U) CLEAR Normal CLEAR [facility] Comment on above: Performed By: #### E RUR, UMICRO, DRUGRPD, PREGU #### [facility] [address] [place] [address] Dr. Renata Finch Color (U) YELLOW Normal YELLOW [facility] Comment on above: Performed By: #### E RUR, UMICRO, DRUGRPD, PREGU #### [facility] [address] [place] [address] Dr. Renata Finch ERUAHNeal A micrscopic examination will be performed if indicated. Normal [facility] Comment on above: Performed By: #### E RUR, UMICRO, DRUGRPD, PREGU #### [facility] [address] [address] [address] Renata Finch Glucose Ql (U) Negative Normal NEGATIVE [facility] Comment on above: Performed By: #### E RUR, UMICRO, DRUGRPD, PREGU #### [facility] [address] [address] [address] Renata Finch Hemoglobin Ql (U) TRACE-INTACT Abnormal NEGATIVE [facility] Comment on above: Performed By: #### E RUR, UMICRO, DRUGRPD, PREGU #### [facility] [address] [address] [address] Renata Finch Ketones Ql (U) >=80 Abnormal NEGATIVE [facility] Comment on above: Performed By: #### E RUR, UMICRO, DRUGRPD, PREGU #### [facility] [address] [address] [address] Renata Finch LEUKOCYTES Negative Normal NEGATIVE [facility] Comment on above: Performed By: #### E RUR, UMICRO, DRUGRPD, PREGU #### [facility] [address] [address] [address] Renata Finch Nitrite Ql (U) Negative Normal NEGATIVE [facility] Comment on above: Performed By: #### E RUR, UMICRO, DRUGRPD, PREGU #### [facility] [address] [address] [address] Renata Finch pH (U) 6.5 [pH] Normal 5-9 [facility] Comment on above: Performed By: #### E RUR, UMICRO, DRUGRPD, PREGU #### [facility] [address] [address] [address] Renata Finch SPEC GRAVITY 1.025 Normal 1.005-<=1.025 [facility] Comment on above: Performed By: #### E RUR, UMICRO, DRUGRPD, PREGU #### [facility] [address] [address] [address] Renata Finch UA PROTEIN TRACE Normal NEGATIVE/ TRACE [facility] Comment on above: Performed By: #### E RUR, UMICRO, DRUGRPD, PREGU #### [facility] [address] [place] [address] Dr. Renata Finch UR MICRO IND INDICATED Normal [facility] Comment on above: Performed By: #### E RUR, UMICRO, DRUGRPD, PREGU #### [facility] [address] [place] [address] Dr. Renata Finch Urobilinogen Qn (U) 1.0 {Gabrielle'U}/dL Normal 0.2 - 1. 0 [facility] Comment on above: Performed By: #### E RUR, UMICRO, DRUGRPD, PREGU #### [facility] [address] [place] [address] Dr. Renata Finch URon 11-08-2022 , QUAL Negative Normal NEGATIVE [facility] Comment on above: Performed By: #### E RUR, UMICRO, DRUGRPD, PREGU #### [facility] [address] [place] [address] Dr. Renata Finch PROF CHEM 8 (BAS METB)on Anion gap [Moles/Vol] 16.5 mmol/L Normal [facility] Comment on above: Performed By: #### B MP #### [facility] [address] [place] [address] Dr. Renata Finch Calcium [Mass/Vol] 9.7 mg/dL Normal 8.5-10.1 [facility] Comment on above: Performed By: #### B MP #### [facility] [address] [place] [address] Dr. Renata Finch Chloride [Moles/Vol] 97 mmol/L Critically low 98-107 [facility] Comment on above: Performed By: #### B MP #### [facility] [address] [place] [address] Dr. Renata Finch CO2 [Moles/Vol] 26.3 mmol/L Normal 21.0-32.0 [facility] Comment on above: Performed By: #### B MP #### [facility] [address] [address] [address] Renata Finch Creatinine [Mass/Vol] 0.71 mg/dL Normal 0.55-1.02 [facility] Comment on above: Performed By: #### B MP #### [facility] [address] [address] [address] Renata Finch EGFR-AF LAO >60 Normal >=60 [facility] Comment on above: Performed By: #### B MP #### [facility] [address] [address] [address] Renata Finch EGFR-NON AF LAO >60 Normal >=60 [facility] Comment on above: Performed By: #### B MP #### [facility] [address] [address] [address] Renata Finch Glucose [Mass/Vol] 86 mg/dL Normal 74-106 [facility] Comment on above: Performed By: #### B MP #### [facility] [address] [address] [address] Renata Finch Potassium [Moles/Vol] 2.8 mmol/L Critically low 3.5-5.1 [facility] Comment on above: Performed By: #### B MP #### [facility] [address] [place] [address] Dr. Renata Finch Sodium [Moles/Vol] 137 mmol/L Normal 136-145 [facility] Comment on above: Performed By: #### B MP #### [facility] [address] [address] [address] Renata Finch Urea nitrogen [Mass/Vol] 7.0 mg/dL Normal 7.0-18.0 [facility] Comment on above: Performed By: #### B MP #### [facility] [address] [address] [address] Renata Finch Urea nitrogen/Creatinine [Mass ratio] 9.9 mg/mg Normal [facility] Comment on above: Performed By: #### B MP #### [facility] [address] [address] [address] Renata Finch URINE MICROSCOPIC ONLYon BACTERIA TRACE Abnormal NONE SEEN [facility] Comment on above: Performed By: #### E RURRADHAICFARRUKH, DRUGRPD, PREGU #### [facility] [address] [address] [address] Renata Finch Bacteria identified Cx Nom (U) NOT INDICATED Normal [facility] Comment on above: Performed By: #### E RUR UMICRO, DRUGRPD, PREGU #### [facility] [address] [place] [address] Dr. Renata Finch CAST NONE SEEN Normal NONE SEEN [facility] Comment on above: Performed By: #### E RUR UMICRO, DRUGRPD, PREGU #### [facility] [address] [place] [address] Dr. Renata Finch Crystals LM Nom (Urine sed) NONE SEEN Normal NONE SEEN [facility] Comment on above: Performed By: #### E RUR UMICRO, DRUGRPD, PREGU #### [facility] [address] [place] [address] Dr. Renata Finch Epithelial cells LM Ql (Urine sed) FEW Abnormal NONE SEEN /RARE [facility] Comment on above: Performed By: #### E RUR UMICRO, DRUGRPD, PREGU #### [facility] [address] [place] [address] Dr. Renata Finch MUCOUS TRACE Abnormal NONE SEEN [facility] Comment on above: Performed By: #### E RUR UMICRO, DRUGRPD, PREGU #### [facility] [address] [place] [address] Dr. Renata Finch RBC 0-2 Normal 0-2 [facility] Comment on above: Performed By: #### E RUR UMICRO, DRUGRPD, PREGU #### [facility] [address] [place] [address] Dr. Renata Finch WBC 0-2 Abnormal NONE SEEN [facility] Comment on above: Performed By: #### E RUR UMICRO, DRUGRPD, PREGU #### [facility] [address] [place] [address] Dr. Renata Finch AMYLASEon 08-02-2022 Amylase [Catalytic activity/Vol] 45 U/L Normal 25-115 [facility] Comment on above: Performed By: #### U MICRO, ERUR #### [facility] [address] [place] [address] Dr. Renata Finch CBC AUTO DIFFon 08-02-2022 BASO # 0.0 103/ul Normal 0.0-0.1 [facility] Comment on above: Performed By: #### C BC #### [facility] [address] [place] [address] Dr. Renata Finch Basophils/100 WBC (Bld) 0.4 % Normal 0.2-2.0 [facility] Comment on above: Performed By: #### C BC #### [facility] [address] [place] [address] Dr. Renata Finch EO # 0.0 103/ul Normal 0.0-0.7 [facility] Comment on above: Performed By: #### C BC #### [facility] [address] [place] [address] Dr. Renata Finch Eosinophils/100 WBC (Bld) 0.3 % Critically low 0.9-7.0 [facility] Comment on above: Performed By: #### C BC #### [facility] [address] [place] [address] Dr. Renata Finch Erythrocyte distribution width (RBC) [Ratio] 13.9 % Normal 11.0-15.0 [facility] Comment on above: Performed By: #### C BC #### [facility] [address] [place] [address] Dr. Renata Finch Hematocrit (Bld) [Volume fraction] 43.5 % Normal 36.0-48.0 [facility] Comment on above: Performed By: #### C BC #### [facility] [address] [place] [address] Dr. Renata Finch Hemoglobin (Bld) [Mass/Vol] 13.9 g/dL Normal 12.0-16.0 [facility] Comment on above: Performed By: #### C BC #### [facility] [address] [place] [address] Dr. Renata Finch IG # 0.01 10e3/ul Normal 0.00-0.03 [facility] Comment on above: Performed By: #### C BC #### [facility] [address] [place] [address] Dr. Renata Finch IG % 0.1 % Normal 0.0-0.5 [facility] Comment on above: Performed By: #### C BC #### [facility] [address] [place] [address] Dr. Renata Finch LYMPH # 1.2 103/ul Normal 1.2-3.8 [facility] Comment on above: Performed By: #### C BC #### [facility] [address] [place] [address] Dr. Renata Finch Lymphocytes/100 WBC (Bld) 15.9 % Critically low 20.5-60.0 [facility] Comment on above: Performed By: #### C BC #### [facility] [address] [place] [address] Dr. Renata Finch MANUAL DIFF REQ NO Normal [facility] Comment on above: Performed By: #### C BC #### [facility] [address] [place] [address] Dr. Renata Finch MCH (RBC) [Entitic mass] 26.5 pg Critically low 26.7-34.0 [facility] Comment on above: Performed By: #### C BC #### [facility] [address] [place] [address] Dr. Renata Finch MCHC (RBC) [Mass/Vol] 32.0 g/dL Normal 29.9-35.2 [facility] Comment on above: Performed By: #### C BC #### [facility] [address] [place] [address] Dr. Renata Finch MCV (RBC) [Entitic vol] 83.0 fL Normal 81.0-99.0 [facility] Comment on above: Performed By: #### C BC #### [facility] [address] [place] [address] Dr. Renata Finch MONO # 0.5 103/ul Normal 0.3-0.8 [facility] Comment on above: Performed By: #### C BC #### [facility] [address] [place] [address] Dr. Renata Finch Monocytes/100 WBC (Bld) 6.1 % Normal 1.7-12.0 [facility] Comment on above: Performed By: #### C BC #### [facility] [address] [place] [address] Dr. Renata Finch NEUT # 5.8 103/ul Normal 1.4-6.5 [facility] Comment on above: Performed By: #### C BC #### [facility] [address] [place] [address] Dr. Renata Finch Neutrophils/100 WBC (Bld) 77.2 % Critically high 43.0-75.0 [facility] Comment on above: Performed By: #### C BC #### [facility] [address] [place] [address] Dr. Renata Finch Platelet mean volume (Bld) [Entitic vol] 9.9 fL Normal 9.5-13.5 [facility] Comment on above: Performed By: #### C BC #### [facility] [address] [place] [address] Dr. Renata Finch PLT 416 103/ul Normal 150-450 [facility] Comment on above: Performed By: #### C BC #### [facility] [address] [place] [address] Dr. Renata Finch RBC 5.24 106/ul Normal 4.20-5.40 [facility] Comment on above: Performed By: #### C BC #### [facility] [address] [place] [address] Dr. Renata Finch WBC 7.6 103/ul Normal 4.0-11.0 [facility] Comment on above: Performed By: #### C BC #### [facility] [address] [place] [address] Dr. Renata Finch Covid-19 PCR (CVDTBH)on 07-16 SARS-CoV-2 (COVID-19) RNA LORETO+probe Ql (Unsp spec) Not detected Normal NOT DETECTED [facility] Comment on above: Result Comment: When diagnostic [...] for this test is supported by the Nurses Educator of Health and Human Service's declaration that [...] used). Performed By: #### C VDTBH #### [facility] [address] [place] [address] Dr. Renata Finch ER URINE PROFILEon 2 Bilirubin Ql (U) SMALL Abnormal NEGATIVE [facility] Comment on above: Performed By: #### C BC #### [facility] [address] [place] [address] Dr. Renata Finch Clarity (U) CLEAR Normal CLEAR [facility] Comment on above: Performed By: #### C BC #### [facility] [address] [place] [address] Dr. Renata Finch Color (U) BROWN Abnormal YELLOW [facility] Comment on above: Performed By: #### C BC #### [facility] [address] [place] [address] Dr. Renata Finch ERUAHD A micrscopic examination will be performed if indicated. Normal [facility] Comment on above: Performed By: #### C BC #### [facility] [address] [place] [address] Dr. Renata Finch Glucose Ql (U) Negative Normal NEGATIVE [facility] Comment on above: Performed By: #### C BC #### [facility] [address] [place] [address] Dr. Renata Finch Hemoglobin Ql (U) LARGE Abnormal NEGATIVE [facility] Comment on above: Performed By: #### C BC #### [facility] [address] [place] [address] Dr. Renata Finch Ketones Ql (U) >=80 Abnormal NEGATIVE [facility] Comment on above: Performed By: #### C BC #### [facility] [address] [place] [address] Dr. Renata Finch LEUKOCYTES Negative Normal NEGATIVE [facility] Comment on above: Performed By: #### C BC #### [facility] [address] [place] [address] Dr. Renata Finch Nitrite Ql (U) Negative Normal NEGATIVE [facility] Comment on above: Performed By: #### C BC #### [facility] [address] [place] [address] Dr. Renata Finch pH (U) 7.0 [pH] Normal 5-9 [facility] Comment on above: Performed By: #### C BC #### [facility] [address] [place] [address] Dr. Renata Finch Protein (U) [Mass/Vol] 30 mg/dL Abnormal NEGATIVE/ TRACE [facility] Comment on above: Performed By: #### C BC #### [facility] [address] [place] [address] Dr. Renata Finch SPEC GRAVITY 1.025 Normal 1.005-<=1.025 [facility] Comment on above: Performed By: #### C BC #### [facility] [address] [place] [address] Dr. Renata Finch UR MICRO IND INDICATED Normal [facility] Comment on above: Performed By: #### C BC #### [facility] [address] [place] [address] Dr. Renata Finch Urobilinogen Qn (U) 1.0 {Gabrielle'U}/dL Normal 0.2 - 1. 0 [facility] Comment on above: Performed By: #### C BC #### [facility] [address] [place] [address] Dr. Renata Finch LACTATE/LACTIC ACIDon 2021 Lactate [Moles/Vol] 1.2 mmol/L Normal 0.4-1.9 [facility] Comment on above: Performed By: #### U MICRO, ERUR #### [facility] [address] [place] [address] Dr. Renata Finch LIPASEon 08-02-2022 Lipase [Catalytic activity/Vol] 66.0 U/L Critically low 73.0-393.0 [facility] Comment on above: Performed By: #### U MICRO, ERUR #### [facility] [address] [place] [address] Dr. Renata Finch URon 08-02-2022 , QUAL Negative Normal NEGATIVE [facility] Comment on above: Performed By: #### C BC #### [facility] [address] [place] [address] Dr. Renata Finch PROF 14(COMP METB)on 022 Albumin [Mass/Vol] 4.1 g/dL Normal 3.4-5.0 [facility] Comment on above: Performed By: #### U MICRO, ERUR #### [facility] [address] [place] [address] Dr. Renata Finch Albumin/Globulin [Mass ratio] 1.0 {ratio} Normal [facility] Comment on above: Performed By: #### U MICRO, ERUR #### [facility] [address] [place] [address] Dr. Renata Finch ALP [Catalytic activity/Vol] 53 U/L Normal 46-116 [facility] Comment on above: Performed By: #### U MICRO, ERUR #### [facility] [address] [place] [address] Dr. Renata Finch ALT [Catalytic activity/Vol] 42 U/L Normal 14-59 [facility] Comment on above: Performed By: #### U MICRO, ERUR #### [facility] [address] [address] [address] Renata Finch Anion gap [Moles/Vol] 11.8 mmol/L Normal [facility] Comment on above: Performed By: #### U MICRO, ERUR #### [facility] [address] [address] [address] Renata Finch AST [Catalytic activity/Vol] 22 U/L Normal 15-37 [facility] Comment on above: Performed By: #### U MICRO, ERUR #### [facility] [address] [address] [address] Renata Finch Bilirubin [Mass/Vol] 1.0 mg/dL Normal 0.2-1.0 [facility] Comment on above: Performed By: #### U MICRO, ERUR #### [facility] [address] [address] [address] Renata Finch Calcium [Mass/Vol] 9.5 mg/dL Normal 8.5-10.1 [facility] Comment on above: Performed By: #### U MICRO, ERUR #### [facility] [address] [address] [address] Renata Finch Chloride [Moles/Vol] 101 mmol/L Normal 98-107 [facility] Comment on above: Performed By: #### U MICRO, ERUR #### [facility] [address] [address] [address] Renata Finch CO2 [Moles/Vol] 29.5 mmol/L Normal 21.0-32.0 [facility] Comment on above: Performed By: #### U MICRO, ERUR #### [facility] [address] [address] [address] Renata Finch Creatinine [Mass/Vol] 0.85 mg/dL Normal 0.55-1.02 [facility] Comment on above: Performed By: #### U MICRO, ERUR #### [facility] [address] [address] [address] Renata Finch EGFR-AF LAO >60 Normal >=60 [facility] Comment on above: Performed By: #### U MICRO, ERUR #### [facility] [address] [address] [address] Renata Fnich EGFR-NON AF LAO >60 Normal >=60 [facility] Comment on above: Performed By: #### U MICRO, ERUR #### [facility] [address] [address] [address] Renata Finch Globulin (S) [Mass/Vol] 4.2 g/dL Normal [facility] Comment on above: Performed By: #### U MICRO, ERUR #### [facility] [address] [address] [address] Renata Finch Glucose [Mass/Vol] 119 mg/dL Critically high 74-106 [facility] Comment on above: Performed By: #### U MICRO, ERUR #### [facility] [address] [address] [address] Renata Finch Potassium [Moles/Vol] 3.3 mmol/L Critically low 3.5-5.1 [facility] Comment on above: Performed By: #### U MICRO, ERUR #### [facility] [address] [address] [address] Renata Finch Protein [Mass/Vol] 8.3 g/dL Critically high 6.4-8.2 [facility] Comment on above: Performed By: #### U MICRO, ERUR #### [facility] [address] [address] [address] Renata Finch Sodium [Moles/Vol] 139 mmol/L Normal 136-145 [facility] Comment on above: Performed By: #### U MICRO, ERUR #### [facility] [address] [address] [address] Renata Finch Urea nitrogen [Mass/Vol] 6.0 mg/dL Critically low 6.4-19.3 [facility] Comment on above: Performed By: #### U MICRO, ERUR #### [facility] [address] [address] [address] Renata Finch Urea nitrogen/Creatinine [Mass ratio] 7.1 mg/mg Normal [facility] Comment on above: Performed By: #### U MICRO, ERUR #### [facility] [address] [place] [address] Dr. Renata Finch URINE MICROSCOPIC ONLYon BACTERIA NONE SEEN Normal NONE SEEN [facility] Comment on above: Performed By: #### C BC #### [facility] [address] [place] [address] Dr. Renata Finch Bacteria identified Cx Nom (U) NOT INDICATED Normal [facility] Comment on above: Performed By: #### C BC #### [facility] [address] [place] [address] Dr. Renata Finch CAST NONE SEEN Normal NONE SEEN [facility] Comment on above: Performed By: #### C BC #### [facility] [address] [place] [address] Dr. Renata Finch Crystals LM Nom (Urine sed) NONE SEEN Normal NONE SEEN [facility] Comment on above: Performed By: #### C BC #### [facility] [address] [place] [address] Dr. Renata Finch Epithelial cells LM Ql (Urine sed) NONE SEEN Normal NONE SEEN /RARE [facility] Comment on above: Performed By: #### C BC #### [facility] [address] [place] [address] Dr. Renata Finch MUCOUS NONE SEEN Normal NONE SEEN [facility] Comment on above: Performed By: #### C BC #### [facility] [address] [place] [address] Dr. Renata Finch RBC 20-50 Abnormal 0-2 [facility] Comment on above: Performed By: #### C BC #### [facility] [address] [place] [address] Dr. Renata Finch WBC NONE SEEN Normal NONE SEEN [facility] Comment on above: Performed By: #### C BC #### [facility] [address] [place] [address] Dr. Renata Finch XR ABD FLAT UP_PA [...] by: TORIN PAREDES Date: 2022-08-02 07:02 Normal [facility] HCG ( test) IA.rapi d Ql (U)Ordered By: Sandy Camp on 05-04-2022 HCG ( test) Ql (U) Negative [facility] HCG,Urineon 05-04-2022 Beta HCG ( test) Ql (U) Negative Normal [facility] Comment on above: Result Comment: PERF ORMED BY: [place] [address] PATHOLOGIST DYED YARN OPERATOR MERARI BROWN M.D. Performed By: #### U HCG #### [address] 05-04-2022 L -- ---- Specimen: [id number] Received: 05/04/22 Status: ALEXANDRA Worthy Num: [id number] Spec Type: Surgical Subm Dr: Sandy Camp Jr, DO Tissues: A Duodenum - Biopsy (DUODENUM) B Colon Biopsy (COLON) Procedures: HE Stain/4, Gross/Micro L4/2 ---- Age/ Patient Sex Location Account Attending Physician ---- Marlin Hewitt [id number] Sandy Camp Jr, DO ---- SPEC NUM: [id number] RECD: 05/04/22 STATUS: ALEXANDRA FAMILIA NUM: [id number] ALFONSO: 05/04/[address] [facility] [address]: Sandy Camp Jr, DO ENTERED: 05/04/22 [facility] DR: VERA TYPE: Surgical DEPT: S ENTERED BY: [id number] RECV BY: [id number] ORDERED: HE Stain/4, Gross/Micro L4/2 ORDERED: HE [...] one c assette labeled B1. ---- Specimen: [id number] Received: 05/04/22 Status: ALEXANDRA Worthy Num: [id number] Spec Type: Surgical Subm Dr: Sandy Camp Jr, DO Tissues: A Duodenum - Biopsy (DUODENUM) B Colon Biopsy (COLON) Procedures: HE Stain/4, Gross/Micro L4/2 ---- Patient: MarcelinaMarlin Mike [id number] (Continued) ---- Specimen: [id number] Received: 05/04/22 (Continued) Signed (signature on file) Beau Ibarra MD 05/05/22 1446 ---- Specimen: [id number] Received: 05/04/22 Status: ALEXANDRA Worthy Num: [id number] Spec Type: Surgical Subm Dr: Sandy Camp Jr, DO Tissues: A Duodenum - Biopsy (DUODENUM) B Colon Biopsy (COLON) Procedures: HE Stain/4, Gross/Micro L4/2 ---- Patient: MarcelinaMarlin A [id number] (Continued) ---- Specimen: [id number] Received: 05/04/22 (Continued) Microscopic Description A. Two glass slides with H E stained material have been examined. The microscopic findings support the above pathologic diagnosis. B. Two glass slides with H E stained material have been examined. The microscopic findings support the above pathologic diagnosis. CPT Codes 13342?2 ---- ---- Specimen: [id number] Received: 05/04/22 Status: ALEXANDRA Worthy Num: [id number] Spec Type: Surgical Subm Dr: Sandy Camp Jr, DO Tissues: A Duodenum - Biopsy (DUODENUM) B Colon Biopsy (COLON) Procedures: HE Stain/4, Gross/Micro L4/2 ---- Patient: Marlin Hewitt [id number] (Continued) ---- Signed (signature on file) Beau Ibarra MD 05/05/22 1446 Normal [facility] COVID-19 [facility] 05-02-2022 SARS-CoV-2 (COVID-19) RNA LORETO+probe Ql (Unsp spec) Negative Normal Negative [facility] Comment on above: Order Comment: Healt hcare Worker?: N Result Comment: Testing for SARS-CoV-2 by RT-PCR This test was developed and its performance characteristics determined by [employer] and validated at the [facility]. This test has not been FDA [...] is terminated or revoked sooner. PERFORMED BY: [place] [address] PATHOLOGIST DYED YARN OPERATOR MERARI BROWN M.D. Performed By: #### C OVID 19 [facility] #### [address] COVID-19 Positive/NegativeOr dered By: Sandy Camp on 05-02-2022 SARS-CoV-2 (COVID-19) N gene LORETO+probe Ql (Resp) Negative Negative [facility] Comment on above: Testing for SARS-CoV -2 by RT-PCR This test was developed and its performance characteristics determined by [employer]) and validated at the [facility]. This test has not been FDA [...] Amylase [Catalytic activity/Vol] 53 U/L Normal 25-115 [facility] Comment on above: Performed By: #### C BC #### [facility] [address] [place] [address] Dr. Renata Finch CBC W MANUAL DIFFon 04-29-20 22 ATYPICAL LYMPH # Normal [facility] Comment on above: Performed By: #### C BC #### [facility] [address] [place] [address] Dr. Renata Finch ATYPICAL LYMPH % Normal [facility] Comment on above: Performed By: #### C BC #### [facility] [address] [place] [address] Dr. Renata Finch BAND # Normal 0.0-0.3 [facility] Comment on above: Performed By: #### C BC #### [facility] [address] [place] [address] Dr. Renata Finch BAND % Normal 0-5 [facility] Comment on above: Performed By: #### C BC #### [facility] [address] [place] [address] Dr. Renata Finch BASOM # 0.00 103/ul Normal 0.00-0.10 [facility] Comment on above: Performed By: #### C BC #### [facility] [address] [place] [address] Dr. Renata Finch BASOM % 0.0 % Critically low 0.2-2.0 [facility] Comment on above: Performed By: #### C BC #### [facility] [address] [place] [address] Dr. Renata Finch BLAST # Normal [facility] Comment on above: Performed By: #### C BC #### [facility] [address] [place] [address] Dr. Renata Finch BLAST % Normal [facility] Comment on above: Performed By: #### C BC #### [facility] [address] [place] [address] Dr. Renata Finch CORRECTED WBC Normal 4.0-11.0 [facility] Comment on above: Performed By: #### C BC #### [facility] [address] [address] [address] Renata Finch EOS # 0.00 103/ul Normal 0.00-0.70 [facility] Comment on above: Performed By: #### C BC #### [facility] [address] [address] [address] Renata Finch EOS% 0.0 % Critically low 0.9-7.0 [facility] Comment on above: Performed By: #### C BC #### [facility] [address] [place] [address] Dr. Renata Finch HCT 40.4 % Normal 36.0-48.0 [facility] Comment on above: Performed By: #### C BC #### [facility] [address] [place] [address] Dr. Renata Finch HGB 13.0 g/dl Normal 12.0-16.0 [facility] Comment on above: Performed By: #### C BC #### [facility] [address] [place] [address] Dr. Renata Finch LYMPHM # 0.83 103/ul Critically low 1.20-3.80 [facility] Comment on above: Performed By: #### C BC #### [facility] [address] [place] [address] Dr. Renata Finch LYMPHM% 13.0 % Critically low 20.5-60.[address] [facility] Comment on above: Performed By: #### C BC #### [facility] [address] [place] [address] Dr. Renata Finch MCH 26.8 pg Normal 26.7-34.0 [facility] Comment on above: Performed By: #### C BC #### [facility] [address] [place] [address] Dr. Renata Finch MCHC 32.2 g/dl Normal 29.9-35.2 [facility] Comment on above: Performed By: #### C BC #### [facility] [address] [place] [address] Dr. Renata Finch MCV 83.3 fL Normal 81.0-99.0 [facility] Comment on above: Performed By: #### C BC #### [facility] [address] [place] [address] Dr. Renata Finch METAMYELOCYTE # Normal [facility] Comment on above: Performed By: #### C BC #### [facility] [address] [place] [address] Dr. Renata Finhc METAMYELOCYTE % Normal [facility] Comment on above: Performed By: #### C BC #### [facility] [address] [place] [address] Dr. Renata Finch MONOM# 0.13 103/ul Critically low 0.30-0.80 [facility] Comment on above: Performed By: #### C BC #### [facility] [address] [place] [address] Dr. Renata Finch MONOM% 2.0 % Normal 1.7-12.0 [facility] Comment on above: Performed By: #### C BC #### [facility] [address] [place] [address] Dr. Renata Finch MPV 9.7 fL Normal 9.5-13.5 [facility] Comment on above: Performed By: #### C BC #### [facility] [address] [place] [address] Dr. Renata Finch MYELOCYTE # Normal [facility] Comment on above: Performed By: #### C BC #### [facility] [address] [place] [address] Dr. Renata Finch MYELOCYTE % Normal [facility] Comment on above: Performed By: #### C BC #### [facility] [address] [place] [address] Dr. Renata Finch NRBC Normal [facility] Comment on above: Performed By: #### C BC #### [facility] [address] [place] [address] Dr. Renata Finch PLT 311 103/ul Normal 150-450 [facility] Comment on above: Performed By: #### C BC #### [facility] [address] [address] [address] Renata Finch RBC 4.85 106/ul Normal 4.20-5.40 [facility] Comment on above: Performed By: #### C BC #### [facility] [address] [place] [address] Dr. Renata Finch RDW 13.8 % Normal 11.0-15.0 [facility] Comment on above: Performed By: #### C BC #### [facility] [address] [place] [address] Dr. Renata Finch SEG # 5.44 103/ul Normal 1.40-6.50 [facility] Comment on above: Performed By: #### C BC #### [facility] [address] [place] [address] Dr. Renata Finch SEG % 85.0 % Critically high 43.0-75.0 [facility] Comment on above: Performed By: #### C BC #### [facility] [address] [place] [address] Dr. Renata Finch WBC 6.4 103/ul Normal 4.0-11.0 [facility] Comment on above: Performed By: #### C BC #### [facility] [address] [place] [address] Dr. Renata Finch ER URINE PROFILEon 2 Bilirubin Ql (U) Negative Normal NEGATIVE [facility] Comment on above: Performed By: #### U MICRO, ERUR #### [facility] [address] [place] [address] Dr. Renata Finch Clarity (U) SL CLOUDY Abnormal CLEAR [facility] Comment on above: Performed By: #### U MICRO, ERUR #### [facility] [address] [place] [address] Dr. Renata Finch Color (U) YELLOW Normal YELLOW [facility] Comment on above: Performed By: #### U MICRO, ERUR #### [facility] [address] [place] [address] Dr. Renata WU A micrscopic examination will be performed if indicated. Normal [facility] Comment on above: Performed By: #### U MICRO, ERUR #### [facility] [address] [address] [address] Renata Finch Glucose Ql (U) Negative Normal NEGATIVE [facility] Comment on above: Performed By: #### U MICRO, ERUR #### [facility] [address] [address] [address] Renata Finch Hemoglobin Ql (U) Negative Normal NEGATIVE [facility] Comment on above: Performed By: #### U MICRO, ERUR #### [facility] [address] [address] [address] Renata Finch Ketones Ql (U) 40 mg/dl Abnormal NEGATIVE [facility] Comment on above: Performed By: #### U MICRO, ERUR #### [facility] [address] [place] [address] Dr. Renata Finch LEUKOCYTES Negative Normal NEGATIVE [facility] Comment on above: Performed By: #### U MICRO, ERUR #### [facility] [address] [address] [address] Renata Finch Nitrite Ql (U) Negative Normal NEGATIVE [facility] Comment on above: Performed By: #### U MICRO, ERUR #### [facility] [address] [place] [address] Dr. Renata Finch pH (U) 6.0 [pH] Normal 5-9 [facility] Comment on above: Performed By: #### U MICRO, ERUR #### [facility] [address] [address] [address] Renata Finch Protein (U) [Mass/Vol] 30 mg/dL Abnormal NEGATIVE/ TRACE [facility] Comment on above: Performed By: #### U MICRO, ERUR #### [facility] [address] [place] [address] Dr. Renata Finch SPEC GRAVITY >=1.030 Abnormal 1.005-<=1.025 [facility] Comment on above: Performed By: #### U MICRO, ERUR #### [facility] [address] [place] [address] Dr. Renata Finch UR MICRO IND INDICATED Normal [facility] Comment on above: Performed By: #### U MICRO, ERUR #### [facility] [address] [place] [address] Dr. Renata Finch Urobilinogen Qn (U) 0.2 {Gabrielle'U}/dL Normal 0.2 - 1. 0 [facility] Comment on above: Performed By: #### U MICRO, ERUR #### [facility] [address] [place] [address] Dr. Renata Finch LIPASEon 04-29-2022 Lipase [Catalytic activity/Vol] 58.0 U/L Critically low 73.0-393.0 [facility] Comment on above: Performed By: #### C BC #### [facility] [address] [place] [address] Dr. Renata Finch PREG HCG QUALon 04-29-2022 , QUAL Negative Normal NEGATIVE [facility] Comment on above: Performed By: #### C BC #### [facility] [address] [place] [address] Dr. Renata Finch PROF 14(COMP METB)on 022 Albumin [Mass/Vol] 3.7 g/dL Normal 3.4-5.0 [facility] Comment on above: Performed By: #### C BC #### [facility] [address] [place] [address] Dr. Renata Finch Albumin/Globulin [Mass ratio] 0.9 {ratio} Normal [facility] Comment on above: Performed By: #### C BC #### [facility] [address] [place] [address] Dr. Renata Finch ALP [Catalytic activity/Vol] 46 U/L Normal 46-116 [facility] Comment on above: Performed By: #### C BC #### [facility] [address] [place] [address] Dr. Renata Finch ALT [Catalytic activity/Vol] 22 U/L Normal 14-59 [facility] Comment on above: Performed By: #### C BC #### [facility] [address] [address] [address] Renata Finch Anion gap [Moles/Vol] 16.3 mmol/L Normal [facility] Comment on above: Performed By: #### C BC #### [facility] [address] [address] [address] Renata Finch AST [Catalytic activity/Vol] 16 U/L Normal 15-37 [facility] Comment on above: Performed By: #### C BC #### [facility] [address] [address] [address] Renata Finch Bilirubin [Mass/Vol] 0.8 mg/dL Normal 0.2-1.0 [facility] Comment on above: Performed By: #### C BC #### [facility] [address] [address] [address] Renata Finch Calcium [Mass/Vol] 9.3 mg/dL Normal 8.5-10.1 [facility] Comment on above: Performed By: #### C BC #### [facility] [address] [address] [address] Renata Finch Chloride [Moles/Vol] 101 mmol/L Normal 98-107 [facility] Comment on above: Performed By: #### C BC #### [facility] [address] [address] [address] Renata Finch CO2 [Moles/Vol] 25.4 mmol/L Normal 21.0-32.0 [facility] Comment on above: Performed By: #### C BC #### [facility] [address] [address] [address] Renata Finch Creatinine [Mass/Vol] 0.81 mg/dL Normal 0.55-1.02 [facility] Comment on above: Performed By: #### C BC #### [facility] [address] [address] [address] Renata Finch EGFR-AF LAO >60 Normal >=60 [facility] Comment on above: Performed By: #### C BC #### [facility] [address] [place] [address] Dr. Renata Finch EGFR-NON AF LAO >60 Normal >=60 [facility] Comment on above: Performed By: #### C BC #### [facility] [address] [place] [address] Dr. Renata Finch Globulin (S) [Mass/Vol] 4.1 g/dL Normal [facility] Comment on above: Performed By: #### C BC #### [facility] [address] [address] [address] Renata Finch Glucose [Mass/Vol] 126 mg/dL Critically high 74-106 T [facility] Comment on above: Performed By: #### C BC #### [facility] [address] [place] [address] Dr. Renata Finch Potassium [Moles/Vol] 3.7 mmol/L Normal 3.5-5.1 [facility] Comment on above: Performed By: #### C BC #### [facility] [address] [place] [address] Dr. Renata Finch Protein [Mass/Vol] 7.8 g/dL Normal 6.4-8.2 [facility] Comment on above: Performed By: #### C BC #### [facility] [address] [place] [address] Dr. Renata Finch Sodium [Moles/Vol] 139 mmol/L Normal 136-145 [facility] Comment on above: Performed By: #### C BC #### [facility] [address] [place] [address] Dr. Renata Finch Urea nitrogen [Mass/Vol] 9.0 mg/dL Normal 6.4-19.3 [facility] Comment on above: Performed By: #### C BC #### [facility] [address] [place] [address] Dr. Renata Finch Urea nitrogen/Creatinine [Mass ratio] 11.1 mg/mg Normal [facility] Comment on above: Performed By: #### C BC #### [facility] [address] [place] [address] Dr. Renata Finch URINE MICROSCOPIC ONLYon BACTERIA TRACE Abnormal NONE SEEN [facility] Comment on above: Performed By: #### U MICRO, ERUR #### [facility] [address] [address] [address] Renata Finch Bacteria identified Cx Nom (U) NOT INDICATED Normal [facility] Comment on above: Performed By: #### U MICRO, ERUR #### [facility] [address] [place] [address] Dr. Renata Finch CAST NONE SEEN Normal NONE SEEN [facility] Comment on above: Performed By: #### U MICRO, ERUR #### [facility] [address] [address] [address] Renata Finch Crystals LM Nom (Urine sed) NONE SEEN Normal NONE SEEN [facility] Comment on above: Performed By: #### U MICRO, ERUR #### [facility] [address] [place] [address] Dr. Renata Finch Epithelial cells LM Ql (Urine sed) FEW Abnormal NONE SEEN /RARE [facility] Comment on above: Performed By: #### U MICRO, ERUR #### [facility] [address] [place] [address] Dr. Renata Finch MUCOUS TRACE Abnormal NONE SEEN [facility] Comment on above: Performed By: #### U MICRO, ERUR #### [facility] [address] [place] [address] Dr. Renata Finch RBC 0-2 Normal 0-2 [facility] Comment on above: Performed By: #### U MICRO, ERUR #### [facility] [address] [place] [address] Dr. Renata Finch WBC NONE SEEN Normal NONE SEEN [facility] Comment on above: Performed By: #### U MICRO, ERUR #### [facility] [address] [place] [address] Dr. Renata Finch XR ABD FLAT UP_PA [...] SANDY KERR Date: 2022-04-29 10:52 Normal [facility] CT ABD/PELV W CONon 02-13-20 CT [...] SANDY KERR Date: 2022-02-12 09:47 Normal [facility] US SINGLE QUAD RT UPPERon [...] SANDY KERR Date: 2022-02-12 09:12 Normal [facility] AMYLASEon 02-09-2022 Amylase [Catalytic activity/Vol] 144 U/L Critically high 25-115 [facility] Comment on above: Performed By: #### U MICRO, ERUR #### [facility] [address] [place] [address] Dr. Renata Finch CBC AUTO DIFFon 02-09-2022 BASO # 0.0 103/ul Normal 0.0-0.1 [facility] Comment on above: Performed By: #### C BC #### [facility] [address] [place] [address] Dr. Renata Finch Basophils/100 WBC (Bld) 0.5 % Normal 0.2-2.0 [facility] Comment on above: Performed By: #### C BC #### [facility] [address] [place] [address] Dr. Renata Finch EO # 0.0 103/ul Normal 0.0-0.7 [facility] Comment on above: Performed By: #### C BC #### [facility] [address] [place] [address] Dr. Renata Finch Eosinophils/100 WBC (Bld) 0.5 % Critically low 0.9-7.0 [facility] Comment on above: Performed By: #### C BC #### [facility] [address] [place] [address] Dr. Renata Finch Erythrocyte distribution width (RBC) [Ratio] 14.3 % Normal 11.0-15.0 [facility] Comment on above: Performed By: #### C BC #### [facility] [address] [place] [address] Dr. Renata Finch Hematocrit (Bld) [Volume fraction] 36.0 % Normal 36.0-48.0 [facility] Comment on above: Performed By: #### C BC #### [facility] [address] [place] [address] Dr. Renata Finch Hemoglobin (Bld) [Mass/Vol] 11.6 g/dL Critically low 12.0-16.0 [facility] Comment on above: Performed By: #### C BC #### [facility] [address] [place] [address] Dr. Renata Finch IG # 0.01 10e3/ul Normal 0.00-0.03 [facility] Comment on above: Performed By: #### C BC #### [facility] [address] [place] [address] Dr. Renata Finch IG % 0.2 % Normal 0.0-0.5 [facility] Comment on above: Performed By: #### C BC #### [facility] [address] [place] [address] Dr. Renata Finch LYMPH # 1.8 103/ul Normal 1.2-3.8 [facility] Comment on above: Performed By: #### C BC #### [facility] [address] [place] [address] Dr. Renata Finch Lymphocytes/100 WBC (Bld) 29.7 % Normal 20.5-60.0 [facility] Comment on above: Performed By: #### C BC #### [facility] [address] [place] [address] Dr. Renata Finch MANUAL DIFF REQ NO Normal [facility] Comment on above: Performed By: #### C BC #### [facility] [address] [place] [address] Dr. Renata Finch MCH (RBC) [Entitic mass] 27.0 pg Normal 26.7-34.0 [facility] Comment on above: Performed By: #### C BC #### [facility] [address] [place] [address] Dr. Renata Finch MCHC (RBC) [Mass/Vol] 32.2 g/dL Normal 29.9-35.2 [facility] Comment on above: Performed By: #### C BC #### [facility] [address] [address] [address] Renata Finch MCV (RBC) [Entitic vol] 83.7 fL Normal 81.0-99.0 [facility] Comment on above: Performed By: #### C BC #### [facility] [address] [address] [address] Renata Finch MONO # 0.5 103/ul Normal 0.3-0.8 [facility] Comment on above: Performed By: #### C BC #### [facility] [address] [address] [address] Renata Finch Monocytes/100 WBC (Bld) 9.0 % Normal 1.7-12.0 [facility] Comment on above: Performed By: #### C BC #### [facility] [address] [place] [address] Dr. Renata Finch NEUT # 3.6 103/ul Normal 1.4-6.5 [facility] Comment on above: Performed By: #### C BC #### [facility] [address] [address] [address] Renata Finch Neutrophils/100 WBC (Bld) 60.1 % Normal 43.0-75.0 [facility] Comment on above: Performed By: #### C BC #### [facility] [address] [address] [address] Renata Finch Platelet mean volume (Bld) [Entitic vol] 9.6 fL Normal 9.5-13.5 [facility] Comment on above: Performed By: #### C BC #### [facility] [address] [address] [address] Renata Finch PLT 319 103/ul Normal 150-450 [facility] Comment on above: Performed By: #### C BC #### [facility] [address] [address] [address] Renata Finch RBC 4.30 106/ul Normal 4.20-5.40 [facility] Comment on above: Performed By: #### C BC #### [facility] [address] [place] [address] Dr. Renata Finch WBC 6.0 103/ul Normal 4.0-11.0 [facility] Comment on above: Performed By: #### C BC #### [facility] [address] [place] [address] Dr. Renata Finch LIPASEon 02-09-2022 Lipase [Catalytic activity/Vol] 715.0 U/L Critically high 73.0-393.0 [facility] Comment on above: Performed By: #### U MICRO, ERUR #### [facility] [address] [place] [address] Dr. Renata Finch PROF 14(COMP METB)on 022 Albumin [Mass/Vol] 3.5 g/dL Normal 3.4-5.0 [facility] Comment on above: Performed By: #### U MICRO, ERUR #### [facility] [address] [place] [address] Dr. Renata Finch Albumin/Globulin [Mass ratio] 1.0 {ratio} Normal [facility] Comment on above: Performed By: #### U MICRO, ERUR #### [facility] [address] [place] [address] Dr. Renata Finch ALP [Catalytic activity/Vol] 48 U/L Normal 46-116 [facility] Comment on above: Performed By: #### U MICRO, ERUR #### [facility] [address] [place] [address] Dr. Renata Finch ALT [Catalytic activity/Vol] 19 U/L Normal 14-59 [facility] Comment on above: Performed By: #### U MICRO, ERUR #### [facility] [address] [place] [address] Dr. Renata Finch Anion gap [Moles/Vol] 13.0 mmol/L Normal [facility] Comment on above: Performed By: #### U MICRO, ERUR #### [facility] [address] [place] [address] Dr. Renata Finch AST [Catalytic activity/Vol] 13 U/L Critically low 15-37 [facility] Comment on above: Performed By: #### U MICRO, ERUR #### [facility] [address] [address] [address] Renata Finch Bilirubin [Mass/Vol] 0.6 mg/dL Normal 0.2-1.0 [facility] Comment on above: Performed By: #### U MICRO, ERUR #### [facility] [address] [place] [address] Dr. Renata Finch Calcium [Mass/Vol] 8.4 mg/dL Critically low 8.5-10.1 [facility] Comment on above: Performed By: #### U MICRO, ERUR #### [facility] [address] [place] [address] Dr. Renata Finch Chloride [Moles/Vol] 102 mmol/L Normal 98-107 [facility] Comment on above: Performed By: #### U MICRO, ERUR #### [facility] [address] [place] [address] Dr. Renata Finch CO2 [Moles/Vol] 26.7 mmol/L Normal 21.0-32.0 [facility] Comment on above: Performed By: #### U MICRO, ERUR #### [facility] [address] [place] [address] Dr. Renata Finch Creatinine [Mass/Vol] 0.66 mg/dL Normal 0.55-1.02 [facility] Comment on above: Performed By: #### U MICRO, ERUR #### [facility] [address] [place] [address] Dr. Renata Finch EGFR-AF LAO >60 Normal >=60 [facility] Comment on above: Performed By: #### U MICRO, ERUR #### [facility] [address] [place] [address] Dr. Renata Finch EGFR-NON AF LAO >60 Normal >=60 [facility] Comment on above: Performed By: #### U MICRO, ERUR #### [facility] [address] [place] [address] Dr. Renata Finch Globulin (S) [Mass/Vol] 3.6 g/dL Normal [facility] Comment on above: Performed By: #### U MICRO, ERUR #### [facility] [address] [address] [address] Renata Finch Glucose [Mass/Vol] 89 mg/dL Normal 74-106 [facility] Comment on above: Performed By: #### U MICRO, ERUR #### [facility] [address] [place] [address] Dr. Renata Finch Potassium [Moles/Vol] 3.7 mmol/L Normal 3.5-5.1 [facility] Comment on above: Performed By: #### U MICRO, ERUR #### [facility] [address] [place] [address] Dr. Reanta Finch Protein [Mass/Vol] 7.1 g/dL Normal 6.1-8.2 [facility] Comment on above: Performed By: #### U MICRO, ERUR #### [facility] [address] [place] [address] Dr. Renata Finch Sodium [Moles/Vol] 138 mmol/L Normal 136-145 [facility] Comment on above: Performed By: #### U MICRO, ERUR #### [facility] [address] [place] [address] Dr. Renata Finch Urea nitrogen [Mass/Vol] 7.0 mg/dL Normal 6.4-19.3 [facility] Comment on above: Performed By: #### U MICRO, ERUR #### [facility] [address] [place] [address] Dr. Renata Finch Urea nitrogen/Creatinine [Mass ratio] 10.6 mg/mg Normal [facility] Comment on above: Performed By: #### U MICRO, ERUR #### [facility] [address] [place] [address] Dr. Renata Finch Vital Signs Date Time Vital Sign Value Performing Clinician Facility 10-20-2022 16:34-0500 Body weight 0 kg [employer] Shasha Ramos Work Phone: [facility] 10-20-2022 16:30-0500 Body height 154.94 cm Joe Thomas Other [facility] Other 10-20-2022 16:30-0500 Body mass index (BMI) [Ratio] 30.04 kg/m2 Joe Thomas Other [facility] Other 10-20-2022 16:30-0500 Body weight 72.12 kg Joe Thomas Other [facility] Other 10-20-2022 16:30-0500 Diastolic blood pressure 79 mm[Hg] Joe Thomas Other [facility] Other 10-20-2022 16:30-0500 Systolic blood pressure 122 mm[Hg] Joe Thomas Other [facility] Other 05-04-2022 11:02-0400 Diastolic blood pressure 81 mm[Hg] DO Sandy Hykes Work Phone: [facility] 05-04-2022 11:02-0400 Heart rate 76 /min DO Sandy Hykes Work Phone: [facility] 05-04-2022 11:02-0400 Respiratory rate 18 /min DO Sandy Hykes Work Phone: [facility] 05-04-2022 11:02-0400 SaO2% (BldA) [Mass fraction] 100 % DO Sandy Hykes Work Phone: [facility] 05-04-2022 11:02-0400 Systolic blood pressure 116 mm[Hg] DO Sandy Hykes Work Phone: [facility] 05-04-2022 08:21-0400 Body height 154.94 cm DO Sandy Hykes Work Phone: [facility] 05-04-2022 08:21-0400 Body temperature 98.3 [degF] DO Sandy Hykes Work Phone: [facility] 05-04-2022 08:21-0400 Body weight 68.03 kg DO Sandy Camp Work Phone: [facility] 04-27-2022 15:45-0400 Body height 154.94 cm Sandy Camp Other [employer] [facility] [employer] Other 04-27-2022 15:45-0400 Body mass index (BMI) [Ratio] 28.72 kg/m2 Sandy Camp Other [facility] [employer] Other 04-27-2022 15:45-0400 Body weight 68.95 kg Sandy Camp Other [facility] [employer] Other Encounters Encounter Date Encounter Type Care Provider Facility Start: 07-02-2024 End: 07-02-2024 ambulatory CINDY MULUGETA Not Available Start: 06-18-2024 End: 06-18-2024 ambulatory MARILYN LORNA [...] Start: 12-05-2022 End: 12-05-2022 ambulatory Shasha Ramos Facility:[facility] Start: 12-05-2022 End: 12-05-2022 ambulatory [employer] Shasha Ramos Work Phone: [facility] Work Phone: Start: 12-05-2022 End: 12-05-2022 Patient encounter procedure [employer] Shasha Ramos Work Phone: [facility] Work Phone: Start: 11-10-2022 End: 11-10-2022 ambulatory Joe Thomas Other [facility] Other Start: 11-10-2022 Telephone encounter Joe snowden [facility] Start: 11-08-2022 End: 11-08-2022 ambulatory SHASHAPAUL RAMOS Facility:[facility] Start: 11-02-2022 End: 11-02-2022 ambulatory Shasha Ashlichalo Ramos Facility:[facility] Start: 11-02-2022 End: 11-02-2022 Patient encounter procedure [employer] Shasha Ramos Work Phone: [facility] Work Phone: Start: 10-20-2022 End: 10-20-2022 ambulatory Joe William Other [facility] Other Start: 10-20-2022 Office outpatient visit 25 minutes Joe Thomas [facility] Start: 09-12-2022 End: 09-12-2022 ambulatory Joe Thomas Other [facility] Other Start: 09-12-2022 Telephone encounter Joe snowden [facility] Start: 08-02-2022 End: 08-02-2022 ambulatory BENI FRASER Facility:[facility] Start: 08-01-2022 End: 08-01-2022 ambulatory Joe Thomas Other [facility] Other Start: 08-01-2022 Telephone encounter Joe snowden [facility] Start: 05-09-2022 End: 05-09-2022 ambulatory Sandy Camp Other [facility] Other Start: 05-09-2022 Telephone encounter Sandy Camp [facility] Start: 05-04-2022 End: 05-04-2022 ambulatory Shasha Ramos Facility:[facility] Start: 05-04-2022 End: 05-04-2022 Admission to same day surgery center DO Sandy Camp Work Phone: [facility] Start: 05-02-2022 End: 05-02-2022 ambulatory Sandy Camp Facility:[facility] Start: 05-02-2022 End: 05-02-2022 Patient encounter procedure DO Sandy Camp Work Phone: [facility]-Pre-Surgical [facility] Start: 04-29-2022 End: 04-29-2022 ambulatory SHASHA RICHARD Facility:[facility] Start: 04-27-2022 End: 04-27-2022 ambulatory Sandy Camp Other [facility] Other Start: 04-27-2022 Office outpatient ne w 45 minutes Sandy Camp [facility] Start: 02-12-2022 End: 02-13-2022 ambulatory SHASHAPAUL BURTONMER Facility:[facility] Start: 02-09-2022 End: 02-10-2022 ambulatory SHASHA RAMOS Facility: Procedures Date Procedure Procedure Detail Performing Clinician Start: 11-02-2022 Capsule endoscopy [employer] Shasha Ramos Work Phone: Start: 05-04-2022 Esophagogastroduodenoscopy DO Sandy Camp Work Phone: Plan of Treatment Date Care Activity Detail Author Start: 11-02-2022 [facility] Start: 05-04-2022 [facility] Work Phone: Payers Date Payer Category Payer Self-pay [id number] 2002 Unknown [id number] 2.16.84 [id number] 2002 Unknown [id number] 2.16.84 0.1.852173.3.579.2.593 2002 Unknown [id number] 2.16.84 0.1.585136.3.579.2.593 2002 Unknown [id number] 2.16.84 0.1.918294.3.579.2.593 2002 Unknown [id number] 2.16.84 0.1.170893.3.579.2.593 2002 Unknown [id number] 2.16.84 0.1.503892.3.579.2.593 2002 Unknown [id number] 2.16.84 0.1.998068.3.579.2.1259 2002 Unknown [id number] 2.16.84 0.1.168564.3.579.2.1259 2002 Unknown [id number] 2.16.84 0.1.537550.3.579.2.1259 2002 Unknown [id number] 2.16.84 0.1.477505.3.579.2.1259 2002 Unknown [id number] 2.16.84 0.1.180077.3.579.2.1259 2002 Unknown [id number] 2.16.84 0.1.603263.3.579.2.1259 2002 Unknown [id number] 2.16.84 0.1.495691.3.579.2.1259 1959 Unknown [id number] 2. [id number] Medicaid [id number] 2.1 [id number] Unknown [id number] 2.16.8 40.1.018769.3.579.2.531 Unknown [id number] 2.16.8 40.1.454246.3.579.2.531 Unknown [id number] 2.16.8 40.1.488071.3.579.2.531 Unknown [id number] 2.16.8 40.1.854995.3.579.2.531 Social History Date Type Detail Facility Sex Assigned At [facility] [employer] Other Start: 05-04-2022 End: 05-04-2022 Tobacco smoking status NHIS Never smoked tobacco (finding) [facility] Start: 2000 Sex Assigned At Female F [facility] Medical Equipment Procedure Code Equipment Code Equipment Origin al Text Equipment Identifier Dates Capsule endoscopy, for patency of lumen evaluation Video capsule endoscopy system [id number] FDA Start: 11-02-2022 Goals Date Patient Goal Desired Activity /State Evaluation note 10-20-2022 Note Date & Type Note Facility 10-20-2022 Evaluation note Encounter Date Diagnosis Assessment Notes Oct, Diarrhea (ICD-10 - R19.7) Oct, Nausea & vomiting (ICD-10 - R11.2) capsule endoscopy to be done at [facility] Patient to have labs and stool studies done. Oct, Abdominal pain (ICD-10 - R10.9) [facility] [employer] Other Evaluation note 09-12-2022 Note Date & Type Note Facility 09-12-2022 Evaluation note Encounter Date Diagnosis Assessment Notes Aug, LUQ abdominal pain (ICD-10 - R10.12) [facility] [employer] Other Procedure note 05-04-2022 Note Date & Type Note Facility 05-04-2022 Procedure note [facility] Evaluation note 04-27-2022 Note Date & Type Note Facility 04-27-2022 Evaluation note Encounter Date Diagnosis Assessment Notes Apr, LUQ abdominal pain (ICD-10 - R10.12) START TRIAL OF CARAFATE 1 GRAM TID EGD/ COLONOSCOPY Apr, Nausea & vomiting (ICD-10 - R11.2) Apr, Diarrhea (ICD-10 - R19.7) Apr, Weight loss (ICD-10 - R63.4) [facility] [employer] Other Evaluation note Note Date & Type Note Facility Evaluation note Diagnosis Onset Date Abdominal pain acute Diarrhea acute Nausea and vomiting acute [facility] Work Phone: Evaluation note Note Date & Type Note Facility Evaluation note No Information [facility] [employer] Other Evaluation note Note Date & Type Note Facility Evaluation note No assessment information maciel burr [facility] Work Phone: History and physical note Note Date & Type Note Facility History and physical note Note Date/Time May 04, 2022 10:04am [facility] [address] [place] [address] Gastroenterology H&P Signed Patient: Marlin Hewitt MR#: [id number] : 2000 Acct:[id number] Age/Sex: 21 / F Adm Date: 2 Loc: Room: Type: [facility] Attending Dr: Sandy Camp DO Copies [...] for evaluation Documented By: Sandy Camp Jr, 05/04/22 100 1 Signed By: <Electronically signed by Sandy Camp Jr, DO> 05/04/22 1008 [facility] Work Phone: History general Narrative - Reported Note Date & Type Note Facility History general Narrative - Reported Type Medical History anemia [facility] Other Chief Complaint and Reason for Visit [...] content) PATIENT HERE AT THE REQUEST OF SHSAHA RAMOS NP FOR N&V AND LUQ ABDOMINAL [...] section and content) DATE CREATED AUTHOR 12/06/2022 [facility] DATE CREATED AUTHOR AUTHOR'S ORGANIZ ATION 02/02/2023 [facility] DATE CREATED AUTHOR AUTHOR'S ORGANIZ ATION 07/04/2024 [facility] FOR RECORDS PERTAINING TO PATIENTS WHO ARE [...] BE BASED ON THE PRIMARY CLINICAL RECORDS. [facility] [email or web address] [facility]. provides no warranty or guarantee of the accuracy or completeness of information in this document.
== END 2024-07-16 19:14 | disposition home or self-care (01) ==
LOC: LAB 19:13
PROVIDERS: PCP Nurse Practitioner Family; Visit Provider Physician Assistant
DX: Z34.93 Encounter for supervision of normal pregnancy, unspecified, third trimester (principal); Z3A.35 35 weeks gestation of pregnancy
CPT/HCPCS: 87081; 87150

== ENCOUNTER 2024-07-18 19:48 | Inpatient (IN) | payer MEDICAID, SELFPAY ==
[2024-07-18] VITALS (21 sets, daily range): BP systolic 122–156; BP diastolic 66–99; PULSE 62–130; TEMP 36.5
--- OUTSIDE RECORDS SUMMARY | 2024-07-18 19:15 | XMS_ITS | CCD ---
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 Name Role Phone Sandy Camp Unavailable DO Sandy Camp Attending Provider [phone] LANCE Ramos Primary Care Provider Joe Thomas Unavailable [phone] LANCE Ramos Shasha Ashli Primary Care Provider [phone] MD Joe Thomas Attending Provider Richard Shasha [...] Primary Care Unavailable RICHARD, SHASHA Admitting Unavailable SHASHA RAMOS Attending Unavailable SHASHA RAMOS Consulting Unavailable RICHARD, [...] VEGA Attending Unavailable BALTAZAR VEGA Consulting Unavailable Shawn Linton MD Primary Care Provider [phone] CINDY DALAL Attending Unavailable CINDY DALAL Attending Unavailable LISBET ROTHMAN Attending Unavailable CINDY DALAL Attending Unavailable LISBET ROTHMAN Attending Unavailable CINDY DALAL Attending Unavailable LISBET ROTHMAN Attending Unavailable Allergies Allergy Classification Reported Allergen(s) Allergy Type Date of Onset Reaction(s) Facility (6 sources) Codeine Drug Allergy Unknown [facility] Other (1 source) Codeine Drug Allergy 05-04-2022 [facility] Repository (1 source) Codeine Drug Allergy [facility] Repository (2 sources) Codeine Drug Allergy 05-04-2022 Unknown [facility] Work Phone: Medications Current Medications Medication Drug Class(es) Dates Sig (Normalized) Sig (Original) acetaminophen 500 mg oral tablet (2 sources) take 1 tablet by mouth every six hours as needed for pain acetaminophen (Tylenol) 500 MG tablet Take 500 mg by mouth every 6 (six) hours if needed for mild pain Active dicyclomine hydrochloride 20 mg oral tablet (5 [...] PO As Directed May 03, 2022 11:00pm omeprazole 20 mg delayed release oral capsule (2 sources) Proton Pump Inhibitor Start: 05-07-2024 End: 05-07-2025 take 1 capsule by mouth before mealtime omeprazole (PriLOSEC) [address] capsule Indications: Heart burn Take 1 capsule (20 mg) by mouth in the morning. Take before meals. Do not crush or chew.. 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] Onset: 11-10-2022 Episodic Other gastrointestinal disorders (1 source) Irritable bowel syndrome with diarrhea; Translations: [IRRITABLE BOWEL SYND W/DIARRHEA] Onset: 02-11-2022 Chronic Other gastrointestinal disorders (8 sources) Diarrhea; Translations: [Diarrhea, unspecified] 05-04-2022 Episodic Other gastrointestinal disorders (5 sources) Diarrhea, unspecified; Translations: [Diarrhea] Onset: 04-27-2022 Resolved: 04-27-2022 Episodic Other and delivery including normal (8 sources) Encounter for care and examination of lactating mother; Translations: [Third trimester ] 07-16-2024 Episodic Other screening for suspected conditions (not mental disorders or infectious disease) (4 sources) Encounter for screening for malignant neoplasm of cervix; Translations: [ENC SCREENING MALIG NEOPLASM CERV] Onset: 01-30-2023 Episodic Residual codes; unclassified (2 sources) Gestation period, 35 weeks; Translations: [35 weeks gestation of ] 07-16-2024 Episodic Substance-related disorders (1 source) Cannabis use, [...] Test Name Value Interpretation Reference Range Facility Urinalysis macro (dipstick) panel (U)on 07-16-2024 Bilirubin, UA Negative Negative - 4(70) +++ mg/dL [facility] Blood, UA Negative Negative - 50 Leonardo/mcL [facility] Clarity, UA Clear [facility] re Color, UA Yellow [facility] Glucose, UA Negative Negative - 1999(110) ++++ mg/dL [facility] Interpretation and review of laboratory results Normal [facility] re Ketones, UA Negative Negative - 160(16) ++++ mg/dL [facility] Leukocytes, UA Trace Negative - 500+++ Erinn/mcL [facility] Nitrite, UA Negative Negative - Positive [facility] pH, UA 6.5 5 - 9 [facility] e Protein, UA Negative Negative - 2000(20) ++++ mg/dL [facility] Spec Grav, UA 1.020 1 - 1.03 [facility] Urobilinogen, UA 1.0 0.2 - 12 mg/dL [facility] CHLAMYDIA/GONOCOCCUS LORETO ( AB/URINE/PAPon 02-02-2023 Chlamydia trachomatis, LORETO Negative Normal Negative [facility] Comment on above: Performed By: #### C BC #### [facility] [address] [place] [address] [address] Renata Finch Neisseria gonorrhoeae, LORETO Negative Normal Negative [facility] Comment on above: Performed By: #### C BC #### [facility] [address] [place], [place] [address] Dr. Renata Finch VAGINITIS/VAGINOSIS DNA PROB Kar 02-01-2023 Chelle species Negative Normal Negative [facility] Comment on above: Performed By: #### C BC #### [facility] [address] [place] [address] [address] Renata Finch Gardnerella vaginalis Negative Normal Negative [facility] Comment on above: Performed By: #### C BC #### [facility] [address] [place] [address] [address] Renata Finch Trichomonas vaginalis Negative Normal Negative [facility] Comment on above: Performed By: #### C BC #### [facility] [address] [place], [place] [address] Dr. Renata Finch [place] esophagus ugi sm bowelon 12-05-2022 [place] esophagus ugi sm bowel [facility] [address] Fluoroscopy Report Signed Patient: Marlin Hewitt MR#: [id number] : 2000 Acct:[id number] Age/Sex: 22 / F ADM Date: 12/05/22 Loc: XD Room: Type: [facility] Attending Dr: Joe Thomas MD Copies to: Joe Thomas MD Ordering Provider: Joe Thomas MD Date of Service: 12/05/22 FL/FL esophagus ugi sm bowel: Diarrhea;Nausea vomiting CLINICAL DATA: Nausea, vomiting and diarrhea for the past couple years becoming increasingly worse. Prolonged small bowel transit study last month. COMPARISON: None AIR-CONTRAST ESOPHAGRAM, UPPER GI AND SMALL BOWEL SERIES Python Programmer supine and upright views of the abdomen [...] Madison Sweet M.D.12/05/2022 1:15 PM Dictation Location: [place] [address] Transcribed By: ILDA 12/05/22 1315 Dictated By: Madison Sweet MD 12/05/22 1303 Signed By: 12/05/22 1315 [facility] CBC AUTO DIFFon 11-08-2022 BASO # 0.0 103/ul Normal 0.0-0.1 [facility] Comment on above: Performed By: #### U MICRO, ERUR #### [facility] [address] [place] [address] Dr. Renata Finch Basophils/100 WBC (Bld) 0.4 % Normal 0.2-2.0 [facility] Comment on above: Performed By: #### U MICRO, ERUR #### [facility] [address] [place] [address] Dr. Renata Finch EO # 0.0 103/ul Normal 0.0-0.7 [facility] Comment on above: Performed By: #### U MICRO, ERUR #### [facility] [address] [place] [address] [address] Renata Finch Eosinophils/100 WBC (Bld) 0.1 % Critically low 0.9-7.0 [facility] Comment on above: Performed By: #### U MICRO, ERUR #### [facility] [address] [place] [address] Dr. Renata Finch Erythrocyte distribution width (RBC) [Ratio] 13.6 % Normal 11.0-15.0 [facility] Comment on above: Performed By: #### U MICRO, ERUR #### [facility] [address] [place] [address] [address] Renata Finch Hematocrit (Bld) [Volume fraction] 41.5 % Normal 36.0-48.0 [facility] Comment on above: Performed By: #### U MICRO, ERUR #### [facility] [address] [place] [address] Dr. Renata Finch Hemoglobin (Bld) [Mass/Vol] 13.6 g/dL Normal 12.0-16.0 [facility] Comment on above: Performed By: #### U MICRO, ERUR #### [facility] [address] [place] [address] Dr. Renata Finch IG # 0.03 10e3/ul Normal 0.00-0.03 [facility] Comment on above: Performed By: #### U MICRO, ERUR #### [facility] [address] [place] [address] Dr. Renata Finch IG % 0.3 % Normal 0.0-0.5 [facility] Comment on above: Performed By: #### U MICRO, ERUR #### [facility] [address] [place] [address] Dr. Renata Finch LYMPH # 1.7 103/ul Normal 1.2-3.8 [facility] Comment on above: Performed By: #### U MICRO, ERUR #### [facility] [address] [place] [address] Dr. Renata Finch Lymphocytes/100 WBC (Bld) 19.5 % Critically low 20.5-60.0 [facility] Comment on above: Performed By: #### U MICRO, ERUR #### [facility] [address] [place] [address] Dr. Renata Finch MANUAL DIFF REQ NO Normal [facility] Comment on above: Performed By: #### U MICRO, ERUR #### [facility] [address] [place] [address] Dr. Renata Finch MCH (RBC) [Entitic mass] 27.0 pg Normal 26.7-34.0 [facility] Comment on above: Performed By: #### U MICRO, ERUR #### [facility] [address] [place] [address] [address] Renata Finch MCHC (RBC) [Mass/Vol] 32.8 g/dL Normal 29.9-35.2 [facility] Comment on above: Performed By: #### U MICRO, ERUR #### [facility] [address] [place] [address] [address] Renata Finch MCV (RBC) [Entitic vol] 82.5 fL Normal 81.0-99.0 [facility] Comment on above: Performed By: #### U MICRO, ERUR #### [facility] [address] [place] [address] [address] Renata Finch MONO # 0.5 103/ul Normal 0.3-0.8 [facility] Comment on above: Performed By: #### U MICRO, ERUR #### [facility] [address] [place] [address] Dr. Renata Finch Monocytes/100 WBC (Bld) 6.1 % Normal 1.7-12.0 [facility] Comment on above: Performed By: #### U MICRO, ERUR #### [facility] [address] [place] [address] [address] Renata Finch NEUT # 6.6 103/ul Critically high 1.4-6.5 [facility] Comment on above: Performed By: #### U MICRO, ERUR #### [facility] [address] [place] [address] [address] Renata Finch Neutrophils/100 WBC (Bld) 73.6 % Normal 43.0-75.0 [facility] Comment on above: Performed By: #### U MICRO, ERUR #### [facility] [address] [place] [address] [address] Renata Finch Platelet mean volume (Bld) [Entitic vol] 9.5 fL Normal 9.5-13.5 [facility] Comment on above: Performed By: #### U MICRO, ERUR #### [facility] [address] [place] [address] [address] Renata Finch PLT 417 103/ul Normal 150-450 [facility] Comment on above: Performed By: #### U MICRO, ERUR #### [facility] [address] [place] [address] [address] Renata Finch RBC 5.03 106/ul Normal 4.20-5.40 [facility] Comment on above: Performed By: #### U MICRO, ERUR #### [facility] [address] [place] [address] [address] Renata Finch WBC 8.9 103/ul Normal 4.0-11.0 [facility] Comment on above: Performed By: #### U MICRO, ERUR #### [facility] [address] [place] [address] [address] Renata Finch DRUG SCREEN RAPID (URINE)on 11-08-2022 AMP Negative Normal NEGATIVE [facility] Comment on above: Performed By: #### E RUR, UMICRO, DRUGRPD, PREGU #### [facility] [address] [place] [address] [address] Renata Finch BAR Negative Normal NEGATIVE [facility] Comment on above: Performed By: #### E RUR, UMICRO, DRUGRPD, PREGU #### [facility] [address] [place] [address] [address] Renata Finch BUP Negative Normal NEGATIVE [facility] Comment on above: Performed By: #### E RUR, UMICRO, DRUGRPD, PREGU #### [facility] [address] [place] [address] [address] Renata Finch BZO Negative Normal NEGATIVE [facility] Comment on above: Performed By: #### E RUR, UMICRO, DRUGRPD, PREGU #### [facility] [address] [place] [address] [address] Renata Finch DOM Negative Normal NEGATIVE [facility] Comment on above: Performed By: #### E RUR, UMICRO, DRUGRPD, PREGU #### [facility] [address] [place] [address] Dr. Renata Finch CUT-OFFS SEE BELOW Normal [facility] Comment on above: Result Comment: AMP (Amphetamine): [...] #### E RUR, UMICRO, DRUGRPD, PREGU #### [facility] [address] [place] [address] Dr. Renata Finch DRUG CUT HEADER DRUG CLASS TEST SYSTEM CUT-OFF CONCENTRATIONS ARE FOLLOWS: Normal [facility] Comment on above: Performed By: #### E RUR, UMICRO, DRUGRPD, PREGU #### [facility] [address] [place] [address] Dr. Renata Finch mAMP Negative Normal NEGATIVE [facility] Comment on above: Performed By: #### E RUR, UMICRO, DRUGRPD, PREGU #### [facility] [address] [place] [address] Dr. Renata Finch MTD Negative Normal NEGATIVE [facility] Comment on above: Performed By: #### E RUR, UMICRO, DRUGRPD, PREGU #### [facility] [address] [place] [address] Dr. Renata Finch OPI Negative Normal NEGATIVE [facility] Comment on above: Performed By: #### E RUR, UMICRO, DRUGRPD, PREGU #### [facility] [address] [place] [address] Dr. Renata Finch OXY Negative Normal NEGATIVE [facility] Comment on above: Performed By: #### E RUR, UMICRO, DRUGRPD, PREGU #### [facility] [address] [place] [address] Dr. Renata Finch PCP Negative Normal NEGATIVE [facility] Comment on above: Performed By: #### E RUR, UMICRO, DRUGRPD, PREGU #### [facility] [address] [place] [address] Dr. Renata Finch PPX Negative Normal NEGATIVE [facility] Comment on above: Performed By: #### E RUR, UMICRO, DRUGRPD, PREGU #### [facility] [address] [place] [address] Dr. Renata Finch TCA Negative Normal NEGATIVE [facility] Comment on above: Performed By: #### E RUR, UMICRO, DRUGRPD, PREGU #### [facility] [address] [place] [address] Dr. Renata Finch THC Positive Abnormal NEGATIVE [facility] Comment on above: Performed By: #### E RUR, UMICRO, DRUGRPD, PREGU #### [facility] [address] [place] [address] Dr. Renata Finch ER URINE PROFILEon 3 Bilirubin Ql (U) MODERATE Abnormal NEGATIVE [facility] Comment on above: Performed By: #### E RUR, UMICRO, DRUGRPD, PREGU #### [facility] [address] [place] [address] Dr. Renata Finch Clarity (U) CLEAR Normal CLEAR [facility] Comment on above: Performed By: #### E RUR, UMICRO, DRUGRPD, PREGU #### [facility] [address] [place] [address] Dr. Renata Finch Color (U) YELLOW Normal YELLOW [facility] Comment on above: Performed By: #### E RUR, UMICRO, DRUGRPD, PREGU #### [facility] [address] [place] [address] Dr. Renata CHINGAHNeal A micrscopic examination will be performed if indicated. Normal [facility] Comment on above: Performed By: #### E RUR, UMICRO, DRUGRPD, PREGU #### [facility] [address] [place] [address] Dr. Renata Finch Glucose Ql (U) Negative Normal NEGATIVE [facility] Comment on above: Performed By: #### E RUR, UMICRO, DRUGRPD, PREGU #### [facility] [address] [place] [address] Dr. Renata Finch Hemoglobin Ql (U) TRACE-INTACT Abnormal NEGATIVE [facility] Comment on above: Performed By: #### E RUR, UMICRO, DRUGRPD, PREGU #### [facility] [address] [place] [address] [address] Renata Finch Ketones Ql (U) >=80 Abnormal NEGATIVE [facility] Comment on above: Performed By: #### E RUR, UMICRO, DRUGRPD, PREGU #### [facility] [address] [place] [address] Dr. Renata Finch LEUKOCYTES Negative Normal NEGATIVE [facility] Comment on above: Performed By: #### E RUR, UMICRO, DRUGRPD, PREGU #### [facility] [address] [place] [address] Dr. Renata Finch Nitrite Ql (U) Negative Normal NEGATIVE [facility] Comment on above: Performed By: #### E RUR, UMICRO, DRUGRPD, PREGU #### [facility] [address] [place] [address] Dr. Renata Finch pH (U) 6.5 [pH] Normal 5-9 [facility] Comment on above: Performed By: #### E RUR, UMICRO, DRUGRPD, PREGU #### [facility] [address] [place] [address] Dr. Renata Finch SPEC GRAVITY 1.025 Normal 1.005-<=1.025 [facility] Comment on above: Performed By: #### E RUR, UMICRO, DRUGRPD, PREGU #### [facility] [address] [place] [address] Dr. Renata Finch UA PROTEIN TRACE Normal NEGATIVE/ TRACE [facility] Comment on above: Performed By: #### E RUR, UMICRO, DRUGRPD, PREGU #### [facility] [address] [place] [address] Dr. Renata Finch UR MICRO IND INDICATED Normal [facility] Comment on above: Performed By: #### E RUMIKAEL Tidwell DRUGRPD, PREGU #### [facility] [address] [place] [address] Dr. Renata Finch Urobilinogen Qn (U) 1.0 {Gabrielle'U}/dL Normal 0.2 - 1. 0 [facility] Comment on above: Performed By: #### E RUR, UMICFARRUKH, DRUGRPD, PREGU #### [facility] [address] [place] [address] Dr. Renata Finch URon 11-08-2022 , QUAL Negative Normal NEGATIVE [facility] Comment on above: Performed By: #### E RADHA MCDANIELICFARRUKH, DRUGRPD, PREGU #### [facility] [address] [place] [address] Dr. Renata Finch PROF CHEM 8 (BAS METB)on Anion gap [Moles/Vol] 16.5 mmol/L Normal [facility] Comment on above: Performed By: #### B MP #### [facility] [address] [place] [address] Dr. Renata Finch Calcium [Mass/Vol] 9.7 mg/dL Normal 8.5-10.1 [facility] Comment on above: Performed By: #### B MP #### [facility] [address] [place] [address] Dr. Renata Finch Chloride [Moles/Vol] 97 mmol/L Critically low 98-107 [facility] Comment on above: Performed By: #### B MP #### [facility] [address] [place] [address] Dr. Renata Finch CO2 [Moles/Vol] 26.3 mmol/L Normal 21.0-32.0 [facility] Comment on above: Performed By: #### B MP #### [facility] [address] [place] [address] Dr. Renata Finch Creatinine [Mass/Vol] 0.71 mg/dL Normal 0.55-1.02 [facility] Comment on above: Performed By: #### B MP #### [facility] [address] [place] [address] [address] Renata Finch EGFR-AF BELIZEAN >60 Normal >=60 [facility] Comment on above: Performed By: #### B MP #### [facility] [address] [place] [address] [address] Renata Finch EGFR-NON AF BELIZEAN >60 Normal >=60 [facility] Comment on above: Performed By: #### B MP #### [facility] [address] [place] [address] [address] Renata Finch Glucose [Mass/Vol] 86 mg/dL Normal 74-106 [facility] Comment on above: Performed By: #### B MP #### [facility] [address] [place] [address] Dr. Renata Finch Potassium [Moles/Vol] 2.8 mmol/L Critically low 3.5-5.1 [facility] Comment on above: Performed By: #### B MP #### [facility] [address] [place] [address] [address] Renata Finch Sodium [Moles/Vol] 137 mmol/L Normal 136-145 [facility] Comment on above: Performed By: #### B MP #### [facility] [address] [place] [address] Dr. Renata Finch Urea nitrogen [Mass/Vol] 7.0 mg/dL Normal 7.0-18.0 [facility] Comment on above: Performed By: #### B MP #### [facility] [address] [place] [address] Dr. Renata Finch Urea nitrogen/Creatinine [Mass ratio] 9.9 mg/mg Normal [facility] Comment on above: Performed By: #### B MP #### [facility] [address] [id number] Renata Finch URINE MICROSCOPIC ONLYon BACTERIA TRACE Abnormal NONE SEEN [facility] Comment on above: Performed By: #### E MIKAEL MCDANIEL DRUGRPD, PREGU #### [facility] [address] [place] [address] [address] Renata Finch Bacteria identified Cx Nom (U) NOT INDICATED Normal [facility] Comment on above: Performed By: #### E RUR, UMICRO, DRUGRPD, PREGU #### [facility] [address] [place] [address] [address] Renata Finch CAST NONE SEEN Normal NONE SEEN [facility] Comment on above: Performed By: #### E RUR, UMICRO, DRUGRPD, PREGU #### [facility] [address] [place] [address] [address] Renata Finch Crystals LM Nom (Urine sed) NONE SEEN Normal NONE SEEN [facility] Comment on above: Performed By: #### E RUR, UMICRO, DRUGRPD, PREGU #### [facility] [address] [place] [address] Dr. Renata Finch Epithelial cells LM Ql (Urine sed) FEW Abnormal NONE SEEN /RARE [facility] Comment on above: Performed By: #### E RUR, UMICRO, DRUGRPD, PREGU #### [facility] [address] [place] [address] [address] Renata Finch MUCOUS TRACE Abnormal NONE SEEN [facility] Comment on above: Performed By: #### E RUR, UMICRO, DRUGRPD, PREGU #### [facility] [address] [place] [address] [address] Renata Finch RBC 0-2 Normal 0-2 [facility] Comment on above: Performed By: #### E RUR, UMICRO, DRUGRPD, PREGU #### [facility] [address] [address] [address] Renata Finch WBC 0-2 Abnormal NONE SEEN [facility] Comment on above: Performed By: #### E RUR, UMICRO, DRUGRPD, PREGU #### [facility] [address] [place] [address] [address] Renata Finch AMYLASEon 08-02-2022 Amylase [Catalytic activity/Vol] 45 U/L Normal 25-115 [facility] Comment on above: Performed By: #### U MICRO, ERUR #### [facility] [address] [place] [address] Dr. Renata Finch CBC AUTO DIFFon 08-02-2022 BASO # 0.0 103/ul Normal 0.0-0.1 [facility] Comment on above: Performed By: #### C BC #### [facility] [address] [place] [address] Dr. Renata Finch Basophils/100 WBC (Bld) 0.4 % Normal 0.2-2.0 [facility] Comment on above: Performed By: #### C BC #### [facility] [address] [place] [address] Dr. Renata Finch EO # 0.0 103/ul Normal 0.0-0.7 [facility] Comment on above: Performed By: #### C BC #### [facility] [address] [place] [address] Dr. Renata Finch Eosinophils/100 WBC (Bld) 0.3 % Critically low 0.9-7.0 [facility] Comment on above: Performed By: #### C BC #### [facility] [address] [place] [address] Dr. Renata Finch Erythrocyte distribution width (RBC) [Ratio] 13.9 % Normal 11.0-15.0 [facility] Comment on above: Performed By: #### C BC #### [facility] [address] [place] [address] Dr. Renata Finch Hematocrit (Bld) [Volume fraction] 43.5 % Normal 36.0-48.0 [facility] Comment on above: Performed By: #### C BC #### [facility] [address] [place] [address] Dr. Renata Finch Hemoglobin (Bld) [Mass/Vol] 13.9 g/dL Normal 12.0-16.0 [facility] Comment on above: Performed By: #### C BC #### [facility] [address] [place] [address] Dr. Renata Finch IG # 0.01 10e3/ul Normal 0.00-0.03 [facility] Comment on above: Performed By: #### C BC #### [facility] [address] [place] [address] Dr. Renata Finch IG % 0.1 % Normal 0.0-0.5 [facility] Comment on above: Performed By: #### C BC #### [facility] [address] [place] [address] Dr. Renata Finch LYMPH # 1.2 103/ul Normal 1.2-3.8 [facility] Comment on above: Performed By: #### C BC #### [facility] [address] [place] [address] Dr. Renata Finch Lymphocytes/100 WBC (Bld) 15.9 % Critically low 20.5-60.0 [facility] Comment on above: Performed By: #### C BC #### [facility] [address] [place] [address] Dr. Renata Finch MANUAL DIFF REQ NO Normal [facility] Comment on above: Performed By: #### C BC #### [facility] [address] [place] [address] Dr. Renata Finch MCH (RBC) [Entitic mass] 26.5 pg Critically low 26.7-34.0 [facility] Comment on above: Performed By: #### C BC #### [facility] [address] [place] [address] Dr. Renata Finch MCHC (RBC) [Mass/Vol] 32.0 g/dL Normal 29.9-35.2 [facility] Comment on above: Performed By: #### C BC #### [facility] [address] [place] [address] Dr. Renata Finch MCV (RBC) [Entitic vol] 83.0 fL Normal 81.0-99.0 [facility] Comment on above: Performed By: #### C BC #### [facility] [address] [place] [address] Dr. Renata Finch MONO # 0.5 103/ul Normal 0.3-0.8 [facility] Comment on above: Performed By: #### C BC #### [facility] [address] [place] [address] Dr. Renata Finch Monocytes/100 WBC (Bld) 6.1 % Normal 1.7-12.0 [facility] Comment on above: Performed By: #### C BC #### [facility] [address] [place] [address] Dr. Renata Finch NEUT # 5.8 103/ul Normal 1.4-6.5 [facility] Comment on above: Performed By: #### C BC #### [facility] [address] [place] [address] Dr. Renata Finch Neutrophils/100 WBC (Bld) 77.2 % Critically high 43.0-75.0 [facility] Comment on above: Performed By: #### C BC #### [facility] [address] [place] [address] Dr. Renata Finch Platelet mean volume (Bld) [Entitic vol] 9.9 fL Normal 9.5-13.5 [facility] Comment on above: Performed By: #### C BC #### [facility] [address] [place] [address] Dr. Renata Finch PLT 416 103/ul Normal 150-450 [facility] Comment on above: Performed By: #### C BC #### [facility] [address] [place] [address] Dr. Renata Finch RBC 5.24 106/ul Normal 4.20-5.40 [facility] Comment on above: Performed By: #### C BC #### [facility] [address] [place] [address] Dr. Renata Finch WBC 7.6 103/ul Normal 4.0-11.0 [facility] Comment on above: Performed By: #### C BC #### [facility] [address] [place] [address] Dr. Renata Finch Covid-19 PCR ([facility])on 07-16 SARS-CoV-2 (COVID-19) RNA LORETO+probe Ql (Unsp spec) Not detected Normal NOT DETECTED [facility] Comment on above: Result Comment: When diagnostic [...] for this test is supported by the [place] of Health and Human Service's declaration that [...] used). Performed By: #### C VDTB #### [facility] [address] [place] [address] Dr. Renata Finch ER URINE PROFILEon 2 Bilirubin Ql (U) SMALL Abnormal NEGATIVE [facility] Comment on above: Performed By: #### C BC #### [facility] [address] [place] [address] Dr. Renata Finch Clarity (U) CLEAR Normal CLEAR [facility] Comment on above: Performed By: #### C BC #### [facility] [address] [place] [address] Dr. Renata Finch Color (U) BROWN Abnormal YELLOW [facility] Comment on above: Performed By: #### C BC #### [facility] [address] [place] [address] Dr. Renata Finch ERUAHD A micrscopic examination will be performed if indicated. Normal [facility] Comment on above: Performed By: #### C BC #### [facility] [address] [place] [address] Dr. Renata Finch Glucose Ql (U) Negative Normal NEGATIVE [facility] Comment on above: Performed By: #### C BC #### [facility] [address] [address] [address] Renata Finch Hemoglobin Ql (U) LARGE Abnormal NEGATIVE [facility] Comment on above: Performed By: #### C BC #### [facility] [address] [place] [address] Dr. Renata Finch Ketones Ql (U) >=80 Abnormal NEGATIVE [facility] Comment on above: Performed By: #### C BC #### [facility] [address] [place] [address] Dr. Renata Finch LEUKOCYTES Negative Normal NEGATIVE [facility] Comment on above: Performed By: #### C BC #### [facility] [address] [place] [address] Dr. Renata Finch Nitrite Ql (U) Negative Normal NEGATIVE [facility] Comment on above: Performed By: #### C BC #### [facility] [address] [place] [address] Dr. Renata Finch pH (U) 7.0 [pH] Normal 5-9 [facility] Comment on above: Performed By: #### C BC #### [facility] [address] [place] [address] Dr. Renata Finch Protein (U) [Mass/Vol] 30 mg/dL Abnormal NEGATIVE/ TRACE [facility] Comment on above: Performed By: #### C BC #### [facility] [address] [place] [address] Dr. Renata Finch SPEC GRAVITY 1.025 Normal 1.005-<=1.025 [facility] Comment on above: Performed By: #### C BC #### [facility] [address] [place] [address] Dr. Renata Finch UR MICRO IND INDICATED Normal [facility] Comment on above: Performed By: #### C BC #### [facility] [address] [place] [address] Dr. Renata Finch Urobilinogen Qn (U) 1.0 {Gabrielle'U}/dL Normal 0.2 - 1. 0 [facility] Comment on above: Performed By: #### C BC #### [facility] [address] [place] [address] Dr. Renata Finch LACTATE/LACTIC ACIDon 2021 Lactate [Moles/Vol] 1.2 mmol/L Normal 0.4-1.9 [facility] Comment on above: Performed By: #### U MICRO, ERUR #### [facility] [address] [place] [address] Dr. Renata Finch LIPASEon 08-02-2022 Lipase [Catalytic activity/Vol] 66.0 U/L Critically low 73.0-393.0 [facility] Comment on above: Performed By: #### U MICRO, ERUR #### [facility] [address] [place] [address] Dr. Renata Finch URon 08-02-2022 , QUAL Negative Normal NEGATIVE [facility] Comment on above: Performed By: #### C BC #### [facility] [address] [place] [address] Dr. Renata Finch PROF 14(COMP METB)on 022 Albumin [Mass/Vol] 4.1 g/dL Normal 3.4-5.0 [facility] Comment on above: Performed By: #### U MICRO, ERUR #### [facility] [address] [place] [address] Dr. Renata Finch Albumin/Globulin [Mass ratio] 1.0 {ratio} Normal [facility] Comment on above: Performed By: #### U MICRO, ERUR #### [facility] [address] [place] [address] Dr. Renata Finch ALP [Catalytic activity/Vol] 53 U/L Normal 46-116 [facility] Comment on above: Performed By: #### U MICRO, ERUR #### [facility] [address] [place] [address] Dr. Renata Finch ALT [Catalytic activity/Vol] 42 U/L Normal 14-59 [facility] Comment on above: Performed By: #### U MICRO, ERUR #### [facility] [address] [place] [address] Dr. Renata Finch Anion gap [Moles/Vol] 11.8 mmol/L Normal [facility] Comment on above: Performed By: #### U MICRO, ERUR #### [facility] [address] [place] [address] Dr. Renata Finch AST [Catalytic activity/Vol] 22 U/L Normal 15-37 [facility] Comment on above: Performed By: #### U MICRO, ERUR #### [facility] [address] [place] [address] Dr. Renata Finch Bilirubin [Mass/Vol] 1.0 mg/dL Normal 0.2-1.0 [facility] Comment on above: Performed By: #### U MICRO, ERUR #### [facility] [address] [place] [address] Dr. Renata Finch Calcium [Mass/Vol] 9.5 mg/dL Normal 8.5-10.1 [facility] Comment on above: Performed By: #### U MICRO, ERUR #### [facility] [address] [place] [address] Dr. Renata Finch Chloride [Moles/Vol] 101 mmol/L Normal 98-107 [facility] Comment on above: Performed By: #### U MICRO, ERUR #### [facility] [address] [place] [address] Dr. Renata Finch CO2 [Moles/Vol] 29.5 mmol/L Normal 21.0-32.0 [facility] Comment on above: Performed By: #### U MICRO, ERUR #### [facility] [address] [place] [address] Dr. Renata Finch Creatinine [Mass/Vol] 0.85 mg/dL Normal 0.55-1.02 [facility] Comment on above: Performed By: #### U MICRO, ERUR #### [facility] [address] [place] [address] Dr. Renata Finch EGFR-AF BELIZEAN >60 Normal >=60 [facility] Comment on above: Performed By: #### U MICRO, ERUR #### [facility] [address] [place] [address] Dr. Renata Finch EGFR-NON AF BELIZEAN >60 Normal >=60 [facility] Comment on above: Performed By: #### U MICRO, ERUR #### [facility] [address] [place] [address] Dr. Renata Finch Globulin (S) [Mass/Vol] 4.2 g/dL Normal [facility] Comment on above: Performed By: #### U MICRO, ERUR #### [facility] [address] [place] [address] Dr. Renata Finch Glucose [Mass/Vol] 119 mg/dL Critically high 74-106 [facility] Comment on above: Performed By: #### U MICRO, ERUR #### [facility] [address] [place] [address] Dr. Renata Finch Potassium [Moles/Vol] 3.3 mmol/L Critically low 3.5-5.1 [facility] Comment on above: Performed By: #### U MICRO, ERUR #### [facility] [address] [place] [address] Dr. Renata Finch Protein [Mass/Vol] 8.3 g/dL Critically high 6.4-8.2 [facility] Comment on above: Performed By: #### U MICRO, ERUR #### [facility] [address] [place] [address] Dr. Renata Finch Sodium [Moles/Vol] 139 mmol/L Normal 136-145 [facility] Comment on above: Performed By: #### U MICRO, ERUR #### [facility] [address] [place] [address] Dr. Renata Finch Urea nitrogen [Mass/Vol] 6.0 mg/dL Critically low 6.4-19.3 [facility] Comment on above: Performed By: #### U MICRO, ERUR #### [facility] [address] [place] [address] Dr. Renata Finch Urea nitrogen/Creatinine [Mass ratio] 7.1 mg/mg Normal [facility] Comment on above: Performed By: #### U MICRO, ERUR #### [facility] [address] [place], [place] [id number] Dr. Renata Finch URINE MICROSCOPIC ONLYon BACTERIA NONE SEEN Normal NONE SEEN [facility] Comment on above: Performed By: #### C BC #### [facility] [address] [place] [address] Dr. Renata Finch Bacteria identified Cx Nom (U) NOT INDICATED Normal [facility] Comment on above: Performed By: #### C BC #### [facility] [address] [place] [address] Dr. Renata Finch CAST NONE SEEN Normal NONE SEEN [facility] Comment on above: Performed By: #### C BC #### [facility] [address] [place] [address] Dr. Renata Finch Crystals LM Nom (Urine sed) NONE SEEN Normal NONE SEEN [facility] Comment on above: Performed By: #### C BC #### [facility] [address] [place] [address] Dr. Renata Finch Epithelial cells LM Ql (Urine sed) NONE SEEN Normal NONE SEEN /RARE [facility] Comment on above: Performed By: #### C BC #### [facility] [address] [place] [address] Dr. Renata Finch MUCOUS NONE SEEN Normal NONE SEEN [facility] Comment on above: Performed By: #### C BC #### [facility] [address] [place] [address] Dr. Renata Finch RBC 20-50 Abnormal 0-2 [facility] Comment on above: Performed By: #### C BC #### [facility] [address] [place] [address] Dr. Renata Finch WBC NONE SEEN Normal NONE SEEN [facility] Comment on above: Performed By: #### C BC #### [facility] [address] [place] [address] Dr. Renata Finch XR ABD FLAT UP_PA [...] by: TORIN PAREDES Date: 2022-08-02 07:02 Normal [facility] HCG ( test) IA.rapi d Ql (U)Ordered By: Sandy Camp on 05-04-2022 HCG ( test) Ql (U) Negative [facility] HCG,Urineon 05-04-2022 Beta HCG ( test) Ql (U) Negative Normal [facility] Comment on above: Result Comment: PERF ORMED BY: [place] [address] PATHOLOGIST HOTEL OR MOTEL RECEPTIONIST MERARI BROWN M.D. Performed By: #### U HCG #### [address] [place] 05-04-2022 L - -------- Specimen: [id number] Received: 05/04/22 Status: ALEXANDRA Worthy Num: [id number] Spec Type: Surgical Subm Dr: Sandy Camp Jr, DO Tissues: A Duodenum - Biopsy (DUODENUM) B Colon Biopsy (COLON) Procedures: HE Stain/4, Gross/Micro L4/2 -------- Age/ Patient Sex Location Account Attending Physician -------- Marlin Hewitt [id number] Sandy Camp Jr, DO -------- SPEC NUM: [id number] RECD: 05/04/22 STATUS: ALEXANDRA WORTHY NUM: [id number] ALFONSO: 05/04/[address] [facility] [address]: Sandy Camp Jr, DO ENTERED: 05/04/22 [facility] DR: VERA TYPE: Surgical DEPT: S ENTERED BY: [id number] RECV BY: [id number] ORDERED: HE Stain/4, Gross/Micro L4/2 ORDERED: HE [...] submitted in one c assette labeled B1. -------- Specimen: [id number] Received: 05/04/22 Status: ALEXANDRA Deacon Num: [id number] Spec Type: Surgical Subm Dr: Sandy Camp Jr, DO Tissues: A Duodenum - Biopsy (DUODENUM) B Colon Biopsy (COLON) Procedures: HE Stain/4, Gross/Micro L4/2 -------- Patient: Marlin Hewitt Ajay [id number] (Continued) -------- Specimen: [id number] Received: 05/04/22 (Continued) Signed (signature on file) Solomon Ibarra MD 05/05/22 1446 -------- Specimen: [id number] Received: 05/04/22 Status: ALEXANDRA Worthy Num: [id number] Spec Type: Surgical Subm Dr: Sandy Camp Jr, DO Tissues: A Duodenum - Biopsy (DUODENUM) B Colon Biopsy (COLON) Procedures: HE Stain/4, Gross/Micro L4/2 -------- Patient: Marlin Hewitt [id number] (Continued) -------- Specimen: [id number] Received: 05/04/22 (Continued) Microscopic Description A. Two glass slides with H E stained material have been examined. The microscopic findings support the above pathologic diagnosis. B. Two glass slides with H E stained material have been examined. The microscopic findings support the above pathologic diagnosis. CPT Codes 22933?2 -------- -------- Specimen: [id number] Received: 05/04/22 Status: ALEXANDRA Worthy Num: [id number] Spec Type: Surgical Subm Dr: Sandy Camp Jr, DO Tissues: A Duodenum - Biopsy (DUODENUM) B Colon Biopsy (COLON) Procedures: HE Stain/4, Gross/Micro L4/2 -------- Patient: Marlin Hewitt Ajay [id number] (Continued) -------- Signed (signature on file) Beau Ibarra MD 05/05/22 1446 Normal [facility] [place] SARS-CoV-2 (COVID-19) RNA LORETO+probe Ql (Unsp spec) Negative Normal Negative [facility] Comment on above: Order Comment: Healt hcare Worker?: N Result Comment: Testing for SARS-CoV-2 by RT-PCR This test was developed and its performance characteristics determined by [employer]) and validated at the [facility]. This test has not been FDA [...] is terminated or revoked sooner. PERFORMED BY: [place] [address] PATHOLOGIST HOTEL OR MOTEL RECEPTIONIST MERARI BROWN M.D. Performed By: #### C OVID 19 [facility] #### [address] COVID-19 Positive/NegativeOr dered By: Sandy Camp on 05-02-2022 SARS-CoV-2 (COVID-19) N gene LORETO+probe Ql (Resp) Negative Negative [facility] Comment on above: Testing for SARS-CoV -2 by RT-PCR This test was developed and its performance characteristics determined by [employer] and validated at the [facility]. This test has not been FDA [...] [Catalytic activity/Vol] 53 U/L Normal 25-115 [facility] Comment on above: Performed By: #### C BC #### [facility] [address] [place] [address] Dr. Renata Finch CBC W MANUAL DIFFon 04-29-20 22 ATYPICAL LYMPH # Normal [facility] Comment on above: Performed By: #### C BC #### [facility] [address] [place] [address] Dr. Renata Finch ATYPICAL LYMPH % Normal [facility] Comment on above: Performed By: #### C BC #### [facility] [address] [place] [address] Dr. Renata Finch BAND # Normal 0.0-0.3 [facility] Comment on above: Performed By: #### C BC #### [facility] [address] [place] [address] Dr. Renata Finch BAND % Normal 0-5 [facility] Comment on above: Performed By: #### C BC #### [facility] [address] [place] [address] Dr. Renata Finch BASOM # 0.00 103/ul Normal 0.00-0.10 [facility] Comment on above: Performed By: #### C BC #### [facility] [address] [place] [address] Dr. Renata Finch BASOM % 0.0 % Critically low 0.2-2.0 [facility] Comment on above: Performed By: #### C BC #### [facility] [address] [place] [address] Dr. Renata Finch BLAST # Normal [facility] Comment on above: Performed By: #### C BC #### [facility] [address] [place] [address] Dr. Renata Finch BLAST % Normal [facility] Comment on above: Performed By: #### C BC #### [facility] [address] [place] [address] Dr. Renata Finch CORRECTED WBC Normal 4.0-11.0 [facility] Comment on above: Performed By: #### C BC #### [facility] [address] [place] [address] Dr. Renata Finch EOS # 0.00 103/ul Normal 0.00-0.70 [facility] Comment on above: Performed By: #### C BC #### [facility] [address] [place] [address] Dr. Renata Finch EOS% 0.0 % Critically low 0.9-7.0 [facility] Comment on above: Performed By: #### C BC #### [facility] [address] [address] [address] Renata Finch HCT 40.4 % Normal 36.0-48.0 [facility] Comment on above: Performed By: #### C BC #### [facility] [address] [place] [address] Dr. Renata Finch HGB 13.0 g/dl Normal 12.0-16.0 [facility] Comment on above: Performed By: #### C BC #### [facility] [address] [place] [address] Dr. Renata Finch LYMPHM # 0.83 103/ul Critically low 1.20-3.80 [facility] Comment on above: Performed By: #### C BC #### [facility] [address] [place] [address] Dr. Renata Finch LYMPHM% 13.0 % Critically low 20.5-60.0 [facility] Comment on above: Performed By: #### C BC #### [facility] [address] [place] [address] Dr. Renata Finch MCH 26.8 pg Normal 26.7-34.0 [facility] Comment on above: Performed By: #### C BC #### [facility] [address] [place] [address] Dr. Renata Finch MCHC 32.2 g/dl Normal 29.9-35.2 [facility] Comment on above: Performed By: #### C BC #### [facility] [address] [place] [address] Dr. Renata Finch MCV 83.3 fL Normal 81.0-99.0 [facility] Comment on above: Performed By: #### C BC #### [facility] [address] [address] [address] Renata Finch METAMYELOCYTE # Normal [facility] Comment on above: Performed By: #### C BC #### [facility] [address] [place] [address] Dr. Renata Finch METAMYELOCYTE % Normal [facility] Comment on above: Performed By: #### C BC #### [facility] [address] [place] [address] Dr. Renata Finch MONOM# 0.13 103/ul Critically low 0.30-0.80 [facility] Comment on above: Performed By: #### C BC #### [facility] [address] [place] [address] Dr. Renata Finch MONOM% 2.0 % Normal 1.7-12.0 [facility] Comment on above: Performed By: #### C BC #### [facility] [address] [place] [address] Dr. Renata Finch MPV 9.7 fL Normal 9.5-13.5 [facility] Comment on above: Performed By: #### C BC #### [facility] [address] [place] [address] Dr. Renata Finch MYELOCYTE # Normal [facility] Comment on above: Performed By: #### C BC #### [facility] [address] [place] [address] Dr. Renata Finch MYELOCYTE % Normal [facility] Comment on above: Performed By: #### C BC #### [facility] [address] [place] [address] Dr. Renata Finch NRBC Normal [facility] Comment on above: Performed By: #### C BC #### [facility] [address] [place] [address] Dr. Renata Finch PLT 311 103/ul Normal 150-450 [facility] Comment on above: Performed By: #### C BC #### [facility] [address] [place] [address] Dr. Renata Finch RBC 4.85 106/ul Normal 4.20-5.40 [facility] Comment on above: Performed By: #### C BC #### [facility] [address] [place] [address] Dr. Renata Finch RDW 13.8 % Normal 11.0-15.0 [facility] Comment on above: Performed By: #### C BC #### [facility] [address] [place] [address] Dr. Renata Finch SEG # 5.44 103/ul Normal 1.40-6.50 [facility] Comment on above: Performed By: #### C BC #### [facility] [address] [place] [address] Dr. Renata Finch SEG % 85.0 % Critically high 43.0-75.0 [facility] Comment on above: Performed By: #### C BC #### [facility] [address] [place] [address] Dr. Renata Finch WBC 6.4 103/ul Normal 4.0-11.0 [facility] Comment on above: Performed By: #### C BC #### [facility] [address] [place] [address] Dr. Renata Fnich ER URINE PROFILEon 2 Bilirubin Ql (U) Negative Normal NEGATIVE [facility] Comment on above: Performed By: #### U MICRO, ERUR #### [facility] [address] [place] [address] Dr. Renata Finch Clarity (U) SL CLOUDY Abnormal CLEAR [facility] Comment on above: Performed By: #### U MICRO, ERUR #### [facility] [address] [place] [address] Dr. Renata Finch Color (U) YELLOW Normal YELLOW [facility] Comment on above: Performed By: #### U MICRO, ERUR #### [facility] [address] [place] [address] Dr. Renata Finch ERUAHD A micrscopic examination will be performed if indicated. Normal [facility] Comment on above: Performed By: #### U MICRO, ERUR #### [facility] [address] [address] [address] Renata Finch Glucose Ql (U) Negative Normal NEGATIVE [facility] Comment on above: Performed By: #### U MICRO, ERUR #### [facility] [address] [address] [address] Renata Finch Hemoglobin Ql (U) Negative Normal NEGATIVE [facility] Comment on above: Performed By: #### U MICRO, ERUR #### [facility] [address] [address] [address] Renata Finch Ketones Ql (U) 40 mg/dl Abnormal NEGATIVE [facility] Comment on above: Performed By: #### U MICRO, ERUR #### [facility] [address] [address] [address] Renata Finch LEUKOCYTES Negative Normal NEGATIVE [facility] Comment on above: Performed By: #### U MICRO, ERUR #### [facility] [address] [address] [address] Renata Finch Nitrite Ql (U) Negative Normal NEGATIVE [facility] Comment on above: Performed By: #### U MICRO, ERUR #### [facility] [address] [address] [address] Renata Finch pH (U) 6.0 [pH] Normal 5-9 [facility] Comment on above: Performed By: #### U MICRO, ERUR #### [facility] [address] [address] [address] Renata Finch Protein (U) [Mass/Vol] 30 mg/dL Abnormal NEGATIVE/ TRACE [facility] Comment on above: Performed By: #### U MICRO, ERUR #### [facility] [address] [address] [address] Renata Finch SPEC GRAVITY >=1.030 Abnormal 1.005-<=1.025 [facility] Comment on above: Performed By: #### U MICRO, ERUR #### [facility] [address] [address] [address] Renata Finch UR MICRO IND INDICATED Normal [facility] Comment on above: Performed By: #### U MICRO, ERUR #### [facility] [address] [place] [address] Dr. Renata Finch Urobilinogen Qn (U) 0.2 {Gabrielle'U}/dL Normal 0.2 - 1. 0 [facility] Comment on above: Performed By: #### U MICRO, ERUR #### [facility] [address] [place] [address] Dr. Renata Finch LIPASEon 04-29-2022 Lipase [Catalytic activity/Vol] 58.0 U/L Critically low 73.0-393.0 [facility] Comment on above: Performed By: #### C BC #### [facility] [address] [place] [address] Dr. Renata Finch PREG HCG QUALon 04-29-2022 , QUAL Negative Normal NEGATIVE [facility] Comment on above: Performed By: #### C BC #### [facility] [address] [place] [address] Dr. Renata Finch PROF 14(COMP METB)on 022 Albumin [Mass/Vol] 3.7 g/dL Normal 3.4-5.0 [facility] Comment on above: Performed By: #### C BC #### [facility] [address] [place] [address] Dr. Renata Finch Albumin/Globulin [Mass ratio] 0.9 {ratio} Normal [facility] Comment on above: Performed By: #### C BC #### [facility] [address] [place] [address] Dr. Renata Finch ALP [Catalytic activity/Vol] 46 U/L Normal 46-116 [facility] Comment on above: Performed By: #### C BC #### [facility] [address] [place] [address] Dr. Renata Finch ALT [Catalytic activity/Vol] 22 U/L Normal 14-59 [facility] Comment on above: Performed By: #### C BC #### [facility] [address] [place] [address] Dr. Renata Finch Anion gap [Moles/Vol] 16.3 mmol/L Normal [facility] Comment on above: Performed By: #### C BC #### [facility] [address] [place] [address] Dr. Renata Finch AST [Catalytic activity/Vol] 16 U/L Normal 15-37 [facility] Comment on above: Performed By: #### C BC #### [facility] [address] [address] [address] Renata Finch Bilirubin [Mass/Vol] 0.8 mg/dL Normal 0.2-1.0 [facility] Comment on above: Performed By: #### C BC #### [facility] [address] [place] [address] Dr. Renata Finch Calcium [Mass/Vol] 9.3 mg/dL Normal 8.5-10.1 [facility] Comment on above: Performed By: #### C BC #### [facility] [address] [place] [address] Dr. Renata Finch Chloride [Moles/Vol] 101 mmol/L Normal 98-107 [facility] Comment on above: Performed By: #### C BC #### [facility] [address] [place] [address] Dr. Renata Finch CO2 [Moles/Vol] 25.4 mmol/L Normal 21.0-32.0 [facility] Comment on above: Performed By: #### C BC #### [facility] [address] [place] [address] Dr. Renata Finch Creatinine [Mass/Vol] 0.81 mg/dL Normal 0.55-1.02 [facility] Comment on above: Performed By: #### C BC #### [facility] [address] [place] [address] Dr. Renata Finch EGFR-AF BELIZEAN >60 Normal >=60 [facility] Comment on above: Performed By: #### C BC #### [facility] [address] [place] [address] Dr. Renata Finch EGFR-NON AF BELIZEAN >60 Normal >=60 [facility] Comment on above: Performed By: #### C BC #### [facility] [address] [address] [address] Renata Finch Globulin (S) [Mass/Vol] 4.1 g/dL Normal [facility] Comment on above: Performed By: #### C BC #### [facility] [address] [address] [address] Renata Finch Glucose [Mass/Vol] 126 mg/dL Critically high 74-106 [facility] Comment on above: Performed By: #### C BC #### [facility] [address] [address] [address] Renata Finch Potassium [Moles/Vol] 3.7 mmol/L Normal 3.5-5.1 [facility] Comment on above: Performed By: #### C BC #### [facility] [address] [place] [address] Dr. Renata Finch Protein [Mass/Vol] 7.8 g/dL Normal 6.4-8.2 [facility] Comment on above: Performed By: #### C BC #### [facility] [address] [place] [address] Dr. Renata Finch Sodium [Moles/Vol] 139 mmol/L Normal 136-145 [facility] Comment on above: Performed By: #### C BC #### [facility] [address] [place] [address] Dr. Renata Finch Urea nitrogen [Mass/Vol] 9.0 mg/dL Normal 6.4-19.3 [facility] Comment on above: Performed By: #### C BC #### [facility] [address] [place] [address] Dr. Renata Finch Urea nitrogen/Creatinine [Mass ratio] 11.1 mg/mg Normal [facility] Comment on above: Performed By: #### C BC #### [facility] [address] [place] [address] Dr. Renata Finch URINE MICROSCOPIC ONLYon BACTERIA TRACE Abnormal NONE SEEN [facility] Comment on above: Performed By: #### U MICRO, ERUR #### [facility] [address] [address] [address] Renata Finch Bacteria identified Cx Nom (U) NOT INDICATED Normal [facility] Comment on above: Performed By: #### U MICRO, ERUR #### [facility] [address] [address] [address] Renata Finch CAST NONE SEEN Normal NONE SEEN [facility] Comment on above: Performed By: #### U MICRO, ERUR #### [facility] [address] [address] [address] Renata Finch Crystals LM Nom (Urine sed) NONE SEEN Normal NONE SEEN [facility] Comment on above: Performed By: #### U MICRO, ERUR #### [facility] [address] [place] [address] Dr. Renata Finch Epithelial cells LM Ql (Urine sed) FEW Abnormal NONE SEEN /RARE [facility] Comment on above: Performed By: #### U MICRO, ERUR #### [facility] [address] [address] [address] Renata Finch MUCOUS TRACE Abnormal NONE SEEN [facility] Comment on above: Performed By: #### U MICRO, ERUR #### [facility] [address] [address] [address] Renata Finch RBC 0-2 Normal 0-2 [facility] Comment on above: Performed By: #### U MICRO, ERUR #### [facility] [address] [address] [address] Renata Finch WBC NONE SEEN Normal NONE SEEN [facility] Comment on above: Performed By: #### U MICRO, ERUR #### [facility] [address] [address] [address] Renata Finch XR ABD FLAT UP_PA [...] by: SANDY KERR Date: 2022-04-29 10:[address] [facility] [address] ABD/PELV W CONon 02-13-20 CT ABD/PELV [...] SANDY KERR Date: 2022-02-12 09:47 Normal [facility] US SINGLE QUAD RT UPPERon US SINGLE [...] SANDY KERR Date: 2022-02-12 09:12 Normal [facility] AMYLASEon 02-09-2022 Amylase [Catalytic activity/Vol] 144 U/L Critically high 25-115 [facility] Comment on above: Performed By: #### U MICRO, ERUR #### [facility] [address] [place] [address] Dr. Renata Finch CBC AUTO DIFFon 02-09-2022 BASO # 0.0 103/ul Normal 0.0-0.1 [facility] Comment on above: Performed By: #### C BC #### [facility] [address] [place] [address] Dr. Renata Finch Basophils/100 WBC (Bld) 0.5 % Normal 0.2-2.0 [facility] Comment on above: Performed By: #### C BC #### [facility] [address] [place] [address] Dr. Renata Finch EO # 0.0 103/ul Normal 0.0-0.7 [facility] Comment on above: Performed By: #### C BC #### [facility] [address] [place] [address] Dr. Renata Finch Eosinophils/100 WBC (Bld) 0.5 % Critically low 0.9-7.0 [facility] Comment on above: Performed By: #### C BC #### [facility] [address] [place] [address] Dr. Renata Finch Erythrocyte distribution width (RBC) [Ratio] 14.3 % Normal 11.0-15.0 [facility] Comment on above: Performed By: #### C BC #### [facility] [address] [place] [address] Dr. Renata Finch Hematocrit (Bld) [Volume fraction] 36.0 % Normal 36.0-48.0 [facility] Comment on above: Performed By: #### C BC #### [facility] [address] [place] [address] Dr. Renata Finch Hemoglobin (Bld) [Mass/Vol] 11.6 g/dL Critically low 12.0-16.0 [facility] Comment on above: Performed By: #### C BC #### [facility] [address] [place] [address] Dr. Renata Finch IG # 0.01 10e3/ul Normal 0.00-0.03 [facility] Comment on above: Performed By: #### C BC #### [facility] [address] [place] [address] Dr. Renata Finch IG % 0.2 % Normal 0.0-0.5 [facility] Comment on above: Performed By: #### C BC #### [facility] [address] [place] [address] Dr. Renata Finch LYMPH # 1.8 103/ul Normal 1.2-3.8 [facility] Comment on above: Performed By: #### C BC #### [facility] [address] [place] [address] Dr. Renata Finch Lymphocytes/100 WBC (Bld) 29.7 % Normal 20.5-60.0 [facility] Comment on above: Performed By: #### C BC #### [facility] [address] [place] [address] Dr. Renata Finch MANUAL DIFF REQ NO Normal [facility] Comment on above: Performed By: #### C BC #### [facility] [address] [place] [address] Dr. Renata Finch MCH (RBC) [Entitic mass] 27.0 pg Normal 26.7-34.0 [facility] Comment on above: Performed By: #### C BC #### [facility] [address] [place] [address] Dr. Renata Finch MCHC (RBC) [Mass/Vol] 32.2 g/dL Normal 29.9-35.2 [facility] Comment on above: Performed By: #### C BC #### [facility] [address] [place] [address] Dr. Renata Finch MCV (RBC) [Entitic vol] 83.7 fL Normal 81.0-99.0 [facility] Comment on above: Performed By: #### C BC #### [facility] [address] [place] [address] Dr. Renata Finch MONO # 0.5 103/ul Normal 0.3-0.8 [facility] Comment on above: Performed By: #### C BC #### [facility] [address] [place] [address] Dr. Renata Finch Monocytes/100 WBC (Bld) 9.0 % Normal 1.7-12.0 [facility] Comment on above: Performed By: #### C BC #### [facility] [address] [place] [address] Dr. Renata Finch NEUT # 3.6 103/ul Normal 1.4-6.5 [facility] Comment on above: Performed By: #### C BC #### [facility] [address] [place] [address] Dr. Renata Finch Neutrophils/100 WBC (Bld) 60.1 % Normal 43.0-75.0 [facility] Comment on above: Performed By: #### C BC #### [facility] [address] [place] [address] Dr. Renata Finch Platelet mean volume (Bld) [Entitic vol] 9.6 fL Normal 9.5-13.5 [facility] Comment on above: Performed By: #### C BC #### [facility] [address] [place] [address] Dr. Renata Finch PLT 319 103/ul Normal 150-450 [facility] Comment on above: Performed By: #### C BC #### [facility] [address] [place] [address] Dr. Renata Finch RBC 4.30 106/ul Normal 4.20-5.40 [facility] Comment on above: Performed By: #### C BC #### [facility] [address] [place] [address] Dr. Renata Finch WBC 6.0 103/ul Normal 4.0-11.0 [facility] Comment on above: Performed By: #### C BC #### [facility] [address] [place] [address] Dr. Renata Finch LIPASEon 02-09-2022 Lipase [Catalytic activity/Vol] 715.0 U/L Critically high 73.0-393.0 [facility] Comment on above: Performed By: #### U MICRO, ERUR #### [facility] [address] [place] [address] Dr. Renata Finch PROF 14(COMP METB)on 022 Albumin [Mass/Vol] 3.5 g/dL Normal 3.4-5.0 [facility] Comment on above: Performed By: #### U MICRO, ERUR #### [facility] [address] [place] [address] Dr. Renata Finch Albumin/Globulin [Mass ratio] 1.0 {ratio} Normal [facility] Comment on above: Performed By: #### U MICRO, ERUR #### [facility] [address] [place] [address] Dr. Renata Finch ALP [Catalytic activity/Vol] 48 U/L Normal 46-116 [facility] Comment on above: Performed By: #### U MICRO, ERUR #### [facility] [address] [place] [address] Dr. Renata Finch ALT [Catalytic activity/Vol] 19 U/L Normal 14-59 [facility] Comment on above: Performed By: #### U MICRO, ERUR #### [facility] [address] [place] [address] Dr. Renata Finch Anion gap [Moles/Vol] 13.0 mmol/L Normal [facility] Comment on above: Performed By: #### U MICRO, ERUR #### [facility] [address] [place] [address] Dr. Renata Finch AST [Catalytic activity/Vol] 13 U/L Critically low 15-37 [facility] Comment on above: Performed By: #### U MICRO, ERUR #### [facility] [address] [place] [address] Dr. Renata Finch Bilirubin [Mass/Vol] 0.6 mg/dL Normal 0.2-1.0 [facility] Comment on above: Performed By: #### U MICRO, ERUR #### [facility] [address] [address] [address] Renata Finch Calcium [Mass/Vol] 8.4 mg/dL Critically low 8.5-10.[address] [facility] Comment on above: Performed By: #### U MICRO, ERUR #### [facility] [address] [address] [address] Renata Finch Chloride [Moles/Vol] 102 mmol/L Normal 98-107 [facility] Comment on above: Performed By: #### U MICRO, ERUR #### [facility] [address] [address] [address] Renata Finch CO2 [Moles/Vol] 26.7 mmol/L Normal 21.0-32.0 [facility] Comment on above: Performed By: #### U MICRO, ERUR #### [facility] [address] [place] [address] Dr. Renata Finch Creatinine [Mass/Vol] 0.66 mg/dL Normal 0.55-1.02 [facility] Comment on above: Performed By: #### U MICRO, ERUR #### [facility] [address] [address] [address] Renata Finch EGFR-AF BELIZEAN >60 Normal >=60 [facility] Comment on above: Performed By: #### U MICRO, ERUR #### [facility] [address] [address] [address] Renata Finch EGFR-NON AF BELIZEAN >60 Normal >=60 [facility] Comment on above: Performed By: #### U MICRO, ERUR #### [facility] [address] [address] [address] Renata Finch Globulin (S) [Mass/Vol] 3.6 g/dL Normal [facility] Comment on above: Performed By: #### U MICRO, ERUR #### [facility] [address] [address] [address] Renata Finch Glucose [Mass/Vol] 89 mg/dL Normal 74-106 [facility] Comment on above: Performed By: #### U MICRO, ERUR #### [facility] [address] [place] [address] Dr. Renata Finch Potassium [Moles/Vol] 3.7 mmol/L Normal 3.5-5.1 [facility] Comment on above: Performed By: #### U MICRO, ERUR #### [facility] [address] [place] [address] Dr. Renata Finch Protein [Mass/Vol] 7.1 g/dL Normal 6.1-8.2 [facility] Comment on above: Performed By: #### U MICRO, ERUR #### [facility] [address] [place] [address] Dr. Renata Finch Sodium [Moles/Vol] 138 mmol/L Normal 136-145 [facility] Comment on above: Performed By: #### U MICRO, ERUR #### [facility] [address] [place] [address] Dr. Renata Finch Urea nitrogen [Mass/Vol] 7.0 mg/dL Normal 6.4-19.3 [facility] Comment on above: Performed By: #### U MICRO, ERUR #### [facility] [address] [place] [address] Dr. Renata Finch Urea nitrogen/Creatinine [Mass ratio] 10.6 mg/mg Normal [facility] Comment on above: Performed By: #### U MICRO, ERUR #### [facility] [address] [place] [address] Dr. Renata Finch Vital Signs Date Time Vital Sign Value Performing Clinician Facility 07-16-2024 13:-040 Body mass index (BMI) [Ratio] 36.06 kg/m2 Lisbet VALENZUELA Work Phone: [facility] 07-16-2024 13:-040 Body weight 88 kg Lisbet VALENZUELA Work Phone: [facility] 07-16-2024 13:27-0400 Diastolic blood pressure 70 mm[Hg] Lisbet VALENZUELA Work Phone: [facility] 07-16-2024 13:27-0400 Systolic blood pressure 118 mm[Hg] Lisbet VALENZUELA Work Phone: [facility] 10-20-2022 16:34-0500 Body weight 0 kg SURGERY TECH-C Shasha Ramos Work Phone: [facility] 10-20-2022 16:30-0500 Body height 154.94 cm Joe Thomas Other [facility] Other 10-20-2022 16:30-0500 Body mass index (BMI) [Ratio] 30.04 kg/m2 Joe Thomas Other [facility] Other 10-20-2022 16:30-0500 Body weight 72.12 kg Joe Thomas Other [facility] Other 10-20-2022 16:30-0500 Diastolic blood pressure 79 mm[Hg] Joe Thomas Other [facility] Other 10-20-2022 16:30-0500 Systolic blood pressure 122 mm[Hg] Joe Thomas Other [facility] Other 05-04-2022 11:02-0400 Diastolic blood pressure 81 mm[Hg] DO Sandy Hykes Work Phone: [facility] 05-04-2022 11:02-0400 Heart rate 76 /min DO Sandy Hykes Work Phone: [facility] 05-04-2022 11:02-0400 Respiratory rate 18 /min DO Sandy Hykes Work Phone: [facility] 05-04-2022 11:02-0400 SaO2% (BldA) [Mass fraction] 100 % DO Sandy Hykes Work Phone: [facility] 05-04-2022 11:02-0400 Systolic blood pressure 116 mm[Hg] DO Sandy Camp Work Phone: [facility] 05-04-2022 08:21-0400 Body height 154.94 cm DO Sandy Camp Work Phone: [facility] 05-04-2022 08:21-0400 Body temperature 98.3 [degF] DO Sandy Camp Work Phone: [facility] 05-04-2022 08:21-0400 Body weight 68.03 kg DO Sandy Camp Work Phone: [facility] 04-27-2022 15:45-0400 Body height 154.94 cm Sandy Camp Other [facility] Other 04-27-2022 15:45-0400 Body mass index (BMI) [Ratio] 28.72 kg/m2 Sandy Camp Other [facility] Other 04-27-2022 15:45-0400 Body weight 68.95 kg Sandy Camp Other [facility] Other Encounters Encounter Date Encounter Type Care Provider Facility Start: 07-16-2024 End: 07-16-2024 Office outpatient visit 15 minutes Lisbet VALENZUELA Work Phone: [facility] Comment on above: Third trimester preg bety; 35 weeks gestation of Start: 07-16-2024 End: 07-16-2024 ambulatory LISBET ROTHMAN Not Available Start: 07-02-2024 End: 07-02-2024 ambulatory CINDY MULUGETA Not Available Start: 06-18-2024 End: 06-18-2024 ambulatory LISBET ROTHMAN Not Available Start: 06-04-2024 End: 06-04-2024 ambulatory CINDY MULUGETA Not Available Start: 05-07-2024 End: 05-07-2024 ambulatory LISBET ROTHMAN Not Available Start: 04-09-2024 End: 04-09-2024 ambulatory CINDY MULUGETA Not Available Start: 03-12-2024 End: 03-12-2024 ambulatory CINDY MULUGETA Not Available Start: 02-09-2024 End: 02-09-2024 ambulatory CINDY MULUGETA Not Available Start: 01-30-2023 End: 01-30-2023 ambulatory RAVEN NICOLE Facility:[facility] Start: 12-05-2022 End: 12-05-2022 ambulatory Shasha Ashli Richard Facility:[facility] Start: 12-05-2022 End: 12-05-2022 ambulatory SURGERY TECH-C Shasha Ashli Richard Work Phone: [facility] Work Phone: Start: 12-05-2022 End: 12-05-2022 Patient encounter procedure SURGERY TECH-C Shasha Richard Work Phone: [facility] Work Phone: Start: 11-10-2022 End: 11-10-2022 ambulatory Joe Thomas Other [facility] Other Start: 11-10-2022 Telephone encounter Joe snowden [facility] Start: 11-08-2022 End: 11-08-2022 ambulatory SHASHA RAMOS Facility:[facility] Start: 11-02-2022 End: 11-02-2022 ambulatory Shashated Cornelius Richard Facility:[facility] Start: 11-02-2022 End: 11-02-2022 Patient encounter procedure SURGERY TECH-C Shasha Richard Work Phone: [facility] Work Phone: Start: 10-20-2022 End: 10-20-2022 ambulatory Joe Thmoas Other [facility] Other Start: 10-20-2022 Office outpatient visit 25 minutes Joe Thomas [facility] Start: 09-12-2022 End: 09-12-2022 ambulatory Joe Leonardack Other [facility] Other Start: 09-12-2022 Telephone encounter Joe Leonardajay snowden [facility] Start: 08-02-2022 End: 08-02-2022 ambulatory BENI FRASER Facility:[facility] Start: 08-01-2022 End: 08-01-2022 ambulatory Joe William Other [facility] Other Start: 08-01-2022 Telephone encounter Joe Quinnkianajay snowden [facility] Start: 05-09-2022 End: 05-09-2022 ambulatory Sandy Camp Other [facility] Other Start: 05-09-2022 Telephone encounter Sandy Camp [facility] Start: 05-04-2022 End: 05-04-2022 ambulatory Shasha Ramos Facility:[facility] Start: 05-04-2022 End: 05-04-2022 Admission to same day surgery center DO Sandy Camp Work Phone: [facility] Start: 05-02-2022 End: 05-02-2022 ambulatory Sandy Camp Facility:[facility] Start: 05-02-2022 End: 05-02-2022 Patient encounter procedure DO Sandy Camp Work Phone: [facility] Start: 04-29-2022 End: 04-29-2022 ambulatory SHASHA RAMOS Facility:[facility] Start: 04-27-2022 End: 04-27-2022 ambulatory Sandy Camp Other [facility] Other Start: 04-27-2022 Office outpatient ne w 45 minutes Sandy Camp [facility] Start: 02-12-2022 End: 02-13-2022 ambulatory SHASHA RAMOS Facility:[facility] Start: 02-09-2022 End: 02-10-2022 ambulatory SHASHA RAMOS Facility:[facility] Procedures Date Procedure Procedure Detail Performing Clinician Start: 07-16-2024 Urnls dip stick/tablet rgnt non-auto w/o micrscp Lisbet VALENZUELA Work Phone: Start: 11-02-2022 Capsule endoscopy LANCE Ramos Work Phone: Start: 05-04-2022 Esophagogastroduodenoscopy DO Sandy camarena Work Phone: Plan of Treatment Date Care Activity Detail Author Start: 07-24-2024 End: 07-24-2024 Patient encounter procedure 07/24/2024 1:00 PM EDT Routine [facility] [address] [place] [address] Lisbet Rothman PA [address] [place], [place] [id number] [facility] Start: 07-16-2024 End: 07-16-2025 Strep B DNA probe, amplification Strep B DNA probe, amplification Lab Routine Third trimester 35 weeks gestation of Expected: 07/16/2024 (Approximate), Expires: 07/16/2025 [facility] Work Phone: Comment on above: Expected: 07/16/2024 (Approximate), Expires: 07/16/2025 Start: 11-02-2022 [facility] Start: 05-04-2022 [facility] Work Phone: Payers Date Payer Category Payer Medicaid [id number] 2022 Self-pay [id number] 2002 Unknown [id number] 2.16.84 0.1.010017.3.579.2.593 2002 Unknown [id number] 2.16.84 0.1.871124.3.579.2.593 2002 Unknown [id number] 2.16.84 0.1.487505.3.579.2.593 2002 Unknown [id number] 2.16.84 0.1.261043.3.579.2.593 2002 Unknown [id number] 2.16.84 0.1.256908.3.579.2.593 2002 Unknown [id number] 2.16.84 0.1.186794.3.579.2.593 2002 Unknown [id number] 2.16.84 0.1.617218.3.579.2.1259 2002 Unknown [id number] 2.16.84 0.1.960331.3.579.2.1259 2002 Unknown [id number] 2.16.84 0.1.214813.3.579.2.1259 2002 Unknown [id number] 2.16.84 0.1.317671.3.579.2.1259 2002 Unknown [id number] 2.16.84 0.1.331087.3.579.2.1259 2002 Unknown [id number] 2.16.84 0.1.051945.3.579.2.1259 2002 Unknown [id number] 2.16.84 0.1.140878.3.579.2.1259 2002 Unknown [id number] 2.16.84 0.1.504570.3.579.2.1259 1959 Unknown [id number] 2. 16.840.1.036400.19 Medicaid [id number] 2.1 6.840.1.961578.19 Unknown [id number] 2.16.8 40.1.005065.3.579.2.531 Unknown [id number] 2.16.8 40.1.349705.3.579.2.531 Unknown [id number] 2.16.8 40.1.911053.3.579.2.531 Unknown [id number] 2.16.8 40.1.974091.3.579.2.531 Social History Date Type Detail Facility Start: 04-09-2024 Sex Assigned At N [employer] Other Start: 05-04-2022 End: 04-09-2024 Tobacco smoking status NHIS Never smoked tobacco (finding) [facility] Start: 2002 Sex Assigned At Female [facility] [facility] Start: 04-09-2024 Tobacco use and exposure Smokeless tobacco non-user [facility] Start: 07-02-2024 Alcoholic beverage intake Lifetime non-drinker (finding) [facility] Start: 04-09-2024 History of Social function [facility] Start: 11-23-2023 [facility] Start: 2000 Sex assigned at Not on file [facility] Medical Equipment Procedure Code Equipment Code Equipment Origin al Text Equipment Identifier Dates Capsule endoscopy, for patency of lumen evaluation Video capsule endoscopy system [id number] FDA Start: 11-02-2022 Goals Date Patient Goal Desired Activity /State Clinical Notes 04-27-2022 to 07-16-2024 BIANCA Cheema - 07/16/2024 1:00 PM EDT Note Date & Type Note Facility 07-16-2024 History of Presen t illness Narrative Reason for Appointment: Patient ID: Marlin Hewitt is a 23 y.o. female who presents for Routine Visit Patient presents today for Return OB appointment. MEDICATIONS Current Outpatient Medications Medication Instructions acetaminophen (TYLENOL) 500 mg, Oral, Every 6 hours PRN omeprazole (PRILOSEC) 20 mg, Oral, Daily before breakfast, Do not crush or chew. promethazine (Phenergan) 12.5 MG tablet Promethazine HCl ALLERGIES Allergies Allergen Reactions Codeine Unknown Other Reaction(s): childhood PROBLEMS Active Ambulatory Problems Diagnosis Date Noted No Active Ambulatory Problems Resolved Ambulatory Problems Diagnosis Date Noted No Resolved Ambulatory Problems Past Medical History: Diagnosis Date History of UTI HISTORY PAST MEDICAL HISTORY SOCIAL HISTORY Past Medical History: Diagnosis Date History of UTI Social History Tobacco Use Smoking status: Never Smokeless tobacco: Never Substance Use Topics Alcohol use: Never Drug use: Never FAMILY HISTORY Family History Problem Relation Name Age of Onset Cancer Mother Marii Grimes Diabetes Father Vivek Hewitt Thyroid disease Maternal Grandmother Annemarie grimes Diabetes Maternal Grandmother Annemarie grimes SURGICAL HISTORY No past surgical history on file. REVIEW OF SYSTEMS Review of Systems: Review of Systems Constitutional: Negative. HENT: Negative. Eyes: Negative. Respiratory: Negative. Cardiovascular: Negative. Gastrointestinal: Negative. Musculoskeletal: Negative. Skin: Negative. Neurological: Negative. Psychiatric/Behavioral: Negative. All other systems reviewed and are negative. Hematological: Negative. Endocrine: Negative. OBJECTIVE Objective: Physical Exam Constitutional: Appearance: Normal appearance. She is normal weight. HENT: Head: Normocephalic. Cardiovascular: Rate and Rhythm: Normal rate. Pulses: Normal pulses. Pulmonary: Effort: Pulmonary effort is normal. Breath sounds: Normal breath sounds. Abdominal: Palpations: Abdomen is soft. Musculoskeletal: General: Normal range of motion. Neurological: General: No focal deficit present. Mental Status: She is alert and oriented to person, place, and time. Psychiatric: Mood and Affect: Mood normal. Behavior: Behavior normal. Thought Content: Thought content normal. Judgment: Judgment normal. Vitals and nursing note reviewed. Vitals: Estimated body mass index is 36.06 kg/m as calculated from the following: Height as of 01/30/23: 5' 1.5 . Weight as of this encounter: 194 lb. BP: 118/70 No LMP recorded. Patient is . ASSESSMENT & PLAN ICD-10-CM 1. Third trimester Z34.93 POCT urinalysis dipstick manually resulted Strep B DNA probe, amplification 2. 35 weeks gestation of Z3A.35 POCT urinalysis dipstick manually resulted Strep B DNA probe, amplification Return OB: Patient presents today for a routine obstetrics appointment. Patient is currently 35w5d . Patient states she is doing well but has complaints of being tired due to current . Patient has verbalizes frequent movement. labor precautions was discussed/given and patient was instructed to perform kick counts three times a day. Orders Placed This Encounter Procedures Strep B DNA probe, amplification POCT urinalysis dipstick manually resulted Follow Up: Patient is to return to office in 1 week for routine OB appointment. Documented by BIANCA Cheema on behalf of: BIANCA Cheema documented in this encounter [facility] 10-20-2022 Evaluation note Encounter Date Diagnosis Assessment Notes Oct, Diarrhea (ICD-10 - R19.7) Oct, Nausea & vomiting (ICD-10 - R11.2) capsule endoscopy to be done at [facility] Patient to have labs and stool studies done. Oct, Abdominal pain (ICD-10 - R10.9) [facility] Other 11-28-2022 Evaluation note* Encounter Date Diagnosis Assessment Notes Treatment Notes Treatment Clinical Notes Aug, LUQ abdominal pain (ICD-10 - R10.12) [facility]* Encounter Date Diagnosis Assessment Notes Treatment Notes Treatment Clinical Notes Apr, LUQ abdominal pain (ICD-10 - R10.12) START TRIAL OF CARAFATE 1 GRAM TID EGD/ COLONOSCOPY Apr, Nausea & vomiting (ICD-10 - R11.2) Apr, Diarrhea (ICD-10 - R19.7) Apr, Weight loss (ICD-10 - R63.4) [facility] [place] Other Evaluation note* Diagnosis Onset Date Resolution Status Abdominal pain acute Diarrhea acute Nausea and vomiting acute [facility] Work Phone: Evaluation [facility]No [facility] [place] Other Evaluation noteNo assessment information available [facility] Work Phone: Evaluation note* Diagnosis Third trimester state, incidental 35 weeks gestation of documented in this encounter [facility] HealthcareHistory and physical note Author Sandy Camp [facility] May 04, 2022 10:08am Note Date/Time May 04, 2022 10:0 4am [facility] [address] [place] [address] Gastroenterology H&P Signed Patient: Marlin Hewitt MR#: [id number] : 2000 Acct:[id number] Age/Sex: 21 / F Adm Date: 2 Loc: Room: Type: [facility] Attending Dr: Sandy Camp DO Copies to: [...] by Sandy Camp Jr, DO> 05/04/22 1008 [facility] Work Phone: [facility] general Narrative - Reported* Type Description Date Medical History [facility] Other Chief Complaint and Reason for Visit [...] FOR VISIT (unrecogniz ed section and content) Reason Comments Routine Visit Care Teams (unrecognized sec tion and content) Team Status: Inactive Member Role Status Dates Sandy Camp DO Attending Provider Active Shasha Ramos SURGERY TECH-Harrison Primary Care Provider Active Team Status: Active Member Role Status Dates Shasha Ramos , SURGERY TECH-C Primary Care Provider Active Team Status: Inactive Member Role Status Dates Shasha Ramos SURGERY TECH-Harrison Primary Care Provider Active Joe Thomas MD Attending Provider Active 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 DATE CREATED AUTHOR AUTHOR'S ORGANIZ ATION 07/18/2024 [facility] dical Specialists [facility] FOR RECORDS PERTAINING TO PATIENTS WHO [...] BE BASED ON THE PRIMARY CLINICAL RECORDS. [facility]. provides no warranty or guarantee of the accuracy or completeness of information in this document.
[2024-07-18] MEDS: 0.9 % SODIUM CHLORIDE 1,000 ML 125 ML IV (20:20)
[2024-07-18] MEDS: PENICILLIN G POTASSIUM 5,000,000 UNIT in 0.9 % SODIUM CHLORIDE 100 ML 200 UNIT IV (20:20)
[2024-07-18 20:50] LABS: Hematocrit 31.1 % (36.0-48.0); Mean Corpuscular HGB Conc 32.2 g/dL (29.9-35.2); Mean Corpuscular Hemoglobin 24.8 pg (26.7-34.0); Mean Platelet Volume 9.7 fL (9.5-13.5); Platelet Count 357 10^3/uL (150-450); Red Blood Count 4.04 10^6/uL (4.20-5.40); Red Cell Distribution Width 15.3 % (11.0-15.0); White Blood Count 11.7 10^3/uL (4.0-11.0)
[2024-07-18] MEDS: NALBUPHINE HCL 10 MG/ML AMPULE IV (20:50)
[2024-07-18] MEDS: ROPIVACAINE HCL/PF 400 MG/200 ML PREMIX 7 MG EPIDURAL (21:45)
[2024-07-18] MEDS: ONDANSETRON PF 4 MG/2 ML VIAL IV (21:58)
[2024-07-18] MEDS: OXYTOCIN/0.9 % SODIUM CHLORIDE 20 UNITS/1,000 ML PLAST..BAG 125 UNIT IV (22:44)
[2024-07-18] MEDS: LIDOCAINE HCL 1% 200 MG/20 ML MDV INJ (22:57)
[2024-07-18] MEDS: IBUPROFEN 600 MG TABLET PO (23:51)
[2024-07-19] VITALS (12 sets, daily range): BP systolic 115–145; BP diastolic 61–98; PULSE 55–83; TEMP 36.4–37.3
[2024-07-19] MEDS: GLYCERIN/WITCH HAZEL PADS 1 PAD TOPICAL (04:35)
[2024-07-19] MEDS: BENZOCAINE/MENTHOL 85 GRAM SPRAY BOTTLE 1 APPLIC TOPICAL (04:35)
[2024-07-19] MEDS: ONDANSETRON PF 4 MG/2 ML VIAL IV (04:36)
[2024-07-19 06:05] LABS: Amphetamine Screen Urine NEGATIVE (NEGATIVE); Barbiturates Screen Urine NEGATIVE (NEGATIVE); Benzodiazepines Screen Urine NEGATIVE (NEGATIVE); Buprenorphine Screen Urine NEGATIVE (NEGATIVE); Cocaine Screen Urine NEGATIVE (NEGATIVE); Methadone Screen Urine NEGATIVE (NEGATIVE); Methamphetamines Screen Urine NEGATIVE (NEGATIVE); Opiate Screen Urine NEGATIVE (NEGATIVE); Oxycodone Screen Urine NEGATIVE (NEGATIVE); Phencyclidine Screen Urine NEGATIVE (NEGATIVE); Tricyclic Antidepressant Urine NEGATIVE (NEGATIVE)
[2024-07-19 06:07] LABS: Cannabinoid Screen Urine POSITIVE (NEGATIVE)
[2024-07-19 09:14] LABS: Basophils Percent Auto 0.1 % (0.2-2.0); Hemoglobin 9.9 g/dL (12.0-16.0); Immature Granulocytes Abs Auto 0.05 10^3/uL (0.00-0.03); Immature Granulocytes Pct Auto 0.3 % (0.0-0.5); Lymphocytes Absolute Auto 0.9 10^3/uL (1.2-3.8); Mean Corpuscular HGB Conc 31.9 g/dL (29.9-35.2); Mean Corpuscular Hemoglobin 24.4 pg (26.7-34.0); Mean Corpuscular Volume 76.5 fL (81.0-99.0); Mean Platelet Volume 9.7 fL (9.5-13.5); Monocytes Absolute Auto 0.3 10^3/uL (0.3-0.8); Monocytes Percent Auto 1.7 % (1.7-12.0); Neutrophils Absolute Auto 14.4 10^3/uL (1.4-6.5); Neutrophils Percent Auto 91.9 % (43.0-75.0); Platelet Count 333 10^3/uL (150-450); Red Blood Count 4.05 10^6/uL (4.20-5.40); Red Cell Distribution Width 15.1 % (11.0-15.0); White Blood Count 15.6 10^3/uL (4.0-11.0)
[2024-07-19] MEDS: PROMETHAZINE HCL IV (10:06)
[2024-07-19] MEDS: SODIUM CHLORIDE 0.9% IV (10:06)
[2024-07-19] MEDS: DOCUSATE SODIUM 100 MG CAPSULE PO ×2 (11:26→22:31)
--- NOTE | 2024-07-19 12:21 | PC.NURSE ---
0730 vomiting, up to shower
--- NOTE | 2024-07-19 12:21 | PC.NURSE ---
1015 iv saline flushed and 1000ml ns with 25 of phenergan added infusing at 250 ml/hr for ongoing nausea and vomiting
--- NOTE | 2024-07-19 12:22 | PC.NURSE ---
1045 c/o feeling funny, chest heavy and sleepy lungs clear, HR strong apical VSS. C Nikko in and discusses and feeding plan, pt then goes to sleep
--- NOTE | 2024-07-19 12:25 | PC.NURSE ---
1115 Awake, states feeling much better , nursing baby currently and encouraged to express milk on second breast after first side done
--- NOTE | 2024-07-19 13:32 | P.OBPN_ITS ---
OB - PN: Subj Subjective Patient comments: no complaints, tolerating diet and flatus present status: doing well [place] feeding status: exclusively Exam Narrative Exam Narrative: voicing no complaints Constitutional Vital Signs, click to edit/add: Last Vital Signs Temp 99.1 F 07/19/24 09:19 Pulse 83 07/19/24 10:47 Resp 16 07/19/24 00:45 BP 115/61 07/19/24 10:47 O2 Del Method Room Air 07/19/24 00:45 Common normals: no apparent distress, oriented x3, no limitations, alert and well nourished [facility] Common normals: normocephalic and head/scalp atraumatic Eye Common normals: PERRL Pupil: accommodation reflex normal Neck & C-Spine Common normals: full ROM and supple Respiratory Common normals: normal respiratory effort Auscultation: clear to auscultation bilaterally Cardio Common normals: regular rate and regular rhythm GI Common normals: Normal to inspection, nondistended, normoactive bowel sounds present, soft to palpation and non-tender Common normals: no CVA tenderness Back & Pelvis Common normals: no thoracic nor lumbar tenderness Extremity Common normals: normal to inspection, full ROM and no calf tenderness Neuro Common normals: CN's II-XII intact bilaterally, moves all extremities, no focal motor deficits and no sensory deficits noted Psych Common normals: mental status grossly normal, thought process normal, cooperative, affect normal, speech normal and activity/motor behavior normal Results Labs Labs: Short CBC 07/18/24 07/19/24 Range/Units 20:20 09:04 WBC 11.7 H 15.6 H (4.0-11.0) 10^3/uL Hgb 10.0 L 9.9 L (12.0-16.0) g/dL Hct 31.1 L 31.0 L (36.0-48.0) % Plt Count 357 333 (150-450) 10^3/uL OB - PN: A/P Assessment and Plan (1) delivered vaginally, 1,750-1,999 grams, 35-36 completed weeks: Assessment and Plan: first degree lac, two stitches, no discomfort, vss normal, no temp, (2) Vomiting: Assessment and Plan: history of GI issues, has been evaluated, phenergan effective in dissipating Qualifiers: Vomiting type: unspecified Nausea presence: with nausea Qualified Code(s): R11.2 - Nausea with vomiting, unspecified Plan routine post care Plan - Vaginal Delivery day: 1 Time Spent with Patient Time: Total time spent is greater than 50% in coordination of care (as documented) at patient's floor/unit and/or counseling patient: Total time spent with greater than 50% in coordination of care (as documented) at patient's floor/unit and/or counseling patient: less than 15 minutes
--- NOTE | 2024-07-19 15:36 | PC.NURSE ---
into shower, visitors at bedside
--- NOTE | 2024-07-19 16:38 | SWNOTE1 ---
SW consulted due to positive THC drug screen on admission. SW spoke to nurse and no other concerns. Pt was sick during and did go to 3 specialists. SW met with pt in room. Pt voiced they have everything they need for baby at home. Pt is . Father of baby came in room. They did recently move in with her mother. They do have great support. SW asked about THC use. Pt voiced she was sick throughout . She attempted Zofran pump and IV's at home but nothing worked. She smoked marijuana and this seemed to help. Pt does not have medical marijuana card. Pt does not plan on using after discharge. Pt and father of baby appropriate with baby. No further concerns.RYAN updated nurse. RYAN attempted to call [facility] CPS, they are closed. SW to make report Monday as this is not an urgent referral and if CPS decides to open a case they can do it when pt is at home if they have concerns.
--- NOTE | 2024-07-19 17:18 | PC.NURSE ---
1705 c/o increased nausea again, states took her own zofran, feels terrible, my stomach is upset again declines any interventions from nurse
[2024-07-19] MEDS: PROMETHAZINE HCL 25 MG TABLET PO (18:18)
--- NOTE | 2024-07-19 18:23 | PM.OBPRCVD ---
Procedure Procedure: PATIENT PRESENTED TO MATERNITY WITH COMPLAINT OF SROM WHICH WAS CONFIRMED. EGA 36.2 WEEKS. BABY CAT I. DORENE ON OWN. ADMITTED FOR LABOR. CE: /0 VERTEX. PATIENT QUICKLY PROGRESSED TO COMPLETE. RN NOTIFIED ME (DR. CAO) AND ARRIVED WITHIN TEN MINUTES HOWEVER BOY PRECIPITOUSLY DELIVERED ON OWN. APGARS 8 AND 9. INFANT'S CORD CLAMPED AND CUT BY RN AND UNDER WARMER FOR ASSESSMENT AND CARE. PLACENTA DELIVERED INTACT SPONTANEOUSLY AND SENT TO PATHOLOGY BECAUSE PRECIPITOUS DELIVERY. TWO SMALL ONE CM SKID KIRK ON MEDIAL SIDE OF LABIA MINORA EACH REQUIRING A SIMPLE STITCH WITH 4-0 VICRYL. EBL LESS THAN 50 CC. TOLERATED THE DELIVERY WELL WITH EPIDURAL. events: Labor < 37 Weeks and Premature Rupture of Membrane Intrapartal events: Acceleration and Deceleration Delivery monitor: external FHT and external uterine Route of delivery: (PRECIPITOUS) L&D Laceration Description: periurethral - 1st degree Delivery repair: Vicryl Estimated blood loss (mL): 50 Anesthesia type: Epidural Disposition: floor Delivery date: 07/18/24 Gender: male presentation: vertex Placental delivery description: Spontaneous cord description: 3 Vessels Stage 1 Duration Labor - Stage 1 Duration: 5 hours and 35 minutes Labor State Duration Labor - Stage 2 Duration: 10 minutes Labor - Stage 3 Duration: 13 minutes Total Length of Labor: 5 hours and 58 minutes
--- NOTE | 2024-07-19 18:44 | PC.NURSE ---
1800 into shower for nausea It's the only thing that helps me 0 out of shower, medicated with phenergan and pt states feeling better after shower, eats soup
[2024-07-20] VITALS (7 sets, daily range): BP systolic 109–114; BP diastolic 53–69; PULSE 67–77; TEMP 35.6–36.9
[2024-07-20] MEDS: DOCUSATE SODIUM 100 MG CAPSULE PO (10:02)
--- NOTE | 2024-07-20 12:33 | PM.OBDS ---
DS: Providers Provider Date of admission: 07/18/24 19:12 Primary care physician: ADIEL RAMOS Admitting clinician: Valentine Estrella Consults: 07/18/24 Consult to Anesthesiology Routine Consulting Provider: Jose Antonio Jama II Reason for consultation: epidural Discharging clinician: Valentine Estrella Anticipated date of discharge: 07/20/24 DS: Diagnosis Discharge Diagnosis (1) delivered vaginally, 1,750-1,999 grams, 35-36 completed weeks: Assessment and plan: delivered (2) Vomiting: Assessment and plan: chronic nausea and vomiting, has consult planned with GI Qualifiers: Vomiting type: unspecified Nausea presence: with nausea Qualified Code(s): R11.2 - Nausea with vomiting, unspecified Plan clinical exam non focal, not vomiting today, appropriate for discharge, instructions given, post appointment in six weeks, instructions given with stated understanding, call for problem or concern OB - DS: Summary Hospital Course Hospital Course: uncomplicated Time spent discussing smoking cessation with patient: 3 to 10 minutes Peripartum Data - Vaginal Delivery Laceration description: periurethral - 1st degree Procedures: two small skid davis, simple suture for each using 4-0 vicryl Complications complications: none Delivery method: spontaneous vaginal delivery Gender: male Discharge plan: home Status at Discharge Cognitive/behavioral status at discharge: wnl Functional status at discharge: independent ambulation Overall status at discharge: patient is progressing back to baseline Time Spent with Patient Time attestation: Total time spent providing and/or coordinating discharge services: Time spent: less than 30 minutes Exam Narrative Exam Narrative: voicing no concerns Constitutional Vital Signs, click to edit/add: Last Vital Signs Temp 98.1 F 07/20/24 10:03 Pulse 67 07/20/24 10:01 Resp 18 07/20/24 10:03 BP 110/53 07/20/24 10:01 O2 Del Method Room Air 07/20/24 00:09 Documenting provider has reviewed patient's vital signs: yes Common normals: no apparent distress, oriented x3, no limitations, healthy appearing, alert and well nourished [facility] Common normals: normocephalic and head/scalp atraumatic Eye Common normals: PERRL Pupil: accommodation reflex normal Neck & C-Spine Common normals: full ROM and supple Respiratory Common normals: normal respiratory effort Auscultation: clear to auscultation bilaterally Cardio Common normals: regular rate and regular rhythm GI Common normals: Normal to inspection, nondistended, normoactive bowel sounds present, soft to palpation and non-tender Common normals: no CVA tenderness Back & Pelvis Common normals: no thoracic nor lumbar tenderness Extremity Common normals: normal to inspection, full ROM and no calf tenderness Neuro Common normals: CN's II-XII intact bilaterally, moves all extremities, no focal motor deficits and no sensory deficits noted Motor exam: strength 5/5 throughout Psych Common normals: mental status grossly normal, thought process normal, cooperative, affect normal, speech normal and activity/motor behavior normal Discharge Plan Discharge Disposition: Home Health Service Condition: Good Assessment: has had vomiting with nausea since before . does have consult with GI planned. feels well today. clinical exam nonfocal. vss and no temp. normal lochia and without issue Plan of Treatment: discharge Discharge Medications: Continued cephalexin 500 mg capsule 500 mg PO Q8H 7 Days Qty: 21 0RF metoclopramide HCl [Reglan] 10 mg tablet 10 mg PO Q6H PRN (Reason: nausea and vomiting) Qty: 12 0RF ondansetron 4 mg tablet,disintegrating 4 mg PO Q6H PRN (Reason: nausea and vomiting) Qty: 20 0RF promethazine 25 mg tablet 25 mg PO Q6H PRN (Reason: nausea and vomiting) Qty: 30 0RF Activity: resume usual activities as tolerated Activity Detail: walking only exercise for six weeks, may climb stairs, may shower and use tub, sports bra 08/05 is decides to stop , follow up with GI for consult for chronic nausea and vomiting, general rsv and covid precautions given Diet: regular diet Print Language: Chilean Patient Instructions: Vaginal Delivery (DC) Activity Restrictions/Additional Instructions: see above Forms: Portal Instructions Follow Up Appointments: make appointment for exam with provider Discharge location: home
--- NOTE | 2024-07-22 09:19 | SWNOTE1 ---
RYAN called and made a report to [facility] CPS due to positive THC drug screen on admission. RYAN completed assessment on 07/20/24, report was made 07/22/24.
--- NOTE | 2024-07-22 09:20 | SWNOTE1 ---
HIPAA form completed and sent to Deborah Goodman.
--- OUTSIDE RECORDS SUMMARY | 2024-07-22 09:51 | XMS_ITS | CCD ---
Author Organization [facility] ion [facility] Care Team Providers Care Internet Sales Representative Name Role Phone Sandy Camp Unavailable DO Sandy Camp Attending Provider [phone] LANCE Ramos Primary Care Provider Joe Thomas Unavailable LANCE Ramos Primary Care Provider [phone] MD Joe Thomas Attending Provider RICHARD, SHASHA Primary Care Unavailable RICHARD, SHASHA Admitting Unavailable RICHARD, SHASHA Attending Unavailable RICHARD, SHASHA Consulting Unavailable RICHARD, SHASHA Primary Care Unavailable CIRILO, DR SANDY [place] Consulting Unavailable RICHARD, SHASHA Admitting Unavailable RICHARD, SHASHA Attending Unavailable RICHARD, SHASHA Consulting Unavailable ULISSESASIRAVEN Mann Admitting Unavailable RICHARD, SHASHA Primary Care Unavailable RAVEN NICOLE Attending Unavailable RAVEN NICOLE Consulting Unavailable RICHARD, SHASHA Primary Care Unavailable KANIKA Phan, DR ACOSTA Admitting Unavailable CIRILO, DR SANDY [place] Consulting Unavailable KANIKA Phan, DR ACOSTA Attending Unavailable KANIKA ., DR ACOSTA Consulting Unavailable BENI FRASER Admitting Unavailable REGGIE, DR TORIN Tidwell Consulting Unavailable RICHARD, SHASHA Primary Care Unavailable BENI FRASER Attending Unavailable KANIKA Phan, DR ACOSTA Consulting Unavailable BENI FRASER Consulting Unavailable RICHARD, SHASHA Primary Care Unavailable BALTAZAR VEGA Admitting Unavailable BALTAZAR VEGA Attending Unavailable HARI Phan, BALTAZAR Consulting Unavailable Shawn Linton MD Primary Care Provider CINDY DALAL Attending Unavailable CINDY DALAL Attending Unavailable LISBET ROTHMAN Attending Unavailable CINDY DALAL Attending Unavailable LISBET ROTHMAN Attending Unavailable CINDY DALAL Attending Unavailable LISBET ROTHMAN Attending Unavailable Valentine Estrella Admitting Unavailable Valentine Estrella Attending Unavailable Shasha Ramos Primary Care Unavailable Allergies Allergy Classification Reported Allergen(s) Allergy Type Date of Onset Reaction(s) Facility (6 sources) Codeine Drug Allergy Unknown [facility] Other (1 source) Codeine Drug Allergy [facility] Repository (2 sources) Codeine Drug Allergy 05-04-2022 Unknown [facility] Work Phone: (1 source) Codeine Drug Allergy 11-28-2022 [facility] Repository Medications Current Medications Medication Drug [...] [Dehydration] Onset: 11-10-2022 Episodic Nausea and vomiting (15 sources) Nausea with vomiting, unspecified; Translations: [Nausea and vomiting] Onset: 04-27-2022 Resolved: 04-27-2022 Episodic Other aftercare (1 source) shelter (current) use of hormonal contraceptives; Translations: [BARREL MARKER HORMONAL CONTRACEPTIVES] Onset: 11-10-2022 Episodic Other gastrointestinal disorders (1 source) Irritable bowel syndrome with diarrhea; Translations: [IRRITABLE BOWEL SYND W/DIARRHEA] Onset: 02-11-2022 Chronic Other gastrointestinal disorders (8 sources) Diarrhea; Translations: [Diarrhea, unspecified] 05-04-2022 Episodic Other gastrointestinal disorders (4 sources) Diarrhea, unspecified; Translations: [Diarrhea] Onset: 04-27-2022 [...] UNCOMPLICATED] Onset: 11-10-2022 Episodic Unclassified (1 source) Cyclical vomiting syndrome unrelated [...] UA Negative Negative - 4(70) +++ mg/dL [facility] Blood, UA Negative Negative - 50 Leonardo/mcL [facility] Clarity, UA Clear [facility] re Color, UA Yellow [facility] Glucose, UA Negative Negative - 1999(110) ++++ mg/dL [facility] Interpretation and review of laboratory results Normal [facility] Ketones, UA Negative Negative - 160(16) ++++ mg/dL [facility] Leukocytes, UA Trace Negative - 500+++ Erinn/mcL [facility] Nitrite, UA Negative Negative - Positive [facility] pH, UA 6.5 5 - 9 [facility] e Protein, UA Negative Negative - 1999(20) ++++ mg/dL [facility] Spec Grav, UA 1.020 1 - 1.[address] [facility] Urobilinogen, UA 1.0 0.2 - 12 mg/dL [facility] CHLAMYDIA/GONOCOCCUS LORETO (SW AB/URINE/PAPon 02-02-2023 Chlamydia trachomatis, LORETO Negative Normal Negative [facility] Comment on above: Performed By: #### C BC #### [facility] [address] [place] [address] Dr. Renata Finch Neisseria gonorrhoeae, LORETO Negative Normal Negative [facility] Comment on above: Performed By: #### C BC #### [facility] [address] [place] [address] Dr. Renata Finch VAGINITIS/VAGINOSIS DNA PROB Kar 02-01-2023 Chelle species Negative Normal Negative [facility] Comment on above: Performed By: #### C BC #### [facility] [address] [place] [address] Dr. Renata Finch Gardnerella vaginalis Negative Normal Negative [facility] Comment on above: Performed By: #### C BC #### [facility] [address] [place] [address] Dr. Renata Ficnh Trichomonas vaginalis Negative Normal Negative [facility] Comment on above: Performed By: #### C BC #### [facility] [address] [place] [address] Dr. Renata Finch CBC AUTO DIFFon 11-08-2022 BASO # 0.0 103/ul Normal 0.0-0.1 [facility] Comment on above: Performed By: #### U MICRO, ERUR #### [facility] [address] [place] [address] Dr. Renata Finch Basophils/100 WBC (Bld) 0.4 % Normal 0.2-2.0 [facility] Comment on above: Performed By: #### U MICRO, ERUR #### [facility] [address] [place] [address] Dr. Renata Finch EO # 0.0 103/ul Normal 0.0-0.7 [facility] Comment on above: Performed By: #### U MICRO, ERUR #### [facility] [address] [place] [address] Dr. Renata Finch Eosinophils/100 WBC (Bld) 0.1 % Critically low 0.9-7.0 [facility] Comment on above: Performed By: #### U MICRO, ERUR #### [facility] [address] [place] [address] Dr. Renata Finch Erythrocyte distribution width (RBC) [Ratio] 13.6 % Normal 11.0-15.0 [facility] Comment on above: Performed By: #### U MICRO, ERUR #### [facility] [address] [place] [address] Dr. Renata Finch Hematocrit (Bld) [Volume fraction] 41.5 % Normal 36.0-48.0 [facility] Comment on above: Performed By: #### U MICRO, ERUR #### [facility] [address] [place] [address] Dr. Renata Finch Hemoglobin (Bld) [Mass/Vol] 13.6 g/dL Normal 12.0-16.0 [facility] Comment on above: Performed By: #### U MICRO, ERUR #### [facility] [address] [place] [address] Dr. Renata Finch IG # 0.03 10e3/ul Normal 0.00-0.03 [facility] Comment on above: Performed By: #### U MICRO, ERUR #### [facility] [address] [address] [address] Renata Finch IG % 0.3 % Normal 0.0-0.5 [facility] Comment on above: Performed By: #### U MICRO, ERUR #### [facility] [address] [address] [address] Renata Finch LYMPH # 1.7 103/ul Normal 1.2-3.8 [facility] Comment on above: Performed By: #### U MICRO, ERUR #### [facility] [address] [place] [address] Dr. Renata Finch Lymphocytes/100 WBC (Bld) 19.5 % Critically low 20.5-60.0 [facility] Comment on above: Performed By: #### U MICRO, ERUR #### [facility] [address] [place] [address] Dr. Renata Finch MANUAL DIFF REQ NO Normal [facility] Comment on above: Performed By: #### U MICRO, ERUR #### [facility] [address] [place] [address] Dr. Renata Finch MCH (RBC) [Entitic mass] 27.0 pg Normal 26.7-34.0 [facility] Comment on above: Performed By: #### U MICRO, ERUR #### [facility] [address] [address] [address] Renata Finch MCHC (RBC) [Mass/Vol] 32.8 g/dL Normal 29.9-35.2 [facility] Comment on above: Performed By: #### U MICRO, ERUR #### [facility] [address] [place] [address] Dr. Renata Finch MCV (RBC) [Entitic vol] 82.5 fL Normal 81.0-99.0 [facility] Comment on above: Performed By: #### U MICRO, ERUR #### [facility] [address] [address] [address] Renata Finch MONO # 0.5 103/ul Normal 0.3-0.8 [facility] Comment on above: Performed By: #### U MICRO, ERUR #### [facility] [address] [place] [address] Dr. Renata Finch Monocytes/100 WBC (Bld) 6.1 % Normal 1.7-12.0 [facility] Comment on above: Performed By: #### U MICRO, ERUR #### [facility] [address] [place] [address] Dr. Renata Finch NEUT # 6.6 103/ul Critically high 1.4-6.5 [facility] Comment on above: Performed By: #### U MICRO, ERUR #### [facility] [address] [place] [address] Dr. Renata Finch Neutrophils/100 WBC (Bld) 73.6 % Normal 43.0-75.0 [facility] Comment on above: Performed By: #### U MICRO, ERUR #### [facility] [address] [place] [address] Dr. Renata Finch Platelet mean volume (Bld) [Entitic vol] 9.5 fL Normal 9.5-13.5 [facility] Comment on above: Performed By: #### U MICRO, ERUR #### [facility] [address] [place] [address] Dr. Renata Finch PLT 417 103/ul Normal 150-450 [facility] Comment on above: Performed By: #### U MICRO, ERUR #### [facility] [address] [place] [address] Dr. Renata Finch RBC 5.03 106/ul Normal 4.20-5.40 [facility] Comment on above: Performed By: #### U MICRO, ERUR #### [facility] [address] [place] [address] Dr. Renata Finch WBC 8.9 103/ul Normal 4.0-11.0 [facility] Comment on above: Performed By: #### U MICRO, ERUR #### [facility] [address] [address] [address] Renata Finch DRUG SCREEN RAPID (URINE)on 11-08-2022 AMP Negative Normal NEGATIVE [facility] Comment on above: Performed By: #### E RUR, UMICRO, DRUGRPD, PREGU #### [facility] [address] [address] [address] Renata Finch BAR Negative Normal NEGATIVE [facility] Comment on above: Performed By: #### E RUR, UMICRO, DRUGRPD, PREGU #### [facility] [address] [address] [address] Renata Finch BUP Negative Normal NEGATIVE [facility] Comment on above: Performed By: #### E RUR, UMICRO, DRUGRPD, PREGU #### [facility] [address] [address] [address] Renata Finch BZO Negative Normal NEGATIVE [facility] Comment on above: Performed By: #### E RUR, UMICRO, DRUGRPD, PREGU #### [facility] [address] [address] [address] Renata Finch DOM Negative Normal NEGATIVE [facility] Comment on above: Performed By: #### E RUR, UMICRO, DRUGRPD, PREGU #### [facility] [address] [address] [address] Renata Finch CUT-OFFS SEE BELOW Normal [facility] Comment on above: Result Comment: AMP [...] #### E RUR, UMICRO, DRUGRPD, PREGU #### [facility] [address] [address] [address] Renata Finch DRUG CUT HEADER DRUG CLASS TEST SYSTEM CUT-OFF CONCENTRATIONS ARE FOLLOWS: Normal [facility] Comment on above: Performed By: #### E RUR, UMICRO, DRUGRPD, PREGU #### [facility] [address] [address] [address] Renata Finch mAMP Negative Normal NEGATIVE [facility] Comment on above: Performed By: #### E RUR, UMICRO, DRUGRPD, PREGU #### [facility] [address] [address] [address] Renata Finch MTD Negative Normal NEGATIVE [facility] Comment on above: Performed By: #### E RUR, UMICRO, DRUGRPD, PREGU #### [facility] [address] [address] [address] Renata Finch OPI Negative Normal NEGATIVE [facility] Comment on above: Performed By: #### E RUR, UMICRO, DRUGRPD, PREGU #### [facility] [address] [address] [address] Renata Finch OXY Negative Normal NEGATIVE [facility] Comment on above: Performed By: #### E RUR, UMICRO, DRUGRPD, PREGU #### [facility] [address] [address] [address] Renata Finch PCP Negative Normal NEGATIVE [facility] Comment on above: Performed By: #### E RUR, UMICRO, DRUGRPD, PREGU #### [facility] [address] [address] [address] Renata Finch PPX Negative Normal NEGATIVE [facility] Comment on above: Performed By: #### E RUR, UMICRO, DRUGRPD, PREGU #### [facility] [address] [address] [address] Renata Finch TCA Negative Normal NEGATIVE [facility] Comment on above: Performed By: #### E RUR, UMICRO, DRUGRPD, PREGU #### [facility] [address] [address] [address] Renata Finch THC Positive Abnormal NEGATIVE [facility] Comment on above: Performed By: #### E RUR, UMICRO, DRUGRPD, PREGU #### [facility] [address] [address] [address] Renata Finch ER URINE PROFILEon 3 Bilirubin Ql (U) MODERATE Abnormal NEGATIVE [facility] Comment on above: Performed By: #### E RUR, UMICRO, DRUGRPD, PREGU #### [facility] [address] [address] [address] Renata Finch Clarity (U) CLEAR Normal CLEAR [facility] Comment on above: Performed By: #### E RUR, UMICRO, DRUGRPD, PREGU #### [facility] [address] [address] [address] Renata Finch Color (U) YELLOW Normal YELLOW [facility] Comment on above: Performed By: #### E RUR, UMICRO, DRUGRPD, PREGU #### [facility] [address] [address] [address] Renata WU A micrscopic examination will be performed if indicated. Normal [facility] Comment on above: Performed By: #### E RUR, UMICRO, DRUGRPD, PREGU #### [facility] [address] [address] [address] Renata Finch Glucose Ql (U) Negative Normal NEGATIVE [facility] Comment on above: Performed By: #### E RUR, UMICRO, DRUGRPD, PREGU #### [facility] [address] [address] [address] Renata Finch Hemoglobin Ql (U) TRACE-INTACT Abnormal NEGATIVE [facility] Comment on above: Performed By: #### E RUR, UMICRO, DRUGRPD, PREGU #### [facility] [address] [address] [address] Renata Finch Ketones Ql (U) >=80 Abnormal NEGATIVE [facility] Comment on above: Performed By: #### E RUR, UMICRO, DRUGRPD, PREGU #### [facility] [address] [address] [address] Renata Finch LEUKOCYTES Negative Normal NEGATIVE [facility] Comment on above: Performed By: #### E RUR, UMICRO, DRUGRPD, PREGU #### [facility] [address] [address] [address] Renata Finch Nitrite Ql (U) Negative Normal NEGATIVE [facility] Comment on above: Performed By: #### E RUR, UMICRO, DRUGRPD, PREGU #### [facility] [address] [place] [address] Dr. Renata Finch pH (U) 6.5 [pH] Normal 5-9 [facility] Comment on above: Performed By: #### E RUR, UMICRO, DRUGRPD, PREGU #### [facility] [address] [place] [address] Dr. Renata Finch SPEC GRAVITY 1.025 Normal 1.005-<=1.025 [facility] Comment on above: Performed By: #### E RUR, UMICRO, DRUGRPD, PREGU #### [facility] [address] [address] [address] Renata Finch UA PROTEIN TRACE Normal NEGATIVE/ TRACE [facility] Comment on above: Performed By: #### E RUR, UMICRO, DRUGRPD, PREGU #### [facility] [address] [address] [address] Renata Finch UR MICRO IND INDICATED Normal [facility] Comment on above: Performed By: #### E RUR, UMICRO, DRUGRPD, PREGU #### [facility] [address] [place] [address] Dr. Renata Finch Urobilinogen Qn (U) 1.0 {Gabrielle'U}/dL Normal 0.2 - 1. 0 [facility] Comment on above: Performed By: #### E RUR, UMICRO, DRUGRPD, PREGU #### [facility] [address] [address] [address] Renata Finch URon 11-08-2022 , QUAL Negative Normal NEGATIVE [facility] Comment on above: Performed By: #### E RUR, UMICRO, DRUGRPD, PREGU #### [facility] [address] [address] [address] Renata Finch PROF CHEM 8 (BAS METB)on Anion gap [Moles/Vol] 16.5 mmol/L Normal [facility] Comment on above: Performed By: #### B MP #### [facility] [address] [address] [address] Renata Finch Calcium [Mass/Vol] 9.7 mg/dL Normal 8.5-10.1 [facility] Comment on above: Performed By: #### B MP #### [facility] [address] [address] [address] Renata Finch Chloride [Moles/Vol] 97 mmol/L Critically low 98-107 [facility] Comment on above: Performed By: #### B MP #### [facility] [address] [address] [address] Renata Finch CO2 [Moles/Vol] 26.3 mmol/L Normal 21.0-32.0 [facility] Comment on above: Performed By: #### B MP #### [facility] [address] [address] [address] Renata Finch Creatinine [Mass/Vol] 0.71 mg/dL Normal 0.55-1.02 [facility] Comment on above: Performed By: #### B MP #### [facility] [address] [address] [address] Renata Finch EGFR-AF MACANESE >60 Normal >=60 [facility] Comment on above: Performed By: #### B MP #### [facility] [address] [address] [address] Renata Finch EGFR-NON AF MACANESE >60 Normal >=60 [facility] Comment on above: Performed By: #### B MP #### [facility] [address] [address] [address] Renata Finch Glucose [Mass/Vol] 86 mg/dL Normal 74-106 [facility] Comment on above: Performed By: #### B MP #### [facility] [address] [address] [address] Renata Finch Potassium [Moles/Vol] 2.8 mmol/L Critically low 3.5-5.1 [facility] Comment on above: Performed By: #### B MP #### [facility] [address] [address] [address] Renata Finch Sodium [Moles/Vol] 137 mmol/L Normal 136-145 [facility] Comment on above: Performed By: #### B MP #### [facility] [address] [address] [address] Renata Finch Urea nitrogen [Mass/Vol] 7.0 mg/dL Normal 7.0-18.0 [facility] Comment on above: Performed By: #### B MP #### [facility] [address] [address] [address] Renata Finch Urea nitrogen/Creatinine [Mass ratio] 9.9 mg/mg Normal [facility] Comment on above: Performed By: #### B MP #### [facility] [address] [address] [address] Renata Finch URINE MICROSCOPIC ONLYon BACTERIA TRACE Abnormal NONE SEEN [facility] Comment on above: Performed By: #### E MIKAEL MCDANIEL DRUGRPD, PREGU #### [facility] [address] [place] [address] Dr. Renata Finch Bacteria identified Cx Nom (U) NOT INDICATED Normal [facility] Comment on above: Performed By: #### MIKAEL GONSALEZ DRUGRPD, PREGU #### [facility] [address] [address] [address] Renata Finch CAST NONE SEEN Normal NONE SEEN [facility] Comment on above: Performed By: #### MIKAEL GONSALEZ DRUGRPD, PREGU #### [facility] [address] [place] [address] Dr. Renata Finch Crystals LM Nom (Urine sed) NONE SEEN Normal NONE SEEN [facility] Comment on above: Performed By: #### E RUR, UMICRO, DRUGRPD, PREGU #### [facility] [address] [place] [address] Dr. Renata Finch Epithelial cells LM Ql (Urine sed) FEW Abnormal NONE SEEN /RARE [facility] Comment on above: Performed By: #### E RUR, UMICRO, DRUGRPD, PREGU #### [facility] [address] [place] [address] Dr. Renata Finch MUCOUS TRACE Abnormal NONE SEEN [facility] Comment on above: Performed By: #### E RUR, UMICRO, DRUGRPD, PREGU #### [facility] [address] [place] [address] Dr. Renata Finch RBC 0-2 Normal 0-2 [facility] Comment on above: Performed By: #### E RUR, UMICRO, DRUGRPD, PREGU #### [facility] [address] [place] [address] Dr. Renata Finch WBC 0-2 Abnormal NONE SEEN [facility] Comment on above: Performed By: #### E RUR, UMICRO, DRUGRPD, PREGU #### [facility] [address] [place] [address] Dr. Renata Finch AMYLASEon 08-02-2022 Amylase [Catalytic activity/Vol] 45 U/L Normal 25-115 [facility] Comment on above: Performed By: #### U MICRO, ERUR #### [facility] [address] [place] [address] Dr. Renata Finch CBC AUTO DIFFon 08-02-2022 BASO # 0.0 103/ul Normal 0.0-0.1 [facility] Comment on above: Performed By: #### C BC #### [facility] [address] [place] [address] Dr. Renata Finch Basophils/100 WBC (Bld) 0.4 % Normal 0.2-2.0 [facility] Comment on above: Performed By: #### C BC #### [facility] [address] [address] [address] Renata Finch EO # 0.0 103/ul Normal 0.0-0.7 [facility] Comment on above: Performed By: #### C BC #### [facility] [address] [place] [address] Dr. Renata Finch Eosinophils/100 WBC (Bld) 0.3 % Critically low 0.9-7.0 [facility] Comment on above: Performed By: #### C BC #### [facility] [address] [place] [address] Dr. Renata Finch Erythrocyte distribution width (RBC) [Ratio] 13.9 % Normal 11.0-15.0 [facility] Comment on above: Performed By: #### C BC #### [facility] [address] [place] [address] Dr. Renata Finch Hematocrit (Bld) [Volume fraction] 43.5 % Normal 36.0-48.0 [facility] Comment on above: Performed By: #### C BC #### [facility] [address] [place] [address] Dr. Renata Finch Hemoglobin (Bld) [Mass/Vol] 13.9 g/dL Normal 12.0-16.0 [facility] Comment on above: Performed By: #### C BC #### [facility] [address] [place] [address] Dr. Renata Finch IG # 0.01 10e3/ul Normal 0.00-0.03 [facility] Comment on above: Performed By: #### C BC #### [facility] [address] [place] [address] Dr. Renata Finch IG % 0.1 % Normal 0.0-0.5 [facility] Comment on above: Performed By: #### C BC #### [facility] [address] [place] [address] Dr. Renata Finch LYMPH # 1.2 103/ul Normal 1.2-3.8 [facility] Comment on above: Performed By: #### C BC #### [facility] [address] [place] [address] Dr. Renata Finch Lymphocytes/100 WBC (Bld) 15.9 % Critically low 20.5-60.0 [facility] Comment on above: Performed By: #### C BC #### [facility] [address] [place] [address] Dr. Renata Finch MANUAL DIFF REQ NO Normal [facility] Comment on above: Performed By: #### C BC #### [facility] [address] [place] [address] Dr. Renata Finch MCH (RBC) [Entitic mass] 26.5 pg Critically low 26.7-34.0 [facility] Comment on above: Performed By: #### C BC #### [facility] [address] [place] [address] Dr. Renata Finch MCHC (RBC) [Mass/Vol] 32.0 g/dL Normal 29.9-35.2 [facility] Comment on above: Performed By: #### C BC #### [facility] [address] [place] [address] Dr. Renata Finch MCV (RBC) [Entitic vol] 83.0 fL Normal 81.0-99.0 [facility] Comment on above: Performed By: #### C BC #### [facility] [address] [place] [address] Dr. Renata Finch MONO # 0.5 103/ul Normal 0.3-0.8 [facility] [facility] Comment on above: Performed By: #### C BC #### [facility] [address] [place] [address] Dr. Renata Finch Monocytes/100 WBC (Bld) 6.1 % Normal 1.7-12.0 [facility] Comment on above: Performed By: #### C BC #### [facility] [address] [place] [address] Dr. Renata Finch NEUT # 5.8 103/ul Normal 1.4-6.5 [facility] Comment on above: Performed By: #### C BC #### [facility] [address] [place] [address] Dr. Renata Finch Neutrophils/100 WBC (Bld) 77.2 % Critically high 43.0-75.0 [facility] Comment on above: Performed By: #### C BC #### [facility] [address] [place] [address] Dr. Renata Finch Platelet mean volume (Bld) [Entitic vol] 9.9 fL Normal 9.5-13.5 [facility] Comment on above: Performed By: #### C BC #### [facility] [address] [place] [address] Dr. Renata Finch PLT 416 103/ul Normal 150-450 [facility] Comment on above: Performed By: #### C BC #### [facility] [address] [place] [address] Dr. Renata Finch RBC 5.24 106/ul Normal 4.20-5.40 [facility] Comment on above: Performed By: #### C BC #### [facility] [address] [place] [address] Dr. Renata Finch WBC 7.6 103/ul Normal 4.0-11.0 [facility] Comment on above: Performed By: #### C BC #### [facility] [address] [place] [address] Dr. Renata Finch Covid-19 PCR ([facility])on 07-16 SARS-CoV-2 (COVID-19) RNA LORETO+probe Ql (Unsp spec) Not detected Normal NOT DETECTED [facility] Comment on above: Result Comment: When [...] for this test is supported by the Studio Technician Video Operator of Health and Human Service's declaration that [...] used). Performed By: #### C VDTB #### [facility] [address] [place] [address] Dr. Renata Finch ER URINE PROFILEon 2 Bilirubin Ql (U) SMALL Abnormal NEGATIVE [facility] Comment on above: Performed By: #### C BC #### [facility] [address] [place] [address] Dr. Renata Finch Clarity (U) CLEAR Normal CLEAR [facility] Comment on above: Performed By: #### C BC #### [facility] [address] [place] [address] Dr. Renata Finch Color (U) BROWN Abnormal YELLOW [facility] Comment on above: Performed By: #### C BC #### [facility] [address] [place] [address] Dr. Renata Finch ERUAHD A micrscopic examination will be performed if indicated. Normal [facility] Comment on above: Performed By: #### C BC #### [facility] [address] [place] [address] Dr. Renata Finch Glucose Ql (U) Negative Normal NEGATIVE [facility] Comment on above: Performed By: #### C BC #### [facility] [address] [place] [address] Dr. Renata Finch Hemoglobin Ql (U) LARGE Abnormal NEGATIVE [facility] Comment on above: Performed By: #### C BC #### [facility] [address] [place] [address] Dr. Renata Finch Ketones Ql (U) >=80 Abnormal NEGATIVE [facility] Comment on above: Performed By: #### C BC #### [facility] [address] [place] [address] Dr. Renata Finch LEUKOCYTES Negative Normal NEGATIVE [facility] Comment on above: Performed By: #### C BC #### [facility] [address] [place] [address] Dr. Renata Finch Nitrite Ql (U) Negative Normal NEGATIVE [facility] Comment on above: Performed By: #### C BC #### [facility] [address] [place] [address] Dr. Renata Finch pH (U) 7.0 [pH] Normal 5-9 [facility] Comment on above: Performed By: #### C BC #### [facility] [address] [place] [address] Dr. Renata Finch Protein (U) [Mass/Vol] 30 mg/dL Abnormal NEGATIVE/ TRACE [facility] Comment on above: Performed By: #### C BC #### [facility] [address] [place] [address] Dr. Renata Finch SPEC GRAVITY 1.025 Normal 1.005-<=1.025 [facility] Comment on above: Performed By: #### C BC #### [facility] [address] [place] [address] Dr. Renata Finch UR MICRO IND INDICATED Normal [facility] Comment on above: Performed By: #### C BC #### [facility] [address] [place] [address] Dr. Renata Finch Urobilinogen Qn (U) 1.0 {Gabrielle'U}/dL Normal 0.2 - 1. 0 [facility] Comment on above: Performed By: #### C BC #### [facility] [address] [place] [address] Dr. Renata Finch LACTATE/LACTIC ACIDon 2021 Lactate [Moles/Vol] 1.2 mmol/L Normal 0.4-1.9 [facility] Comment on above: Performed By: #### U MICRO, ERUR #### [facility] [address] [place] [address] Dr. Renata Finch LIPASEon 08-02-2022 Lipase [Catalytic activity/Vol] 66.0 U/L Critically low 73.0-393.0 [facility] Comment on above: Performed By: #### U MICRO, ERUR #### [facility] [address] [address] [address] Renata Finch URon 08-02-2022 , QUAL Negative Normal NEGATIVE [facility] Comment on above: Performed By: #### C BC #### [facility] [address] [address] [address] Renata Finch PROF 14(COMP METB)on 022 Albumin [Mass/Vol] 4.1 g/dL Normal 3.4-5.0 [facility] Comment on above: Performed By: #### U MICRO, ERUR #### [facility] [address] [address] [address] Renata Finch Albumin/Globulin [Mass ratio] 1.0 {ratio} Normal [facility] Comment on above: Performed By: #### U MICRO, ERUR #### [facility] [address] [address] [address] Renata Finch ALP [Catalytic activity/Vol] 53 U/L Normal 46-116 [facility] Comment on above: Performed By: #### U MICRO, ERUR #### [facility] [address] [address] [address] Renata Finch ALT [Catalytic activity/Vol] 42 U/L Normal 14-59 [facility] Comment on above: Performed By: #### U MICRO, ERUR #### [facility] [address] [address] [address] Renata Finch Anion gap [Moles/Vol] 11.8 mmol/L Normal [facility] Comment on above: Performed By: #### U MICRO, ERUR #### [facility] [address] [address] [address] Renata Finch AST [Catalytic activity/Vol] 22 U/L Normal 15-37 [facility] Comment on above: Performed By: #### U MICRO, ERUR #### [facility] [address] [address] [address] Renata Finch Bilirubin [Mass/Vol] 1.0 mg/dL Normal 0.2-1.0 [facility] Comment on above: Performed By: #### U MICRO, ERUR #### [facility] [address] [address] [address] Renata Finch Calcium [Mass/Vol] 9.5 mg/dL Normal 8.5-10.1 [facility] Comment on above: Performed By: #### U MICRO, ERUR #### [facility] [address] [address] [address] Renata Finch Chloride [Moles/Vol] 101 mmol/L Normal 98-107 [facility] Comment on above: Performed By: #### U MICRO, ERUR #### [facility] [address] [address] [address] Renata Finch CO2 [Moles/Vol] 29.5 mmol/L Normal 21.0-32.0 [facility] Comment on above: Performed By: #### U MICRO, ERUR #### [facility] [address] [place] [address] Dr. Renata Finch Creatinine [Mass/Vol] 0.85 mg/dL Normal 0.55-1.02 [facility] Comment on above: Performed By: #### U MICRO, ERUR #### [facility] [address] [place] [address] Dr. Renata Finch EGFR-AF MACANESE >60 Normal >=60 [facility] Comment on above: Performed By: #### U MICRO, ERUR #### [facility] [address] [address] [address] Renata Finch EGFR-NON AF MACANESE >60 Normal >=60 [facility] Comment on above: Performed By: #### U MICRO, ERUR #### [facility] [address] [address] [address] Renata Finch Globulin (S) [Mass/Vol] 4.2 g/dL Normal [facility] Comment on above: Performed By: #### U MICRO, ERUR #### [facility] [address] [address] [address] Renata Finch Glucose [Mass/Vol] 119 mg/dL Critically high 74-106 [facility] Comment on above: Performed By: #### U MICRO, ERUR #### [facility] [address] [place] [address] Dr. Renata Finch Potassium [Moles/Vol] 3.3 mmol/L Critically low 3.5-5.1 [facility] Comment on above: Performed By: #### U MICRO, ERUR #### [facility] [address] [place] [address] Dr. Renata Finch Protein [Mass/Vol] 8.3 g/dL Critically high 6.4-8.2 [facility] Comment on above: Performed By: #### U MICRO, ERUR #### [facility] [address] [place] [address] Dr. Renata Finch Sodium [Moles/Vol] 139 mmol/L Normal 136-145 [facility] Comment on above: Performed By: #### U MICRO, ERUR #### [facility] [address] [place] [address] Dr. Renata Finch Urea nitrogen [Mass/Vol] 6.0 mg/dL Critically low 6.4-19.3 [facility] Comment on above: Performed By: #### U MICRO, ERUR #### [facility] [address] [place] [address] Dr. Renata Finch Urea nitrogen/Creatinine [Mass ratio] 7.1 mg/mg Normal [facility] Comment on above: Performed By: #### U MICRO, ERUR #### [facility] [address] [place] [address] Dr. Renata Finch URINE MICROSCOPIC ONLYon BACTERIA NONE SEEN Normal NONE SEEN [facility] Comment on above: Performed By: #### C BC #### [facility] [address] [place] [address] Dr. Renata Finch Bacteria identified Cx Nom (U) NOT INDICATED Normal [facility] Comment on above: Performed By: #### C BC #### [facility] [address] [place] [address] Dr. Renata Finch CAST NONE SEEN Normal NONE SEEN [facility] Comment on above: Performed By: #### C BC #### [facility] [address] [address] [address] Renata Finch Crystals LM Nom (Urine sed) NONE SEEN Normal NONE SEEN [facility] Comment on above: Performed By: #### C BC #### [facility] [address] [address] [address] Renata Finch Epithelial cells LM Ql (Urine sed) NONE SEEN Normal NONE SEEN /RARE [facility] Comment on above: Performed By: #### C BC #### [facility] [address] [address] [address] Renata Finch MUCOUS NONE SEEN Normal NONE SEEN [facility] Comment on above: Performed By: #### C BC #### [facility] [address] [address] [address] Renata Finch RBC 20-50 Abnormal 0-2 [facility] Comment on above: Performed By: #### C BC #### [facility] [address] [place] [address] Dr. Renata Finch WBC NONE SEEN Normal NONE SEEN [facility] Comment on above: Performed By: #### C BC #### [facility] [address] [place] [address] Dr. Renata Finch XR ABD FLAT UP_PA [...] by: TORIN PAREDES Date: 2022-08-02 07:02 Normal [facility] HCG ( test) IA.rapi d Ql (U)Ordered By: Sandy Camp on 05-04-2022 HCG ( test) Ql (U) Negative [facility] COVID-19 Positive/NegativeOr dered By: Sandy Camp on 05-02-2022 SARS-CoV-2 (COVID-19) N gene LORETO+probe Ql (Resp) Negative Negative [facility] Comment on above: Testing for SARS-CoV -2 by RT-PCR This test was developed and its performance characteristics determined by [employer] and validated at the [facility]. This test has not been FDA [...] Amylase [Catalytic activity/Vol] 53 U/L Normal 25-115 [facility] Comment on above: Performed By: #### C BC #### [facility] [address] [place] [address] Dr. Renata Finch CBC W MANUAL DIFFon 04-29-20 22 ATYPICAL LYMPH # Normal [facility] Comment on above: Performed By: #### C BC #### [facility] [address] [place] [address] Dr. Renata Finch ATYPICAL LYMPH % Normal [facility] Comment on above: Performed By: #### C BC #### [facility] [address] [place] [address] Dr. Renata Finch BAND # Normal 0.0-0.3 [facility] Comment on above: Performed By: #### C BC #### [facility] [address] [place] [address] Dr. Renata Finch BAND % Normal 0-5 [facility] Comment on above: Performed By: #### C BC #### [facility] [address] [place] [address] Dr. Renata Finch BASOM # 0.00 103/ul Normal 0.00-0.10 [facility] Comment on above: Performed By: #### C BC #### [facility] [address] [place] [address] Dr. Renata Finch BASOM % 0.0 % Critically low 0.2-2.0 [facility] Comment on above: Performed By: #### C BC #### [facility] [address] [place] [address] Dr. Renata Finch BLAST # Normal [facility] Comment on above: Performed By: #### C BC #### [facility] [address] [place] [address] Dr. Renata Finch BLAST % Normal [facility] Comment on above: Performed By: #### C BC #### [facility] [address] [place] [address] Dr. Renata Finch CORRECTED WBC Normal 4.0-11.[address] [facility] Comment on above: Performed By: #### C BC #### [facility] [address] [place] [address] Dr. Renata Finch EOS # 0.00 103/ul Normal 0.00-0.70 [facility] Comment on above: Performed By: #### C BC #### [facility] [address] [place] [address] Dr. eRnata Finch EOS% 0.0 % Critically low 0.9-7.0 [facility] Comment on above: Performed By: #### C BC #### [facility] [address] [place] [address] Dr. Renata Finch HCT 40.4 % Normal 36.0-48.0 [facility] Comment on above: Performed By: #### C BC #### [facility] [address] [place] [address] Dr. Renata Finch HGB 13.0 g/dl Normal 12.0-16.0 [facility] Comment on above: Performed By: #### C BC #### [facility] [address] [address] [address] Renata Finch LYMPHM # 0.83 103/ul Critically low 1.20-3.80 [facility] Comment on above: Performed By: #### C BC #### [facility] [address] [place] [address] Dr. Renata Finch LYMPHM% 13.0 % Critically low 20.5-60.0 [facility] Comment on above: Performed By: #### C BC #### [facility] [address] [place] [address] Dr. Renata Finch MCH 26.8 pg Normal 26.7-34.0 [facility] Comment on above: Performed By: #### C BC #### [facility] [address] [place] [address] Dr. Renata Finch MCHC 32.2 g/dl Normal 29.9-35.2 [facility] Comment on above: Performed By: #### C BC #### [facility] [address] [place] [address] Dr. Renata Finch MCV 83.3 fL Normal 81.0-99.0 [facility] Comment on above: Performed By: #### C BC #### [facility] [address] [place] [address] Dr. Renata Finch METAMYELOCYTE # Normal [facility] Comment on above: Performed By: #### C BC #### [facility] [address] [place] [address] Dr. Renata Finch METAMYELOCYTE % Normal [facility] Comment on above: Performed By: #### C BC #### [facility] [address] [place] [address] Dr. Renata Finch MONOM# 0.13 103/ul Critically low 0.30-0.80 [facility] Comment on above: Performed By: #### C BC #### [facility] [address] [place] [address] Dr. Renata Finch MONOM% 2.0 % Normal 1.7-12.0 [facility] Comment on above: Performed By: #### C BC #### [facility] [address] [place] [address] Dr. Renata Finch MPV 9.7 fL Normal 9.5-13.5 [facility] Comment on above: Performed By: #### C BC #### [facility] [address] [place] [address] Dr. Renata Finch MYELOCYTE # Normal [facility] Comment on above: Performed By: #### C BC #### [facility] [address] [place] [address] Dr. Renata Finch MYELOCYTE % Normal [facility] Comment on above: Performed By: #### C BC #### [facility] [address] [place] [address] Dr. Renata Finch NRBC Normal [facility] Comment on above: Performed By: #### C BC #### [facility] [address] [place] [address] Dr. Renata Finch PLT 311 103/ul Normal 150-450 [facility] Comment on above: Performed By: #### C BC #### [facility] [address] [place] [address] Dr. Renata Finch RBC 4.85 106/ul Normal 4.20-5.40 [facility] Comment on above: Performed By: #### C BC #### [facility] [address] [place] [address] Dr. Renata Finch RDW 13.8 % Normal 11.0-15.0 [facility] Comment on above: Performed By: #### C BC #### [facility] [address] [place] [address] Dr. Renata Finch SEG # 5.44 103/ul Normal 1.40-6.50 [facility] Comment on above: Performed By: #### C BC #### [facility] [address] [place] [address] Dr. Renata Finch SEG % 85.0 % Critically high 43.0-75.0 [facility] Comment on above: Performed By: #### C BC #### [facility] [address] [address] [address] Renata Finch WBC 6.4 103/ul Normal 4.0-11.0 [facility] Comment on above: Performed By: #### C BC #### [facility] [address] [address] [address] Renata Finch ER URINE PROFILEon 2 Bilirubin Ql (U) Negative Normal NEGATIVE [facility] Comment on above: Performed By: #### U MICRO, ERUR #### [facility] [address] [place] [address] Dr. Renata Finch Clarity (U) SL CLOUDY Abnormal CLEAR [facility] Comment on above: Performed By: #### U MICRO, ERUR #### [facility] [address] [place] [address] Dr. Renata Finch Color (U) YELLOW Normal YELLOW [facility] Comment on above: Performed By: #### U MICRO, ERUR #### [facility] [address] [place] [address] Dr. Renata Finch ERUAHD A micrscopic examination will be performed if indicated. Normal [facility] Comment on above: Performed By: #### U MICRO, ERUR #### [facility] [address] [address] [address] Renata Finch Glucose Ql (U) Negative Normal NEGATIVE [facility] Comment on above: Performed By: #### U MICRO, ERUR #### [facility] [address] [address] [address] Renata Finch Hemoglobin Ql (U) Negative Normal NEGATIVE [facility] Comment on above: Performed By: #### U MICRO, ERUR #### [facility] [address] [place] [address] Dr. Renata Finch Ketones Ql (U) 40 mg/dl Abnormal NEGATIVE [facility] Comment on above: Performed By: #### U MICRO, ERUR #### [facility] [address] [place] [address] Dr. Renata Finch LEUKOCYTES Negative Normal NEGATIVE [facility] Comment on above: Performed By: #### U MICRO, ERUR #### [facility] [address] [address] [address] Renata Finch Nitrite Ql (U) Negative Normal NEGATIVE [facility] Comment on above: Performed By: #### U MICRO, ERUR #### [facility] [address] [address] [address] Renata Finch pH (U) 6.0 [pH] Normal 5-9 [facility] Comment on above: Performed By: #### U MICRO, ERUR #### [facility] [address] [address] [address] Renata Finch Protein (U) [Mass/Vol] 30 mg/dL Abnormal NEGATIVE/ TRACE [facility] Comment on above: Performed By: #### U MICRO, ERUR #### [facility] [address] [place] [address] Dr. Renata Finch SPEC GRAVITY >=1.030 Abnormal 1.005-<=1.025 [facility] Comment on above: Performed By: #### U MICRO, ERUR #### [facility] [address] [address] [address] Renata Finch UR MICRO IND INDICATED Normal [facility] Comment on above: Performed By: #### U MICRO, ERUR #### [facility] [address] [address] [address] Renata Finch Urobilinogen Qn (U) 0.2 {Gabrielle'U}/dL Normal 0.2 - 1. 0 [facility] Comment on above: Performed By: #### U MICRO, ERUR #### [facility] [address] [address] [address] Renata Finch LIPASEon 04-29-2022 Lipase [Catalytic activity/Vol] 58.0 U/L Critically low 73.0-393.0 [facility] Comment on above: Performed By: #### C BC #### [facility] [address] [address] [address] Renata Finch PREG HCG QUALon 04-29-2022 , QUAL Negative Normal NEGATIVE [facility] Comment on above: Performed By: #### C BC #### [facility] [address] [place] [address] Dr. Renata Finch PROF 14(COMP METB)on 022 Albumin [Mass/Vol] 3.7 g/dL Normal 3.4-5.0 [facility] Comment on above: Performed By: #### C BC #### [facility] [address] [place] [address] Dr. Renata Finch Albumin/Globulin [Mass ratio] 0.9 {ratio} Normal [facility] Comment on above: Performed By: #### C BC #### [facility] [address] [place] [address] Dr. Renata Finch ALP [Catalytic activity/Vol] 46 U/L Normal 46-116 [facility] Comment on above: Performed By: #### C BC #### [facility] [address] [place] [address] Dr. Renata Finch ALT [Catalytic activity/Vol] 22 U/L Normal 14-59 [facility] Comment on above: Performed By: #### C BC #### [facility] [address] [place] [address] Dr. Renaat Finch Anion gap [Moles/Vol] 16.3 mmol/L Normal [facility] Comment on above: Performed By: #### C BC #### [facility] [address] [place] [address] Dr. Renata Finch AST [Catalytic activity/Vol] 16 U/L Normal 15-37 [facility] Comment on above: Performed By: #### C BC #### [facility] [address] [place] [address] Dr. Renata Finch Bilirubin [Mass/Vol] 0.8 mg/dL Normal 0.2-1.0 [facility] Comment on above: Performed By: #### C BC #### [facility] [address] [place] [address] Dr. Renata Finch Calcium [Mass/Vol] 9.3 mg/dL Normal 8.5-10.1 [facility] Comment on above: Performed By: #### C BC #### [facility] [address] [address] [address] Renata Finch Chloride [Moles/Vol] 101 mmol/L Normal 98-107 [facility] Comment on above: Performed By: #### C BC #### [facility] [address] [address] [address] Renata Finch CO2 [Moles/Vol] 25.4 mmol/L Normal 21.0-32.0 [facility] Comment on above: Performed By: #### C BC #### [facility] [address] [address] [address] Renata Finch Creatinine [Mass/Vol] 0.81 mg/dL Normal 0.55-1.02 [facility] Comment on above: Performed By: #### C BC #### [facility] Laboratory [address] [place] [address] Dr. Renata Finch EGFR-AF MACANESE >60 Normal >=60 [facility] Comment on above: Performed By: #### C BC #### [facility] [address] [place] [address] Dr. Renata Finch EGFR-NON AF MACANESE >60 Normal >=60 [facility] Comment on above: Performed By: #### C BC #### [facility] [address] [place] [address] Dr. Renata Finch Globulin (S) [Mass/Vol] 4.1 g/dL Normal [facility] Comment on above: Performed By: #### C BC #### [facility] [address] [place] [address] Dr. Renata Finch Glucose [Mass/Vol] 126 mg/dL Critically high 74-106 T [facility] Comment on above: Performed By: #### C BC #### [facility] [address] [place] [address] Dr. Renaat Finch Potassium [Moles/Vol] 3.7 mmol/L Normal 3.5-5.1 [facility] Comment on above: Performed By: #### C BC #### [facility] [address] [address] [address] Renata Finch Protein [Mass/Vol] 7.8 g/dL Normal 6.4-8.2 [facility] Comment on above: Performed By: #### C BC #### [facility] [address] [address] [address] Renata Finch Sodium [Moles/Vol] 139 mmol/L Normal 136-145 [facility] Comment on above: Performed By: #### C BC #### [facility] [address] [address] [address] Renata Finch Urea nitrogen [Mass/Vol] 9.0 mg/dL Normal 6.4-19.3 [facility] Comment on above: Performed By: #### C BC #### [facility] [address] [place] [address] Dr. Renata Finch Urea nitrogen/Creatinine [Mass ratio] 11.1 mg/mg Normal [facility] Comment on above: Performed By: #### C BC #### [facility] [address] [place] [address] Dr. Renata Finch URINE MICROSCOPIC ONLYon BACTERIA TRACE Abnormal NONE SEEN [facility] Comment on above: Performed By: #### U MICRO, ERUR #### [facility] [address] [place] [address] Dr. Renata Finch Bacteria identified Cx Nom (U) NOT INDICATED Normal [facility] Comment on above: Performed By: #### U MICRO, ERUR #### [facility] [address] [address] [address] Renata Finch CAST NONE SEEN Normal NONE SEEN [facility] Comment on above: Performed By: #### U MICRO, ERUR #### [facility] [address] [place] [address] Dr. Renata Finch Crystals LM Nom (Urine sed) NONE SEEN Normal NONE SEEN [facility] Comment on above: Performed By: #### U MICRO, ERUR #### [facility] [address] [place] [address] Dr. Renata Finch Epithelial cells LM Ql (Urine sed) FEW Abnormal NONE SEEN /RARE [facility] Comment on above: Performed By: #### U MICRO, ERUR #### [facility] [address] [address] [address] Renata Finch MUCOUS TRACE Abnormal NONE SEEN [facility] Comment on above: Performed By: #### U MICRO, ERUR #### [facility] [address] [address] [address] Renata Finch RBC 0-2 Normal 0-2 [facility] Comment on above: Performed By: #### U MICRO, ERUR #### [facility] [address] [address] [address] Renata Finch WBC NONE SEEN Normal NONE SEEN [facility] Comment on above: Performed By: #### U MICRO, ERUR #### [facility] [address] [address] [address] Renata Finch XR ABD FLAT UP_PA [...] SANDY KERR Date: 2022-04-29 10:52 Normal [facility] CT ABD/PELV W CONon 02-13-20 CT [...] SANDY KERR Date: 2022-02-12 09:47 Normal [facility] US SINGLE QUAD RT UPPERon US [...] SANDY KERR Date: 2022-02-12 09:12 Normal [facility] AMYLASEon 02-09-2022 Amylase [Catalytic activity/Vol] 144 U/L Critically high 25-115 [facility] Comment on above: Performed By: #### U MICRO, ERUR #### [facility] [address] [place] [address] Dr. Renata Finch CBC AUTO DIFFon 02-09-2022 BASO # 0.0 103/ul Normal 0.0-0.1 [facility] Comment on above: Performed By: #### C BC #### [facility] [address] [address] [address] Renata Finch Basophils/100 WBC (Bld) 0.5 % Normal 0.2-2.0 [facility] Comment on above: Performed By: #### C BC #### [facility] [address] [place] [address] Dr. Renata Finch EO # 0.0 103/ul Normal 0.0-0.7 [facility] Comment on above: Performed By: #### C BC #### [facility] [address] [place] [address] Dr. Renata Finch Eosinophils/100 WBC (Bld) 0.5 % Critically low 0.9-7.0 [facility] Comment on above: Performed By: #### C BC #### [facility] [address] [place] [address] Dr. Renata Finch Erythrocyte distribution width (RBC) [Ratio] 14.3 % Normal 11.0-15.0 [facility] Comment on above: Performed By: #### C BC #### [facility] [address] [place] [address] Dr. Renata Finch Hematocrit (Bld) [Volume fraction] 36.0 % Normal 36.0-48.0 [facility] Comment on above: Performed By: #### C BC #### [facility] [address] [place] [address] Dr. Renata Finch Hemoglobin (Bld) [Mass/Vol] 11.6 g/dL Critically low 12.0-16.0 [facility] Comment on above: Performed By: #### C BC #### [facility] [address] [place] [address] Dr. Renata Finch IG # 0.01 10e3/ul Normal 0.00-0.03 [facility] Comment on above: Performed By: #### C BC #### [facility] [address] [place] [address] Dr. Renata Finch IG % 0.2 % Normal 0.0-0.5 [facility] Comment on above: Performed By: #### C BC #### [facility] [address] [place] [address] Dr. Renata Finch LYMPH # 1.8 103/ul Normal 1.2-3.8 [facility] Comment on above: Performed By: #### C BC #### [facility] [address] [place] [address] Dr. Renata Finch Lymphocytes/100 WBC (Bld) 29.7 % Normal 20.5-60.0 [facility] Comment on above: Performed By: #### C BC #### [facility] [address] [place] [address] Dr. Renata Finch MANUAL DIFF REQ NO Normal [facility] Comment on above: Performed By: #### C BC #### [facility] [address] [place] [address] Dr. Renata Finch MCH (RBC) [Entitic mass] 27.0 pg Normal 26.7-34.0 [facility] Comment on above: Performed By: #### C BC #### [facility] [address] [place] [address] Dr. Renata Finch MCHC (RBC) [Mass/Vol] 32.2 g/dL Normal 29.9-35.2 [facility] Comment on above: Performed By: #### C BC #### [facility] [address] [place] [address] Dr. Renata Finch MCV (RBC) [Entitic vol] 83.7 fL Normal 81.0-99.0 [facility] Comment on above: Performed By: #### C BC #### [facility] [address] [place] [address] Dr. Renata Finch MONO # 0.5 103/ul Normal 0.3-0.8 [facility] Comment on above: Performed By: #### C BC #### [facility] [address] [place] [address] Dr. Renata Finch Monocytes/100 WBC (Bld) 9.0 % Normal 1.7-12.0 [facility] Comment on above: Performed By: #### C BC #### [facility] [address] [place] [address] Dr. Renata Finch NEUT # 3.6 103/ul Normal 1.4-6.5 [facility] Comment on above: Performed By: #### C BC #### [facility] [address] [place] [address] Dr. Renata Finch Neutrophils/100 WBC (Bld) 60.1 % Normal 43.0-75.0 [facility] Comment on above: Performed By: #### C BC #### [facility] [address] [place] [address] Dr. Renata Finch Platelet mean volume (Bld) [Entitic vol] 9.6 fL Normal 9.5-13.5 [facility] Comment on above: Performed By: #### C BC #### [facility] [address] [place] [address] Dr. Renata Finch PLT 319 103/ul Normal 150-450 [facility] Comment on above: Performed By: #### C BC #### [facility] [address] [place] [address] Dr. Renata Finch RBC 4.30 106/ul Normal 4.20-5.40 [facility] Comment on above: Performed By: #### C BC #### [facility] [address] [place] [address] Dr. Renata Finch WBC 6.0 103/ul Normal 4.0-11.0 [facility] Comment on above: Performed By: #### C BC #### [facility] [address] [place] [address] Dr. Renata Finch LIPASEon 02-09-2022 Lipase [Catalytic activity/Vol] 715.0 U/L Critically high 73.0-393.0 [facility] Comment on above: Performed By: #### U MICRO, ERUR #### [facility] [address] [place] [address] Dr. Renata Finch PROF 14(COMP METB)on Albumin [Mass/Vol] 3.5 g/dL Normal 3.4-5.0 [facility] Comment on above: Performed By: #### U MICRO, ERUR #### [facility] [address] [place] [address] Dr. Renata Finch Albumin/Globulin [Mass ratio] 1.0 {ratio} Normal [facility] Comment on above: Performed By: #### U MICRO, ERUR #### [facility] [address] [address] [address] Renata Finch ALP [Catalytic activity/Vol] 48 U/L Normal 46-116 [facility] Comment on above: Performed By: #### U MICRO, ERUR #### [facility] [address] [address] [address] Renata Finch ALT [Catalytic activity/Vol] 19 U/L Normal 14-59 [facility] Comment on above: Performed By: #### U MICRO, ERUR #### [facility] [address] [address] [address] Renata Finch Anion gap [Moles/Vol] 13.0 mmol/L Normal [facility] Comment on above: Performed By: #### U MICRO, ERUR #### [facility] [address] [address] [address] Renata Finch AST [Catalytic activity/Vol] 13 U/L Critically low 15-37 [facility] Comment on above: Performed By: #### U MICRO, ERUR #### [facility] [address] [place] [address] Dr. Renata Finch Bilirubin [Mass/Vol] 0.6 mg/dL Normal 0.2-1.0 [facility] Comment on above: Performed By: #### U MICRO, ERUR #### [facility] [address] [address] [address] Renata Finch Calcium [Mass/Vol] 8.4 mg/dL Critically low 8.5-10.1 [facility] Comment on above: Performed By: #### U MICRO, ERUR #### [facility] [address] [address] [address] Renata Finch Chloride [Moles/Vol] 102 mmol/L Normal 98-107 [facility] Comment on above: Performed By: #### U MICRO, ERUR #### [facility] [address] [place] [address] Dr. Renata Finch CO2 [Moles/Vol] 26.7 mmol/L Normal 21.0-32.0 [facility] Comment on above: Performed By: #### U MICRO, ERUR #### [facility] [address] [address] [address] Renata Finch Creatinine [Mass/Vol] 0.66 mg/dL Normal 0.55-1.02 [facility] Comment on above: Performed By: #### U MICRO, ERUR #### [facility] [address] [address] [address] Renata Finch EGFR-AF MACANESE >60 Normal >=60 [facility] Comment on above: Performed By: #### U MICRO, ERUR #### [facility] [address] [address] [address] Renata iFnch EGFR-NON AF MACANESE >60 Normal >=60 [facility] Comment on above: Performed By: #### U MICRO, ERUR #### [facility] [address] [address] [address] Renata Finch Globulin (S) [Mass/Vol] 3.6 g/dL Normal [facility] Comment on above: Performed By: #### U MICRO, ERUR #### [facility] [address] [address] [address] Renata Finch Glucose [Mass/Vol] 89 mg/dL Normal 74-106 [facility] Comment on above: Performed By: #### U MICRO, ERUR #### [facility] [address] [address] [address] Renata Finch Potassium [Moles/Vol] 3.7 mmol/L Normal 3.5-5.1 [facility] Comment on above: Performed By: #### U MICRO, ERUR #### [facility] [address] [address] [address] Renata Finch Protein [Mass/Vol] 7.1 g/dL Normal 6.1-8.2 [facility] Comment on above: Performed By: #### U MICRO, ERUR #### [facility] [address] [address] [address] Renata Finch Sodium [Moles/Vol] 138 mmol/L Normal 136-145 [facility] Comment on above: Performed By: #### U MICRO, ERUR #### [facility] [address] [address] [address] Renata Finch Urea nitrogen [Mass/Vol] 7.0 mg/dL Normal 6.4-19.3 [facility] Comment on above: Performed By: #### U MICRO, ERUR #### [facility] [address] [address] [address] Renata Finch Urea nitrogen/Creatinine [Mass ratio] 10.6 mg/mg Normal [facility] Comment on above: Performed By: #### U MICRO, ERUR #### [facility] [address] [address] [address] Renata Finch Vital Signs Date Time Vital Sign Value Performing Clinician Facility 07-16-2024 13:27-0400 Body mass index (BMI) [Ratio] 36.06 kg/m2 Lisbet VALENZUELA Work Phone: [facility] 07-16-2024 13:27-0400 Body weight 88 kg Lisbet VALENZUELA Work Phone: [facility] 07-16-2024 13:27-0400 Diastolic blood pressure 70 mm[Hg] Lisbet VALENZUELA Work Phone: [facility] 07-16-2024 13:27-0400 Systolic blood pressure 118 mm[Hg] Lisbet VALENZUELA Work Phone: [facility] 10-20-2022 16:34-0500 Body weight 0 kg MARTINEZ-C Shasha Ramos Work Phone: [facility] 10-20-2022 16:30-0500 Body height 154.94 cm Joe Thomas Other [employer] Other 10-20-2022 16:30-0500 Body mass index (BMI) [Ratio] 30.04 kg/m2 Joe Thomas Other [employer] Other 10-20-2022 16:30-0500 Body weight 72.12 kg Joe Thomas Other [employer] [facility] [employer] Other 10-20-2022 16:30-0500 Diastolic blood pressure 79 mm[Hg] Joe Thomas Other [facility] [employer] Other 10-20-2022 16:30-0500 Systolic blood pressure 122 mm[Hg] Joe Thomas Other [facility] [employer] Other 05-04-2022 11:02-0400 Diastolic blood pressure 81 mm[Hg] DO Sandy Hykes Work Phone: [facility] 05-04-2022 11:02-0400 Heart rate 76 /min DO Sandy Hykes Work Phone: [facility] 05-04-2022 11:02-0400 Respiratory rate 18 /min DO Sandy Hykes Work Phone: [facility] 05-04-2022 11:02-0400 SaO2% (BldA) [Mass fraction] 100 % DO Sandy Hykes Work Phone: [facility] 05-04-2022 11:02-0400 Systolic blood pressure 116 mm[Hg] DO Sandy Hykes Work Phone: [facility] 05-04-2022 08:21-0400 Body height 154.94 cm DO Sandy Hykes Work Phone: [facility] 05-04-2022 08:21-0400 Body temperature 98.3 [degF] DO Sandy Hykes Work Phone: [facility] 05-04-2022 08:21-0400 Body weight 68.03 kg DO Sandy Hykes Work Phone: [facility] 04-27-2022 15:45-0400 Body height 154.94 cm Sandy Hykes Other [employer] Other 04-27-2022 15:45-0400 Body mass index (BMI) [Ratio] 28.72 kg/m2 Sandy Camp Other [employer] Other 04-27-2022 15:45-0400 Body weight 68.95 kg Sandy Camp Other [employer] Other Encounters Encounter Date Encounter Type Care Provider Facility Start: 07-19-2024 End: 07-19-2024 ambulatory Valentine Estrella Facility:[facility] Start: 07-16-2024 End: 07-16-2024 Office outpatient visit 15 minutes Lisbet VALENZUELA Work Phone: [facility] Comment on above: Third trimester preg bety; 35 weeks gestation of Start: 07-16-2024 End: 07-16-2024 ambulatory LISBET ROTHMAN Not Available Start: 07-02-2024 End: 07-02-2024 ambulatory CINDY MULUGETA Not Available Start: 06-18-2024 End: 06-18-2024 ambulatory LISBET LORNA Not Available Start: 06-04-2024 End: 06-04-2024 ambulatory CINDY MULUGETA Not Available Start: 05-07-2024 End: 05-07-2024 ambulatory LISBET LORNA Not Available Start: 04-09-2024 End: 04-09-2024 ambulatory CINDY MULUGETA Not Available Start: 03-12-2024 End: 03-12-2024 ambulatory CINDY MULUGETA Not Available Start: 02-09-2024 End: 02-09-2024 ambulatory CINDY MULUGETA Not Available Start: 01-30-2023 End: 01-30-2023 ambulatory RAVEN NICOLE Facility: Start: 12-05-2022 End: 12-05-2022 ambulatory CALL CENTER MANAGER-C Shasha Ramos Work Phone: [facility] Work Phone: Start: 12-05-2022 End: 12-05-2022 Patient encounter procedure CALL CENTER MANAGER-C Shasha Ramos Work Phone: [facility] [place] Work Phone: Start: 11-10-2022 End: 11-10-2022 ambulatory Joe Thomas Other [employer] Other Start: 11-10-2022 Telephone encounter Joe Sandoval isi [facility] Start: 11-08-2022 End: 11-08-2022 ambulatory SHASHA RICHARD Facility:[facility] Start: 11-02-2022 End: 11-02-2022 Patient encounter procedure CALL CENTER MANAGER-C Shasha Ramos Work Phone: [facility] Work Phone: Start: 10-20-2022 End: 10-20-2022 ambulatory Joe Thomas Other [employer] Other Start: 10-20-2022 Office outpatient visit 25 minutes Joe William [facility] Start: 09-12-2022 End: 09-12-2022 ambulatory Joe Thomas Other [employer] Other Start: 09-12-2022 Telephone encounter Joe Sandoval isi [facility] Start: 08-02-2022 End: 08-02-2022 ambulatory BENI BRIA Facility:[facility] Start: 08-01-2022 End: 08-01-2022 ambulatory Joe William Other [employer] Other Start: 08-01-2022 Telephone encounter Joe Horacioajay snowden [facility] Start: 05-09-2022 End: 05-09-2022 ambulatory Sandy Camp Other [employer] Other Start: 05-09-2022 Telephone encounter Sandy Camp [facility] Start: 05-04-2022 End: 05-04-2022 Admission to same day surgery center DO Sandy Camp Work Phone: [facility] Start: 05-02-2022 End: 05-02-2022 Patient encounter procedure DO Sandy Camp Work Phone: [facility] Start: 04-29-2022 End: 04-29-2022 ambulatory SHASHAPAUL BURTONMER Facility:[facility] Start: 04-27-2022 End: 04-27-2022 ambulatory Sandy Camp Other [facility] [employer] Other Start: 04-27-2022 Office outpatient ne w 45 minutes Sandy Camp [facility] Start: 02-12-2022 End: 02-13-2022 ambulatory SHASHA RAMOS Facility:[facility] Start: 02-09-2022 End: 02-10-2022 ambulatory SHASHA RAMOS Facility:[facility] Procedures Date Procedure Procedure Detail Performing Clinician Start: 07-16-2024 Urnls dip stick/tablet rgnt non-auto w/o micrscp Lisbet VALENZUELA Work Phone: Start: 11-02-2022 Capsule endoscopy CALL CENTER MANAGER-C Shasha Ramos Work Phone: Start: 05-04-2022 Esophagogastroduodenoscopy DO Sandy camarena Work Phone: Plan of Treatment Date Care Activity Detail Author Start: 07-24-2024 End: 07-24-2024 Patient encounter procedure 07/24/2024 1:00 PM EDT Routine [facility] [address] [place] [address] Lisbet Rothman PA [address] [place] [address] [facility] Start: 07-16-2024 End: 07-16-2025 Strep B DNA probe, amplification Strep B DNA probe, amplification Lab Routine Third trimester 35 weeks gestation of Expected: 07/16/2024 (Approximate), Expires: 07/16/2025 [facility] Work Phone: Comment on above: Expected: 07/16/2024 (Approximate), Expires: 07/16/2025 Start: 11-02-2022 [facility] Start: 05-04-[address] [facility] Work Phone: Payers Date Payer Category Payer Self-pay [id number] 2023 Medicaid [id number] 2002 Unknown [id number] 2.16.84 [id number] 2002 Unknown [id number] 2.16.84 0.1.915359.3.579.2.593 2002 Unknown [id number] 2.16.84 0.1.919152.3.579.2.593 2002 Unknown [id number] 2.16.84 0.1.584014.3.579.2.593 2002 Unknown [id number] 2.16.84 0.1.788626.3.579.2.593 2002 Unknown [id number] 2.16.84 0.1.069858.3.579.2.593 2002 Unknown [id number] 2.16.84 0.1.699451.3.579.2.1259 2002 Unknown [id number] 2.16.84 0.1.459517.3.579.2.1259 2002 Unknown [id number] 2.16.84 0.1.474505.3.579.2.1259 2002 Unknown [id number] 2.16.84 0.1.103997.3.579.2.1259 2002 Unknown [id number] 2.16.84 0.1.715737.3.579.2.1259 2002 Unknown [id number] 2.16.84 0.1.614861.3.579.2.1259 2002 Unknown [id number] 2.16.84 0.1.684384.3.579.2.1259 2002 Unknown [id number] 2.16.84 0.1.570332.3.579.2.1259 1959 Unknown [id number] 2. [id number] Medicaid [id number] 2.1 [id number] Unknown [id number] 2.16.8 [id number] Social History Date Type Detail Facility Start: 04-09-2024 Sex Assigned At N [facility] [employer] Other Start: 05-04-2022 End: 04-09-2024 Tobacco smoking status NHIS Never smoked tobacco (finding) [facility] Start: 2000 Sex Assigned At Female F [facility] Start: 04-09-2024 Tobacco use and exposure Smokeless tobacco non-user [facility] Start: 07-02-2024 Alcoholic beverage intake Lifetime non-drinker (finding) [facility] Start: 04-09-2024 History of Social function [facility] Start: 11-23-2023 [facility] Start: 2002 Sex assigned at Not on file [facility] Medical Equipment Procedure Code Equipment Code Equipment Origin al Text Equipment Identifier Dates Capsule endoscopy, for patency of lumen evaluation Video capsule endoscopy system [id number] [facility] Start: 11-02-2022 Goals Date Patient Goal Desired [...] of: BIANCA Cheema documented in this encounter [facility] 10-20-2022 Evaluation note Encounter Date Diagnosis Assessment Notes Oct, Diarrhea (ICD-10 - R19.7) Oct, Nausea & vomiting (ICD-10 - R11.2) capsule endoscopy to be done at [facility] [place] Patient to have labs and stool studies done. Oct, Abdominal pain (ICD-10 - R10.9) [employer] Other 11-28-2022 Evaluation note* Encounter Date Diagnosis Assessment Notes Treatment Notes Treatment Clinical Notes Aug, LUQ abdominal pain (ICD-10 - R10.12) [employer] Other [facility]* Encounter Date Diagnosis Assessment Notes Treatment Notes Treatment Clinical Notes Apr, LUQ abdominal pain (ICD-10 - R10.12) START TRIAL OF CARAFATE 1 GRAM TID EGD/ COLONOSCOPY Apr, Nausea & vomiting (ICD-10 - R11.2) Apr, Diarrhea (ICD-10 - R19.7) Apr, Weight loss (ICD-10 - R63.4) [employer] Other Evaluation note* Diagnosis Onset Date Resolution Status Abdominal pain acute Diarrhea acute Nausea and vomiting acute [facility] Work Phone: Evaluation noteNo InformationNort [employer] Other Evaluation noteNo assessment information available [facility] Work Phone: Evaluation note* Diagnosis Third trimester state, incidental 35 weeks gestation of documented in this encounter [facility] Author Sandy Camp [facility] May 04, 2022 10:08am Note Date/Time May 04, 2022 10:0 4am [facility] [address] [place] [address] Gastroenterology H&P Signed Patient: Marlin Hewitt MR#: [id number] : 2000 Acct:[id number] Age/Sex: 21 / F Adm Date: 2 Loc: Room: Type: [facility] Attending Dr: Sandy Camp DO Copies to: [...] by Sandy Camp Jr, DO> 05/04/[address] 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 [facility] provides no warranty or guarantee of the accuracy or completeness of information in this document.
--- OUTSIDE RECORDS SUMMARY | 2024-07-22 09:53 | XMS_ITS | CCD ---
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 Name Role Phone Sandy Camp Unavailable DO Sandy Camp Attending Provider LANCE Ramos Primary Care Provider Joe Thomas Unavailable LANCE Ramos Primary Care Provider MD Joe Thomas Attending Provider [phone] RICHARD, SHASHA Primary Care Unavailable RICHARD, SHASHA [...] Care Unavailable BENI FRASER Attending Unavailable KANIKA Pahn, DR ACOSTA Consulting Unavailable BENI FRASER Consulting [...] Facility (6 sources) Codeine Drug Allergy Unknown [place] [facility] Other (1 source) Codeine Drug Allergy [facility] Repository (2 sources) Codeine Drug Allergy 05-04-2022 Unknown [facility] Work Phone: (1 source) Codeine Drug Allergy 11-28-2022 [facility] Repository Medications Current Medications Medication Drug [...] Resolved: 04-27-2022 Episodic Other aftercare (1 source) correction (current) use of hormonal contraceptives; 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] Onset: 11-10-2022 Episodic Other gastrointestinal [...] UA Negative Negative - 4(70) +++ mg/dL [facility] Blood, UA Negative Negative - 50 Leonardo/mcL [facility] Clarity, UA Clear [facility] re Color, [facility]A Yellow [facility], [facility]A Negative Negative - 1999(110) ++++ mg/dL [facility] Interpretation and review of laboratory results Normal [facility] Ketones, UA Negative Negative - 160(16) ++++ mg/dL [facility] Leukocytes, UA Trace Negative - 500+++ Erinn/mcL [facility] Nitrite, UA Negative Negative - Positive [facility] pH, UA 6.5 5 - 9 [facility] e Protein, UA Negative Negative - 1999(20) ++++ mg/dL [facility] Spec Grav, UA 1.020 1 - 1.03 [facility] Urobilinogen, UA 1.0 0.2 - 12 mg/dL [facility] e CHLAMYDIA/GONOCOCCUS LORETO (SW AB/URINE/PAPon 02-02-2023 Chlamydia trachomatis, LORETO Negative Normal Negative [facility] Comment on above: Performed By: #### C BC #### [facility] [address] [place] [address] Dr. Renata Finch Neisseria gonorrhoeae, LORETO Negative Normal Negative [facility] Comment on above: Performed By: #### C BC #### [facility] [address] [place] [address] Dr. Renata Finch VAGINITIS/VAGINOSIS DNA PROB Kar 02-01-2023 Chelle species Negative Normal Negative [facility] Comment on above: Performed By: #### C BC #### [facility] [address] [place] [address] Dr. Renata Finch Gardnerella vaginalis Negative Normal Negative [facility] Comment on above: Performed By: #### C BC #### [facility] [address] [place] [address] Dr. Renata Finch Trichomonas vaginalis Negative Normal Negative [facility] Comment on above: Performed By: #### C BC #### [facility] [address] [place] [address] Dr. Renata Finch CBC AUTO DIFFon 11-08-2022 BASO # 0.0 103/ul Normal 0.0-0.1 [facility] Comment on above: Performed By: #### U MICRO, ERUR #### [facility] [address] [place] [address] Dr. Renata Finch Basophils/100 WBC (Bld) 0.4 % Normal 0.2-2.0 [facility] Comment on above: Performed By: #### U MICRO, ERUR #### [facility] [address] [place] [address] Dr. Renata Finch EO # 0.0 103/ul Normal 0.0-0.7 [facility] Comment on above: Performed By: #### U MICRO, ERUR #### [facility] [address] [place] [address] Dr. Renata Finch Eosinophils/100 WBC (Bld) 0.1 % Critically low 0.9-7.0 [facility] Comment on above: Performed By: #### U MICRO, ERUR #### [facility] [address] [place] [address] Dr. Renata Finch Erythrocyte distribution width (RBC) [Ratio] 13.6 % Normal 11.0-15.0 [facility] Comment on above: Performed By: #### U MICRO, ERUR #### [facility] [address] [place] [address] Dr. Renata Finch Hematocrit (Bld) [Volume fraction] 41.5 % Normal 36.0-48.0 [facility] Comment on above: Performed By: #### U MICRO, ERUR #### [facility] [address] [place] [address] Dr. Renata Finch Hemoglobin (Bld) [Mass/Vol] 13.6 g/dL Normal 12.0-16.0 [facility] Comment on above: Performed By: #### U MICRO, ERUR #### [facility] [address] [place] [address] Dr. Renata Finch IG # 0.03 10e3/ul Normal 0.00-0.03 [facility] Comment on above: Performed By: #### U MICRO, ERUR #### [facility] [address] [address] [address] Renata Finch IG % 0.3 % Normal 0.0-0.5 [facility] Comment on above: Performed By: #### U MICRO, ERUR #### [facility] [address] [address] [address] Renata Finch LYMPH # 1.7 103/ul Normal 1.2-3.8 [facility] Comment on above: Performed By: #### U MICRO, ERUR #### [facility] [address] [place] [address] Dr. Renata Finch Lymphocytes/100 WBC (Bld) 19.5 % Critically low 20.5-60.0 [facility] Comment on above: Performed By: #### U MICRO, ERUR #### [facility] [address] [place] [address] Dr. Renata Finch MANUAL DIFF REQ NO Normal [facility] Comment on above: Performed By: #### U MICRO, ERUR #### [facility] [address] [place] [address] Dr. Renata Finch MCH (RBC) [Entitic mass] 27.0 pg Normal 26.7-34.0 [facility] Comment on above: Performed By: #### U MICRO, ERUR #### [facility] [address] [address] [address] Renata Finch MCHC (RBC) [Mass/Vol] 32.8 g/dL Normal 29.9-35.2 [facility] Comment on above: Performed By: #### U MICRO, ERUR #### [facility] [address] [place] [address] Dr. Renata Finch MCV (RBC) [Entitic vol] 82.5 fL Normal 81.0-99.0 [facility] Comment on above: Performed By: #### U MICRO, ERUR #### [facility] [address] [address] [address] Renata Finch MONO # 0.5 103/ul Normal 0.3-0.8 [facility] Comment on above: Performed By: #### U MICRO, ERUR #### [facility] [address] [place] [address] Dr. Renata Finch Monocytes/100 WBC (Bld) 6.1 % Normal 1.7-12.0 [facility] Comment on above: Performed By: #### U MICRO, ERUR #### [facility] [address] [place] [address] Dr. Renata Finch NEUT # 6.6 103/ul Critically high 1.4-6.5 [facility] Comment on above: Performed By: #### U MICRO, ERUR #### [facility] [address] [place] [address] Dr. Renata Finch Neutrophils/100 WBC (Bld) 73.6 % Normal 43.0-75.0 [facility] Comment on above: Performed By: #### U MICRO, ERUR #### [facility] [address] [place] [address] Dr. Renata Finch Platelet mean volume (Bld) [Entitic vol] 9.5 fL Normal 9.5-13.5 [facility] Comment on above: Performed By: #### U MICRO, ERUR #### [facility] [address] [place] [address] Dr. Renata Finch PLT 417 103/ul Normal 150-450 [facility] Comment on above: Performed By: #### U MICRO, ERUR #### [facility] [address] [place] [address] Dr. Renata Finch RBC 5.03 106/ul Normal 4.20-5.40 [facility] Comment on above: Performed By: #### U MICRO, ERUR #### [facility] [address] [place] [address] Dr. Renata Finch WBC 8.9 103/ul Normal 4.0-11.0 [facility] Comment on above: Performed By: #### U MICRO, ERUR #### [facility] [address] [address] [address] Renata Finch DRUG SCREEN RAPID (URINE)on 11-08-2022 AMP Negative Normal NEGATIVE [facility] Comment on above: Performed By: #### E RUR, UMICRO, DRUGRPD, PREGU #### [facility] [address] [address] [address] Renata Finch BAR Negative Normal NEGATIVE [facility] Comment on above: Performed By: #### E RUR, UMICRO, DRUGRPD, PREGU #### [facility] [address] [address] [address] Renata Finch BUP Negative Normal NEGATIVE [facility] Comment on above: Performed By: #### E RUR, UMICRO, DRUGRPD, PREGU #### [facility] [address] [address] [address] Renata Finch BZO Negative Normal NEGATIVE [facility] Comment on above: Performed By: #### E RUR, UMICRO, DRUGRPD, PREGU #### [facility] [address] [address] [address] Renata Finch ODM Negative Normal NEGATIVE [facility] Comment on above: Performed By: #### E RUR, UMICRO, DRUGRPD, PREGU #### [facility] [address] [address] [address] Renata Finch CUT-OFFS SEE BELOW Normal [facility] Comment on above: Result Comment: AMP [...] #### E RUR, UMICRO, DRUGRPD, PREGU #### [facility] [address] [address] [address] Renata Finch DRUG CUT HEADER DRUG CLASS TEST SYSTEM CUT-OFF CONCENTRATIONS ARE FOLLOWS: Normal [facility] Comment on above: Performed By: #### E RUR, UMICRO, DRUGRPD, PREGU #### [facility] [address] [address] [address] Renata Finch mAMP Negative Normal NEGATIVE [facility] Comment on above: Performed By: #### E RUR, UMICRO, DRUGRPD, PREGU #### [facility] [address] [address] [address] Renata Finch MTD Negative Normal NEGATIVE [facility] Comment on above: Performed By: #### E RUR, UMICRO, DRUGRPD, PREGU #### [facility] [address] [address] [address] Renata Finch OPI Negative Normal NEGATIVE [facility] Comment on above: Performed By: #### E RUR, UMICRO, DRUGRPD, PREGU #### [facility] [address] [address] [address] Renata Finch OXY Negative Normal NEGATIVE [facility] Comment on above: Performed By: #### E RUR, UMICRO, DRUGRPD, PREGU #### [facility] [address] [address] [address] Renata Finch PCP Negative Normal NEGATIVE [facility] Comment on above: Performed By: #### E RUR, UMICRO, DRUGRPD, PREGU #### [facility] [address] [address] [address] Renata Finch PPX Negative Normal NEGATIVE [facility] Comment on above: Performed By: #### E RUR, UMICRO, DRUGRPD, PREGU #### [facility] [address] [address] [address] Renata Finch TCA Negative Normal NEGATIVE [facility] Comment on above: Performed By: #### E RUR, UMICRO, DRUGRPD, PREGU #### [facility] [address] [address] [address] Renata Finch THC Positive Abnormal NEGATIVE [facility] Comment on above: Performed By: #### E RUR, UMICRO, DRUGRPD, PREGU #### [facility] [address] [address] [address] Renata Finch ER URINE PROFILEon 3 Bilirubin Ql (U) MODERATE Abnormal NEGATIVE [facility] Comment on above: Performed By: #### E RUR, UMICRO, DRUGRPD, PREGU #### [facility] [address] [address] [address] Renata Finch Clarity (U) CLEAR Normal CLEAR [facility] Comment on above: Performed By: #### E RUR, UMICRO, DRUGRPD, PREGU #### [facility] [address] [address] [address] Renata Finch Color (U) YELLOW Normal YELLOW [facility] Comment on above: Performed By: #### E RUR, UMICRO, DRUGRPD, PREGU #### [facility] [address] [address] [address] Renata WU A micrscopic examination will be performed if indicated. Normal [facility] Comment on above: Performed By: #### E RUR, UMICRO, DRUGRPD, PREGU #### [facility] [address] [address] [address] Renata Finch Glucose Ql (U) Negative Normal NEGATIVE [facility] Comment on above: Performed By: #### E RUR, UMICRO, DRUGRPD, PREGU #### [facility] [address] [address] [address] Renata Finch Hemoglobin Ql (U) TRACE-INTACT Abnormal NEGATIVE [facility] Comment on above: Performed By: #### E RUR, UMICRO, DRUGRPD, PREGU #### [facility] [address] [address] [address] Renata Finch Ketones Ql (U) >=80 Abnormal NEGATIVE [facility] Comment on above: Performed By: #### E RUR, UMICRO, DRUGRPD, PREGU #### [facility] [address] [address] [address] Renata Finch LEUKOCYTES Negative Normal NEGATIVE [facility] Comment on above: Performed By: #### E RUR, UMICRO, DRUGRPD, PREGU #### [facility] [address] [address] [address] Renata Finch Nitrite Ql (U) Negative Normal NEGATIVE [facility] Comment on above: Performed By: #### E RUR, UMICRO, DRUGRPD, PREGU #### [facility] [address] [place] [address] Dr. Renata Finch pH (U) 6.5 [pH] Normal 5-9 [facility] Comment on above: Performed By: #### E RUR, UMICRO, DRUGRPD, PREGU #### [facility] [address] [place] [address] Dr. Renata Finch SPEC GRAVITY 1.025 Normal 1.005-<=1.025 [facility] Comment on above: Performed By: #### E RUR, UMICRO, DRUGRPD, PREGU #### [facility] [address] [address] [address] Renata Finch UA PROTEIN TRACE Normal NEGATIVE/ TRACE [facility] Comment on above: Performed By: #### E RUR, UMICRO, DRUGRPD, PREGU #### [facility] [address] [address] [address] Renata Finch UR MICRO IND INDICATED Normal [facility] Comment on above: Performed By: #### E RUR, UMICRO, DRUGRPD, PREGU #### [facility] [address] [place] [address] Dr. Renata Finch Urobilinogen Qn (U) 1.0 {Gabrielle'U}/dL Normal 0.2 - 1. 0 [facility] Comment on above: Performed By: #### E RUR, UMICRO, DRUGRPD, PREGU #### [facility] [address] [address] [address] Renata Finch URon 11-08-2022 , QUAL Negative Normal NEGATIVE [facility] Comment on above: Performed By: #### E RUR, UMICRO, DRUGRPD, PREGU #### [facility] [address] [address] [address] Renata Finch PROF CHEM 8 (BAS METB)on Anion gap [Moles/Vol] 16.5 mmol/L Normal [facility] Comment on above: Performed By: #### B MP #### [facility] [address] [address] [address] Renata Finch Calcium [Mass/Vol] 9.7 mg/dL Normal 8.5-10.1 [facility] Comment on above: Performed By: #### B MP #### [facility] [address] [address] [address] Renata Finch Chloride [Moles/Vol] 97 mmol/L Critically low 98-107 [facility] Comment on above: Performed By: #### B MP #### [facility] [address] [address] [address] Renata Finch CO2 [Moles/Vol] 26.3 mmol/L Normal 21.0-32.0 [facility] Comment on above: Performed By: #### B MP #### [facility] [address] [address] [address] Renata Finch Creatinine [Mass/Vol] 0.71 mg/dL Normal 0.55-1.02 [facility] Comment on above: Performed By: #### B MP #### [facility] [address] [address] [address] Renata Finch EGFR-AF BRUNEIAN >60 Normal >=60 [facility] Comment on above: Performed By: #### B MP #### [facility] [address] [address] [address] Renata Finch EGFR-NON AF BRUNEIAN >60 Normal >=60 [facility] Comment on above: Performed By: #### B MP #### [facility] [address] [address] [address] Renata Finch Glucose [Mass/Vol] 86 mg/dL Normal 74-106 [facility] Comment on above: Performed By: #### B MP #### [facility] [address] [address] [address] Renata Finch Potassium [Moles/Vol] 2.8 mmol/L Critically low 3.5-5.1 [facility] Comment on above: Performed By: #### B MP #### [facility] [address] [address] [address] Renata Finch Sodium [Moles/Vol] 137 mmol/L Normal 136-145 [facility] Comment on above: Performed By: #### B MP #### [facility] [address] [address] [address] Renata Finch Urea nitrogen [Mass/Vol] 7.0 mg/dL Normal 7.0-18.0 [facility] Comment on above: Performed By: #### B MP #### [facility] [address] [address] [address] Renata Finch Urea nitrogen/Creatinine [Mass ratio] 9.9 mg/mg Normal [facility] Comment on above: Performed By: #### B MP #### [facility] [address] [address] [address] Renata Finch URINE MICROSCOPIC ONLYon BACTERIA TRACE Abnormal NONE SEEN [facility] Comment on above: Performed By: #### E MIKAEL MCDANIEL DRUGRPD, PREGU #### [facility] [address] [place] [address] Dr. Renata Finch Bacteria identified Cx Nom (U) NOT INDICATED Normal [facility] Comment on above: Performed By: #### MIKAEL GONSALEZ DRUGRPD, PREGU #### [facility] [address] [address] [address] Renata Finch CAST NONE SEEN Normal NONE SEEN [facility] Comment on above: Performed By: #### MIKAEL GONSALEZ DRUGRPD, PREGU #### [facility] [address] [place] [address] Dr. Renata Finch Crystals LM Nom (Urine sed) NONE SEEN Normal NONE SEEN [facility] Comment on above: Performed By: #### E RUR, UMICRO, DRUGRPD, PREGU #### [facility] [address] [place] [address] Dr. Renata Finch Epithelial cells LM Ql (Urine sed) FEW Abnormal NONE SEEN /RARE [facility] Comment on above: Performed By: #### E RUR, UMICRO, DRUGRPD, PREGU #### [facility] [address] [place] [address] Dr. Renata Finch MUCOUS TRACE Abnormal NONE SEEN [facility] Comment on above: Performed By: #### E RUR, UMICRO, DRUGRPD, PREGU #### [facility] [address] [place] [address] Dr. Renata Finch RBC 0-2 Normal 0-2 [facility] Comment on above: Performed By: #### E RUR, UMICRO, DRUGRPD, PREGU #### [facility] [address] [place] [address] Dr. Renata Finch WBC 0-2 Abnormal NONE SEEN [facility] Comment on above: Performed By: #### E RUR, UMICRO, DRUGRPD, PREGU #### [facility] [address] [place] [address] Dr. Renata Finch AMYLASEon 08-02-2022 Amylase [Catalytic activity/Vol] 45 U/L Normal 25-115 [facility] Comment on above: Performed By: #### U MICRO, ERUR #### [facility] [address] [place] [address] Dr. Renata Finch CBC AUTO DIFFon 08-02-2022 BASO # 0.0 103/ul Normal 0.0-0.1 [facility] Comment on above: Performed By: #### C BC #### [facility] [address] [place] [address] Dr. Renata Finch Basophils/100 WBC (Bld) 0.4 % Normal 0.2-2.0 [facility] Comment on above: Performed By: #### C BC #### [facility] [address] [address] [address] Renata Finch EO # 0.0 103/ul Normal 0.0-0.7 [facility] Comment on above: Performed By: #### C BC #### [facility] [address] [place] [address] Dr. Renata Finch Eosinophils/100 WBC (Bld) 0.3 % Critically low 0.9-7.0 [facility] Comment on above: Performed By: #### C BC #### [facility] [address] [place] [address] Dr. Renata Finch Erythrocyte distribution width (RBC) [Ratio] 13.9 % Normal 11.0-15.0 [facility] Comment on above: Performed By: #### C BC #### [facility] [address] [place] [address] Dr. Renata Finch Hematocrit (Bld) [Volume fraction] 43.5 % Normal 36.0-48.0 [facility] Comment on above: Performed By: #### C BC #### [facility] [address] [place] [address] Dr. Renata Finch Hemoglobin (Bld) [Mass/Vol] 13.9 g/dL Normal 12.0-16.0 [facility] Comment on above: Performed By: #### C BC #### [facility] [address] [place] [address] Dr. Renata Finch IG # 0.01 10e3/ul Normal 0.00-0.03 [facility] Comment on above: Performed By: #### C BC #### [facility] [address] [place] [address] Dr. Renata Finch IG % 0.1 % Normal 0.0-0.5 [facility] Comment on above: Performed By: #### C BC #### [facility] [address] [place] [address] Dr. Renata Finch LYMPH # 1.2 103/ul Normal 1.2-3.8 [facility] Comment on above: Performed By: #### C BC #### [facility] [address] [place] [address] Dr. Renata iFnch Lymphocytes/100 WBC (Bld) 15.9 % Critically low 20.5-60.0 [facility] Comment on above: Performed By: #### C BC #### [facility] [address] [place] [address] Dr. Renata Finch MANUAL DIFF REQ NO Normal [facility] Comment on above: Performed By: #### C BC #### [facility] [address] [place] [address] Dr. Renata Finch MCH (RBC) [Entitic mass] 26.5 pg Critically low 26.7-34.0 [facility] Comment on above: Performed By: #### C BC #### [facility] [address] [place] [address] Dr. Renata Finch MCHC (RBC) [Mass/Vol] 32.0 g/dL Normal 29.9-35.2 [facility] Comment on above: Performed By: #### C BC #### [facility] [address] [place] [address] Dr. Renata Finch MCV (RBC) [Entitic vol] 83.0 fL Normal 81.0-99.0 [facility] Comment on above: Performed By: #### C BC #### [facility] [address] [place] [address] Dr. Renata Finch MONO # 0.5 103/ul Normal 0.3-0.8 [facility] Comment on above: Performed By: #### C BC #### [facility] [address] [place] [address] Dr. Renata Finch Monocytes/100 WBC (Bld) 6.1 % Normal 1.7-12.0 [facility] Comment on above: Performed By: #### C BC #### [facility] [address] [place] [address] Dr. Renata Finch NEUT # 5.8 103/ul Normal 1.4-6.5 [facility] Comment on above: Performed By: #### C BC #### [facility] [address] [place] [address] Dr. Renata Finch Neutrophils/100 WBC (Bld) 77.2 % Critically high 43.0-75.0 [facility] Comment on above: Performed By: #### C BC #### [facility] [address] [place] [address] Dr. Renata Finch Platelet mean volume (Bld) [Entitic vol] 9.9 fL Normal 9.5-13.5 [facility] Comment on above: Performed By: #### C BC #### [facility] [address] [place] [address] Dr. Renata Finch PLT 416 103/ul Normal 150-450 [facility] Comment on above: Performed By: #### C BC #### [facility] [address] [place] [address] Dr. Renata Finch RBC 5.24 106/ul Normal 4.20-5.40 [facility] Comment on above: Performed By: #### C BC #### [facility] [address] [place] [address] Dr. Renata Finch WBC 7.6 103/ul Normal 4.0-11.0 [facility] Comment on above: Performed By: #### C BC #### [facility] [address] [place] [address] Dr. Renata Finch Covid-19 PCR ([facility])on 07-16 SARS-CoV-2 (COVID-19) RNA LORETO+probe Ql (Unsp spec) Not detected Normal NOT DETECTED [facility] Comment on above: Result Comment: When [...] for this test is supported by the Digital Media Coordinator of Health and Human Service's declaration that [...] used). Performed By: #### C VDTB #### [facility] [address] [place] [address] Dr. Renata Finch ER URINE PROFILEon 2 Bilirubin Ql (U) SMALL Abnormal NEGATIVE [facility] Comment on above: Performed By: #### C BC #### [facility] [address] [place] [address] Dr. Renata Finch Clarity (U) CLEAR Normal CLEAR [facility] Comment on above: Performed By: #### C BC #### [facility] [address] [place] [address] Dr. Renata Finch Color (U) BROWN Abnormal YELLOW [facility] Comment on above: Performed By: #### C BC #### [facility] [address] [place] [address] Dr. Renata Finch ERUAHD A micrscopic examination will be performed if indicated. Normal [facility] Comment on above: Performed By: #### C BC #### [facility] [address] [place] [address] Dr. Renata Finch Glucose Ql (U) Negative Normal NEGATIVE [facility] Comment on above: Performed By: #### C BC #### [facility] [address] [place] [address] Dr. Renata Finch Hemoglobin Ql (U) LARGE Abnormal NEGATIVE [facility] Comment on above: Performed By: #### C BC #### [facility] [address] [place] [address] Dr. Renata Finch Ketones Ql (U) >=80 Abnormal NEGATIVE [facility] Comment on above: Performed By: #### C BC #### [facility] [address] [place] [address] Dr. Renata Finch LEUKOCYTES Negative Normal NEGATIVE [facility] Comment on above: Performed By: #### C BC #### [facility] [address] [place] [address] Dr. Renata Finch Nitrite Ql (U) Negative Normal NEGATIVE [facility] Comment on above: Performed By: #### C BC #### [facility] [address] [place] [address] Dr. Renata Finch pH (U) 7.0 [pH] Normal 5-9 [facility] Comment on above: Performed By: #### C BC #### [facility] [address] [place] [address] Dr. Renata Finch Protein (U) [Mass/Vol] 30 mg/dL Abnormal NEGATIVE/ TRACE [facility] Comment on above: Performed By: #### C BC #### [facility] [address] [place] [address] Dr. Renata Finch SPEC GRAVITY 1.025 Normal 1.005-<=1.025 [facility] Comment on above: Performed By: #### C BC #### [facility] [address] [place] [address] Dr. Renata Finch UR MICRO IND INDICATED Normal [facility] Comment on above: Performed By: #### C BC #### [facility] [address] [place] [address] Dr. Renata Finch Urobilinogen Qn (U) 1.0 {Gabrielle'U}/dL Normal 0.2 - 1. 0 [facility] Comment on above: Performed By: #### C BC #### [facility] [address] [place] [address] Dr. Renata Finch LACTATE/LACTIC ACIDon 2021 Lactate [Moles/Vol] 1.2 mmol/L Normal 0.4-1.9 [facility] Comment on above: Performed By: #### U MICRO, ERUR #### [facility] [address] [place] [address] Dr. Renata Finch LIPASEon 08-02-2022 Lipase [Catalytic activity/Vol] 66.0 U/L Critically low 73.0-393.0 [facility] Comment on above: Performed By: #### U MICRO, ERUR #### [facility] [address] [address] [address] Renata Finch URon 08-02-2022 , QUAL Negative Normal NEGATIVE [facility] Comment on above: Performed By: #### C BC #### [facility] [address] [address] [address] Renata Finch PROF 14(COMP METB)on 022 Albumin [Mass/Vol] 4.1 g/dL Normal 3.4-5.0 [facility] Comment on above: Performed By: #### U MICRO, ERUR #### [facility] [address] [address] [address] Renata Finch Albumin/Globulin [Mass ratio] 1.0 {ratio} Normal [facility] Comment on above: Performed By: #### U MICRO, ERUR #### [facility] [address] [address] [address] Renata Finch ALP [Catalytic activity/Vol] 53 U/L Normal 46-116 [facility] Comment on above: Performed By: #### U MICRO, ERUR #### [facility] [address] [address] [address] Renata Finch ALT [Catalytic activity/Vol] 42 U/L Normal 14-59 [facility] Comment on above: Performed By: #### U MICRO, ERUR #### [facility] [address] [address] [address] Renata Finch Anion gap [Moles/Vol] 11.8 mmol/L Normal [facility] Comment on above: Performed By: #### U MICRO, ERUR #### [facility] [address] [address] [address] Renata Finch AST [Catalytic activity/Vol] 22 U/L Normal 15-37 [facility] Comment on above: Performed By: #### U MICRO, ERUR #### [facility] [address] [address] [address] Renata Finch Bilirubin [Mass/Vol] 1.0 mg/dL Normal 0.2-1.0 [facility] Comment on above: Performed By: #### U MICRO, ERUR #### [facility] [address] [address] [address] Renata Finch Calcium [Mass/Vol] 9.5 mg/dL Normal 8.5-10.1 [facility] Comment on above: Performed By: #### U MICRO, ERUR #### [facility] [address] [address] [address] Renata Finch Chloride [Moles/Vol] 101 mmol/L Normal 98-107 [facility] Comment on above: Performed By: #### U MICRO, ERUR #### [facility] [address] [address] [address] Renata Finch CO2 [Moles/Vol] 29.5 mmol/L Normal 21.0-32.0 [facility] Comment on above: Performed By: #### U MICRO, ERUR #### [facility] [address] [place] [address] Dr. Renata Finch Creatinine [Mass/Vol] 0.85 mg/dL Normal 0.55-1.02 [facility] Comment on above: Performed By: #### U MICRO, ERUR #### [facility] [address] [place] [address] Dr. Renata Finch EGFR-AF BRUNEIAN >60 Normal >=60 [facility] Comment on above: Performed By: #### U MICRO, ERUR #### [facility] [address] [address] [address] Renata Finch EGFR-NON AF BRUNEIAN >60 Normal >=60 [facility] Comment on above: Performed By: #### U MICRO, ERUR #### [facility] [address] [address] [address] Renata Finch Globulin (S) [Mass/Vol] 4.2 g/dL Normal [facility] Comment on above: Performed By: #### U MICRO, ERUR #### [facility] [address] [address] [address] Renata Finch Glucose [Mass/Vol] 119 mg/dL Critically high 74-106 [facility] Comment on above: Performed By: #### U MICRO, ERUR #### [facility] [address] [place] [address] Dr. Renata Finch Potassium [Moles/Vol] 3.3 mmol/L Critically low 3.5-5.1 [facility] Comment on above: Performed By: #### U MICRO, ERUR #### [facility] [address] [place] [address] Dr. Renata Finch Protein [Mass/Vol] 8.3 g/dL Critically high 6.4-8.2 [facility] Comment on above: Performed By: #### U MICRO, ERUR #### [facility] [address] [place] [address] Dr. Renata Finch Sodium [Moles/Vol] 139 mmol/L Normal 136-145 [facility] Comment on above: Performed By: #### U MICRO, ERUR #### [facility] [address] [place] [address] Dr. Renata Finch Urea nitrogen [Mass/Vol] 6.0 mg/dL Critically low 6.4-19.3 [facility] Comment on above: Performed By: #### U MICRO, ERUR #### [facility] [address] [place] [address] Dr. Renata Finch Urea nitrogen/Creatinine [Mass ratio] 7.1 mg/mg Normal [facility] Comment on above: Performed By: #### U MICRO, ERUR #### [facility] [address] [place] [address] Dr. Renata Finch URINE MICROSCOPIC ONLYon BACTERIA NONE SEEN Normal NONE SEEN [facility] Comment on above: Performed By: #### C BC #### [facility] [address] [place] [address] Dr. Renata Finch Bacteria identified Cx Nom (U) NOT INDICATED Normal [facility] Comment on above: Performed By: #### C BC #### [facility] [address] [place] [address] Dr. Renata Finch CAST NONE SEEN Normal NONE SEEN [facility] Comment on above: Performed By: #### C BC #### [facility] [address] [address] [address] Renata Finch Crystals LM Nom (Urine sed) NONE SEEN Normal NONE SEEN [facility] Comment on above: Performed By: #### C BC #### [facility] [address] [address] [address] Renata Finch Epithelial cells LM Ql (Urine sed) NONE SEEN Normal NONE SEEN /RARE [facility] Comment on above: Performed By: #### C BC #### [facility] [address] [address] [address] Renata Finch MUCOUS NONE SEEN Normal NONE SEEN [facility] Comment on above: Performed By: #### C BC #### [facility] [address] [address] [address] Renata Finch RBC 20-50 Abnormal 0-2 [facility] Comment on above: Performed By: #### C BC #### [facility] [address] [place] [address] Dr. Renata Finch WBC NONE SEEN Normal NONE SEEN [facility] Comment on above: Performed By: #### C BC #### [facility] [address] [place] [address] Dr. Renata Finch XR ABD FLAT UP_PA [...] TORIN PAREDES Date: 2022-08-02 07:02 Normal [facility] HCG ( test) IA.rapi d Ql (U)Ordered By: Sandy Camp on 05-04-2022 HCG ( test) Ql (U) Negative [facility] COVID-19 Positive/NegativeOr dered By: Sandy Camp on 05-02-2022 SARS-CoV-2 (COVID-19) N gene LORETO+probe Ql (Resp) Negative Negative [facility] Comment on above: Testing for SARS-CoV -2 by RT-PCR This test was developed and its performance characteristics determined by [employer] ([place] and validated at the [facility]. This test has not been FDA [...] Amylase [Catalytic activity/Vol] 53 U/L Normal 25-115 [facility] Comment on above: Performed By: #### C BC #### [facility] [address] [place] [address] Dr. Renata Finch CBC W MANUAL DIFFon 04-29-20 22 ATYPICAL LYMPH # Normal [facility] Comment on above: Performed By: #### C BC #### [facility] [address] [place] [address] Dr. Renata Finch ATYPICAL LYMPH % Normal [facility] Comment on above: Performed By: #### C BC #### [facility] [address] [place] [address] Dr. Renata Finch BAND # Normal 0.0-0.3 [facility] Comment on above: Performed By: #### C BC #### [facility] [address] [place] [address] Dr. Renata Finch BAND % Normal 0-5 [facility] Comment on above: Performed By: #### C BC #### [facility] [address] [place] [address] Dr. Renata Finch BASOM # 0.00 103/ul Normal 0.00-0.10 [facility] Comment on above: Performed By: #### C BC #### [facility] [address] [place] [address] Dr. Renata Finch BASOM % 0.0 % Critically low 0.2-2.0 [facility] Comment on above: Performed By: #### C BC #### [facility] [address] [place] [address] Dr. Renata Finch BLAST # Normal [facility] Comment on above: Performed By: #### C BC #### [facility] [address] [place] [address] Dr. Renata Finch BLAST % Normal [facility] Comment on above: Performed By: #### C BC #### [facility] [address] [place] [address] Dr. Renata Finch CORRECTED WBC Normal 4.0-11.0 [facility] Comment on above: Performed By: #### C BC #### [facility] [address] [place] [address] Dr. Renata Finch EOS # 0.00 103/ul Normal 0.00-0.70 [facility] Comment on above: Performed By: #### C BC #### [facility] [address] [place] [address] Dr. Renata Finch EOS% 0.0 % Critically low 0.9-7.0 [facility] Comment on above: Performed By: #### C BC #### [facility] [address] [place] [address] Dr. Renata Finch HCT 40.4 % Normal 36.0-48.0 [facility] Comment on above: Performed By: #### C BC #### [facility] [address] [place] [address] Dr. Renata Finch HGB 13.0 g/dl Normal 12.0-16.0 [facility] Comment on above: Performed By: #### C BC #### [facility] [address] [address] [address] Renata Finch LYMPHM # 0.83 103/ul Critically low 1.20-3.80 [facility] Comment on above: Performed By: #### C BC #### [facility] [address] [place] [address] Dr. Renata Finch LYMPHM% 13.0 % Critically low 20.5-60.0 [facility] Comment on above: Performed By: #### C BC #### [facility] [address] [place] [address] Dr. Renata Finch MCH 26.8 pg Normal 26.7-34.0 [facility] Comment on above: Performed By: #### C BC #### [facility] [address] [place] [address] Dr. Renata Finch MCHC 32.2 g/dl Normal 29.9-35.2 [facility] Comment on above: Performed By: #### C BC #### [facility] [address] [place] [address] Dr. Renata Finch MCV 83.3 fL Normal 81.0-99.0 [facility] Comment on above: Performed By: #### C BC #### [facility] [address] [place] [address] Dr. Renata Finch METAMYELOCYTE # Normal [facility] Comment on above: Performed By: #### C BC #### [facility] [address] [place] [address] Dr. Renata Finch METAMYELOCYTE % Normal [facility] Comment on above: Performed By: #### C BC #### [facility] [address] [place] [address] Dr. Renata Finch MONOM# 0.13 103/ul Critically low 0.30-0.80 [facility] Comment on above: Performed By: #### C BC #### [facility] [address] [place] [address] Dr. Renata Finch MONOM% 2.0 % Normal 1.7-12.0 [facility] Comment on above: Performed By: #### C BC #### [facility] [address] [place] [address] Dr. Renata Finch MPV 9.7 fL Normal 9.5-13.5 [facility] Comment on above: Performed By: #### C BC #### [facility] [address] [place] [address] Dr. Renata Finch MYELOCYTE # Normal [facility] Comment on above: Performed By: #### C BC #### [facility] [address] [place] [address] Dr. Renata Finch MYELOCYTE % Normal [facility] Comment on above: Performed By: #### C BC #### [facility] [address] [place] [address] Dr. Renata Finch NRBC Normal [facility] Comment on above: Performed By: #### C BC #### [facility] [address] [place] [address] Dr. Renata Finch PLT 311 103/ul Normal 150-450 [facility] Comment on above: Performed By: #### C BC #### [facility] [address] [place] [address] Dr. Renata Finch RBC 4.85 106/ul Normal 4.20-5.40 [facility] Comment on above: Performed By: #### C BC #### [facility] [address] [place] [address] Dr. Renata Finch RDW 13.8 % Normal 11.0-15.0 [facility] Comment on above: Performed By: #### C BC #### [facility] [address] [place] [address] Dr. Renata Finch SEG # 5.44 103/ul Normal 1.40-6.50 [facility] Comment on above: Performed By: #### C BC #### [facility] [address] [place] [address] Dr. Renata Finch SEG % 85.0 % Critically high 43.0-75.0 [facility] Comment on above: Performed By: #### C BC #### [facility] [address] [address] [address] Renata Finch WBC 6.4 103/ul Normal 4.0-11.0 [facility] Comment on above: Performed By: #### C BC #### [facility] [address] [address] [address] Renata Finch ER URINE PROFILEon 2 Bilirubin Ql (U) Negative Normal NEGATIVE [facility] Comment on above: Performed By: #### U MICRO, ERUR #### [facility] [address] [place] [address] Dr. Renata Finch Clarity (U) SL CLOUDY Abnormal CLEAR [facility] Comment on above: Performed By: #### U MICRO, ERUR #### [facility] [address] [place] [address] Dr. Renata Finch Color (U) YELLOW Normal YELLOW [facility] Comment on above: Performed By: #### U MICRO, ERUR #### [facility] [address] [place] [address] Dr. Renata Finch ERUAHD A micrscopic examination will be performed if indicated. Normal [facility] Comment on above: Performed By: #### U MICRO, ERUR #### [facility] [address] [address] [address] Renata Finch Glucose Ql (U) Negative Normal NEGATIVE [facility] Comment on above: Performed By: #### U MICRO, ERUR #### [facility] [address] [address] [address] Renata Finch Hemoglobin Ql (U) Negative Normal NEGATIVE [facility] Comment on above: Performed By: #### U MICRO, ERUR #### [facility] [address] [place] [address] Dr. Renata Finch Ketones Ql (U) 40 mg/dl Abnormal NEGATIVE [facility] Comment on above: Performed By: #### U MICRO, ERUR #### [facility] [address] [place] [address] Dr. Renata Finch LEUKOCYTES Negative Normal NEGATIVE [facility] Comment on above: Performed By: #### U MICRO, ERUR #### [facility] [address] [address] [address] Renata Finch Nitrite Ql (U) Negative Normal NEGATIVE [facility] Comment on above: Performed By: #### U MICRO, ERUR #### [facility] [address] [address] [address] Renata Finch pH (U) 6.0 [pH] Normal 5-9 [facility] Comment on above: Performed By: #### U MICRO, ERUR #### [facility] [address] [address] [address] Renata Finch Protein (U) [Mass/Vol] 30 mg/dL Abnormal NEGATIVE/ TRACE [facility] Comment on above: Performed By: #### U MICRO, ERUR #### [facility] [address] [place] [address] Dr. Renata Finch SPEC GRAVITY >=1.030 Abnormal 1.005-<=1.025 [facility] Comment on above: Performed By: #### U MICRO, ERUR #### [facility] [address] [address] [address] Renata Finch UR MICRO IND INDICATED Normal [facility] Comment on above: Performed By: #### U MICRO, ERUR #### [facility] [address] [address] [address] Renata Finch Urobilinogen Qn (U) 0.2 {Gabrielle'U}/dL Normal 0.2 - 1. 0 [facility] Comment on above: Performed By: #### U MICRO, ERUR #### [facility] [address] [address] [address] Renata Finch LIPASEon 04-29-2022 Lipase [Catalytic activity/Vol] 58.0 U/L Critically low 73.0-393.0 [facility] Comment on above: Performed By: #### C BC #### [facility] [address] [address] [address] Renata Finch PREG HCG QUALon 04-29-2022 , QUAL Negative Normal NEGATIVE [facility] Comment on above: Performed By: #### C BC #### [facility] [address] [place] [address] Dr. Renata Finch PROF 14(COMP METB)on 022 Albumin [Mass/Vol] 3.7 g/dL Normal 3.4-5.0 [facility] Comment on above: Performed By: #### C BC #### [facility] [address] [place] [address] Dr. Renata Finch Albumin/Globulin [Mass ratio] 0.9 {ratio} Normal [facility] Comment on above: Performed By: #### C BC #### [facility] [address] [place] [address] Dr. Renata Finch ALP [Catalytic activity/Vol] 46 U/L Normal 46-116 [facility] Comment on above: Performed By: #### C BC #### [facility] [address] [place] [address] Dr. Renata Finch ALT [Catalytic activity/Vol] 22 U/L Normal 14-59 [facility] Comment on above: Performed By: #### C BC #### [facility] [address] [place] [address] Dr. Renata Finch Anion gap [Moles/Vol] 16.3 mmol/L Normal [facility] Comment on above: Performed By: #### C BC #### [facility] [address] [place] [address] Dr. Renata Finch AST [Catalytic activity/Vol] 16 U/L Normal 15-37 [facility] Comment on above: Performed By: #### C BC #### [facility] [address] [place] [address] Dr. Renata Finch Bilirubin [Mass/Vol] 0.8 mg/dL Normal 0.2-1.0 [facility] Comment on above: Performed By: #### C BC #### [facility] [address] [place] [address] Dr. Renata Finch Calcium [Mass/Vol] 9.3 mg/dL Normal 8.5-10.1 [facility] Comment on above: Performed By: #### C BC #### [facility] [address] [address] [address] Renata Finch Chloride [Moles/Vol] 101 mmol/L Normal 98-107 [facility] Comment on above: Performed By: #### C BC #### [facility] [address] [address] [address] Renata Finch CO2 [Moles/Vol] 25.4 mmol/L Normal 21.0-32.0 [facility] Comment on above: Performed By: #### C BC #### [facility] [address] [address] [address] Renata Finch Creatinine [Mass/Vol] 0.81 mg/dL Normal 0.55-1.02 [facility] Comment on above: Performed By: #### C BC #### [facility] [address] [place] [address] Dr. Renata Finch EGFR-AF BRUNEIAN >60 Normal >=60 [facility] Comment on above: Performed By: #### C BC #### [facility] [address] [place] [address] Dr. Renata Finch EGFR-NON AF BRUNEIAN >60 Normal >=60 [facility] Comment on above: Performed By: #### C BC #### [facility] [address] [place] [address] Dr. Renata Finch Globulin (S) [Mass/Vol] 4.1 g/dL Normal [facility] Comment on above: Performed By: #### C BC #### [facility] [address] [place] [address] Dr. Renata Finch Glucose [Mass/Vol] 126 mg/dL Critically high 74-106 [facility] Comment on above: Performed By: #### C BC #### [facility] Laboratory [address] [place] [address] Dr. Renata Finch Potassium [Moles/Vol] 3.7 mmol/L Normal 3.5-5.1 [facility] Comment on above: Performed By: #### C BC #### [facility] [address] [address] [address] Renata Finch Protein [Mass/Vol] 7.8 g/dL Normal 6.4-8.2 [facility] Comment on above: Performed By: #### C BC #### [facility] [address] [address] [address] Renata Finch Sodium [Moles/Vol] 139 mmol/L Normal 136-145 [facility] Comment on above: Performed By: #### C BC #### [facility] [address] [address] [address] Renata Finch Urea nitrogen [Mass/Vol] 9.0 mg/dL Normal 6.4-19.3 [facility] Comment on above: Performed By: #### C BC #### [facility] [address] [place] [address] Dr. Renata Finch Urea nitrogen/Creatinine [Mass ratio] 11.1 mg/mg Normal [facility] Comment on above: Performed By: #### C BC #### [facility] [address] [place] [address] Dr. Renata Finch URINE MICROSCOPIC ONLYon BACTERIA TRACE Abnormal NONE SEEN [facility] Comment on above: Performed By: #### U MICRO, ERUR #### [facility] [address] [place] [address] Dr. Renata Finch Bacteria identified Cx Nom (U) NOT INDICATED Normal [facility] Comment on above: Performed By: #### U MICRO, ERUR #### [facility] [address] [address] [address] Renata Finch CAST NONE SEEN Normal NONE SEEN [facility] Comment on above: Performed By: #### U MICRO, ERUR #### [facility] [address] [place] [address] Dr. Renata Finch Crystals LM Nom (Urine sed) NONE SEEN Normal NONE SEEN [facility] Comment on above: Performed By: #### U MICRO, ERUR #### [facility] [address] [place] [address] Dr. Renata Finch Epithelial cells LM Ql (Urine sed) FEW Abnormal NONE SEEN /RARE [facility] Comment on above: Performed By: #### U MICRO, ERUR #### [facility] [address] [address] [address] Renata Finch MUCOUS TRACE Abnormal NONE SEEN [facility] Comment on above: Performed By: #### U MICRO, ERUR #### [facility] [address] [address] [address] Renata Finch RBC 0-2 Normal 0-2 [facility] Comment on above: Performed By: #### U MICRO, ERUR #### [facility] [address] [address] [address] Renata Finch WBC NONE SEEN Normal NONE SEEN [facility] Comment on above: Performed By: #### U MICRO, ERUR #### [facility] [address] [address] [address] Renata Finch XR ABD FLAT UP_PA [...] SANDY KERR Date: 2022-04-29 10:52 Normal [facility] CT ABD/PELV W CONon 02-13-20 CT [...] SANDY KERR Date: 2022-02-12 09:47 Normal [facility] US SINGLE QUAD RT UPPERon US [...] SANDY KERR Date: 2022-02-12 09:12 Normal [facility] AMYLASEon 02-09-2022 Amylase [Catalytic activity/Vol] 144 U/L Critically high 25-115 [facility] Comment on above: Performed By: #### U MICRO, ERUR #### [facility] [address] [place] [address] Dr. Renata Finch CBC AUTO DIFFon 02-09-2022 BASO # 0.0 103/ul Normal 0.0-0.1 [facility] Comment on above: Performed By: #### C BC #### [facility] [address] [address] [address] Renata Finch Basophils/100 WBC (Bld) 0.5 % Normal 0.2-2.0 [facility] Comment on above: Performed By: #### C BC #### [facility] [address] [place] [address] Dr. Renata Finch EO # 0.0 103/ul Normal 0.0-0.7 [facility] Comment on above: Performed By: #### C BC #### [facility] [address] [place] [address] Dr. Renata Finch Eosinophils/100 WBC (Bld) 0.5 % Critically low 0.9-7.0 [facility] Comment on above: Performed By: #### C BC #### [facility] [address] [place] [address] Dr. Renata Finch Erythrocyte distribution width (RBC) [Ratio] 14.3 % Normal 11.0-15.0 [facility] Comment on above: Performed By: #### C BC #### [facility] [address] [place] [address] Dr. Renata Finch Hematocrit (Bld) [Volume fraction] 36.0 % Normal 36.0-48.0 [facility] Comment on above: Performed By: #### C BC #### [facility] [address] [place] [address] Dr. Renata Finch Hemoglobin (Bld) [Mass/Vol] 11.6 g/dL Critically low 12.0-16.0 [facility] Comment on above: Performed By: #### C BC #### [facility] [address] [place] [address] Dr. Renata Finch IG # 0.01 10e3/ul Normal 0.00-0.03 [facility] Comment on above: Performed By: #### C BC #### [facility] [address] [place] [address] Dr. Renata Finch IG % 0.2 % Normal 0.0-0.5 [facility] Comment on above: Performed By: #### C BC #### [facility] [address] [place] [address] Dr. Renata Finch LYMPH # 1.8 103/ul Normal 1.2-3.8 [facility] Comment on above: Performed By: #### C BC #### [facility] [address] [place] [address] Dr. Renata Finch Lymphocytes/100 WBC (Bld) 29.7 % Normal 20.5-60.0 [facility] Comment on above: Performed By: #### C BC #### [facility] [address] [place] [address] Dr. Renata Finch MANUAL DIFF REQ NO Normal [facility] Comment on above: Performed By: #### C BC #### [facility] [address] [place] [address] Dr. Renata Finch MCH (RBC) [Entitic mass] 27.0 pg Normal 26.7-34.0 [facility] Comment on above: Performed By: #### C BC #### [facility] [address] [place] [address] Dr. Renata Finch MCHC (RBC) [Mass/Vol] 32.2 g/dL Normal 29.9-35.2 [facility] Comment on above: Performed By: #### C BC #### [facility] [address] [place] [address] Dr. Renata Finch MCV (RBC) [Entitic vol] 83.7 fL Normal 81.0-99.0 [facility] Comment on above: Performed By: #### C BC #### [facility] [address] [place] [address] Dr. Renata Finch MONO # 0.5 103/ul Normal 0.3-0.8 [facility] Comment on above: Performed By: #### C BC #### [facility] [address] [place] [address] Dr. Renata Finch Monocytes/100 WBC (Bld) 9.0 % Normal 1.7-12.0 [facility] Comment on above: Performed By: #### C BC #### [facility] [address] [place] [address] Dr. Renata Finch NEUT # 3.6 103/ul Normal 1.4-6.5 [facility] Comment on above: Performed By: #### C BC #### [facility] [address] [place] [address] Dr. Renata Finch Neutrophils/100 WBC (Bld) 60.1 % Normal 43.0-75.0 [facility] Comment on above: Performed By: #### C BC #### [facility] [address] [place] [address] Dr. Renata Finch Platelet mean volume (Bld) [Entitic vol] 9.6 fL Normal 9.5-13.5 [facility] Comment on above: Performed By: #### C BC #### [facility] [address] [place] [address] Dr. Renata Finch PLT 319 103/ul Normal 150-450 [facility] Comment on above: Performed By: #### C BC #### [facility] [address] [place] [address] Dr. Renata Finch RBC 4.30 106/ul Normal 4.20-5.40 [facility] Comment on above: Performed By: #### C BC #### [facility] [address] [place] [address] Dr. Renata Finch WBC 6.0 103/ul Normal 4.0-11.0 [facility] Comment on above: Performed By: #### C BC #### [facility] [address] [place] [address] Dr. Renata Finch LIPASEon 02-09-2022 Lipase [Catalytic activity/Vol] 715.0 U/L Critically high 73.0-393.0 [facility] Comment on above: Performed By: #### U MICRO, ERUR #### [facility] [address] [place] [address] Dr. Renata Finch PROF 14(COMP METB)on Albumin [Mass/Vol] 3.5 g/dL Normal 3.4-5.0 [facility] Comment on above: Performed By: #### U MICRO, ERUR #### [facility] [address] [place] [address] Dr. Renata Finch Albumin/Globulin [Mass ratio] 1.0 {ratio} Normal [facility] Comment on above: Performed By: #### U MICRO, ERUR #### [facility] [address] [address] [address] Renata Finch ALP [Catalytic activity/Vol] 48 U/L Normal 46-116 [facility] Comment on above: Performed By: #### U MICRO, ERUR #### [facility] [address] [address] [address] Renata Finch ALT [Catalytic activity/Vol] 19 U/L Normal 14-59 [facility] Comment on above: Performed By: #### U MICRO, ERUR #### [facility] [address] [address] [address] Renata Finch Anion gap [Moles/Vol] 13.0 mmol/L Normal [facility] Comment on above: Performed By: #### U MICRO, ERUR #### [facility] [address] [address] [address] Renata Finch AST [Catalytic activity/Vol] 13 U/L Critically low 15-37 [facility] Comment on above: Performed By: #### U MICRO, ERUR #### [facility] [address] [place] [address] Dr. Renata Finch Bilirubin [Mass/Vol] 0.6 mg/dL Normal 0.2-1.0 [facility] Comment on above: Performed By: #### U MICRO, ERUR #### [facility] [address] [address] [address] Renata Finch Calcium [Mass/Vol] 8.4 mg/dL Critically low 8.5-10.[address] [facility] Comment on above: Performed By: #### U MICRO, ERUR #### [facility] [address] [address] [address] Renata Finch Chloride [Moles/Vol] 102 mmol/L Normal 98-107 [facility] Comment on above: Performed By: #### U MICRO, ERUR #### [facility] [address] [place] [address] Dr. Renata Finch CO2 [Moles/Vol] 26.7 mmol/L Normal 21.0-32.0 [facility] Comment on above: Performed By: #### U MICRO, ERUR #### [facility] [address] [address] [address] Renata Finch Creatinine [Mass/Vol] 0.66 mg/dL Normal 0.55-1.02 [facility] Comment on above: Performed By: #### U MICRO, ERUR #### [facility] [address] [address] [address] Renata Finch EGFR-AF BRUNEIAN >60 Normal >=60 [facility] Comment on above: Performed By: #### U MICRO, ERUR #### [facility] [address] [address] [address] Renata Finch EGFR-NON AF BRUNEIAN >60 Normal >=60 [facility] Comment on above: Performed By: #### U MICRO, ERUR #### [facility] [address] [address] [address] Renata Finch Globulin (S) [Mass/Vol] 3.6 g/dL Normal [facility] Comment on above: Performed By: #### U MICRO, ERUR #### [facility] [address] [address] [address] Renata Finch Glucose [Mass/Vol] 89 mg/dL Normal 74-106 [facility] Comment on above: Performed By: #### U MICRO, ERUR #### [facility] [address] [address] [address] Renata Finch Potassium [Moles/Vol] 3.7 mmol/L Normal 3.5-5.1 [facility] Comment on above: Performed By: #### U MICRO, ERUR #### [facility] [address] [address] [address] Renata Finch Protein [Mass/Vol] 7.1 g/dL Normal 6.1-8.2 [facility] Comment on above: Performed By: #### U MICRO, ERUR #### [facility] [address] [address] [address] Renata Finch Sodium [Moles/Vol] 138 mmol/L Normal 136-145 [facility] Comment on above: Performed By: #### U MICRO, ERUR #### [facility] [address] [address] [address] Renata Finch Urea nitrogen [Mass/Vol] 7.0 mg/dL Normal 6.4-19.3 [facility] Comment on above: Performed By: #### U MICRO, ERUR #### [facility] [address] [address] [address] Renata Finch Urea nitrogen/Creatinine [Mass ratio] 10.6 mg/mg Normal [facility] Comment on above: Performed By: #### U MICRO, ERUR #### [facility] [address] [address] [address] Renata Finch Vital Signs Date Time Vital Sign Value Performing Clinician Facility 07-16-2024 13:27-0400 Body mass index (BMI) [Ratio] 36.06 kg/m2 Lisbet VALENZUELA Work Phone: [facility] 07-16-2024 13:27-0400 Body weight 88 kg Lisbet VALENZUELA Work Phone: [facility] 07-16-2024 13:27-0400 Diastolic blood pressure 70 mm[Hg] Lisbet VALENZUELA Work Phone: [facility] 07-16-2024 13:27-0400 Systolic blood pressure 118 mm[Hg] Lisbet VALENZUELA Work Phone: [facility] 10-20-2022 16:34-0500 Body weight 0 kg MARTINEZ-C Shasha Ramos Work Phone: [facility] 10-20-2022 16:30-0500 Body height 154.94 cm Joe Thomas Other [employer] Other 10-20-2022 16:30-0500 Body mass index (BMI) [Ratio] 30.04 kg/m2 Joe Thomas Other [employer] Other 10-20-2022 16:30-0500 Body weight 72.12 kg Joe Thomas Other [employer] [facility] [employer] Other 10-20-2022 16:30-0500 Diastolic blood pressure 79 mm[Hg] Joe Thomas Other [facility] [employer] Other 10-20-2022 16:30-0500 Systolic blood pressure 122 mm[Hg] Joe Thomas Other [facility] Other 05-04-2022 11:02-0400 Diastolic blood pressure 81 mm[Hg] DO Sandy Hykes Work Phone: [facility] 05-04-2022 11:02-0400 Heart rate 76 /min DO Sandy Hykes Work Phone: [facility] 05-04-2022 11:02-0400 Respiratory rate 18 /min DO Sandy Hykes Work Phone: [facility] 05-04-2022 11:02-0400 SaO2% (BldA) [Mass fraction] 100 % DO Sandy Hykes Work Phone: [facility] 05-04-2022 11:02-0400 Systolic blood pressure 116 mm[Hg] DO Sandy Hykes Work Phone: [facility] 05-04-2022 08:21-0400 Body height 154.94 cm DO Sandy Hykes Work Phone: [facility] 05-04-2022 08:21-0400 Body temperature 98.3 [degF] DO Sandy Hykes Work Phone: [facility] 05-04-2022 08:21-0400 Body weight 68.03 kg DO Sandy Hykes Work Phone: [facility] 04-27-2022 15:45-0400 Body height 154.94 cm Sandy Hykes Other [employer] Other 04-27-2022 15:45-0400 Body mass index (BMI) [Ratio] 28.72 kg/m2 Sandy Camp Other [employer] Other 04-27-2022 15:45-0400 Body weight 68.95 kg Sandy Camp Other [employer] Other Encounters Encounter Date Encounter Type Care Provider Facility Start: 07-19-2024 End: 07-19-2024 ambulatory Valentine Estrella Facility:[facility] Start: 07-16-2024 End: 07-16-2024 Office outpatient [...] NICOLE Facility: Start: 12-05-2022 End: 12-05-2022 ambulatory FOUNDRY FINISHER-C Shasha Ramos Work Phone: [facility] Work Phone: Start: 12-05-2022 End: 12-05-2022 Patient encounter procedure FOUNDRY FINISHER-C Shasha Ramos Work Phone: [facility] [employer] Work Phone: Start: 11-10-2022 End: 11-10-2022 ambulatory Joe Thomas Other [employer] Other Start: 11-10-2022 Telephone encounter Joe Sandoval isi [facility] Start: 11-08-2022 End: 11-08-2022 ambulatory SHASHA RICHARD Facility:[facility] Start: 11-02-2022 End: 11-02-2022 Patient encounter procedure FOUNDRY FINISHER-C hSasha Ramos Work Phone: [facility] Work Phone: Start: 10-20-2022 End: 10-20-2022 ambulatory Joe Thomas Other [employer] Other Start: 10-20-2022 Office outpatient visit 25 minutes Joe William [facility] Start: 09-12-2022 End: 09-12-2022 ambulatory Joe Thomas Other [employer] Other Start: 09-12-2022 Telephone encounter Joe Sandoval isi [facility] Start: 08-02-2022 End: 08-02-2022 ambulatory BENI BRIA Facility:[facility] Start: 08-01-2022 End: 08-01-2022 ambulatory Joe William Other [employer] Other Start: 08-01-2022 Telephone encounter Joe Horacioajay snowden [facility] Start: 05-09-2022 End: 05-09-2022 ambulatory Sandy Camp Other [employer] Other Start: 05-09-2022 Telephone encounter Sandy Camp [facility] Start: 05-04-2022 End: 05-04-2022 Admission to same day surgery center DO Sandy Camp Work Phone: [facility] Start: 05-02-2022 End: 05-02-2022 Patient encounter procedure DO Sandy Camp Work Phone: [facility] Start: 04-29-2022 End: 04-29-2022 ambulatory SHASHAPAUL BURTONMER Facility:[facility] Start: 04-27-2022 End: 04-27-2022 ambulatory Sandy Camp Other [facility] [employer] Other Start: 04-27-2022 Office outpatient ne w 45 minutes Sandy Camp [facility] Start: 02-12-2022 End: 02-13-2022 ambulatory SHASHA RAMOS Facility:[facility] Start: 02-09-2022 End: 02-10-2022 ambulatory SHASHA RAMOS Facility:[facility] Procedures Date Procedure Procedure Detail Performing Clinician Start: 07-16-2024 Urnls dip stick/tablet rgnt non-auto w/o micrscp Lisbet VALENZUELA Work Phone: Start: 11-02-2022 Capsule endoscopy FOUNDRY FINISHER-C Shasha Ramos Work Phone: Start: 05-04-2022 Esophagogastroduodenoscopy DO Sandy camarena Work Phone: Plan of Treatment Date Care Activity Detail Author Start: 07-24-2024 End: 07-24-2024 Patient encounter procedure 07/24/2024 1:00 PM EDT Routine [facility] OB [address] [place] [address] Lisbet Rothman PA [address] [place] [address] [facility] Start: 07-16-2024 End: 07-16-2025 Strep B DNA probe, amplification Strep B DNA probe, amplification Lab Routine Third trimester 35 weeks gestation of Expected: 07/16/2024 (Approximate), Expires: 07/16/2025 [facility] Work Phone: Comment on above: Expected: 07/16/2024 (Approximate), Expires: 07/16/2025 Start: 11-02-2022 [facility] Start: 05-04-2022 [facility] Work Phone: Payers Date Payer Category Payer Self-pay [id number] 2023 Medicaid [id number] 2002 Unknown [id number] 2.16.84 [id number] 2002 Unknown [id number] 2.16.84 0.1.345775.3.579.2.593 2002 Unknown [id number] 2.16.84 0.1.240749.3.579.2.593 2002 Unknown [id number] 2.16.84 0.1.541683.3.579.2.593 2002 Unknown [id number] 2.16.84 0.1.164943.3.579.2.593 2002 Unknown [id number] 2.16.84 0.1.902248.3.579.2.593 2002 Unknown [id number] 2.16.84 0.1.169971.3.579.2.1259 2002 Unknown [id number] 2.16.84 0.1.555485.3.579.2.1259 2002 Unknown [id number] 2.16.84 0.1.969575.3.579.2.1259 2002 Unknown [id number] 2.16.84 0.1.436546.3.579.2.1259 2002 Unknown [id number] 2.16.84 0.1.332688.3.579.2.1259 2002 Unknown [id number] 2.16.84 0.1.614781.3.579.2.1259 2002 Unknown [id number] 2.16.84 0.1.846694.3.579.2.1259 2002 Unknown [id number] 2.16.84 0.1.688282.3.579.2.1259 1959 Unknown [id number] 2. [id number] Medicaid [id number] 2.1 [id number] Unknown [id number] 2.16.8 [id number] Social History Date Type Detail Facility Start: 04-09-2024 Sex Assigned At N [facility] [employer] Other Start: 05-04-2022 End: 04-09-2024 Tobacco smoking status NHIS Never smoked tobacco (finding) [facility] Start: 2000 Sex Assigned At Female [facility] Start: 04-09-2024 Tobacco use and exposure [...] of lumen evaluation Video capsule endoscopy system ()[id number] [facility] Start: 11-02-2022 Goals Date Patient Goal Desired [...] of: BIANCA Cheema documented in this encounter [facility] 10-20-2022 Evaluation note Encounter Date Diagnosis Assessment Notes Oct, Diarrhea (ICD-10 - R19.7) Oct, Nausea & vomiting (ICD-10 - R11.2) capsule endoscopy to be done at [facility] Patient to have labs and stool studies done. Oct, Abdominal pain (ICD-10 - R10.9) [employer] Other 11-28-2022 Evaluation note* Encounter Date Diagnosis Assessment Notes Treatment Notes Treatment Clinical Notes Aug, LUQ abdominal pain (ICD-10 - R10.12) [employer] Other [facility]* Encounter Date Diagnosis Assessment Notes Treatment Notes Treatment Clinical Notes Apr, LUQ abdominal pain (ICD-10 - R10.12) START TRIAL OF CARAFATE 1 GRAM TID EGD/ COLONOSCOPY Apr, Nausea & vomiting (ICD-10 - R11.2) Apr, Diarrhea (ICD-10 - R19.7) Apr, Weight loss (ICD-10 - R63.4) [employer] Other Evaluation note* Diagnosis Onset Date Resolution Status Abdominal pain acute Diarrhea acute Nausea and vomiting acute [facility] Work Phone: Evaluation noteNo InformationNort [employer] Other Evaluation noteNo assessment information available [facility] Work Phone: Evaluation note* Diagnosis Third trimester state, incidental 35 weeks gestation of documented in this encounter [facility] Author Sandy Camp [facility] May 04, 2022 10:08am Note Date/Time May 04, 2022 10:0 4am [facility] [address] [place] [address] Gastroenterology H&P Signed Patient: Marlin Hewitt MR#: [id number] : 2000 Acct:[id number] Age/Sex: 21 / F Adm Date: 2 Loc: Room: Type: [facility] Attending Dr: Sandy Camp DO [...] by Sandy Camp Jr, DO> 05/04/[address] 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 [facility] provides no warranty or guarantee of the accuracy or completeness of information in this document.
== END 2024-07-20 19:55 | disposition home or self-care (01) | DRG 560 ==
PROVIDERS: Admitting Provider Obstetrics & Gynecology; PCP Nurse Practitioner Family; Visit Provider Obstetrics & Gynecology
DX: O42.013 Preterm premature rupture of membranes, onset of labor within 24 hours of rupture, third trimester (principal); Z3A.36 36 weeks gestation of pregnancy; Z37.0 Single live birth; O62.3 Precipitate labor; O70.0 First degree perineal laceration during delivery; O99.324 Drug use complicating childbirth; F12.90 Cannabis use, unspecified, uncomplicated; O75.89 Other specified complications of labor and delivery; R11.2 Nausea with vomiting, unspecified
CPT/HCPCS: 36415; 59050; 59410; 80307; 84112; 85025; 85027; 86850; 86900; 86901; 87081; 87150; 88307; J2250; J2300; J2405; J2540; J2795; Q0169

== ENCOUNTER 2024-07-23 08:33 | Outpatient (OUT) | payer MEDICAID, SELFPAY ==
--- OUTSIDE RECORDS SUMMARY | 2024-07-23 08:46 | XMS_ITS | CCD ---
Author Organization [facility] ion [facility] Care Team Providers Care Marketing Content Specialist Name Role Phone Sandy Camp Unavailable DO Sandy Camp Attending Provider LANCE Ramos Primary Care Provider Joe Thomas Unavailable LANCE Ramos Primary Care Provider MD Joe Thomas Attending Provider RICHARD, SHASHA [...] Facility (6 sources) Codeine Drug Allergy Unknown [place] [facility] Other (1 source) Codeine Drug Allergy 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 re Color, [facility], [facility] Negative Negative - 1999(110) ++++ mg/dL [facility] Interpretation and review of laboratory results Normal [facility] Ketones, UA Negative Negative - 160(16) ++++ mg/dL [facility] Leukocytes, UA Trace Negative - 500+++ Erinn/mcL [facility] Nitrite, UA Negative Negative - Positive [facility] pH, UA 6.5 5 - 9 [facility] e Protein, UA Negative Negative - 1999(20) ++++ mg/dL [facility] Spec Grav, UA 1.020 1 - 1.03 [facility] Urobilinogen, UA 1.0 0.2 - 12 mg/dL [facility] CHLAMYDIA/GONOCOCCUS LORETO (SW AB/URINE/PAPon 02-02-2023 Chlamydia trachomatis, LORETO Negative Normal Negative [facility] Comment on above: Performed By: #### C BC #### [facility] [address] [place] [address] Dr. Renata Finch Neisseria gonorrhoeae, LORETO Negative Normal Negative [facility] Comment on above: Performed By: #### C BC #### [facility] [address] [place] [address] Dr. Renata Finch VAGINITIS/VAGINOSIS DNA PROB Kar 02-01-2023 Chelle species Negative Normal Negative [facility] Comment on above: Performed By: #### C BC #### [facility] [address] [place] [address] Dr. Renata Finch Gardnerella vaginalis Negative Normal Negative [facility] Comment on above: Performed By: #### C BC #### [facility] [address] [place] [address] Dr. Renata Finch Trichomonas vaginalis Negative Normal Negative [facility] Comment on above: Performed By: #### C BC #### [facility] [address] [place] [address] Dr. Renata Finch CBC AUTO DIFFon 11-08-2022 BASO # 0.0 103/ul Normal 0.0-0.1 [facility] Comment on above: Performed By: #### U MICRO, ERUR #### [facility] [address] [place] [address] Dr. Renata Finch Basophils/100 WBC (Bld) 0.4 % Normal 0.2-2.0 [facility] Comment on above: Performed By: #### U MICRO, ERUR #### [facility] [address] [place] [address] Dr. Renata Finch EO # 0.0 103/ul Normal 0.0-0.7 [facility] Comment on above: Performed By: #### U MICRO, ERUR #### [facility] [address] [place] [address] Dr. Renata Finch Eosinophils/100 WBC (Bld) 0.1 % Critically low 0.9-7.0 [facility] Comment on above: Performed By: #### U MICRO, ERUR #### [facility] [address] [place] [address] Dr. Renata Finch Erythrocyte distribution width (RBC) [Ratio] 13.6 % Normal 11.0-15.0 [facility] Comment on above: Performed By: #### U MICRO, ERUR #### [facility] [address] [place] [address] Dr. Renata Finch Hematocrit (Bld) [Volume fraction] 41.5 % Normal 36.0-48.0 [facility] Comment on above: Performed By: #### U MICRO, ERUR #### [facility] [address] [place] [address] Dr. Renata Finch Hemoglobin (Bld) [Mass/Vol] 13.6 g/dL Normal 12.0-16.0 [facility] Comment on above: Performed By: #### U MICRO, ERUR #### [facility] [address] [place] [address] Dr. Renata Finch IG # 0.03 10e3/ul Normal 0.00-0.03 [facility] Comment on above: Performed By: #### U MICRO, ERUR #### [facility] [address] [address] [address] Renata Finch IG % 0.3 % Normal 0.0-0.5 [facility] Comment on above: Performed By: #### U MICRO, ERUR #### [facility] [address] [address] [address] Renata Finch LYMPH # 1.7 103/ul Normal 1.2-3.8 [facility] Comment on above: Performed By: #### U MICRO, ERUR #### [facility] [address] [place] [address] Dr. Renata Finch Lymphocytes/100 WBC (Bld) 19.5 % Critically low 20.5-60.0 [facility] Comment on above: Performed By: #### U MICRO, ERUR #### [facility] [address] [place] [address] Dr. Renata Finch MANUAL DIFF REQ NO Normal [facility] Comment on above: Performed By: #### U MICRO, ERUR #### [facility] [address] [place] [address] Dr. Renata Finch MCH (RBC) [Entitic mass] 27.0 pg Normal 26.7-34.0 [facility] Comment on above: Performed By: #### U MICRO, ERUR #### [facility] [address] [address] [address] Renata Finch MCHC (RBC) [Mass/Vol] 32.8 g/dL Normal 29.9-35.2 [facility] Comment on above: Performed By: #### U MICRO, ERUR #### [facility] [address] [place] [address] Dr. Renata Finch MCV (RBC) [Entitic vol] 82.5 fL Normal 81.0-99.0 [facility] Comment on above: Performed By: #### U MICRO, ERUR #### [facility] [address] [address] [address] Renata Finch MONO # 0.5 103/ul Normal 0.3-0.[address] [facility] Comment on above: Performed By: #### U MICRO, ERUR #### [facility] [address] [place] [address] Dr. Renata Finch Monocytes/100 WBC (Bld) 6.1 % Normal 1.7-12.[address] [facility] Comment on above: Performed By: #### U MICRO, ERUR #### [facility] [address] [place] [address] Dr. Renata Finch NEUT # 6.6 103/ul Critically high 1.4-6.5 [facility] Comment on above: Performed By: #### U MICRO, ERUR #### [facility] [address] [place] [address] Dr. Renata Finch Neutrophils/100 WBC (Bld) 73.6 % Normal 43.0-75.[address] [facility] Comment on above: Performed By: #### U MICRO, ERUR #### [facility] [address] [place] [address] Dr. Renata Finch Platelet mean volume (Bld) [Entitic vol] 9.5 fL Normal 9.5-13.[address] [facility] Comment on above: Performed By: #### U MICRO, ERUR #### [facility] [address] [place] [address] Dr. Renata Finch PLT 417 103/ul Normal 150-[address] [facility] Comment on above: Performed By: #### U MICRO, ERUR #### [facility] [address] [place] [address] Dr. Renata Finch RBC 5.03 106/ul Normal 4.20-5.[address] [facility] Comment on above: Performed By: #### U MICRO, ERUR #### [facility] [address] [place] [address] Dr. Renata Finch WBC 8.9 103/ul Normal 4.0-11.[address] [facility] Comment on above: Performed By: #### U MICRO, ERUR #### [facility] [address] [address] [address] Renata Finch DRUG SCREEN RAPID (URINE)on 11-08-2022 AMP Negative Normal NEGATIVE [facility] Comment on above: Performed By: #### E RUR, UMICRO, DRUGRPD, PREGU #### [facility] [address] [address] [address] Renata Finch BAR Negative Normal NEGATIVE [facility] Comment on above: Performed By: #### E RUR, UMICRO, DRUGRPD, PREGU #### [facility] [address] [address] [address] Renata Finch BUP Negative Normal NEGATIVE [facility] Comment on above: Performed By: #### E RUR, UMICRO, DRUGRPD, PREGU #### [facility] [address] [address] [address] Renata Finch BZO Negative Normal NEGATIVE [facility] Comment on above: Performed By: #### E RUR, UMICRO, DRUGRPD, PREGU #### [facility] [address] [address] [address] Renata Finch DOM Negative Normal NEGATIVE [facility] Comment on above: Performed By: #### E RUR, UMICRO, DRUGRPD, PREGU #### [facility] [address] [address] [address] Renata Finch CUT-OFFS SEE BELOW Normal [facility] Comment on above: Result Comment: [...] #### E RUR, UMICRO, DRUGRPD, PREGU #### [facility] [address] [address] [address] Renata Finch DRUG CUT HEADER DRUG CLASS TEST SYSTEM CUT-OFF CONCENTRATIONS ARE FOLLOWS: Normal [facility] Comment on above: Performed By: #### E RUR, UMICRO, DRUGRPD, PREGU #### [facility] [address] [address] [address] Renata Finch mAMP Negative Normal NEGATIVE [facility] Comment on above: Performed By: #### E RUR, UMICRO, DRUGRPD, PREGU #### [facility] [address] [address] [address] Renata Finch MTD Negative Normal NEGATIVE [facility] Comment on above: Performed By: #### E RUR, UMICRO, DRUGRPD, PREGU #### [facility] [address] [address] [address] Renata Finch OPI Negative Normal NEGATIVE [facility] Comment on above: Performed By: #### E RUR, UMICRO, DRUGRPD, PREGU #### [facility] [address] [address] [address] Renata Finch OXY Negative Normal NEGATIVE [facility] Comment on above: Performed By: #### E RUR, UMICRO, DRUGRPD, PREGU #### [facility] [address] [address] [address] Renata Finch PCP Negative Normal NEGATIVE [facility] Comment on above: Performed By: #### E RUR, UMICRO, DRUGRPD, PREGU #### [facility] [address] [address] [address] Renata Finch PPX Negative Normal NEGATIVE [facility] Comment on above: Performed By: #### E RUR, UMICRO, DRUGRPD, PREGU #### [facility] [address] [address] [address] Renata Finch TCA Negative Normal NEGATIVE [facility] Comment on above: Performed By: #### E RUR, UMICRO, DRUGRPD, PREGU #### [facility] [address] [address] [address] Renata Finch THC Positive Abnormal NEGATIVE [facility] Comment on above: Performed By: #### E RUR, UMICRO, DRUGRPD, PREGU #### [facility] [address] [address] [address] Renata Finch ER URINE PROFILEon 3 Bilirubin Ql (U) MODERATE Abnormal NEGATIVE [facility] Comment on above: Performed By: #### E RUR, UMICRO, DRUGRPD, PREGU #### [facility] [address] [address] [address] Renata Finch Clarity (U) CLEAR Normal CLEAR [facility] Comment on above: Performed By: #### E RUR, UMICRO, DRUGRPD, PREGU #### [facility] [address] [address] [address] Renata Finch Color (U) YELLOW Normal YELLOW [facility] Comment on above: Performed By: #### E RUR, UMICRO, DRUGRPD, PREGU #### [facility] [address] [address] [address] Renata WU A micrscopic examination will be performed if indicated. Normal [facility] Comment on above: Performed By: #### E RUR, UMICRO, DRUGRPD, PREGU #### [facility] [address] [address] [address] Renata Finch Glucose Ql (U) Negative Normal NEGATIVE [facility] Comment on above: Performed By: #### E RUR, UMICRO, DRUGRPD, PREGU #### [facility] [address] [address] [address] Renata Finch Hemoglobin Ql (U) TRACE-INTACT Abnormal NEGATIVE [facility] Comment on above: Performed By: #### E RUR, UMICRO, DRUGRPD, PREGU #### [facility] [address] [address] [address] Renata Finch Ketones Ql (U) >=80 Abnormal NEGATIVE [facility] Comment on above: Performed By: #### E RUR, UMICRO, DRUGRPD, PREGU #### [facility] [address] [address] [address] Renata Finch LEUKOCYTES Negative Normal NEGATIVE [facility] Comment on above: Performed By: #### E RUR, UMICRO, DRUGRPD, PREGU #### [facility] [address] [address] [address] Renata Finch Nitrite Ql (U) Negative Normal NEGATIVE [facility] Comment on above: Performed By: #### E RUR, UMICRO, DRUGRPD, PREGU #### [facility] [address] [place] [address] Dr. Renata Finch pH (U) 6.5 [pH] Normal 5-9 [facility] Comment on above: Performed By: #### E RUR, UMICRO, DRUGRPD, PREGU #### [facility] [address] [place] [address] Dr. Renata Finch SPEC GRAVITY 1.025 Normal 1.005-<=1.025 [facility] Comment on above: Performed By: #### E RUR, UMICRO, DRUGRPD, PREGU #### [facility] [address] [address] [address] Renata Finch UA PROTEIN TRACE Normal NEGATIVE/ TRACE [facility] Comment on above: Performed By: #### E RUR, UMICRO, DRUGRPD, PREGU #### [facility] [address] [address] [address] Renata Finch UR MICRO IND INDICATED Normal [facility] Comment on above: Performed By: #### E RUR, UMICRO, DRUGRPD, PREGU #### [facility] [address] [place] [address] Dr. Renata Finch Urobilinogen Qn (U) 1.0 {Gabrielle'U}/dL Normal 0.2 - 1. 0 [facility] Comment on above: Performed By: #### E RUR, UMICRO, DRUGRPD, PREGU #### [facility] [address] [address] [address] Renata Finch URon 11-08-2022 , QUAL Negative Normal NEGATIVE [facility] Comment on above: Performed By: #### E RUR, UMICRO, DRUGRPD, PREGU #### [facility] [address] [address] [address] Renata Finch PROF CHEM 8 (BAS METB)on Anion gap [Moles/Vol] 16.5 mmol/L Normal [facility] Comment on above: Performed By: #### B MP #### [facility] [address] [address] [address] Renata Finch Calcium [Mass/Vol] 9.7 mg/dL Normal 8.5-10.1 [facility] Comment on above: Performed By: #### B MP #### [facility] [address] [address] [address] Renata Finch Chloride [Moles/Vol] 97 mmol/L Critically low 98-107 [facility] Comment on above: Performed By: #### B MP #### [facility] [address] [address] [address] Renata Finch CO2 [Moles/Vol] 26.3 mmol/L Normal 21.0-32.0 [facility] Comment on above: Performed By: #### B MP #### [facility] [address] [address] [address] Renata Finch Creatinine [Mass/Vol] 0.71 mg/dL Normal 0.55-1.02 [facility] Comment on above: Performed By: #### B MP #### [facility] [address] [address] [address] Renata Finch EGFR-AF GUAMANIAN >60 Normal >=60 [facility] Comment on above: Performed By: #### B MP #### [facility] [address] [address] [address] Renata Finch EGFR-NON AF GUAMANIAN >60 Normal >=60 [facility] Comment on above: Performed By: #### B MP #### [facility] [address] [address] [address] Renata Finch Glucose [Mass/Vol] 86 mg/dL Normal 74-106 [facility] Comment on above: Performed By: #### B MP #### [facility] [address] [address] [address] Renata Finch Potassium [Moles/Vol] 2.8 mmol/L Critically low 3.5-5.[address] [facility] Comment on above: Performed By: #### B MP #### [facility] [address] [address] [address] Renata Finch Sodium [Moles/Vol] 137 mmol/L Normal 136-145 [facility] Comment on above: Performed By: #### B MP #### [facility] [address] [address] [address] Renata Finch Urea nitrogen [Mass/Vol] 7.0 mg/dL Normal 7.0-18.[address] [facility] Comment on above: Performed By: #### B MP #### [facility] [address] [address] [address] Renata Finch Urea nitrogen/Creatinine [Mass ratio] 9.9 mg/mg Normal [facility] Comment on above: Performed By: #### B MP #### [facility] [address] [address] [address] Renata Finch URINE MICROSCOPIC ONLYon BACTERIA TRACE Abnormal NONE SEEN [facility] Comment on above: Performed By: #### E MIKAEL MCDANIEL DRUGRPD, PREGU #### [facility] [address] [place] [address] Dr. Renata Finch Bacteria identified Cx Nom (U) NOT INDICATED Normal [facility] Comment on above: Performed By: #### MIKAEL GONSALEZ DRUGRPD, PREGU #### [facility] [address] [address] [address] Renata Finch CAST NONE SEEN Normal NONE SEEN [facility] Comment on above: Performed By: #### MIKAEL GONSALEZ DRUGRPD, PREGU #### [facility] [address] [place] [address] Dr. Renata Finch Crystals LM Nom (Urine sed) NONE SEEN Normal NONE SEEN [facility] Comment on above: Performed By: #### E RUR, UMICRO, DRUGRPD, PREGU #### [facility] [address] [place] [address] Dr. Renata Finch Epithelial cells LM Ql (Urine sed) FEW Abnormal NONE SEEN /RARE [facility] Comment on above: Performed By: #### E RUR, UMICRO, DRUGRPD, PREGU #### [facility] [address] [place] [address] Dr. Renata Finch MUCOUS TRACE Abnormal NONE SEEN [facility] Comment on above: Performed By: #### E RUR, UMICRO, DRUGRPD, PREGU #### [facility] [address] [place] [address] Dr. Renata Finch RBC 0-2 Normal 0-[address] [facility] Comment on above: Performed By: #### E RUR, UMICRO, DRUGRPD, PREGU #### [facility] [address] [place] [address] Dr. Renata Ficnh WBC 0-2 Abnormal NONE SEEN [facility] Comment on above: Performed By: #### E RUR, UMICRO, DRUGRPD, PREGU #### [facility] [address] [place] [address] Dr. Renata Finch AMYLASEon 08-02-2022 Amylase [Catalytic activity/Vol] 45 U/L Normal 25-[address] [facility] Comment on above: Performed By: #### U MICRO, ERUR #### [facility] [address] [place] [address] Dr. Renata Finch CBC AUTO DIFFon 08-02-2022 BASO # 0.0 103/ul Normal 0.0-0.1 [facility] Comment on above: Performed By: #### C BC #### [facility] [address] [place] [address] Dr. Renata Finch Basophils/100 WBC (Bld) 0.4 % Normal 0.2-2.[address] [facility] Comment on above: Performed By: #### C BC #### [facility] [address] [address] [address] Renata Finch EO # 0.0 103/ul Normal 0.0-0.[address] [facility] Comment on above: Performed By: #### C BC #### [facility] [address] [place] [address] Dr. Renata Finch Eosinophils/100 WBC (Bld) 0.3 % Critically low 0.9-7.0 [facility] Comment on above: Performed By: #### C BC #### [facility] [address] [place] [address] Dr. Renata Finch Erythrocyte distribution width (RBC) [Ratio] 13.9 % Normal 11.0-15.0 [facility] Comment on above: Performed By: #### C BC #### [facility] [address] [place] [address] Dr. Renata Finch Hematocrit (Bld) [Volume fraction] 43.5 % Normal 36.0-48.0 [facility] Comment on above: Performed By: #### C BC #### [facility] [address] [place] [address] Dr. Renata Finch Hemoglobin (Bld) [Mass/Vol] 13.9 g/dL Normal 12.0-16.0 [facility] Comment on above: Performed By: #### C BC #### [facility] [address] [place] [address] Dr. Renata Finch IG # 0.01 10e3/ul Normal 0.00-0.03 [facility] Comment on above: Performed By: #### C BC #### [facility] [address] [place] [address] Dr. Renata Finch IG % 0.1 % Normal 0.0-0.[address] [facility] Comment on above: Performed By: #### C BC #### [facility] [address] [place] [address] Dr. Renata Finch LYMPH # 1.2 103/ul Normal 1.2-3.[address] [facility] Comment on above: Performed By: #### C BC #### [facility] [address] [place] [address] Dr. Renata Finch Lymphocytes/100 WBC (Bld) 15.9 % Critically low 20.5-60.0 [facility] Comment on above: Performed By: #### C BC #### [facility] [address] [place] [address] Dr. Renata Finch MANUAL DIFF REQ NO Normal [facility] Comment on above: Performed By: #### C BC #### [facility] [address] [place] [address] Dr. Renata Finch MCH (RBC) [Entitic mass] 26.5 pg Critically low 26.7-34.0 [facility] [facility] Comment on above: Performed By: #### C BC #### [facility] [address] [place] [address] Dr. Renata Finch MCHC (RBC) [Mass/Vol] 32.0 g/dL Normal 29.9-35.2 [facility] Comment on above: Performed By: #### C BC #### [facility] [address] [place] [address] Dr. Renata Finch MCV (RBC) [Entitic vol] 83.0 fL Normal 81.0-99.0 [facility] Comment on above: Performed By: #### C BC #### [facility] [address] [place] [address] Dr. Renata Finch MONO # 0.5 103/ul Normal 0.3-0.[address] [facility] Comment on above: Performed By: #### C BC #### [facility] [address] [place] [address] Dr. Renata Finch Monocytes/100 WBC (Bld) 6.1 % Normal 1.7-12.[address] [facility] Comment on above: Performed By: #### C BC #### [facility] [address] [place] [address] Dr. Renata Finch NEUT # 5.8 103/ul Normal 1.4-6.[address] [facility] Comment on above: Performed By: #### C BC #### [facility] [address] [place] [address] Dr. Renata Finch Neutrophils/100 WBC (Bld) 77.2 % Critically high 43.0-75.0 [facility] Comment on above: Performed By: #### C BC #### [facility] [address] [place] [address] Dr. Renata Finch Platelet mean volume (Bld) [Entitic vol] 9.9 fL Normal 9.5-13.5 [facility] Comment on above: Performed By: #### C BC #### [facility] [address] [place] [address] Dr. Renata Finch PLT 416 103/ul Normal 150-[address] [facility] Comment on above: Performed By: #### C BC #### [facility] [address] [place] [address] Dr. Renata Finch RBC 5.24 106/ul Normal 4.20-5.[address] [facility] Comment on above: Performed By: #### C BC #### [facility] [address] [place] [address] Dr. Renata Finch WBC 7.6 103/ul Normal 4.0-11.[address] [facility] Comment on above: Performed By: #### C BC #### [facility] [address] [place] [address] Dr. Renata Finch Covid-19 PCR ([facility])on 07-16 SARS-CoV-2 (COVID-19) RNA LORETO+probe Ql (Unsp spec) Not detected Normal NOT DETECTED [facility] Comment on above: Result Comment: [...] for this test is supported by the Mathematics Department Chair of Health and Human Service's declaration that [...] used). Performed By: #### C VDTB #### [facility] [address] [place] [address] Dr. Renata Finch ER URINE PROFILEon 2 Bilirubin Ql (U) SMALL Abnormal NEGATIVE [facility] Comment on above: Performed By: #### C BC #### [facility] [address] [place] [address] Dr. Renata Finch Clarity (U) CLEAR Normal CLEAR [facility] Comment on above: Performed By: #### C BC #### [facility] [address] [place] [address] Dr. Renata Finch Color (U) BROWN Abnormal YELLOW [facility] Comment on above: Performed By: #### C BC #### [facility] [address] [place] [address] Dr. Renata Finch ERUAHD A micrscopic examination will be performed if indicated. Normal [facility] Comment on above: Performed By: #### C BC #### [facility] [address] [place] [address] Dr. eRnata Finch Glucose Ql (U) Negative Normal NEGATIVE [facility] Comment on above: Performed By: #### C BC #### [facility] [address] [place] [address] Dr. Renata Finch Hemoglobin Ql (U) LARGE Abnormal NEGATIVE [facility] Comment on above: Performed By: #### C BC #### [facility] [address] [place] [address] Dr. Renata Finch Ketones Ql (U) >=80 Abnormal NEGATIVE [facility] Comment on above: Performed By: #### C BC #### [facility] [address] [place] [address] Dr. Renata Finch LEUKOCYTES Negative Normal NEGATIVE [facility] Comment on above: Performed By: #### C BC #### [facility] [address] [place] [address] Dr. Renata Finch Nitrite Ql (U) Negative Normal NEGATIVE [facility] Comment on above: Performed By: #### C BC #### [facility] [address] [place] [address] Dr. Renata Finch pH (U) 7.0 [pH] Normal 5-9 [facility] Comment on above: Performed By: #### C BC #### [facility] [address] [place] [address] Dr. Renata Finch Protein (U) [Mass/Vol] 30 mg/dL Abnormal NEGATIVE/ TRACE [facility] Comment on above: Performed By: #### C BC #### [facility] [address] [place] [address] Dr. Renata Finch SPEC GRAVITY 1.025 Normal 1.005-<=1.025 [facility] Comment on above: Performed By: #### C BC #### [facility] [address] [place] [address] Dr. Renata Finch UR MICRO IND INDICATED Normal [facility] Comment on above: Performed By: #### C BC #### [facility] [address] [place] [address] Dr. Renata Finch Urobilinogen Qn (U) 1.0 {Gabrielle'U}/dL Normal 0.2 - 1. 0 [facility] Comment on above: Performed By: #### C BC #### [facility] [address] [place] [address] Dr. Renata Finch LACTATE/LACTIC ACIDon 2021 Lactate [Moles/Vol] 1.2 mmol/L Normal 0.4-1.9 [facility] Comment on above: Performed By: #### U MICRO, ERUR #### [facility] [address] [place] [address] Dr. Renata Finch LIPASEon 08-02-2022 Lipase [Catalytic activity/Vol] 66.0 U/L Critically low 73.0-393.0 [facility] Comment on above: Performed By: #### U MICRO, ERUR #### [facility] [address] [address] [address] Renata Finch URon 08-02-2022 , QUAL Negative Normal NEGATIVE [facility] Comment on above: Performed By: #### C BC #### [facility] [address] [address] [address] Renata Finch PROF 14(COMP METB)on 022 Albumin [Mass/Vol] 4.1 g/dL Normal 3.4-5.0 [facility] Comment on above: Performed By: #### U MICRO, ERUR #### [facility] [address] [address] [address] Renata Finch Albumin/Globulin [Mass ratio] 1.0 {ratio} Normal [facility] Comment on above: Performed By: #### U MICRO, ERUR #### [facility] [address] [address] [address] Renata Finch ALP [Catalytic activity/Vol] 53 U/L Normal 46-116 [facility] Comment on above: Performed By: #### U MICRO, ERUR #### [facility] [address] [address] [address] Renata Finch ALT [Catalytic activity/Vol] 42 U/L Normal 14-59 [facility] Comment on above: Performed By: #### U MICRO, ERUR #### [facility] [address] [address] [address] Renata Finch Anion gap [Moles/Vol] 11.8 mmol/L Normal [facility] Comment on above: Performed By: #### U MICRO, ERUR #### [facility] [address] [address] [address] Renata Finch AST [Catalytic activity/Vol] 22 U/L Normal 15-37 [facility] Comment on above: Performed By: #### U MICRO, ERUR #### [facility] [address] [address] [address] Renata Finch Bilirubin [Mass/Vol] 1.0 mg/dL Normal 0.2-1.0 [facility] Comment on above: Performed By: #### U MICRO, ERUR #### [facility] [address] [address] [address] Renata Finch Calcium [Mass/Vol] 9.5 mg/dL Normal 8.5-10.1 [facility] Comment on above: Performed By: #### U MICRO, ERUR #### [facility] [address] [address] [address] Renata Finch Chloride [Moles/Vol] 101 mmol/L Normal 98-107 [facility] Comment on above: Performed By: #### U MICRO, ERUR #### [facility] [address] [address] [address] Renata Finch CO2 [Moles/Vol] 29.5 mmol/L Normal 21.0-32.0 [facility] Comment on above: Performed By: #### U MICRO, ERUR #### [facility] [address] [place] [address] Dr. Renata Finch Creatinine [Mass/Vol] 0.85 mg/dL Normal 0.55-1.02 [facility] Comment on above: Performed By: #### U MICRO, ERUR #### [facility] [address] [place] [address] Dr. Renata Finch EGFR-AF GUAMANIAN >60 Normal >=60 [facility] Comment on above: Performed By: #### U MICRO, ERUR #### [facility] [address] [address] [address] Renata Finch EGFR-NON AF GUAMANIAN >60 Normal >=60 [facility] Comment on above: Performed By: #### U MICRO, ERUR #### [facility] [address] [address] [address] Renata Finch Globulin (S) [Mass/Vol] 4.2 g/dL Normal [facility] Comment on above: Performed By: #### U MICRO, ERUR #### [facility] [address] [address] [address] Renata Finch Glucose [Mass/Vol] 119 mg/dL Critically high 74-106 [facility] Comment on above: Performed By: #### U MICRO, ERUR #### [facility] [address] [place] [address] Dr. Renata Finch Potassium [Moles/Vol] 3.3 mmol/L Critically low 3.5-5.1 [facility] Comment on above: Performed By: #### U MICRO, ERUR #### [facility] [address] [place] [address] Dr. Renata Finch Protein [Mass/Vol] 8.3 g/dL Critically high 6.4-8.2 [facility] Comment on above: Performed By: #### U MICRO, ERUR #### [facility] [address] [place] [address] Dr. Renata Finch Sodium [Moles/Vol] 139 mmol/L Normal 136-145 [facility] Comment on above: Performed By: #### U MICRO, ERUR #### [facility] [address] [place] [address] Dr. Renata Finch Urea nitrogen [Mass/Vol] 6.0 mg/dL Critically low 6.4-19.3 [facility] Comment on above: Performed By: #### U MICRO, ERUR #### [facility] [address] [place] [address] Dr. Renata Finch Urea nitrogen/Creatinine [Mass ratio] 7.1 mg/mg Normal [facility] Comment on above: Performed By: #### U MICRO, ERUR #### [facility] [address] [place] [address] Dr. Renata Finch URINE MICROSCOPIC ONLYon BACTERIA NONE SEEN Normal NONE SEEN [facility] Comment on above: Performed By: #### C BC #### [facility] [address] [place] [address] Dr. Renata Finch Bacteria identified Cx Nom (U) NOT INDICATED Normal [facility] Comment on above: Performed By: #### C BC #### [facility] [address] [place] [address] Dr. Renata Finch CAST NONE SEEN Normal NONE SEEN [facility] Comment on above: Performed By: #### C BC #### [facility] [address] [address] [address] Renata Finch Crystals LM Nom (Urine sed) NONE SEEN Normal NONE SEEN [facility] Comment on above: Performed By: #### C BC #### [facility] [address] [address] [address] Renata Finch Epithelial cells LM Ql (Urine sed) NONE SEEN Normal NONE SEEN /RARE [facility] Comment on above: Performed By: #### C BC #### [facility] [address] [address] [address] Renata Finch MUCOUS NONE SEEN Normal NONE SEEN [facility] Comment on above: Performed By: #### C BC #### [facility] [address] [address] [address] Renata Finch RBC 20-50 Abnormal 0-[address] [facility] Comment on above: Performed By: #### C BC #### [facility] [address] [place] [address] Dr. Renata Finch WBC NONE SEEN Normal NONE SEEN [facility] Comment on above: Performed By: #### C BC #### [facility] [address] [place] [address] Dr. Renata Finch XR ABD FLAT UP_PA [...] TORIN PAREDES Date: 2022-08-02 07:02 Normal [facility] HCG ( test) IA.rapi d Ql (U)Ordered By: Sandy Camp on 05-04-2022 HCG ( test) Ql (U) Negative [facility] COVID-19 Positive/NegativeOr dered By: Sandy Camp on 05-02-2022 SARS-CoV-2 (COVID-19) N gene LORETO+probe Ql (Resp) Negative Negative [facility] Comment on above: Testing for SARS-CoV -2 by RT-PCR This test was developed and its performance characteristics determined by [employer] and validated at the [facility]. This test has not been FDA cleared [...] Amylase [Catalytic activity/Vol] 53 U/L Normal 25-115 [facility] Comment on above: Performed By: #### C BC #### [facility] [address] [place] [address] Dr. Renata Finch CBC W MANUAL DIFFon 04-29-20 22 ATYPICAL LYMPH # Normal [facility] Comment on above: Performed By: #### C BC #### [facility] [address] [place] [address] Dr. Renata Finch ATYPICAL LYMPH % Normal [facility] Comment on above: Performed By: #### C BC #### [facility] [address] [place] [address] Dr. Renata Finch BAND # Normal 0.0-0.3 [facility] Comment on above: Performed By: #### C BC #### [facility] [address] [place] [address] Dr. Renata Finch BAND % Normal 0-5 [facility] Comment on above: Performed By: #### C BC #### [facility] [address] [place] [address] Dr. Renata Finch BASOM # 0.00 103/ul Normal 0.00-0.10 [facility] Comment on above: Performed By: #### C BC #### [facility] [address] [place] [address] Dr. Renata Finch BASOM % 0.0 % Critically low 0.2-2.0 [facility] Comment on above: Performed By: #### C BC #### [facility] [address] [place] [address] Dr. Renata Finch BLAST # Normal [facility] Comment on above: Performed By: #### C BC #### [facility] [address] [place] [address] Dr. Renata Finch BLAST % Normal [facility] Comment on above: Performed By: #### C BC #### [facility] [address] [place] [address] Dr. Renata Finch CORRECTED WBC Normal 4.0-11.0 [facility] Comment on above: Performed By: #### C BC #### [facility] [address] [place] [address] Dr. Renata Finch EOS # 0.00 103/ul Normal 0.00-0.70 [facility] Comment on above: Performed By: #### C BC #### [facility] [address] [place] [address] Dr. Renata Finch EOS% 0.0 % Critically low 0.9-7.0 [facility] Comment on above: Performed By: #### C BC #### [facility] [address] [place] [address] Dr. Renata Finch HCT 40.4 % Normal 36.0-48.0 [facility] Comment on above: Performed By: #### C BC #### [facility] [address] [place] [address] Dr. Renata Finch HGB 13.0 g/dl Normal 12.0-16.0 [facility] Comment on above: Performed By: #### C BC #### [facility] [address] [address] [address] Renata Finch LYMPHM # 0.83 103/ul Critically low 1.20-3.80 [facility] Comment on above: Performed By: #### C BC #### [facility] [address] [place] [address] Dr. Renata Finch LYMPHM% 13.0 % Critically low 20.5-60.0 [facility] Comment on above: Performed By: #### C BC #### [facility] [address] [place] [address] Dr. Renata Finch MCH 26.8 pg Normal 26.7-34.0 [facility] Comment on above: Performed By: #### C BC #### [facility] [address] [place] [address] Dr. Renata Finch MCHC 32.2 g/dl Normal 29.9-35.2 [facility] Comment on above: Performed By: #### C BC #### [facility] [address] [place] [address] Dr. Renata Finch MCV 83.3 fL Normal 81.0-99.0 [facility] Comment on above: Performed By: #### C BC #### [facility] [address] [place] [address] Dr. Renata Finch METAMYELOCYTE # Normal [facility] Comment on above: Performed By: #### C BC #### [facility] [address] [place] [address] Dr. Renata Finch METAMYELOCYTE % Normal [facility] Comment on above: Performed By: #### C BC #### [facility] [address] [place] [address] Dr. Renata Finch MONOM# 0.13 103/ul Critically low 0.30-0.80 [facility] Comment on above: Performed By: #### C BC #### [facility] [address] [place] [address] Dr. Renata Finch MONOM% 2.0 % Normal 1.7-12.0 [facility] Comment on above: Performed By: #### C BC #### [facility] [address] [place] [address] Dr. Renata Finch MPV 9.7 fL Normal 9.5-13.5 [facility] Comment on above: Performed By: #### C BC #### [facility] [address] [place] [address] Dr. Renata Finch MYELOCYTE # Normal [facility] Comment on above: Performed By: #### C BC #### [facility] [address] [place] [address] Dr. Renata Finch MYELOCYTE % Normal [facility] Comment on above: Performed By: #### C BC #### [facility] [address] [place] [address] Dr. Renata Finch NRBC Normal [facility] Comment on above: Performed By: #### C BC #### [facility] [address] [place] [address] Dr. Renata Finch PLT 311 103/ul Normal 150-450 [facility] Comment on above: Performed By: #### C BC #### [facility] [address] [place] [address] Dr. Renata Finch RBC 4.85 106/ul Normal 4.20-5.40 [facility] Comment on above: Performed By: #### C BC #### [facility] [address] [place] [address] Dr. Renata Finch RDW 13.8 % Normal 11.0-15.0 [facility] Comment on above: Performed By: #### C BC #### [facility] [address] [place] [address] Dr. Renata Finch SEG # 5.44 103/ul Normal 1.40-6.50 [facility] Comment on above: Performed By: #### C BC #### [facility] [address] [place] [address] Dr. Reanta Finch SEG % 85.0 % Critically high 43.0-75.0 [facility] Comment on above: Performed By: #### C BC #### [facility] [address] [address] [address] Renata Finch WBC 6.4 103/ul Normal 4.0-11.0 [facility] Comment on above: Performed By: #### C BC #### [facility] [address] [address] [address] Renata Finch ER URINE PROFILEon 2 Bilirubin Ql (U) Negative Normal NEGATIVE [facility] Comment on above: Performed By: #### U MICRO, ERUR #### [facility] [address] [place] [address] Dr. Renata Finch Clarity (U) SL CLOUDY Abnormal CLEAR [facility] Comment on above: Performed By: #### U MICRO, ERUR #### [facility] [address] [place] [address] Dr. Renata Finch Color (U) YELLOW Normal YELLOW [facility] Comment on above: Performed By: #### U MICRO, ERUR #### [facility] [address] [place] [address] Dr. Renata Finch ERUAHD A micrscopic examination will be performed if indicated. Normal [facility] Comment on above: Performed By: #### U MICRO, ERUR #### [facility] [address] [address] [address] Renata Finch Glucose Ql (U) Negative Normal NEGATIVE [facility] Comment on above: Performed By: #### U MICRO, ERUR #### [facility] [address] [address] [address] Renata Fnich Hemoglobin Ql (U) Negative Normal NEGATIVE [facility] Comment on above: Performed By: #### U MICRO, ERUR #### [facility] [address] [place] [address] Dr. Renata Finch Ketones Ql (U) 40 mg/dl Abnormal NEGATIVE [facility] Comment on above: Performed By: #### U MICRO, ERUR #### [facility] [address] [place] [address] Dr. Renata Finch LEUKOCYTES Negative Normal NEGATIVE [facility] Comment on above: Performed By: #### U MICRO, ERUR #### [facility] [address] [address] [address] Renata Finch Nitrite Ql (U) Negative Normal NEGATIVE [facility] Comment on above: Performed By: #### U MICRO, ERUR #### [facility] [address] [address] [address] Renata Finch pH (U) 6.0 [pH] Normal 5-9 [facility] Comment on above: Performed By: #### U MICRO, ERUR #### [facility] [address] [address] [address] Renata Finch Protein (U) [Mass/Vol] 30 mg/dL Abnormal NEGATIVE/ TRACE [facility] Comment on above: Performed By: #### U MICRO, ERUR #### [facility] [address] [place] [address] Dr. Renata Finch SPEC GRAVITY >=1.030 Abnormal 1.005-<=1.025 [facility] Comment on above: Performed By: #### U MICRO, ERUR #### [facility] [address] [address] [address] Renata Finch UR MICRO IND INDICATED Normal [facility] [facility] Comment on above: Performed By: #### U MICRO, ERUR #### [facility] [address] [address] [address] Renata Finch Urobilinogen Qn (U) 0.2 {Gabrielle'U}/dL Normal 0.2 - 1. 0 [facility] Comment on above: Performed By: #### U MICRO, ERUR #### [facility] [address] [address] [address] Renata Finch LIPASEon 04-29-2022 Lipase [Catalytic activity/Vol] 58.0 U/L Critically low 73.0-393.0 [facility] Comment on above: Performed By: #### C BC #### [facility] [address] [address] [address] Renata Finch PREG HCG QUALon 04-29-2022 , QUAL Negative Normal NEGATIVE [facility] Comment on above: Performed By: #### C BC #### [facility] [address] [place] [address] Dr. Renata Finch PROF 14(COMP METB)on 022 Albumin [Mass/Vol] 3.7 g/dL Normal 3.4-5.0 [facility] Comment on above: Performed By: #### C BC #### [facility] [address] [place] [address] Dr. Renata Finch Albumin/Globulin [Mass ratio] 0.9 {ratio} Normal [facility] Comment on above: Performed By: #### C BC #### [facility] [address] [place] [address] Dr. Renata Finch ALP [Catalytic activity/Vol] 46 U/L Normal 46-116 [facility] Comment on above: Performed By: #### C BC #### [facility] [address] [place] [address] Dr. Renata Finch ALT [Catalytic activity/Vol] 22 U/L Normal 14-59 [facility] Comment on above: Performed By: #### C BC #### [facility] [address] [place] [address] Dr. Renata Finch Anion gap [Moles/Vol] 16.3 mmol/L Normal [facility] Comment on above: Performed By: #### C BC #### [facility] [address] [place] [address] Dr. Renata Finch AST [Catalytic activity/Vol] 16 U/L Normal 15-[address] [facility] Comment on above: Performed By: #### C BC #### [facility] [address] [place] [address] Dr. Renata Finch Bilirubin [Mass/Vol] 0.8 mg/dL Normal 0.2-1.0 [facility] Comment on above: Performed By: #### C BC #### [facility] [address] [place] [address] Dr. Renata Finch Calcium [Mass/Vol] 9.3 mg/dL Normal 8.5-10.1 [facility] Comment on above: Performed By: #### C BC #### [facility] [address] [address] [address] Renata Finch Chloride [Moles/Vol] 101 mmol/L Normal 98-107 [facility] Comment on above: Performed By: #### C BC #### [facility] [address] [address] [address] Renata Finch CO2 [Moles/Vol] 25.4 mmol/L Normal 21.0-32.0 [facility] Comment on above: Performed By: #### C BC #### [facility] [address] [address] [address] Renata Finch Creatinine [Mass/Vol] 0.81 mg/dL Normal 0.55-1.02 [facility] Comment on above: Performed By: #### C BC #### [facility] [address] [place] [address] Dr. Renata Finch EGFR-AF GUAMANIAN >60 Normal >=60 [facility] Comment on above: Performed By: #### C BC #### [facility] [address] [place] [address] Dr. Renata Finch EGFR-NON AF GUAMANIAN >60 Normal >=60 [facility] Comment on above: Performed By: #### C BC #### [facility] [address] [place] [address] Dr. Renata Finch Globulin (S) [Mass/Vol] 4.1 g/dL Normal [facility] Comment on above: Performed By: #### C BC #### [facility] [address] [place] [address] Dr. Renata Finch Glucose [Mass/Vol] 126 mg/dL Critically high 74-106 T [facility] Comment on above: Performed By: #### C BC #### [facility] [address] [place] [address] Dr. Renata Finch Potassium [Moles/Vol] 3.7 mmol/L Normal 3.5-5.1 [facility] Comment on above: Performed By: #### C BC #### [facility] [address] [address] [address] Renata Finch Protein [Mass/Vol] 7.8 g/dL Normal 6.4-8.2 [facility] Comment on above: Performed By: #### C BC #### [facility] [address] [address] [address] Renata Finch Sodium [Moles/Vol] 139 mmol/L Normal 136-145 [facility] Comment on above: Performed By: #### C BC #### [facility] [address] [address] [address] Renata Finch Urea nitrogen [Mass/Vol] 9.0 mg/dL Normal 6.4-19.[address] [facility] Comment on above: Performed By: #### C BC #### [facility] [address] [place] [address] Dr. Renata Finch Urea nitrogen/Creatinine [Mass ratio] 11.1 mg/mg Normal [facility] Comment on above: Performed By: #### C BC #### [facility] [address] [place] [address] Dr. Renata Finch URINE MICROSCOPIC ONLYon BACTERIA TRACE Abnormal NONE SEEN The [facility] Comment on above: Performed By: #### U MICRO, ERUR #### [facility] [address] [place] [address] Dr. Renata Finch Bacteria identified Cx Nom (U) NOT INDICATED Normal [facility] Comment on above: Performed By: #### U MICRO, ERUR #### [facility] [address] [address] [address] Renata Finch CAST NONE SEEN Normal NONE SEEN The [facility] Comment on above: Performed By: #### U MICRO, ERUR #### [facility] [address] [place] [address] Dr. Renata Finch Crystals LM Nom (Urine sed) NONE SEEN Normal NONE SEEN The [facility] Comment on above: Performed By: #### U MICRO, ERUR #### [facility] [address] [place] [address] Dr. Renata Finch Epithelial cells LM Ql (Urine sed) FEW Abnormal NONE SEEN /RARE [facility] Comment on above: Performed By: #### U MICRO, ERUR #### [facility] [address] [address] [address] Renata Finch MUCOUS TRACE Abnormal NONE SEEN The [facility] Comment on above: Performed By: #### U MICRO, ERUR #### [facility] [address] [address] [address] Renata Finch RBC 0-2 Normal 0-[address] [facility] Comment on above: Performed By: #### U MICRO, ERUR #### [facility] [address] [address] [address] Renata Finch WBC NONE SEEN Normal NONE SEEN The [facility] Comment on above: Performed By: #### U MICRO, ERUR #### [facility] [address] [address] [address] Renata Finch XR ABD FLAT UP_PA [...] SANDY KERR Date: 2022-04-29 10:52 Normal [address] [facility] CT ABD/PELV W CONon 02-13-20 [...] SANDY KERR Date: 2022-02-12 09:47 Normal [address] [facility] US SINGLE QUAD RT UPPERon US SINGLE [...] SANDY KERR Date: 2022-02-12 09:12 Normal [address] [facility] AMYLASEon 02-09-2022 Amylase [Catalytic activity/Vol] 144 U/L Critically high 25-[address] [facility] Comment on above: Performed By: #### U MICRO, ERUR #### [facility] [address] [place] [address] Dr. Renata Finch CBC AUTO DIFFon 02-09-2022 BASO # 0.0 103/ul Normal 0.0-0.1 [facility] Comment on above: Performed By: #### C BC #### [facility] [address] [address] [address] Renata Finch Basophils/100 WBC (Bld) 0.5 % Normal 0.2-2.0 [facility] Comment on above: Performed By: #### C BC #### [facility] [address] [place] [address] Dr. Renata Finch EO # 0.0 103/ul Normal 0.0-0.[address] [facility] Comment on above: Performed By: #### C BC #### [facility] [address] [place] [address] Dr. Renata Finch Eosinophils/100 WBC (Bld) 0.5 % Critically low 0.9-7.0 [facility] Comment on above: Performed By: #### C BC #### [facility] [address] [place] [address] Dr. Renata Finch Erythrocyte distribution width (RBC) [Ratio] 14.3 % Normal 11.0-15.0 [facility] Comment on above: Performed By: #### C BC #### [facility] [address] [place] [address] Dr. Renata Finch Hematocrit (Bld) [Volume fraction] 36.0 % Normal 36.0-48.0 [facility] Comment on above: Performed By: #### C BC #### [facility] [address] [place] [address] Dr. Renata Finch Hemoglobin (Bld) [Mass/Vol] 11.6 g/dL Critically low 12.0-16.0 [facility] Comment on above: Performed By: #### C BC #### [facility] [address] [place] [address] Dr. Renata Finch IG # 0.01 10e3/ul Normal 0.00-0.03 [facility] Comment on above: Performed By: #### C BC #### [facility] [address] [place] [address] Dr. Renata Finch IG % 0.2 % Normal 0.0-0.5 [facility] Comment on above: Performed By: #### C BC #### [facility] [address] [place] [address] Dr. Renata Finch LYMPH # 1.8 103/ul Normal 1.2-3.8 [facility] Comment on above: Performed By: #### C BC #### [facility] [address] [place] [address] Dr. Renata Finch Lymphocytes/100 WBC (Bld) 29.7 % Normal 20.5-60.0 [facility] Comment on above: Performed By: #### C BC #### [facility] [address] [place] [address] Dr. Renata Finch MANUAL DIFF REQ NO Normal [facility] Comment on above: Performed By: #### C BC #### [facility] [address] [place] [address] Dr. Renata Finch MCH (RBC) [Entitic mass] 27.0 pg Normal 26.7-34.0 [facility] Comment on above: Performed By: #### C BC #### [facility] [address] [place] [address] Dr. Renata Finch MCHC (RBC) [Mass/Vol] 32.2 g/dL Normal 29.9-35.2 [facility] Comment on above: Performed By: #### C BC #### [facility] [address] [place] [address] Dr. Renata Finch MCV (RBC) [Entitic vol] 83.7 fL Normal 81.0-99.0 [facility] Comment on above: Performed By: #### C BC #### [facility] [address] [place] [address] Dr. Renata Finch MONO # 0.5 103/ul Normal 0.3-0.[address] [facility] Comment on above: Performed By: #### C BC #### [facility] [address] [place] [address] Dr. Renata Finch Monocytes/100 WBC (Bld) 9.0 % Normal 1.7-12.0 [facility] Comment on above: Performed By: #### C BC #### [facility] [address] [place] [address] Dr. Renata Finch NEUT # 3.6 103/ul Normal 1.4-6.5 [facility] Comment on above: Performed By: #### C BC #### [facility] [address] [place] [address] Dr. Renata Finch Neutrophils/100 WBC (Bld) 60.1 % Normal 43.0-75.0 [facility] Comment on above: Performed By: #### C BC #### [facility] [address] [place] [address] Dr. Renata Finch Platelet mean volume (Bld) [Entitic vol] 9.6 fL Normal 9.5-13.5 [facility] Comment on above: Performed By: #### C BC #### [facility] [address] [place] [address] Dr. Renata Finch PLT 319 103/ul Normal 150-450 [facility] Comment on above: Performed By: #### C BC #### [facility] [address] [place] [address] Dr. Renata Finch RBC 4.30 106/ul Normal 4.20-5.40 [facility] Comment on above: Performed By: #### C BC #### [facility] [address] [place] [address] Dr. Renata Finch WBC 6.0 103/ul Normal 4.0-11.0 [facility] Comment on above: Performed By: #### C BC #### [facility] [address] [place] [address] Dr. Renata Finch LIPASEon 02-09-2022 Lipase [Catalytic activity/Vol] 715.0 U/L Critically high 73.0-393.0 [facility] Comment on above: Performed By: #### U MICRO, ERUR #### [facility] [address] [place] [address] Dr. Renata Finch PROF 14(COMP METB)on Albumin [Mass/Vol] 3.5 g/dL Normal 3.4-5.0 [facility] Comment on above: Performed By: #### U MICRO, ERUR #### [facility] [address] [place] [address] Dr. Renata Finch Albumin/Globulin [Mass ratio] 1.0 {ratio} Normal [facility] Comment on above: Performed By: #### U MICRO, ERUR #### [facility] [address] [address] [address] Renata Finch ALP [Catalytic activity/Vol] 48 U/L Normal 46-116 [facility] Comment on above: Performed By: #### U MICRO, ERUR #### [facility] [address] [address] [address] Renata Finch ALT [Catalytic activity/Vol] 19 U/L Normal 14-59 [facility] Comment on above: Performed By: #### U MICRO, ERUR #### [facility] [address] [address] [address] Renata Finch Anion gap [Moles/Vol] 13.0 mmol/L Normal [facility] Comment on above: Performed By: #### U MICRO, ERUR #### [facility] [address] [address] [address] Renata Finch AST [Catalytic activity/Vol] 13 U/L Critically low 15-37 [facility] Comment on above: Performed By: #### U MICRO, ERUR #### [facility] [address] [place] [address] Dr. Renata Finch Bilirubin [Mass/Vol] 0.6 mg/dL Normal 0.2-1.0 [facility] Comment on above: Performed By: #### U MICRO, ERUR #### [facility] [address] [address] [address] Renata Finch Calcium [Mass/Vol] 8.4 mg/dL Critically low 8.5-10.1 [facility] Comment on above: Performed By: #### U MICRO, ERUR #### [facility] [address] [address] [address] Renata Finch Chloride [Moles/Vol] 102 mmol/L Normal 98-107 [facility] Comment on above: Performed By: #### U MICRO, ERUR #### [facility] [address] [place] [address] Dr. Renata Finch CO2 [Moles/Vol] 26.7 mmol/L Normal 21.0-32.0 [facility] Comment on above: Performed By: #### U MICRO, ERUR #### [facility] [address] [address] [address] Renata Finch Creatinine [Mass/Vol] 0.66 mg/dL Normal 0.55-1.[address] [facility] Comment on above: Performed By: #### U MICRO, ERUR #### [facility] [address] [address] [address] Renata Finch EGFR-AF GUAMANIAN >60 Normal >=60 [facility] Comment on above: Performed By: #### U MICRO, ERUR #### [facility] [address] [address] [address] Renata Finch EGFR-NON AF GUAMANIAN >60 Normal >=[address] [facility] Comment on above: Performed By: #### U MICRO, ERUR #### [facility] [address] [address] [address] Renata Finch Globulin (S) [Mass/Vol] 3.6 g/dL Normal [facility] Comment on above: Performed By: #### U MICRO, ERUR #### [facility] [address] [address] [address] Renata Finch Glucose [Mass/Vol] 89 mg/dL Normal 74-106 [facility] Comment on above: Performed By: #### U MICRO, ERUR #### [facility] [address] [address] [address] Renata Finch Potassium [Moles/Vol] 3.7 mmol/L Normal 3.5-5.[address] [facility] Comment on above: Performed By: #### U MICRO, ERUR #### [facility] [address] [address] [address] Renata Finch Protein [Mass/Vol] 7.1 g/dL Normal 6.1-8.2 [facility] Comment on above: Performed By: #### U MICRO, ERUR #### [facility] [address] [address] [address] Renata Finch Sodium [Moles/Vol] 138 mmol/L Normal 136-145 [facility] Comment on above: Performed By: #### U MICRO, ERUR #### [facility] [address] [address] [address] Renata Finch Urea nitrogen [Mass/Vol] 7.0 mg/dL Normal 6.4-19.3 [facility] Comment on above: Performed By: #### U MICRO, ERUR #### [facility] [address] [address] [address] Renata Finch Urea nitrogen/Creatinine [Mass ratio] 10.6 mg/mg Normal [facility] Comment on above: Performed By: #### U MICRO, ERUR #### [facility] [address] [address] [address] Renata Finch Vital Signs Date Time Vital Sign Value Performing Clinician Facility 07-16-2024 13:27-0400 Body mass index (BMI) [Ratio] 36.06 kg/m2 Lisbet VALENZUELA Work Phone: [facility] 07-16-2024 13:27-0400 Body weight 88 kg Lisbet VALENZUELA Work Phone: [facility] 07-16-2024 13:27-0400 Diastolic blood pressure 70 mm[Hg] Lisbet VALENZUELA Work Phone: [facility] 07-16-2024 13:27-0400 Systolic blood pressure 118 mm[Hg] Lisbet VALENZUELA Work Phone: [facility] 10-20-2022 16:34-0500 Body weight 0 kg MARTINEZ-C Shasha Ramos Work Phone: [facility] 10-20-2022 16:30-0500 Body height 154.94 cm Joe Thomas Other [employer] Other 10-20-2022 16:30-0500 Body mass index (BMI) [Ratio] 30.04 kg/m2 Joe Thomas Other [employer] Other 10-20-2022 16:30-0500 Body weight 72.12 kg Joe Thomas Other [facility] [employer] Other 10-20-2022 16:30-0500 Diastolic blood pressure 79 mm[Hg] Joe Thomas Other [facility] [employer] Other 10-20-2022 16:30-0500 Systolic blood pressure 122 mm[Hg] Joe Thomas Other [facility] [employer] Other 05-04-2022 11:02-0400 Diastolic blood pressure 81 mm[Hg] DO Sandy Hykes Work Phone: [facility] 05-04-2022 11:02-0400 Heart rate 76 /min DO Sandy Hykes Work Phone: [facility] 05-04-2022 11:02-0400 Respiratory rate 18 /min DO Sandy Hykes Work Phone: [facility] 05-04-2022 11:02-0400 SaO2% (BldA) [Mass fraction] 100 % DO Sandy Hykes Work Phone: [facility] 05-04-2022 11:02-0400 Systolic blood pressure 116 mm[Hg] DO Sandy Hykes Work Phone: [facility] 05-04-2022 08:21-0400 Body height 154.94 cm DO Sandy Hykes Work Phone: [facility] 05-04-2022 08:21-0400 Body temperature 98.3 [degF] DO Sandy Hykes Work Phone: [facility] 05-04-2022 08:21-0400 Body weight 68.03 kg DO Sandy Hykes Work Phone: [facility] 04-27-2022 15:45-0400 Body height 154.94 cm Sandy Hykes Other [employer] Other 04-27-2022 15:45-0400 Body mass index (BMI) [Ratio] 28.72 kg/m2 Sandy Camp Other [employer] Other 04-27-2022 15:45-0400 Body weight 68.95 kg Sandy Camp Other [employer] Other Encounters Encounter Date Encounter Type Care Provider Facility Start: 07-19-2024 End: 07-19-2024 ambulatory Valentine Estrella Facility:[facility] Start: 07-16-2024 End: 07-16-2024 Office outpatient visit [...] NICOLE Facility: Start: 12-05-2022 End: 12-05-2022 ambulatory MANAGER CHINESE-C Shasha Ramos Work Phone: [facility] Work Phone: Start: 12-05-2022 End: 12-05-2022 Patient encounter procedure MANAGER CHINESE-C Shasha Ramos Work Phone: [facility] [place] Work Phone: Start: 11-10-2022 End: 11-10-2022 ambulatory Joe Thomas Other [employer] Other Start: 11-10-2022 Telephone encounter Joe Sandoval isi [facility] Start: 11-08-2022 End: 11-08-2022 ambulatory SHASHA RICHARD Facility:[facility] Start: 11-02-2022 End: 11-02-2022 Patient encounter procedure MANAGER CHINESE-C Shasha Ramos Work Phone: [facility] Work Phone: Start: 10-20-2022 End: 10-20-2022 ambulatory Joe Thomas Other [employer] Other Start: 10-20-2022 Office outpatient visit 25 minutes Joe William [facility] Start: 09-12-2022 End: 09-12-2022 ambulatory Joe Thomas Other [employer] Other Start: 09-12-2022 Telephone encounter Joe Sandoval isi [facility] Start: 08-02-2022 End: 08-02-2022 ambulatory BENI BRIA Facility:[facility] Start: 08-01-2022 End: 08-01-2022 ambulatory Joe William Other [employer] Other Start: 08-01-2022 Telephone encounter Joe Horacioajay snowden [facility] Start: 05-09-2022 End: 05-09-2022 ambulatory Sandy Camp Other [employer] Other Start: 05-09-2022 Telephone encounter Sandy Camp [facility] Start: 05-04-2022 End: 05-04-2022 Admission to same day surgery center DO Sandy Camp Work Phone: [facility] Start: 05-02-2022 End: 05-02-2022 Patient encounter procedure DO Sandy Camp Work Phone: [facility] Start: 04-29-2022 End: 04-29-2022 ambulatory SHASHAPAUL BURTONMER Facility:[facility] Start: 04-27-2022 End: 04-27-2022 ambulatory Sandy Camp Other [facility] [employer] Other Start: 04-27-2022 Office outpatient ne w 45 minutes Sandy Camp [facility] Start: 02-12-2022 End: 02-13-2022 ambulatory SHASHA RAMOS Facility:[facility] Start: 02-09-2022 End: 02-10-2022 ambulatory SHASHA RAMOS Facility:[facility] Procedures Date Procedure Procedure Detail Performing Clinician Start: 07-16-2024 Urnls dip stick/tablet rgnt non-auto w/o micrscp Lisbet VALENZUELA Work Phone: Start: 11-02-2022 Capsule endoscopy MANAGER CHINESE-C Shasha Ramos Work Phone: Start: 05-04-2022 Esophagogastroduodenoscopy DO Sandy camarena Work Phone: Plan of Treatment Date Care Activity Detail Author Start: 07-24-2024 End: 07-24-2024 Patient encounter procedure 07/24/2024 1:00 PM EDT Routine [facility] B[facility] OB [address] [place] [id number] Lisbet Rothman PA [address] [place] [address] [facility] B[facility] OB Start: 07-16-2024 End: 07-16-2025 Strep B DNA probe, amplification Strep B DNA probe, amplification Lab Routine Third trimester 35 weeks gestation of Expected: 07/16/2024 (Approximate), Expires: 07/16/2025 [facility] Work Phone: Comment on above: Expected: 07/16/2024 (Approximate), Expires: 07/16/2025 Start: 11-02-2022 [facility] Start: 05-04-2022 [facility] Work Phone: Payers Date Payer Category Payer Self-pay [id number] 2023 Medicaid [id number] 2002 Unknown [id number] 2.16.84 0.1.581431.3.579.2.593 2002 Unknown [id number] 2.16.84 0.1.667280.3.579.2.593 2002 Unknown [id number] 2.16.84 0.1.905823.3.579.2.593 2002 Unknown [id number] 2.16.84 0.1.736982.3.579.2.593 2002 Unknown [id number] 2.16.84 0.1.309471.3.579.2.593 2002 Unknown [id number] 2.16.84 0.1.234599.3.579.2.593 2002 Unknown [id number] 2.16.84 0.1.560688.3.579.2.1259 2002 Unknown [id number] 2.16.84 0.1.919670.3.579.2.1259 2002 Unknown [id number] 2.16.84 0.1.907445.3.579.2.1259 2002 Unknown [id number] 2.16.84 0.1.251465.3.579.2.1259 2002 Unknown [id number] 2.16.84 0.1.643979.3.579.2.1259 2002 Unknown [id number] 2.16.84 0.1.656905.3.579.2.1259 2002 Unknown [id number] 2.16.84 0.1.361558.3.579.2.1259 2002 Unknown [id number] 2.16.84 0.1.048109.3.579.2.1259 1959 Unknown [id number] 2. 16.840.1.646298.19 Medicaid [id number] 2.1 6.840.1.389712.19 Unknown [id number] 2.16.8 40.1.635575.3.579.2.531 Social History Date Type Detail Facility Start: 04-09-2024 Sex Assigned At N [facility] [employer] Other Start: 05-04-2022 End: 04-09-2024 Tobacco smoking status NHIS Never smoked tobacco (finding) [facility] Start: 2000 Sex Assigned At Female F [facility] Start: 04-09-2024 Tobacco use and exposure [...] of lumen evaluation Video capsule endoscopy system ()[id number] [facility] Start: 11-02-2022 Goals Date Patient Goal [...] of: BIANCA Cheema documented in this encounter [facility] 10-20-2022 Evaluation note Encounter Date Diagnosis Assessment Notes Oct, Diarrhea (ICD-10 - R19.7) Oct, Nausea & vomiting (ICD-10 - R11.2) [place] [facility] [place] [place] and stool studies done. Oct, Abdominal pain (ICD-10 - R10.9) [employer] Other 11-28-2022 Evaluation note* Encounter Date Diagnosis Assessment Notes Treatment Notes Treatment Clinical Notes Aug, LUQ abdominal pain (ICD-10 - R10.12) [employer] Other [facility]* Encounter Date Diagnosis Assessment Notes Treatment Notes Treatment Clinical Notes Apr, LUQ abdominal pain (ICD-10 - R10.12) START TRIAL OF CARAFATE 1 GRAM TID EGD/ COLONOSCOPY Apr, Nausea & vomiting (ICD-10 - R11.2) Apr, Diarrhea (ICD-10 - R19.7) Apr, Weight loss (ICD-10 - R63.4) [employer] Other Evaluation note* Diagnosis Onset Date Resolution Status Abdominal pain acute Diarrhea acute Nausea and vomiting acute [facility] Work Phone: Evaluation noteNo InformationNort [employer] Other Evaluation noteNo assessment information available [facility] Work Phone: Evaluation note* Diagnosis Third trimester state, incidental 35 weeks gestation of documented in this encounter [facility] Author Sandy Camp [facility] May 04, 2022 10:08am Note Date/Time May 04, 2022 10:0 4am [facility] [address] [place] [address] Gastroenterology H&P Signed Patient: Marlin Hewitt MR#: [id number] : 2000 Acct:[id number] Age/Sex: 21 / F Adm Date: 2 Loc: Room: Type: [facility] Attending Dr: Sandy Camp DO Copies to: [...] by Sandy Camp Jr, DO> 05/04/22 1008 [facility] Work Phone: History general Narrative - Reported* Type Description Date Medical History [facility] [employer] Other Chief Complaint and Reason for Visit [...] Active Member Role Status Dates Shasha Ramos MANAGER CHINESE-C Primary Care Provider Active Team Status: Inactive Member Role Status Dates Shasha Ramos NP-C Primary Care Provider Active Joe Thomas MD Attending Provider Active Marketing Content Specialist Relationship Specialty Start Date End Date Shawn Linton MD [address] [place] [id number] PCP - General Family Medicine 02/02/24 INFORMATION SOURCE (unrecogn ized section and content) DATE CREATED AUTHOR 02/02/2023 [facility] DATE CREATED AUTHOR AUTHOR'S ORGANIZ ATION 07/18/2024 [facility] DATE CREATED AUTHOR AUTHOR'S ORGANIZ ATION 07/21/2024 [facility] FOR RECORDS PERTAINING TO PATIENTS [...] BE BASED ON THE PRIMARY CLINICAL RECORDS. [facility] provides no warranty or guarantee of the accuracy or completeness of information in this document.
[2024-07-23 16:02] VITALS: BP 109/71; PULSE 65; TEMP 37.1; O2SAT 98
--- NOTE | 2024-07-23 16:02 | PC.NURSE ---
Andrew Isaac (FOB) and 5 day old Sheldon arrive for follow up. Parents state tired, but doing well Marlin denies concerns for self as she feels she is recovering well. VSS and assessment WNL. Has tried pumping, obtaining 3 oz X1 and 2 oz X 1. refused latch earlier today and she bottle fed him 1 oz of milk at 2 different feedings. Worried he will not latch. Reassurance given and will work on latching this afternoon. Baby Sheldon slightly jaundiced (11.2 transcutaneous) with VSS and assessment WNL. Baby is alert and rooting for feed. Parents states he nurses every 2 hours as he needs wakened to feed. Is sometimes sleepy and difficult to keep interested in feed. Baby is at 9.3% weight loss on day 5 this evening. Discussed tips to wake and keep baby awake for feeds. Today [place] to breast in football hold per mom's choice. shallow latching and poor positioning noted for 36 week . Reviewed better positioning and deeper latch and benefits for both. Parents verbalized understanding. Infant feeds 12 min left breast,. Burped and returned to left breast. Mom has independent latch and noted is deeper with increased sucking and swallowing for . Mom states will continue to latch deeper as is more comfortable for her and Sheldon. Pt to return 07/30/2024 for weight check and progress check. Aware to call for needs and of [facility]OM[facility] group. Family leaves ambulatory for home.
== END 2024-07-23 15:45 | disposition home or self-care (01) ==
LOC: FBCO 08:41
PROVIDERS: PCP Nurse Practitioner Family; Visit Provider Obstetrics & Gynecology
DX: Z39.1 Encounter for care and examination of lactating mother (principal)